=== PATIENT | female | born 1970 | race Caucasian/White ===

== ENCOUNTER → 2022-06-09 | Outpatient (CLI) | payer BC, SELFPAY ==
[2022-06-09 17:34] LABS: Erythrocyte Sedimentation Rate 10 mm/hr (0-30)
[2022-06-09 17:36] LABS: Absolute Lymphocyte Count 2.75 X10^3/uL (0.83-4.51); Absolute Neutrophil Count 5.1 X10^3/uL (2.0-7.7); Basophil# 0.02 X10^3/uL; Basophil% 0.2 % (0-1); Eosinophil# 0.16 X10^3/uL; Eosinophils% 1.8 % (0-5); Hematocrit 43.4 % (37-47); Hemoglobin 14.6 g/dL (12.0-15.0); Lymphocyte # 2.75 X10^3/ul (0.83-4.51); Lymphocyte % 31.2 % (19-41); Mean Corp Hgb Conc 33.6 g/dL (32-36); Mean Corpuscular Hgb 30.7 pg (27.0-32.0); Mean Corpuscular Volume 91.4 fL (81-99); Mean Platelet Vol. 10.2 fl (6.2-12.0); Monocyte# 0.75 X10^3/uL; Monocyte% 8.5 % (0-10); NRBC Flagged by Analyzer 0 % (0-5); Neutrophil # 5.13 X10^3/uL (2.7-7.7); Neutrophil % 58.2 % (47-70); Platelet Count 283 K/mm3 (150-450); RBC Distribution Width CV 10.9 % (11.6-14.6); RBC Distribution Width SD 36.6 fl (35.1-43.9); Red Blood Count 4.75 M/mm3 (4.2-5.4); White Blood Count 8.8 K/mm3 (4.4-11.0)
[2022-06-09 18:04] LABS: AST(SGOT) 24 U/L (15-37); Alanine Aminotransfer ALT/SGPT 22 U/L (13-56); Albumin, Serum 3.8 g/dL (3.2-5.0); Alkaline Phosphatase 75 U/L (45-117); Anion Gap 6 (5-15); BUN 17 mg/dL (7-18); BUN/Creat Ratio 22.9 RATIO (10-20); Chloride 107 mmol/L (98-107); Creatinine, Serum 0.74 mg/dL (0.55-1.02); EST Glomerular Filtration Rate 86 mL/min (>60); Est Glom Filt Rate - Afr Amer 105 mL/min (>60); Globulin 3.8 g/dL (2.2-4.2); Glucose 82 mg/dL (74-106); LDH 185 U/L (84-246); Potassium 3.8 mmol/L (3.5-5.1); Protein, Total 7.6 g/dL (6.4-8.2); Sodium Level 140 mmol/L (136-145)
[2022-06-11 13:07] LABS: Anti-Centromere B Ab <0.2 AI (0.0-0.9); Anti-Chromatin <0.2 AI (0.0-0.9); Anti-Jo <0.2 AI (0.0-0.9); Anti-Scleroderma-70 AB <0.2 AI (0.0-0.9); RNP Ab 0.3 AI (0.0-0.9); SJOGREN'S Anti-SS-A test < 0.2 AI (0.0-0.9); SJOGREN'S Anti-SS-B test < 0.2 AI (0.0-0.9); Smith Ab <0.2 AI (0.0-0.9)
[2022-06-11 13:15] LABS: Anti-dsDNA Ab 25 IU/mL (0-9)
[2022-06-11 15:08] LABS: Endomysial Antibody IgA Negative (Negative)
[2022-06-12 14:24] LABS: Immunoglobulin A 218 mg/dL (87-352); t-Transglutaminase IgA <2 U/mL (0-3)
[2022-06-20 00:06] LABS: Albumin 4.2 g/dL (2.9-4.4); Alpha-1-Globulins 0.3 g/dL (0.0-0.4); Alpha-2-Globulins 0.7 g/dL (0.4-1.0); Cytoplasmic Ab (C-ANCA) <1:20 titer (Neg:<1:20); Gamma Globulin 1.1 g/dL (0.4-1.8); Immunoglobulin A 228 mg/dL (87-352); Immunoglobulin E 37 IU/mL (6-495); Immunoglobulin G 1037 mg/dL (586-1602); Immunoglobulin M 210 mg/dL (26-217); PROEL- TOTAL PROTEIN 7.4 g/dL (6.0-8.5)
[2022-06-20 08:57] LABS: Perinuclear Ab (P-ANCA) <1:20 titer (Neg:<1:20)
== END | disposition home or self-care (01) ==
PROVIDERS: PCP Family Medicine; Referring Provider Internal Medicine Gastroenterology; Visit Provider Internal Medicine Gastroenterology
DX: R19.7 Diarrhea, unspecified (principal)
CPT/HCPCS: 36415; 80053; 82784; 82785; 83516; 83615; 84165; 85025; 85652; 86140; 86225; 86235; 86255; 86256; 86334

== ENCOUNTER → 2022-06-13 | Outpatient (CLI) | payer BC, SELFPAY ==
[2022-06-17 09:30] LABS: Calprotectin, Stool <16 ug/g (0-120)
[2022-06-18 13:07] LABS: 5-HIAA, 24UR 4.8 mg/24 hr (0.0-14.9)
[2022-06-18 17:27] LABS: 5-HIAA, UR 3.4 mg/L (Undefined); Pancreatic Elastase, Fecal 454 (>200)
== END | disposition home or self-care (01) ==
PROVIDERS: PCP Family Medicine; Visit Provider Internal Medicine Gastroenterology
DX: R19.7 Diarrhea, unspecified (principal)
CPT/HCPCS: 81050; 82653; 83497; 83630; 83993; 87493

== ENCOUNTER 2022-08-11 06:07 | Day surgery (SDC) | payer BC, SELFPAY ==
[2022-08-11] VITALS (7 sets, daily range): BP systolic 100–121; BP diastolic 70–98; PULSE 69–87; RESP 14–16; TEMP 36.2–36.7; O2SAT 99–100; BMI 21.2
[2022-08-11] MEDS: Lactated Ringers 1,000 ML 15 ML IV (06:35)
--- NOTE | 2022-08-11 07:12 | PCM.HP.BLA ---
History and Physical Date of Admission: 08/11/22 HONG SNOW, is a 52 F who presents to the office today for evaluation of chronic diarrhea.? She says that she has had chronic diarrhea ever since she had a COVID infection approximately 10 months ago.? Ever since then she has had multiple episodes of loose stools from 6-20 a day.? She says she is totally changed her diet and has been eating all organic without gluten or any preservatives.? She says she still gets profuse watery diarrhea multiple times a day.? She did have stool testing for C. difficile was subsequently negative.? She has lost some weight but it has balanced itself out.? She has been staying hydrated with filtered water.? She denies any sick contacts.? She denies any chest pain or shortness of breath.? She denies any rash.? She denies any? arthritis but does complain of some arthralgia in her back. ROS Const Constitutional: No anorexia, fatigue, fever(s), weight change or sleep problems Eyes Eyes: No change in vision ENT ENT: No abnormal hearing, difficulty swallowing, mouth lesions, tongue swelling or throat swelling Resp Respiratory: No cough or shortness of breath Cardio Cardiology: No chest pain at rest, chest pain with exertion, shortness of breath or dyspnea on exertion Gastro GI: Positive for abdominal pain, bloating and diarrhea; No difficulty swallowing Genitourinary-Female: No difficulty urinating or burning urination Musc Musculoskeletal: No joint pain, joint swelling, muscle weakness or decreased muscle mass Skin Skin: No hair loss in leg, yellowing of the eye, itchy eyes, rash, skin ulcer or skin swelling Neuro Neurology: No abnormal hearing, abnormal movements, confusion, unsteady gait/balance or memory loss Psych Psychiatric: No anxiety, No confusion and No memory loss Endo Endocrine: No fatigue or weight change Aller/Imm Allergy/Immunologic: No itchy eyes, throat swelling or tongue swelling Josiah/Lymp Hematologic/Lymphatic: No easy bleeding, easy bruising or enlarged lymph nodes Exam Const General: cooperative and comfortable Nutritional Appearance: average body habitus and well nourished HENMT Head: normal to inspection Ears: hearing grossly normal bilaterally Nose: external nose normal Face and sinus: normal facial exam Mouth: oral mucosae normal Throat: posterior oropharynx normal Eyes General: appearance normal, both eyes and all related structures Neck Neck: normal visual inspection Chest Chest palpation & inspection: normal inspection of the chest and normal palpation of entire chest wall Resp Effort & Inspection: normal respiratory effort Auscultation: Bilateral: Clear to Auscultation Cardio Palpation: normal PMI Rate: regular rate Rhythm: regular rhythm GI Inspection: normal to inspection Auscultation: normal bowel sounds Percussion: normal to percussion Palpation: no hepatosplenomegaly Skin General: no rashes or lesions noted Neuro General: patient alert Extrem General: normal to inspection Psych Affect: normal affect Assessment and Plan Assessment and Plan (1) Diarrhea: ?Status:?Acute ?Plan: ?Diarrhea is a common term used to describe loose/watery stools which occur three or more times within 24 hours. For diarrhea to be considered chronic, symptoms must be ongoing for four or more weeks. She has been having diarrhea for the last 8 months after having COVID.? ?Virtually all patients will experience diarrhea at some point in time, and the definition of diarrhea will vary from patient to patient.?Most patients will use the term diarrhea to describe loose or watery stools, regardless of the frequency. The exact etiology of chronic diarrhea is quite broad as there are many different causes. ?Any process which causes increased water into the stool can produce diarrhea. These typically categorize into inflammatory and secretory diarrhea. ?The prevalence of the different causes will vary depending on the socioeconomic status of the individual. Individuals in a lower socioeconomic status will be more likely to have chronic bacterial, mycobacterial, and parasitic infections causing, whereas mid to high socioeconomic status individuals with chronic diarrhea are more likely to be afflicted with irritable bowel syndrome, inflammatory bowel disease, and malabsorption syndromes. Biochemical testing include therapy, ESR, CBC with differential, CODY comprehensive,, celiac profile, immunoglobulins G, A, M, E, immunofixation, urine chromogranin a, 5 HIAA.? She will also get stool testing for fecal calprotectin, C. difficile, stool lactoferrin, pancreatic elastase.? If those things are negative then should undergo an EGD and colonoscopy to evaluate upper lower GI tract and possible capsule endoscopy. This consultation took 35-minutes. ? ? ? Orders: Orders Comprehensive Metabolic Profil Today R19.7 - Diarrhea, unspecified ? CRP Today R19.7 - Diarrhea, unspecified ? LDH Today R19.7 - Diarrhea, unspecified ? CBC W/Diff, Automated Today R19.7 - Diarrhea, unspecified ? Erythrocyte Sed Rate Today R19.7 - Diarrhea, unspecified ? CODY Comprehensive Panel Today R19.7 - Diarrhea, unspecified ? Calprotectin, Stool Today R19.7 - Diarrhea, unspecified ? CDIFF (PCR) Today R19.7 - Diarrhea, unspecified ? Stool Lactoferrin/WBC Today R19.7 - Diarrhea, unspecified ? ANCA Today R19.7 - Diarrhea, unspecified ? Celiac Disease Profile Today R19.7 - Diarrhea, unspecified ? Immunoglobulins G/A/M/E Today R19.7 - Diarrhea, unspecified ? ISABEL + Protein Elect, Serum Today R19.7 - Diarrhea, unspecified ? Pancreatic Elastase, Fecal Today R19.7 - Diarrhea, unspecified ? Miscellaneous Lab Procedure Today R19.7 - Diarrhea, unspecified ? Miscellaneous Lab Procedure 2 Today R19.7 - Diarrhea, unspecified ? 5-HIAA 24 HR UR Today R19.7 - Diarrhea, unspecified ? I have re-examined the patient. There are no clinical changes since date of exam.
--- NOTE | 2022-08-11 07:15 | COLBX_PTH ---
PATIENT: HONG SNOW LOC: EN U#:[id number] AGE/SX: 52/F ROOM: RE08/11/[address]: Dr. Jared Self DO : 1970 BED: DIS: 08/11/2022 SPEC #: [id number] RECD: 08/11/22 09:55 STATUS: MATILDA RELilliana #: [id number] GABRIELA: 08/11/22 07:[address]: Jared Slef DEPT: SURGICAL PATHOLOGY RECD BY: Ana Mora ENTERED: 08/11/22 11:13 SP TYPE: COLON BX OTHR DR: Rissa Tran PA-C Tissues: A - Duodenum, NOS B - Pylorus C - Ileum, NOS D - COLON BIOPSY E - Rectum, NOS Procedures: Surgery Specimen Level IV HEADER OPERATION: Colonoscopy, EGD [place] [place] PRE-OP DIAGNOSIS: Diarrhea TISSUE SUBMITTED: A ? Duodenum biopsy, B ? Pyloric sphincter biopsy, C ? Terminal ileum biopsy, D ? Random colon biopsy, E ? Rectum biopsy MICROSCOPIC DIAGNOSIS A. Duodenum, biopsy: Gastric metaplasia. B. Pyloric sphincter, biopsy: Fragments of gastric mucosa with mild chronic inflammation. C. Terminal ileum, biopsy: No pathologic change. D. Colon, random biopsy: No pathologic change. E. Rectum, biopsy: No pathologic change. AM:jono 08/12/2022 MICROSCOPIC DESCRIPTION Slides are reviewed. GROSS DESCRIPTION A - Received in fixative is one container labeled with the patient's name and designated duodenum biopsy. The specimen consists of multiple irregular fragments of light blount soft tissue that in aggregate measure 1 x 0.8 x 0.1 cm. The specimen is totally submitted in one cassette. B - Received in fixative is one container labeled with the patient's name and designated pyloric sphincter biopsy. The specimen consists of two irregular fragments of light blount soft tissue that in aggregate measure 0.3 x 0.3 x 0.1 cm. The specimen is totally submitted in one cassette. C - Received in fixative is one container labeled with the patient's name and designated terminal ileum biopsy. The specimen consists of one irregular fragment of light blount soft tissue that measures 0.3 x 0.3 x 0.1 cm. The specimen is totally submitted in one cassette. D - Received in fixative is one container labeled with the patient's name and designated random colon biopsy. The specimen consists of multiple irregular fragments of light blount soft tissue that in aggregate measure 1.5 x 0.5 x 0.1 cm. The specimen is totally submitted in one cassette. E - Received in fixative is one container labeled with the patient's name and designated rectum biopsy. The specimen consists of two irregular fragments of light blount soft tissue that in aggregate measure 1 x 0.5 x 0.1 cm. The specimen is totally submitted in one cassette. / AM:jono 08/11/2022 TC:3 CPT: 04468 x5
--- NOTE | 2022-08-11 08:00 | OP.EGD_ITS ---
Patient Name: Nisreen Howard Procedure Date: 08/11/2022 7:18 AM Date of : 1970 Age: 52 Procedure: Upper GI endoscopy Indications: Epigastric abdominal pain, Failure to respond to medical treatment Providers: Jared Self DO Medicines: Monitored Anesthesia Care Patient Profile: This is a 52 year old female. Refer to note in patient chart for documentation of history and physical. Patient has symptoms of chronic abdominal cramping, chronic global abdominal pain and chronic dyspepsia. Complications: No immediate complications. Procedure: Pre-Anesthesia Assessment: - Prior to the procedure, a History and Physical was performed, and patient medications and allergies were reviewed. The risks and benefits of the procedure and the sedation options and risks were discussed with the patient. All questions were answered and informed consent was obtained. Patient identification and proposed procedure were verified by the physician in the pre-procedure area. Mental Status Examination: alert and oriented. Airway Examination: normal oropharyngeal airway and neck mobility. Respiratory Examination: clear to auscultation. CV Examination: normal. Prophylactic Antibiotics: The patient does not require prophylactic antibiotics. Prior Anticoagulants: The patient has taken no previous anticoagulant or antiplatelet agents. ASA Grade Assessment: II - A patient with mild systemic disease. After reviewing the risks and benefits, the patient was deemed in satisfactory condition to undergo the procedure. The anesthesia plan was to use monitored anesthesia care (MAC). Immediately prior to administration of medications, the patient was re-assessed for adequacy to receive sedatives. The heart rate, respiratory rate, oxygen saturations, blood pressure, adequacy of pulmonary ventilation, and response to care were monitored throughout the procedure. The physical status of the patient was re-assessed after the procedure. After obtaining informed consent, the endoscope was passed under direct vision. Throughout the procedure, the patient's blood pressure, pulse, and oxygen saturations were monitored continuously. The Colonoscope was introduced through the mouth, and advanced to the second part of duodenum. The upper GI endoscopy was accomplished without difficulty. The patient tolerated the procedure well. Scope In: 7:30:02 AM Scope Out: 7:35:12 AM Total Procedure Duration Time 0 hours 5 minutes 10 seconds Findings: The examined esophagus was normal. A benign-appearing, intrinsic moderate stenosis was found at the pylorus. This was traversed. Biopsies were taken with a cold forceps for histology. Verification of patient identification for the specimen was done. Estimated blood loss was minimal. Patchy mildly erythematous mucosa without active bleeding and with no stigmata of bleeding was found in the duodenal bulb. Impression: - Normal esophagus. - Gastric stenosis was found at the pylorus. Biopsied. - Erythematous duodenopathy. Recommendation: - Discharge patient to home. - Resume previous diet. - Continue present medications. - Await pathology results. - Repeat upper endoscopy for surveillance. Procedure Code(s): --- Professional --- 66873, Esophagogastroduodenoscopy, flexible, transoral; with biopsy, single or multiple CPT copyright 2017 [employer]. All rights reserved. The codes documented in this report are preliminary and upon nuisance wildlife specialist review may be revised to meet current compliance requirements. Jared Self DO 08/11/2022 7:59:53 AM This report has been signed electronically. Number of Addenda: 0 Note Initiated On: 08/11/2022 7:18 AM
--- NOTE | 2022-08-11 08:00 | OP.CCLET_ITS ---
08/11/2022 Rissa Tran Re : Upper GI endoscopy procedure for Nisreen Tran This procedure was performed on Thursday, August 11, 2022. My impressions and recommendations are as follows: Impressions : - Normal esophagus. - Gastric stenosis was found at the pylorus. Biopsied. - Erythematous duodenopathy. Recommendations : - Discharge patient to home. - Resume previous diet. - Continue present medications. - Await pathology results. - Repeat upper endoscopy for surveillance. My findings are described in the full procedure note, which is enclosed. If I can be of further assistance, please feel free to contact me at . Sincerely, Jared Self, 08/11/2022 7:59:53 AM This report has been signed electronically.
--- NOTE | 2022-08-11 08:06 | OP.COLON_ITS ---
Patient Name: Nisreen Howard Procedure Date: 08/11/2022 7:35 AM Date of : 1970 Age: 52 Procedure: Colonoscopy Indications: Clinically significant diarrhea of unexplained origin Providers: Jared Self DO Medicines: Monitored Anesthesia Care Patient Profile: This is a 52 year old female. Refer to note in patient chart for documentation of history and physical. Patient has symptoms of chronic abdominal cramping, chronic global abdominal pain and chronic dyspepsia. Last Colonoscopy: 5 years ago. Complications: No immediate complications. Procedure: Pre-Anesthesia Assessment: - Prior to the procedure, a History and Physical was performed, and patient medications and allergies were reviewed. The risks and benefits of the procedure and the sedation options and risks were discussed with the patient. All questions were answered and informed consent was obtained. Patient identification and proposed procedure were verified by the physician in the pre-procedure area. Mental Status Examination: alert and oriented. Airway Examination: normal oropharyngeal airway and neck mobility. Respiratory Examination: clear to auscultation. CV Examination: normal. Prophylactic Antibiotics: The patient does not require prophylactic antibiotics. Prior Anticoagulants: The patient has taken no previous anticoagulant or antiplatelet agents. ASA Grade Assessment: II - A patient with mild systemic disease. After reviewing the risks and benefits, the patient was deemed in satisfactory condition to undergo the procedure. The anesthesia plan was to use monitored anesthesia care (MAC). Immediately prior to administration of medications, the patient was re-assessed for adequacy to receive sedatives. The heart rate, respiratory rate, oxygen saturations, blood pressure, adequacy of pulmonary ventilation, and response to care were monitored throughout the procedure. The physical status of the patient was re-assessed after the procedure. After I obtained informed consent, the scope was passed under direct vision. Throughout the procedure, the patient's blood pressure, pulse, and oxygen saturations were monitored continuously. The pediatric colonoscope was introduced through the anus and advanced to the terminal ileum. The colonoscopy was performed without difficulty. The patient tolerated the procedure well. The quality of the bowel preparation was good. Scope In: 7:37:11 AM Scope Out: 7:52:22 AM Total Procedure Duration Time 0 hours 15 minutes 11 seconds Findings: The perianal exam was abnormal and the fact that there was poor rectal tone. An area of mildly congested mucosa was found in the sigmoid colon, in the descending colon, in the transverse colon and at the hepatic flexure. Biopsies were taken with a cold forceps for histology. Verification of patient identification for the specimen was done. Estimated blood loss was minimal. Patchy mild inflammation characterized by erythema was found in the rectum. Biopsies were taken with a cold forceps for histology. Verification of patient identification for the specimen was done. Estimated blood loss was minimal. The terminal ileum appeared normal. Biopsies were taken with a cold forceps for histology. Verification of patient identification for the specimen was done. Estimated blood loss was minimal. Impression: - Abnormal perianal exam. - Congested mucosa in the sigmoid colon, in the descending colon, in the transverse colon and at the hepatic flexure. Biopsied. - Patchy mild inflammation was found in the rectum secondary to proctitis. Biopsied. - The examined portion of the ileum was normal. Biopsied. Recommendation: - Discharge patient to home. - Resume previous diet. - Continue present medications. - Await pathology results. - Repeat colonoscopy in 5 years for surveillance. Procedure Code(s): --- Professional --- 98253, Colonoscopy, flexible; with biopsy, single or multiple CPT copyright 2017 [employer]. All rights reserved. The codes documented in this report are preliminary and upon drier transfer car operator review may be revised to meet current compliance requirements. Jared Self DO 08/11/2022 8:05:49 AM This report has been signed electronically. Number of Addenda: 0 Note Initiated On: 08/11/2022 7:35 AM
--- NOTE | 2022-08-11 08:06 | OP.CCLET_ITS ---
08/11/2022 Rissa Tran Re : Colonoscopy procedure for Nisreen Mcmahonr [place] This procedure was performed on Thursday, August 11, 2022. My impressions and recommendations are as follows: Impressions : - Abnormal perianal exam. - Congested mucosa in the sigmoid colon, in the descending colon, in the transverse colon and at the hepatic flexure. Biopsied. - Patchy mild inflammation was found in the rectum secondary to proctitis. Biopsied. - The examined portion of the ileum was normal. Biopsied. Recommendations : - Discharge patient to home. - Resume previous diet. - Continue present medications. - Await pathology results. - Repeat colonoscopy in 5 years for surveillance. My findings are described in the full procedure note, which is enclosed. If I can be of further assistance, please feel free to contact me at . Sincerely, Jared Self, 08/11/2022 8:05:49 AM This report has been signed electronically.
== END 2022-08-11 08:46 | disposition home or self-care (01) ==
LOC: EN 06:13 → AC 06:13
PROVIDERS: PCP Family Medicine; Referring Provider Family Medicine; Visit Provider Internal Medicine Gastroenterology
PROC: 0DJD8ZZ Inspection of Lower Intestinal Tract, Via Natural or Artificial Opening Endoscopic (ICD-10-PCS; CPT 45378; principal; 2022-08-11 07:10)
DX: K31.A0 Gastric intestinal metaplasia, unspecified (principal); K31.1 Adult hypertrophic pyloric stenosis; K63.89 Other specified diseases of intestine; K62.89 Other specified diseases of anus and rectum; J45.909 Unspecified asthma, uncomplicated; Z86.73 Personal history of transient ischemic attack (TIA), and cerebral infarction without residual deficits; Z86.16 Personal history of COVID-19
CPT/HCPCS: 45380; 43239; 88305; J7120; J2405

== ENCOUNTER → 2022-12-15 | Outpatient (CLI) | payer BC, SELFPAY ==
[2022-12-15 12:57] LABS: Erythrocyte Sedimentation Rate 5 mm/hr (0-30)
[2022-12-15 13:14] LABS: CRP 4.86 mg/L (0.0-3.0)
[2022-12-16 13:08] LABS: Anti-Centromere B Ab <0.2 AI (0.0-0.9); Anti-Chromatin <0.2 AI (0.0-0.9); Anti-Jo <0.2 AI (0.0-0.9); Anti-Scleroderma-70 AB <0.2 AI (0.0-0.9); RNP Ab 0.3 AI (0.0-0.9); SJOGREN'S Anti-SS-A test < 0.2 AI (0.0-0.9); SJOGREN'S Anti-SS-B test < 0.2 AI (0.0-0.9); Smith Ab <0.2 AI (0.0-0.9)
[2022-12-16 22:57] LABS: Anti-dsDNA Ab 30 IU/mL (0-9)
== END | disposition home or self-care (01) ==
LOC: LAB 11:53
PROVIDERS: PCP Family Medicine; Referring Provider Internal Medicine Gastroenterology; Visit Provider Internal Medicine Gastroenterology
DX: R19.7 Diarrhea, unspecified (principal)
CPT/HCPCS: 36415; 85652; 86140; 86225; 86235

== ENCOUNTER → 2023-11-23 | Outpatient (CLI) | payer BC, SELFPAY ==
[2023-11-23 15:22] LABS: Erythrocyte Sedimentation Rate 7 mm/hr (0-30)
[2023-11-23 15:40] LABS: Amylase 65 U/L (25-115); CRP < 2.90 mg/L (0.0-3.0); Lipase 66 U/L (13-75)
[2023-11-25 18:07] LABS: Aldolase 6.2 U/L (3.3-10.3); Angiotensin Convert Enzyme 45 U/L (14-82)
[2023-11-29 12:09] LABS: Beef <0.10 kU/L (Class 0); Chocolate <0.10 kU/L (Class 0); Codfish <0.10 kU/L (Class 0); Corn <0.10 kU/L (Class 0); Egg, Whole <0.10 kU/L (Class 0); Milk (Cow) <0.10 kU/L (Class 0); Mussels <0.10 kU/L (Class 0); Peanut <0.10 kU/L (Class 0); Pork <0.10 kU/L (Class 0); Salmon <0.10 kU/L (Class 0); Shrimp <0.10 kU/L (Class 0); Soybean <0.10 kU/L (Class 0); Tuna <0.10 kU/L (Class 0); Wheat <0.10 kU/L (Class 0)
== END | disposition home or self-care (01) ==
PROVIDERS: PCP Family Medicine; Referring Provider Internal Medicine Gastroenterology; Visit Provider Internal Medicine Gastroenterology
DX: K58.0 Irritable bowel syndrome with diarrhea (principal); R19.7 Diarrhea, unspecified; M19.90 Unspecified osteoarthritis, unspecified site
CPT/HCPCS: 36415; 82085; 82150; 82164; 83690; 85652; 86003; 86005; 86140

== ENCOUNTER → 2024-08-06 | Outpatient (CLI) | payer BC, SELFPAY ==
[2024-08-06 14:32] LABS: Erythrocyte Sedimentation Rate 4 mm/hr (0-30)
[2024-08-06 14:44] LABS: CRP 8.54 mg/L (0.0-3.0); Estradiol 55.1 pg/mL; Luteinizing Hormone 21.4 mIU/mL
== END | disposition home or self-care (01) ==
LOC: LAB 13:46
PROVIDERS: PCP Family Medicine; Referring Provider Internal Medicine Gastroenterology; Visit Provider Internal Medicine Gastroenterology
DX: R19.7 Diarrhea, unspecified (principal)
CPT/HCPCS: 36415; 82670; 83002; 85652; 86140

== ENCOUNTER → 2024-12-31 | Outpatient (CLI) | payer BC, SELFPAY ==
--- NOTE | 2024-12-31 07:49 | US_ITS ---
PROCEDURE: ABD LIMITED W/ ELASTOGRAPHY (USABDLELPARO), 12/31/2024 REASON FOR EXAM: Elevated liver enzymes. COMPARISON: None TECHNIQUE: Grayscale and color Doppler imaging of the right upper quadrant was performed. [employer] S-shear wave elastography was performed for non-invasive assessment of liver tissue stiffness. FINDINGS: Liver: Unremarkable. 13.3 cm in length. Gallbladder: Unremarkable. Reportedly, sonographic Gastelum's was negative. Biliary tree: Unremarkable. CBD measures 2 mm. Pancreas: Partially obscured by shadowing bowel gas, grossly unremarkable as visualized. Right kidney: Unremarkable. 10.9 cm in length. Spleen: Unremarkable. 9.1 cm in greatest dimension. Other: No visualized free fluid. Hepatic elastography: EQI median: 8.3kPa EQI median velocity: 1.67 m/s IQR/Med: 19.3% (kPa), 10.2 % (m/sec) (if the IQR/Med is IQR/median >30% (for kPa) or >15% in m/s, the variance in the measurements is a large and the accuracy of the measurement may be in question) US/ABD Limited w/ Elastography IMPRESSION: 1. Echogenic appearance of the hepatic parenchyma, typically associated with he patic steatosis although this may also be seen in early fibrosis/cirrhosis. Correlate with clinical laboratory evidence of chron ic liver disease. No biliary dilatation. 2. Per the below 2020 SRU criteria, US elastography findings (liver stiffness 8 .3 kPa) rule out compensated advanced chronic liver disease (cACLD) in the absence of other known clinical signs. If there ar e known clinical signs, further testing may be needed for confirmation. Note per the below, in some patients with NAFLD, the cutoff values for cACLD may be lower (7-9 kPa). 3. Additional description as above. Assessment is per the Update to the SRU Liver Elastography Consensus Statement (2020) Note that the above assessment of liver fibrosis is vendor-neutral and intended for use in fibrosis related to viral etiologies and non-alcoholic fatty-liver disease (NAFLD); in causes other than viral hepat itis and NAFLD, the cutoff values are currently not well established. In some patients with NAFLD, the cutoff values for cACLD may be lower (7-9 kPa). Note also that in the setting of elevated LFTs, nonfasting or vascular congestion, the stage of lifer fibrosis may be overestimated. Previous SRU reference values: <1.37 m/s (5.7kPa): No to mild fibrosis 1.37 m/s - 2.2 m/s: Moderate to severe fibrosis >2.2 m/s (15kPa): Significant fibrosis / cirrhosis Reading Location: [id number]
== END | disposition home or self-care (01) ==
LOC: US 07:49
PROVIDERS: PCP Family Medicine; Referring Provider Internal Medicine; Visit Provider Internal Medicine
DX: R74.8 Abnormal levels of other serum enzymes (principal); R19.7 Diarrhea, unspecified; K58.0 Irritable bowel syndrome with diarrhea
CPT/HCPCS: 76705; 76981

== ENCOUNTER → 2025-02-14 | Outpatient (CLI) | payer BC, SELFPAY ==
[2025-02-14 13:13] LABS: Bacteria 0 SEEN /hpf (None Seen); Mucous, Urine 0 SEEN /hpf (<or=2+); Red Blood Cells-Urine 0 SEEN /hpf (0-5)
[2025-02-14 13:20] LABS: Absolute Lymphocyte Count 1.81 X10^3/uL (0.83-4.51); Absolute Neutrophil Count 4.3 X10^3/uL (2.0-7.7); Basophil# 0.02 X10^3/uL; Basophil% 0.3 % (0-1); Eosinophil# 0.12 X10^3/uL; Eosinophils% 1.7 % (0-5); Hematocrit 41.5 % (37-47); Hemoglobin 14.3 g/dL (12.0-15.0); Lymphocyte # 1.81 X10^3/ul (0.83-4.51); Lymphocyte % 26.3 % (19-41); Mean Corp Hgb Conc 34.5 g/dL (32-36); Mean Corpuscular Hgb 31.6 pg (27.0-32.0); Mean Corpuscular Volume 91.6 fL (81-99); Mean Platelet Vol. 9.9 fl (6.2-12.0); Monocyte# 0.58 X10^3/uL; Monocyte% 8.4 % (0-10); NRBC Flagged by Analyzer 0 % (0-5); Neutrophil # 4.33 X10^3/uL (2.7-7.7); Neutrophil % 63.2 % (47-70); Platelet Count 213 K/mm3 (150-450); RBC Distribution Width SD 40.3 fl (35.1-43.9); Red Blood Count 4.53 M/mm3 (4.2-5.4); White Blood Count 6.9 K/mm3 (4.4-11.0)
[2025-02-14 13:22] LABS: Color, Urine Yellow (Yellow); Glucose, Dipstick Normal (Normal); Ketone-Dipstick Negative (Negative); Leukocyte Esterase-Dipstick 25 /ul (Negative); Nitrite-Dipstick Negative (Negative); Occult Blood-Urine Negative /ul (Negative); Protein-Dipstick 30 mg/dl (Negative); Specific Gravity, Urine 1.015 (1.002-1.030); Urine Bilirubin Dipstick Negative (Negative); Urine Clarity Clear (Clear); Urine Urobilinogen Normal (Normal)
[2025-02-14 13:27] LABS: International Normalized Ratio 0.9; Prothrombin Time (Protime)PT. 12.7 SECONDS (11.7-14.9)
[2025-02-14 13:28] LABS: Squamous Epithelial Cells - UA 0-5 SEEN /hpf (5-10); White Blood Cells 0-5 SEEN /hpf (0-5)
[2025-02-14 14:07] LABS: Ferritin 96 ng/mL (22-378); Hepatitis B Surface Antibody REAC
[2025-02-14 14:11] LABS: ALB/GLOB Ratio 1.6 RATIO (0.9-2.4); AST(SGOT) 172 U/L (<=31); Alanine Aminotransfer ALT/SGPT 185 U/L (<=34); Albumin, Serum 4.1 g/dL (3.5-5.0); Alkaline Phosphatase 104 U/L (35-104); Anion Gap 13 (5-15); BUN 16 mg/dL (4-19); BUN/Creat Ratio 17.5 RATIO (10-20); Bilirubin, Direct 0.17 mg/dL (0.00-0.30); CRP 8.11 mg/L (0.0-3.0); Calcium,Total 8.5 mg/dL (7.6-11.0); Carbon Dioxide 21.5 mmol/L (21.0-32.0); Chloride 106 mmol/L (98-108); Creatinine, Serum 0.93 mg/dL (0.70-1.20); EST Glomerular Filtration Rate 72 (>60); Globulin 2.6 g/dL (2.2-4.2); Glucose 104 mg/dL (70-99); Potassium 3.8 mmol/L (3.3-5.1); Protein, Total 6.7 g/dL (5.9-8.4); Sodium Level 141 mmol/L (133-145); Total Bilirubin 0.44 mg/dL (0.00-1.30)
[2025-02-14 14:35] LABS: Iron Binding Capacity,Total 282 ug/dL (250-450)
[2025-02-14 14:40] LABS: Iron 110 ug/dL (50-170); Iron Binding Capacity,Unsat 172 ug/dL (228-428); LDH 269 U/L (84-246)
[2025-02-18 14:08] LABS: ANTINUCLEAR ANTIBODIES DIRECT Positive (Negative); Anti-Centromere B Ab <0.2 AI (0.0-0.9); Anti-Chromatin <0.2 AI (0.0-0.9); Anti-Jo <0.2 AI (0.0-0.9); Anti-Mitochondrial AB <20.0 Units (0.0-20.0); Anti-Scleroderma-70 AB <0.2 AI (0.0-0.9); Anti-dsDNA Ab 11 IU/mL (0-9); RNP Ab 0.4 AI (0.0-0.9); SJOGREN'S Anti-SS-A test < 0.2 AI (0.0-0.9); SJOGREN'S Anti-SS-B test < 0.2 AI (0.0-0.9); Smith Ab <0.2 AI (0.0-0.9)
== END | disposition home or self-care (01) ==
LOC: LAB 12:19
PROVIDERS: Internal Medicine; PCP Family Medicine; Referring Provider Internal Medicine Rheumatology; Visit Provider Internal Medicine Rheumatology
DX: R74.8 Abnormal levels of other serum enzymes (principal); K58.0 Irritable bowel syndrome with diarrhea; R19.7 Diarrhea, unspecified; R94.5 Abnormal results of liver function studies
CPT/HCPCS: 36415; 80053; 80074; 81001; 82248; 82390; 82525; 82728; 82977; 83516; 83540; 83550; 83615; 84439; 84443; 85025; 85610; 86038; 86140; 86225; 86235; 86706

== ENCOUNTER 2025-04-29 08:28 | Outpatient (CLI) | payer BC, SELFPAY ==
[2025-04-29] VITALS (14 sets, daily range): BP systolic 126–154; BP diastolic 71–90; PULSE 56–75; RESP 12–18; TEMP 36.9; O2SAT 97–100; BMI 25.4
--- NOTE | 2025-04-29 08:41 | CT_ITS ---
EXAM: CT-guided liver biopsy. CLINICAL HISTORY: Fatty infiltration of the liver. COMPARISON: Prior sonogram dated December 31, 2024. TECHNIQUE: The procedure as well as the benefits and possible complications including infection and bleeding were explained to the patient. Informed consent was obtained. The patient was in the supine position. Conscious sedation was performed. The patient received 2 mg of Versed and 25 mcg of fentanyl intravenously. Conscious sedation was started at 10:27 a.m. and terminated at 10:45 a.m.. The patient was independently monitored by the department nurse. The overlying skin was prepped and draped in the usual sterile fashion. Following local anesthetic application, 4 core biopsies of the right lobe of the liver was performed with an 18 gauge core biopsy needle system. The patient tolerated the procedure well. FINDINGS: Successful CT-guided core biopsies of the right lobe of the liver as described. The patient tolerated the procedure well. No immediate complication noted. CT/Biopsy/Inj or Needle Placement IMPRESSION: Successful CT-guided core biopsy of the right lobe of the liver as described. Reading Location: [place] [id number]
[2025-04-29 08:45] LABS: Hematocrit 45.1 % (37-47); Hemoglobin 15.3 g/dL (12.0-15.0); Immature Granulocytes Count 0.020 X10^3/uL (0.0-0.0); Mean Corp Hgb Conc 33.9 g/dL (32-36); Mean Corpuscular Volume 92.6 fL (81-99); Mean Platelet Vol. 9.9 fl (6.2-12.0); NRBC Flagged by Analyzer 0 % (0-5); Platelet Count 192 K/mm3 (150-450); RBC Distribution Width CV 11.9 % (11.6-14.6); RBC Distribution Width SD 40.5 fl (35.1-43.9); Red Blood Count 4.87 M/mm3 (4.2-5.4); White Blood Count 7.1 K/mm3 (4.4-11.0)
[2025-04-29 09:12] LABS: Prothrombin Time (Protime)PT. 12.9 SECONDS (11.7-14.9)
[2025-04-29 09:13] LABS: Partial Thromboplast Time 27.9 Seconds (24.1-36.2)
[2025-04-29] MEDS: 0.9% Normal Saline (250mL Bag) 250 ML 15 ML IV (10:26)
[2025-04-29] MEDS: Midazolam 2 MG/2 ML Syringe IV (10:27)
[2025-04-29] MEDS: fentaNYL 100 MCG/2 ML Ampul IV (10:28)
[2025-04-29] MEDS: Lidocaine 2% (20 ml mdv) 20 ML Vial INFILT (10:38)
[2025-04-29] MEDS: Ketorolac 30 MG/ML Syringe IV (11:31)
[2025-04-29 12:44] LABS: Pathology Sent to OSU SEE PATHOLOGY REPORT
--- OUTSIDE RECORDS SUMMARY | 2025-05-01 23:54 | XMS RPT_ITS | CCD ---
Author Organization [facility] Care Team Providers Care Color Mixer Name Role Phone UNKNOWN, PROVIDER Unavailable Unavailable Friend, Dr. Coleman Attending Provider [phone] [place] ANN PASammiC Rissa Primary Care Provider [place] ANN PASammiC Rissa Referring Provider Friend, Dr. Coleman Attending Provider [place] CHANDLER, Rissa Primary Care Provider [place] CHANDLER, Rissa Referring Provider Germán TBOAR, Dr. Pascual Attending Provider Dr. Ankur Dunlap MD Referring Provider HILLS, RISSA Admitting Unavailable HILLS, RISSA Attending Unavailable DESHLER, RISSA Primary Care Unavailable DESHLER, RISSA Consulting Unavailable PROVIDER, UNKNOWN Consulting Unavailable Genia FLOWERS Admitting Unavailable Genia FLOWERS Attending Unavailable eGnia FLOWERS Primary Care Unavailable DESHLER, RISSA Consulting Unavailable PROVIDER, UNKNOWN Consulting Unavailable SEAMUS VÁSQUEZ Admitting Unavailable SEAMUS VÁSQUEZ Attending Unavailable SEAMUS VÁSQUEZ Primary Care Unavailable HILLS, RISSA Consulting Unavailable DESHLER, RISSA Referring Unavailable PROVIDER, UNKNOWN Consulting Unavailable MILAGROSDARIO NASCIMENTO Admitting Unavailable MILAGROSDARIO Attending Unavailable MILAGROSDARIO NASCIMENTO Primary Care Unavailable HILLS, RISSA Consulting Unavailable HILLS, RISSA Referring Unavailable PROVIDER, UNKNOWN Consulting Unavailable HILLS, RISAS Admitting Unavailable HILLS, RISSA Attending Unavailable HILLS, RISSA Primary Care Unavailable HILLS, RISSA Consulting Unavailable PROVIDER, UNKNOWN Consulting Unavailable HILLS, RISSA Admitting Unavailable HILLS, RISSA Attending Unavailable HILLS, RISSA Primary Care Unavailable HILLS, RISSA Consulting Unavailable PROVIDER, UNKNOWN Consulting Unavailable Genia FLOWERS Admitting Unavailable Genia FLOWERS Attending Unavailable Genia FLOWERS Primary Care Unavailable DESHLER, RISSA Consulting Unavailable PROVIDER, UNKNOWN Consulting Unavailable LIONEL TOBAR, SUN Attending Provider [phone] SUN FLOWERS MD Referring Provider Germán TOBAR, Dr. Pascual Other Provider Alix Reynolds Attending Unavailable [place], Rissa Primary Care Unavailable [place], Rissa Referring Unavailable Friend, Jared Referring Unavailable [place], Rissa Primary Care Unavailable Friend, Jared Attending Unavailable Germán, Ankur Attending Unavailable Germán, Ankur Referring Unavailable [place], Rissa Primary Care Unavailable SUN FLOWERS Attending Unavailable LIONEL, SUN Referring Unavailable [place], Rissa Primary Care Unavailable Germán, Ankur Consulting Unavailable Germán, Ankur Attending Unavailable [place], Rissa Primary Care Unavailable [place], Rissa Referring Unavailable Germán, Ankur Referring Unavailable [place], Rissa Primary Care Unavailable Germán, Ankur Attending Unavailable Germán, Ankur Attending Unavailable [place], Rissa Referring Unavailable [place], Rissa Primary Care Unavailable Allergies Allergy Classification Reported Allergen(s) Allergy Type Date of Onset Reaction(s) Facility (5 sources) Meperidine Drug Allergy 2 Vomiting [facility] (3 sources) cow milk allergenic extract Drug Allergy 2 [facility] Comment on above: ABD PAIN (3 sources) Glutamate Drug Allergy 2 [facility] Comment on above: ABD PAIN (3 sources) Iodine Drug Allergy 2 [facility] (4 sources) Shellfish; Translations: [shellfish derived] Allergy to substance 2 Food Allergy [facility] (3 sources) Wheat gluten extract Drug Allergy 2 [facility] Comment on above: ABD PAIN (1 source) Iodine Drug Allergy [facility] (1 source) Meperidine Drug Allergy [facility] (1 source) Gluten Drug allergy (disorder) 5 [facility] (1 source) Iodine Drug Allergy 5 [facility] (1 source) Meperidine Drug Allergy 5 [facility] (1 source) Milk Drug allergy (disorder) 5 [facility] (1 source) monosodium glutamate Drug allergy (disorder) 5 [facility] Medications Current Medications Medication Drug Class(es) Dates Sig (Normalized) Sig (Original) [id number] 200 actuat albuterol 0.09 mg/actuat metered dose inhaler (5 sources) beta2-Adrenergic Agonist Start: 06-09-2022 Albuterol Sulfate (Ventolin Hfa) 90 mcg/actuation HFA aerosol inhaler Active 1 NMA INHALATION ONCE June 09, 2022 12:00am Start: 06-09-2022 Albuterol Sulf ate (Ventolin Hfa) 90 mcg/actuation HFA aerosol inhaler Active 1 INH INHALATION ONCE June 08, 2022 11:00pm ALPRAZolam 0.25 mg oral tablet (2 sources) Benzodiazepine Start: 06-09-2022 take 1 tablet by mouth once daily Alprazolam (Xanax) 0.25 mg tablet Active 0.25 MG PO DAILY June 09, 2022 12:00am aspirin 81 mg delayed release oral tablet (2 sources) Platelet Aggregation Inhibitor, Nonsteroidal Anti-inflammatory Drug Start: 06-09-2022 take 81 mg by mouth once daily Aspirin Active 81 MG PO DAILY June 09, 2022 12:00am 168 hr estradiol 0.18489 mg/hr transdermal system (4 sources) Estrogen Start: 08-06-2024 Estradiol 0.05 mg/24 hr patch weekly Active 1 NMA TD .2XWEEK August 06, 2024 12:00am Start: 06-09-2022 take 2 mg by mouth once daily Estradiol Active 2 MG PO DAILY June 09, 2022 12:00am Magnesium (3 sources) Start: 08-10-2022 take 2 tablets by mo [facility] twice daily Magnesium 200 mg Tablet Active 400 mg PO TWICE A DAY August 10, 2022 12:00am Start: 08-10-2022 take 400 mg by mouth twice binta ly Magnesium Active 400 MG PO TWICE A DAY August 09, 2022 11:00pm Multivitamin preparation (1 source) Start: 08-10-2022 take 1 tablet by mouth once daily Multivitamin Active 1 TABLET PO DAILY August 09, 2022 11:00pm Multivitamin Tablet (2 sources) Start: 08-10-2022 Multivitamin T ablet Active 1 {tbl} PO DAILY August 10, 2022 12:00am Vitamin B Complex (1 source) Start: 08-10-2022 take 1 tablet by mouth once daily Vitamin B Complex Active 1 TABLET PO DAILY August 09, 2022 11:00pm Completed/Discontinued Medications Medication Drug Class(es) Dates Sig (Normalized) Sig (Original) ascorbic acid 500 mg oral tablet (5 sources) Vitamin C Start: 08-10-2022 End: 04-11-2024 take 1 tablet by mouth once daily as needed Ascorbic Acid (Vitamin C) (Vitamin C) 500 mg tablet Discontinued 500 mg PO DAILY as needed November 23, 2023 3:09pm April 11, 2024 3:11pm calcium carbonate 1500 mg oral tablet (5 sources) Start: 06-09-2022 End: 04-11-2024 take 1 tablet by mouth once daily Calcium Carbonate 600 mg calcium (1,500 mg) tablet Discontinued 600 mg PO DAILY June 09, 2022 12:00am April 11, 2024 3:12pm cholecalciferol 0.025 mg oral tablet (3 sources) Vitamin D Start: 08-10-2022 End: 04-11-2024 take 1 tablet by mouth twice daily Cholecalciferol (Vitamin D3) (Vitamin D3) 25 mcg (1,000 unit) Tablet Discontinued 25 ug PO TWICE A DAY August 10, 2022 12:00am April 11, 2024 3:12pm dicyclomine hydrochloride 10 mg oral capsule (4 sources) Anticholinergic Start: 03-30-2023 End: 12-20-2024 take 1 capsule by mouth twice daily as needed Dicyclomine 10 mg capsule Discontinued 10 mg PO TWICE A DAY as needed April 11, 2024 3:12pm December 20, 2024 12:17pm melatonin 10 mg oral capsule (5 sources) Start: 06-09-2022 End: 11-23-2023 take 1 capsule by mouth at bedtime as needed Melatonin 10 mg capsule Discontinued 10 mg PO BEDTIME as needed for ASTHMA June 09, 2022 12:00am November 23, 2023 3:10pm psyllium 500 mg oral capsule (3 sources) Start: 08-10-2022 End: 11-23-2023 take 1 g by mouth once daily Psyllium 500 mg Capsule Discontinued 1 g PO DAILY August 10, 2022 12:00am November 23, 2023 3:10pm Start: 08-10-2022 take 1 g by mouth once daily P syllium Active 1 GM PO DAILY August 09, 2022 11:00pm Vitamin B Complex Tablet (2 sources) Start: 08-10-2022 End: 11-23-2023 Vitamin B Complex Tablet Dis continued 1 {tbl} PO DAILY August 10, 2022 12:00am November 23, 2023 3:10pm Problems Active Problems Problem Classification Problem Date Documented Da te Episodic/Chronic Allergic reactions (2 sources) Allergy status to narcotic agent status; Translations: [Allergy to seafood] Onset: 12-02-2024 Episodic Asthma (1 source) Unspecified asthma, uncomplicated; Translations: [Unspecified asthma, uncomplicated] Onset: 12-02-2024 Chronic Osteoarthritis (2 sources) Arthritis; Translations: [Unspecified osteoarthritis, unspecified site] 11-23-2023 Chronic Other aftercare (1 source) Other vermin exterminator (current) drug therapy; Translations: [Other chcf (current) drug therapy] Onset: 12-02-2024 Episodic Other gastrointestinal disorders (2 sources) Irritable bowel syndrome with diarrhea; Translations: [Irritable bowel syndrome with diarrhea] 03-30-2023 Chronic Other gastrointestinal disorders (5 sources) Diarrhea; Translations: [Diarrhea, unspecified] 08-24-2022 Episodic Other liver diseases (5 sources) Elevated liver enzymes level; Translations: [Abnormal levels of other serum enzymes] 12-20-2024 Episodic Other liver diseases (3 sources) Abnormal levels of other serum enzymes; Translations: [Abnormal levels of other serum enzymes] Onset: 12-02-2024 Episodic Other lower respiratory disease (2 sources) Dyspnea, unspecified; Translations: [Dyspnea, unspecified] Onset: 12-02-2024 Episodic Other screening for suspected conditions (not mental disorders or infectious disease) (1 source) Other specified abnormal findings of blood chemistry; Translations: [Other specified abnormal findings of blood chemistry] Onset: 12-07-2024 Episodic Residual codes; unclassified (1 source) Acquired absence of other genital organ(s); Translations: [Acquired absence of other genital organ(s)] Onset: 12-02-2024 Episodic Unclassified (1 source) Elevation of levels of liver transaminase levels; Translations: [Elevation of levels of liver transaminase levels] Onset: 12-02-2024 Unclassified (1 source) Post COVID-19 condition, unspecified; Translations: [Post COVID-19 condition, unspecified] Onset: 12-02-2024 Viral infection (1 source) Viral infection, unspecified; Translations: [Viral infection, unspecified] Onset: 12-02-2024 Episodic Past or Other Problems Problem Classification Problem Date Documented Da te Episodic/Chronic Other gastrointestinal disorders (5 sources) Diarrhea, unspecified; Translations: [Diarrhea] Onset: 08-29-2024 Episodic Results Test Name Value Interpretation Reference Range Facility Gastroenterology Visit Repor ton 04-01-2025 Gastroenterology Visit Report [facility] [address] [place] [address] OFFICE VISIT Date of Service: 04/01/25 MR#: [id number] Acct: [id number] Name: HONG SNOW Rep #: [id number] : 1970 Provider: Dr. Ankur ga MD Age/Sex: 55/F Location: [facility] [place] Status: Signed Intake Vital Signs 12/20/24 11:14 04/01/25 11:07 Height 5 ft 4 in 5 ft 4 in Weight: 142 lb 150 lb BMI 24.3 25.7 BP 152/96 H 163/91 H Blood Pressure Location Rt brachial Position Sitting Pulse 90 97 Pulse Oximetry (%) 97 97 Oxygen Delivery Method room air Intake Visit Reasons: 3 M FU Allergies gluten Allergy (Verified 04/01/25 11:06) Other iodine Allergy (Verified 04/01/25 11:06) Other milk (dairy) Allergy (Verified 04/01/25 11:06) Other monosodium glutamate (msg) Allergy (Verified 04/01/25 11:06) Other shellfish derived Allergy (Verified 04/01/25 11:06) Food Allergy meperidine (From Demerol) Adverse Reaction (Intermediate, Verified 04/01/25 11:06) Vomiting Medications ???Medication ???Instructions ???Recorded ???Confirmed ???Type albuterol sulfate 90 mcg/actuation 1 inh inhalation ONCE 06/09/22 0 04/01/25 History aerosol inhaler (Ventolin HFA) magnesium 200 mg tablet 400 mg PO BID 08/10/22 04/01/25 Hi story multivitamin 1 tab PO DAILY 08/10/22 04/01/25 H istory estradiol 0.05 mg/24 hr weekly 1 patch transdermal .2XWEEK 04/01/25 History transdermal patch PFSH Medical History Wears contact lenses Wears glasses Post-menopausal Anxiety Arthritis Migraine headache Injury of head and neck TIA (transient ischemic attack) History of GI bleed History of hiatal hernia History of IBS Gastric reflux Non-smoker Shortness of breath on exertion Asthma Fibromyalgia Leg cramps History of pain when walking Surgical History H/O wrist surgery Hx of hysterectomy Hx of laparoscopy Hx of hernia repair Hx of section Social History Smoking Status: Never smoker HPI HPI Details: HONG SNOW, is a 55 F who presents to the office today for follow up. FH father???s side of the family has a lot of similar GI symptoms; no known diagnosis. Prior workup: Stool testing enteric pathogens, ova/parasite WNL. *BGI established 8 with referral from PCP for evaluation of watery, bloody diarrhea and periodic abdominal pain with onset and occurring daily with worsening in severity. Weight has been maintained but pays particular attention to not lose. Similar symptoms historically that are relieved with diet changes. Diet is organic, gluten free and dairy free. Biochemical workup CMP, LDH, CBC, ESR, ANCA, celiac, IgA, GAME, ISABEL, IBD prognostic not suggestive of IBD, Chromagranin A WNL CRP H11.1, Anti-double strand ab H25 24 hr urine 5-HIAA WNL Stool testing calprotectin, lactoferrin, pancreatic elastase, C.Difficile WNL EGD and colonoscopy 08.11.22. EGD found gastric stenosis, chronic inflammation; erythematous duodenopathy, metaplasia. Colonoscopy found abnormal perianal exam; congested mucosa sigmoid through hepatic flexure; proctitis. Normal ileum. No pathologic changes. OV 11..22 She stopped taking pre/probiotic gummy, started daily fresh blueberries, pineapple juice, stopped coffee and started natural teas. She is now having one BM a day which is normal and formed for her. Recently stopped estrogen due to age and concern r/t mini-stroke history early 2021. OV 2.22.23 symptoms much improved with resolution of diarrhea: probiotic gummy stopped and has been minimizing eating out (but when she does she has abdominal discomfort/pain). Started a tea from [employer] with four ingredients and feels this has been very helpful with anxiety/depression and getting out of bed. Diarrhea, biochemical workup. Biochemical Anti-dbl strand DNA H30, CRP, H4.86 OV 1.31.24 abdominal cramping and diarrhea. Dairy and gluten cut out without success. Dicyclomine effective and taken as needed. Reports loose stools 2-3 times daily, occasionally will appear to have small amount of blood. OV 6.19.24 Pt reports that she was prescribed cannabis for her fibromyalgia last month and has not had diarrhea since. Pt reports that she has 2-3 formed bm per day; denies blood in the stool. Pt reports that sugar causes bloating and some HB; pt reports that she has tried to limit dairy and gluten intake, but not fully eliminate. Continues with Dicyclomine as needed. OV 10.14.24 Pt reports that she is able to stay at home now due to her getting a better job opportunity. Her stress levels have reduced greatly, she experiences a complete formed BM daily (more content not included)... Normal [facility] Anti-Smooth Muscle ABSon ANTISMOOTH MUSC 3 Units Normal 0-19 [facility] Comment on above: Order Comment: Test( s) [id number]-Ylimrf, Serum or Plasmawas developed and its performance characteristicsdetermined by [employer]. It has not been cleared or approvedby the Food and Drug Administration. Result Comment: Nega tive 0 - 19 Weak positive 20 - 30 Moderate to strong positive >30 Actin Antibodies are found in 52-85% of patients with autoimmune hepatitis or chronic active hepatitis and in 22% of patients with primary biliary cirrhosis. Performed By: #### L 501.9520, L501.6710, L503.6550, L3300.0100, L3400.0700, L504.2610, L501.4700, L501.5101, L803.2200, L3100.5450, L503.6030, L3410.9992, L500.4050, L800.1280, L3890.6202, L300.3900, L100.0100, L3000.0375, L400.0001, L506.0400 ####[facility] [id number] [facility]. [place], [place], [id number] Ceruloplasminon 02-20-2025 CERULOPLASMIN 30.5 mg/dL Normal 19.0-39.0 [facility] Comment on above: Order Comment: Test( s) [id number]-Xbxdte, Serum or Plasmawas developed and its performance characteristicsdetermined by [employer]. It has not been cleared or approvedby the Food and Drug Administration. Performed By: #### L 501.9520, L501.6710, L503.6550, L3300.0100, L3400.0700, L504.2610, L501.4700, L501.5101, L803.2200, L3100.5450, L503.6030, L3410.9992, L500.4050, L800.1280, L3890.6202, L300.3900, L100.0100, L3000.0375, L400.0001, L506.0400 ####[facility] [id number] [facility] [place] [place], [address] Copper, Serum or Plasmaon COPPER, SERUM 135 ug/dL Normal 80-158 [facility] Comment on above: Order Comment: Test( s) [id number]-Ahurlj, Serum or Plasmawas developed and its performance characteristicsdetermined by [employer]. It has not been cleared or approvedby the Food and Drug Administration. Result Comment: Dete ction Limit = 5 Performed at: [facility] [employer] [id number] Door Worker: Jet Valladares PhD, Phone: [phone] Performed at: [address], [place], [place] [id number] Door Worker: Thu Bradley MD, Phone: [phone] Performed By: #### L 501.9520, L501.6710, L503.6550, L3300.0100, L3400.0700, L504.2610, L501.4700, L501.5101, L803.2200, L3100.5450, L503.6030, L3410.9992, L500.4050, L800.1280, L3890.6202, L300.3900, L100.0100, L3000.0375, L400.0001, L506.0400 ####[facility] [id number] [facility]. [place], [place], [id number] Hepatitis Panel Acuteon 04-3 COMMENT Comment Normal . [facility] Comment on above: Order Comment: Test( s) [id number]-Ngdgfs, Serum or Plasmawas developed and its performance characteristicsdetermined by [employer]. It has not been cleared or approvedby the Food and Drug Administration. Result Comment: Not infected with HCV unless early or acute infection is suspected (which may be delayed in an immunocompromised individual), or other evidence exists to indicate HCV infection. Performed By: #### L 501.9520, L501.6710, L503.6550, L3300.0100, L3400.0700, L504.2610, L501.4700, L501.5101, L803.2200, L3100.5450, L503.6030, L3410.9992, L500.4050, L800.1280, L3890.6202, L300.3900, L100.0100, L3000.0375, L400.0001, L506.0400 ####[facility] [address] [facility]. [place], [place], [id number] HEP B CORE,IgM Negative Normal Negative [facility] Comment on above: Order Comment: Test( s) 220756-Bltimu, Serum or Plasmawas developed and its performance characteristicsdetermined by [employer]. It has not been cleared or approvedby the Food and Drug Administration. Performed By: #### L 501.9520, L501.6710, L503.6550, L3300.0100, L3400.0700, L504.2610, L501.4700, L501.5101, L803.2200, L3100.5450, L503.6030, L3410.9992, L500.4050, L800.1280, L3890.6202, L300.3900, L100.0100, L3000.0375, L400.0001, L506.0400 ####[facility] [address] [facility] [place] [place], [address] HEP B SURF AG Negative Normal Negative [facility] Comment on above: Order Comment: Test( s) 569326-Jwazuc, Serum or Plasmawas developed and its performance characteristicsdetermined by [employer]. It has not been cleared or approvedby the Food and Drug Administration. Performed By: #### L 501.9520, L501.6710, L503.6550, L3300.0100, L3400.0700, L504.2610, L501.4700, L501.5101, L803.2200, L3100.5450, L503.6030, L3410.9992, L500.4050, L800.1280, L3890.6202, L300.3900, L100.0100, L3000.0375, L400.0001, L506.0400 ####[facility] [address] [facility] [place], [address] HEP C VIRUS AB Non-Reactive Normal Non Reactive [facility] Comment on above: Order Comment: Test( s) [id number]-Oapzaj, Serum or Plasmawas developed and its performance characteristicsdetermined by [employer]. It has not been cleared or approvedby the Food and Drug Administration. Performed By: #### L 501.9520, L501.6710, L503.6550, L3300.0100, L3400.0700, L504.2610, L501.4700, L501.5101, L803.2200, L3100.5450, L503.6030, L3410.9992, L500.4050, L800.1280, L3890.6202, L300.3900, L100.0100, L3000.0375, L400.0001, L506.0400 ####[facility] [address] [facility]. [place], [place], [id number] HEPATITIS A-IgM Negative Normal Negative [facility] Comment on above: Order Comment: Test( s) [id number]-Dlwjfn, Serum or Plasmawas developed and its performance characteristicsdetermined by [employer]. It has not been cleared or approvedby the Food and Drug Administration. Result Comment: A ne gative anti-HAV IgM result suggests no recent or current HAV infection. Performed By: #### L 501.9520, L501.6710, L503.6550, L3300.0100, L3400.0700, L504.2610, L501.4700, L501.5101, L803.2200, L3100.5450, L503.6030, L3410.9992, L500.4050, L800.1280, L3890.6202, L300.3900, L100.0100, L3000.0375, L400.0001, L506.0400 ####[facility] [address] [facility]. [place], [place], [id number] L501.5101on 02-20-2025 GGTP 34 IU/L Normal 0-60 [facility] Comment on above: Order Comment: Test( s) [id number]-Fvatvh, Serum or Plasmawas developed and its performance characteristicsdetermined by [employer]. It has not been cleared or approvedby the Food and Drug Administration. Performed By: #### L 501.9520, L501.6710, L503.6550, L3300.0100, L3400.0700, L504.2610, L501.4700, L501.5101, L803.2200, L3100.5450, L503.6030, L3410.9992, L500.4050, L800.1280, L3890.6202, L300.3900, L100.0100, L3000.0375, L400.0001, L506.0400 ####[facility] [address] [place], [address] CODY w/ Reflex Mult Confirmon 02-18-2025 CODY,DIRECT Positive Abnormal Negative [facility] Comment on above: Performed By: #### L 501.9520, L501.6710, L503.6550, L3300.0100, L3400.0700, L504.2610, L501.4700, L501.5101, L803.2200, L3100.5450, L503.6030, L3410.9992, L500.4050, L800.1280, L3890.6202, L300.3900, L100.0100, L3000.0375, L400.0001, L506.0400 #### [facility] [address] [place], [address] ANTI-CENT B AB <0.2 Normal 0.0-0.9 [facility] Comment on above: Performed By: #### L 501.9520, L501.6710, L503.6550, L3300.0100, L3400.0700, L504.2610, L501.4700, L501.5101, L803.2200, L3100.5450, L503.6030, L3410.9992, L500.4050, L800.1280, L3890.6202, L300.3900, L100.0100, L3000.0375, L400.0001, L506.0400 #### [facility] [address] [place], [address] ANTI-DNA (DS)AB 11 IU/mL Abnormal 0-9 [facility] Comment on above: Result Comment: Nega tive <5 Equivocal 5 - 9 Positive >9 Performed By: #### L 501.9520, L501.6710, L503.6550, L3300.0100, L3400.0700, L504.2610, L501.4700, L501.5101, L803.2200, L3100.5450, L503.6030, L3410.9992, L500.4050, L800.1280, L3890.6202, L300.3900, L100.0100, L3000.0375, L400.0001, L506.0400 #### [facility] [address] [facility] [place] [place], [address] ANTI-PADMA-1 <0.2 Normal 0.0-0.9 [facility] Comment on above: Performed By: #### L 501.9520, L501.6710, L503.6550, L3300.0100, L3400.0700, L504.2610, L501.4700, L501.5101, L803.2200, L3100.5450, L503.6030, L3410.9992, L500.4050, L800.1280, L3890.6202, L300.3900, L100.0100, L3000.0375, L400.0001, L506.0400 #### [facility] [address] [place], [address] ANTI-SS-A < 0.2 Normal 0.0-0.9 [facility] Comment on above: Performed By: #### L 501.9520, L501.6710, L503.6550, L3300.0100, L3400.0700, L504.2610, L501.4700, L501.5101, L803.2200, L3100.5450, L503.6030, L3410.9992, L500.4050, L800.1280, L3890.6202, L300.3900, L100.0100, L3000.0375, L400.0001, L506.0400 #### [facility] [address] [place], [address] ANTI-SS-B < 0.2 Normal 0.0-0.9 [facility] Comment on above: Performed By: #### L 501.9520, L501.6710, L503.6550, L3300.0100, L3400.0700, L504.2610, L501.4700, L501.5101, L803.2200, L3100.5450, L503.6030, L3410.9992, L500.4050, L800.1280, L3890.6202, L300.3900, L100.0100, L3000.0375, L400.0001, L506.0400 #### [facility] [address] [place], [address] ANTICHROMATIN <0.2 Normal 0.0-0.9 [facility] Comment on above: Performed By: #### L 501.9520, L501.6710, L503.6550, L3300.0100, L3400.0700, L504.2610, L501.4700, L501.5101, L803.2200, L3100.5450, L503.6030, L3410.9992, L500.4050, L800.1280, L3890.6202, L300.3900, L100.0100, L3000.0375, L400.0001, L506.0400 #### [facility] [address] [place], [address] PEER TUTOR Ab 0.4 AI Normal 0.0-0.9 [facility] Comment on above: Performed By: #### L 501.9520, L501.6710, L503.6550, L3300.0100, L3400.0700, L504.2610, L501.4700, L501.5101, L803.2200, L3100.5450, L503.6030, L3410.9992, L500.4050, L800.1280, L3890.6202, L300.3900, L100.0100, L3000.0375, L400.0001, L506.0400 #### [facility] [address] [facility]. [place], [place], [id number] SHETH Ab <0.2 Normal 0.0-0.9 [facility] Comment on above: Performed By: #### L 501.9520, L501.6710, L503.6550, L3300.0100, L3400.0700, L504.2610, L501.4700, L501.5101, L803.2200, L3100.5450, L503.6030, L3410.9992, L500.4050, L800.1280, L3890.6202, L300.3900, L100.0100, L3000.0375, L400.0001, L506.0400 #### [facility] [address] [facility]. [place], [place], [id number] Anti-Mitochondrial ABon 04-2 ANTIMITOCHON AB <20.0 Normal 0.0-20.0 [facility] Comment on above: Result Comment: Nega tive 0.0 - 20.0 Equivocal 20.1 - 24.9 Positive >24.9 Mitochondrial (M2) Antibodies are found in 90-96% of patients with primary biliary cirrhosis. Performed By: #### L 501.9520, L501.6710, L503.6550, L3300.0100, L3400.0700, L504.2610, L501.4700, L501.5101, L803.2200, L3100.5450, L503.6030, L3410.9992, L500.4050, L800.1280, L3890.6202, L300.3900, L100.0100, L3000.0375, L400.0001, L506.0400 ####[facility] [address] [place], [place], [address] L3410.9992on 02-18-2025 [facility] [place]. COMMENT Normal . [facility] Comment on above: Order Comment: 10078 9ELF TEST TIGER RF Result Comment: Test Ordered: [id number] Enhanced Liver Fibrosis (ELF) ELF(TM) Score 10.46 [H ] Reference Range: <9.80 ELF(TM) Score Interpretation: Risk cut-offs to assess the likelihood of progression to cirrhosis and liver-related clinical events within 3.9 years following baseline ELF score (IQR: 14.0-22.4 months)*: Lower risk < 9.80 Mid risk 9.80 - 11.29 Higher risk >11.29 Note: The ELF(TM) Score is a unitless numerical value. *Dani SA, Joe DURAN, Saniya T, et al. Selonsertib for patients with bridging fibrosis or compensated cirrhosis due to CERDA: Results from randomized phase III STELLAR trials. J Hepatol. 2020 Apr;73(1):26-39. Performed at: [facility] [address] [id number] Door Worker: Thu Bradley MD, Phone: [phone] Performed at: [facility] [address] [id number] Door Worker: Jet Valladares PhD, Phone: [phone] Performed By: #### L 501.9520, L501.6710, L503.6550, L3300.0100, L3400.0700, L504.2610, L501.4700, L501.5101, L803.2200, L3100.5450, L503.6030, L3410.9992, L500.4050, L800.1280, L3890.6202, L300.3900, L100.0100, L3000.0375, L400.0001, L506.0400 ####[facility] [address] [place], [address] Absolute lymphocyte countOrd ered By: Ankur Dunlap on 04-24-2025 Lymphocytes Auto (Unsp spec) [#/Vol] 1.81 10*3/uL 0.83-4.51 [facility] Absolute neutrophil countOrd ered By: Ankur Dunlap on 02-14-2025 Neutrophils (Bld) [#/Vol] 4.3 10*3/uL 2.0-7.7 [facility] Anion gap in Serum or Plasma Ordered By: Ankur Dunlap on 02-14-2025 Anion gap [Moles/Vol] 13 mmol/L 5-15 [facility] Automated lymphocyte count a s percentage of total leukocytesOrdered By: Ankru Dunlap on 02-14-2025 Lymphocytes/100 WBC Auto (Unsp spec) 26.3 % 19-41 [facility] BUN/creatinine ratioOrdered By: Ankur Dunlap on 02-14-2025 Urea nitrogen/Creatinine [Mass ratio] 17.5 mg/mg 10-20 [facility] Basophil percentageOrdered B y: Ankur Dunlap on 02-14-2025 Basophils/100 WBC (Bld) 0.3 % 0-1 [facility] Bilirubin Test strip Ql (U)O rdered By: Ankur Dunlap on 02-14-2025 Bilirubin Ql (U) Negative Negative [facility] Bilirubin directOrdered By: Ankur Dunlap on 02-14-2025 Bilirubin.direct [Mass/Vol] 0.17 mg/dL 0.00-0.30 [facility] Bilirubin, Directon 02-15-20 25 Bilirubin.direct [Mass/Vol] 0.17 mg/dL Normal 0.00-0.30 [facility] Comment on above: Order Comment: DR. Kezia MILLER ORDERED A LIVER PANEL WELL Performed By: #### L 501.9520, L501.6710, L503.6550, L3300.0100, L3400.0700, L504.2610, L501.4700, L501.5101, L803.2200, L3100.5450, L503.6030, L3410.9992, L500.4050, L800.1280, L3890.6202, L300.3900, L100.0100, L3000.0375, L400.0001, L506.0400 ####[facility] [address] [place], [address] Bilirubin, totalOrdered By: Ankur Dunlap on 02-14-2025 Bilirubin [Mass/Vol] 0.44 mg/dL 0.00-1.30 [facility] CBC W/Diff, Automatedon 01-23 Absolute Lymph 1.81 X10 3/uL Normal 0.83-4.51 [facility] Comment on above: Performed By: #### L 501.9520, L501.6710, L503.6550, L3300.0100, L3400.0700, L504.2610, L501.4700, L501.5101, L803.2200, L3100.5450, L503.6030, L3410.9992, L500.4050, L800.1280, L3890.6202, L300.3900, L100.0100, L3000.0375, L400.0001, L506.0400 #### [facility] [address] [place], [address] Absolute Neut 4.3 X10 3/uL Normal 2.0-7.7 [facility] Comment on above: Performed By: #### L 501.9520, L501.6710, L503.6550, L3300.0100, L3400.0700, L504.2610, L501.4700, L501.5101, L803.2200, L3100.5450, L503.6030, L3410.9992, L500.4050, L800.1280, L3890.6202, L300.3900, L100.0100, L3000.0375, L400.0001, L506.0400 #### [facility] [address] [place], [address] Basophils/100 WBC (Bld) 0.3 % Normal 0-1 [facility] Comment on above: Performed By: #### L 501.9520, L501.6710, L503.6550, L3300.0100, L3400.0700, L504.2610, L501.4700, L501.5101, L803.2200, L3100.5450, L503.6030, L3410.9992, L500.4050, L800.1280, L3890.6202, L300.3900, L100.0100, L3000.0375, L400.0001, L506.0400 #### [facility] [address] [facility]. [place], [place], [address] Eosinophils/100 WBC (Bld) 1.7 % Normal 0-5 [facility] Comment on above: Performed By: #### L 501.9520, L501.6710, L503.6550, L3300.0100, L3400.0700, L504.2610, L501.4700, L501.5101, L803.2200, L3100.5450, L503.6030, L3410.9992, L500.4050, L800.1280, L3890.6202, L300.3900, L100.0100, L3000.0375, L400.0001, L506.0400 #### [facility] [address] [facility] [place], [address] Erythrocyte distribution width (RBC) [Ratio] 12.0 % Normal 11.6-14.6 [facility] Comment on above: Performed By: #### L 501.9520, L501.6710, L503.6550, L3300.0100, L3400.0700, L504.2610, L501.4700, L501.5101, L803.2200, L3100.5450, L503.6030, L3410.9992, L500.4050, L800.1280, L3890.6202, L300.3900, L100.0100, L3000.0375, L400.0001, L506.0400 #### [facility] [address] [facility] [place], [address] Hematocrit (Bld) [Volume fraction] 41.5 % Normal 37-47 [facility] Comment on above: Performed By: #### L 501.9520, L501.6710, L503.6550, L3300.0100, L3400.0700, L504.2610, L501.4700, L501.5101, L803.2200, L3100.5450, L503.6030, L3410.9992, L500.4050, L800.1280, L3890.6202, L300.3900, L100.0100, L3000.0375, L400.0001, L506.0400 #### [facility] [address] [facility] [place], [address] Hemoglobin (Bld) [Mass/Vol] 14.3 g/dL Normal 12.0-15.0 [facility] Comment on above: Performed By: #### L 501.9520, L501.6710, L503.6550, L3300.0100, L3400.0700, L504.2610, L501.4700, L501.5101, L803.2200, L3100.5450, L503.6030, L3410.9992, L500.4050, L800.1280, L3890.6202, L300.3900, L100.0100, L3000.0375, L400.0001, L506.0400 #### [facility] [address] [facility] [place] [place], [address] IG% 0.100 Normal 0.0-0.9 [facility] Comment on above: Result Comment: IG% - Immature Granulocytes (promyelocytes, myelocytes and metamyelocytes) > 1% indicates that a LEFT SHIFT is Present. Performed By: #### L 501.9520, L501.6710, L503.6550, L3300.0100, L3400.0700, L504.2610, L501.4700, L501.5101, L803.2200, L3100.5450, L503.6030, L3410.9992, L500.4050, L800.1280, L3890.6202, L300.3900, L100.0100, L3000.0375, L400.0001, L506.0400 #### [facility] [address] [facility] [place], [address] Lymphocytes/100 WBC (Bld) 26.3 % Normal 19-41 [facility] Comment on above: Performed By: #### L 501.9520, L501.6710, L503.6550, L3300.0100, L3400.0700, L504.2610, L501.4700, L501.5101, L803.2200, L3100.5450, L503.6030, L3410.9992, L500.4050, L800.1280, L3890.6202, L300.3900, L100.0100, L3000.0375, L400.0001, L506.0400 #### [facility] [address] [facility] [place] [place], [address] MCH (RBC) [Entitic mass] 31.6 pg Normal 27.0-32.0 [facility] Comment on above: Performed By: #### L 501.9520, L501.6710, L503.6550, L3300.0100, L3400.0700, L504.2610, L501.4700, L501.5101, L803.2200, L3100.5450, L503.6030, L3410.9992, L500.4050, L800.1280, L3890.6202, L300.3900, L100.0100, L3000.0375, L400.0001, L506.0400 #### [facility] [address] [place], [address] MCHC (RBC) [Mass/Vol] 34.5 g/dL Normal 32-36 [facility] Comment on above: Performed By: #### L 501.9520, L501.6710, L503.6550, L3300.0100, L3400.0700, L504.2610, L501.4700, L501.5101, L803.2200, L3100.5450, L503.6030, L3410.9992, L500.4050, L800.1280, L3890.6202, L300.3900, L100.0100, L3000.0375, L400.0001, L506.0400 #### [facility] [address] [place], [address] MCV (RBC) [Entitic vol] 91.6 fL Normal 81-99 [facility] Comment on above: Performed By: #### L 501.9520, L501.6710, L503.6550, L3300.0100, L3400.0700, L504.2610, L501.4700, L501.5101, L803.2200, L3100.5450, L503.6030, L3410.9992, L500.4050, L800.1280, L3890.6202, L300.3900, L100.0100, L3000.0375, L400.0001, L506.0400 #### [facility] [address] [place], [address] Monocytes/100 WBC (Bld) 8.4 % Normal 0-10 [facility] Comment on above: Performed By: #### L 501.9520, L501.6710, L503.6550, L3300.0100, L3400.0700, L504.2610, L501.4700, L501.5101, L803.2200, L3100.5450, L503.6030, L3410.9992, L500.4050, L800.1280, L3890.6202, L300.3900, L100.0100, L3000.0375, L400.0001, L506.0400 #### [facility] [address] [place], [place], [phone] (826) Neutrophils/100 WBC (Bld) 63.2 % Normal 47-70 [facility] Comment on above: Performed By: #### L 501.9520, L501.6710, L503.6550, L3300.0100, L3400.0700, L504.2610, L501.4700, L501.5101, L803.2200, L3100.5450, L503.6030, L3410.9992, L500.4050, L800.1280, L3890.6202, L300.3900, L100.0100, L3000.0375, L400.0001, L506.0400 #### [facility] [address] [place], [place], [id number] (097) Nucleated RBC (Bld) [#/Vol] 0 10*3/uL Normal 0-5 [facility] Comment on above: Performed By: #### L 501.9520, L501.6710, L503.6550, L3300.0100, L3400.0700, L504.2610, L501.4700, L501.5101, L803.2200, L3100.5450, L503.6030, L3410.9992, L500.4050, L800.1280, L3890.6202, L300.3900, L100.0100, L3000.0375, L400.0001, L506.0400 #### [facility] [address] [place], [place], [phone] Platelet mean volume (Bld) [Entitic vol] 9.9 fL Normal 6.2-12.0 [facility] Comment on above: Performed By: #### L 501.9520, L501.6710, L503.6550, L3300.0100, L3400.0700, L504.2610, L501.4700, L501.5101, L803.2200, L3100.5450, L503.6030, L3410.9992, L500.4050, L800.1280, L3890.6202, L300.3900, L100.0100, L3000.0375, L400.0001, L506.0400 #### [facility] [address] [facility] [place], [place], [id number] (883) Platelets (Bld) [#/Vol] 213 10*3/uL Normal 150-450 [facility] Comment on above: Performed By: #### L 501.9520, L501.6710, L503.6550, L3300.0100, L3400.0700, L504.2610, L501.4700, L501.5101, L803.2200, L3100.5450, L503.6030, L3410.9992, L500.4050, L800.1280, L3890.6202, L300.3900, L100.0100, L3000.0375, L400.0001, L506.0400 #### [facility] [address] [facility]. [place], [place], [id number] (097) RBC (Bld) [#/Vol] 4.53 10*6/uL Normal 4.2-5.4 [facility] Comment on above: Performed By: #### L 501.9520, L501.6710, L503.6550, L3300.0100, L3400.0700, L504.2610, L501.4700, L501.5101, L803.2200, L3100.5450, L503.6030, L3410.9992, L500.4050, L800.1280, L3890.6202, L300.3900, L100.0100, L3000.0375, L400.0001, L506.0400 #### [facility] [address] [facility]. [place], [place], [phone] (434) RDW SD 40.3 fl Normal 35.1-43.9 [facility] Comment on above: Performed By: #### L 501.9520, L501.6710, L503.6550, L3300.0100, L3400.0700, L504.2610, L501.4700, L501.5101, L803.2200, L3100.5450, L503.6030, L3410.9992, L500.4050, L800.1280, L3890.6202, L300.3900, L100.0100, L3000.0375, L400.0001, L506.0400 #### [facility] [address] [place], [place], [address] WBC (Bld) [#/Vol] 6.9 10*3/uL Normal 4.4-11.0 [facility] Comment on above: Performed By: #### L 501.9520, L501.6710, L503.6550, L3300.0100, L3400.0700, L504.2610, L501.4700, L501.5101, L803.2200, L3100.5450, L503.6030, L3410.9992, L500.4050, L800.1280, L3890.6202, L300.3900, L100.0100, L3000.0375, L400.0001, L506.0400 #### [facility] [address] [facility]. [place], [place], [address] CRPon 02-14-2025 C-REACTIVE PROT 8.11 mg/L High 0.0-3.0 [facility] Comment on above: Order Comment: DR. Kezia MILLER ORDERED A LIVER PANEL WELL Performed By: #### L 501.9520, L501.6710, L503.6550, L3300.0100, L3400.0700, L504.2610, L501.4700, L501.5101, L803.2200, L3100.5450, L503.6030, L3410.9992, L500.4050, L800.1280, L3890.6202, L300.3900, L100.0100, L3000.0375, L400.0001, L506.0400 ####[facility] [address] [facility]. [place], [place], [id number] Carbon dioxide, total [Moles /volume] in Central venous bloodOrdered By: Ankur Dunlap on 02-14-2025 CO2 [Moles/Vol] 21.5 mmol/L 21.0-32.0 [facility] Chloride assayOrdered By: Ruchi Dunlap on 02-14-2025 Chloride [Moles/Vol] 106 mmol/L 98-108 [facility] Comprehensive Metabolic Prof ilon 02-14-2025 Albumin [Mass/Vol] 4.1 g/dL Normal 3.5-5.0 [facility] Comment on above: Order Comment: DR. Kezia MILLER ORDERED A LIVER PANEL WELL Performed By: #### L 501.9520, L501.6710, L503.6550, L3300.0100, L3400.0700, L504.2610, L501.4700, L501.5101, L803.2200, L3100.5450, L503.6030, L3410.9992, L500.4050, L800.1280, L3890.6202, L300.3900, L100.0100, L3000.0375, L400.0001, L506.0400 ####[facility] [address] [facility]. [place], [place], [id number] Albumin/Globulin [Mass ratio] 1.6 {ratio} Normal 0.9-2.4 [facility] Comment on above: Order Comment: DR. Kezia MILLER ORDERED A LIVER PANEL WELL Performed By: #### L 501.9520, L501.6710, L503.6550, L3300.0100, L3400.0700, L504.2610, L501.4700, L501.5101, L803.2200, L3100.5450, L503.6030, L3410.9992, L500.4050, L800.1280, L3890.6202, L300.3900, L100.0100, L3000.0375, L400.0001, L506.0400 ####[facility] [address] [place], [place], [id number] ALK PHOS 104 U/L Normal 35-104 [facility] Comment on above: Order Comment: DR. Kezia MILLER ORDERED A LIVER PANEL WELL Performed By: #### L 501.9520, L501.6710, L503.6550, L3300.0100, L3400.0700, L504.2610, L501.4700, L501.5101, L803.2200, L3100.5450, L503.6030, L3410.9992, L500.4050, L800.1280, L3890.6202, L300.3900, L100.0100, L3000.0375, L400.0001, L506.0400 ####[facility] [address] [facility] [place], [place], [id number] ALT [Catalytic activity/Vol] 185 U/L High <=34 [facility] Comment on above: Order Comment: DR. Kezia MILLER ORDERED A LIVER PANEL WELL Performed By: #### L 501.9520, L501.6710, L503.6550, L3300.0100, L3400.0700, L504.2610, L501.4700, L501.5101, L803.2200, L3100.5450, L503.6030, L3410.9992, L500.4050, L800.1280, L3890.6202, L300.3900, L100.0100, L3000.0375, L400.0001, L506.0400 ####[facility] [address] [facility] [place], [place], [address] AST [Catalytic activity/Vol] 172 U/L High <=31 [facility] Comment on above: Order Comment: DR. Kezia MILLER ORDERED A LIVER PANEL WELL Performed By: #### L 501.9520, L501.6710, L503.6550, L3300.0100, L3400.0700, L504.2610, L501.4700, L501.5101, L803.2200, L3100.5450, L503.6030, L3410.9992, L500.4050, L800.1280, L3890.6202, L300.3900, L100.0100, L3000.0375, L400.0001, L506.0400 ####[facility] [address] [place], [place], [address] Bilirubin [Mass/Vol] 0.44 mg/dL Normal 0.00-1.30 [facility] Comment on above: Order Comment: DR. Kezia MILLER ORDERED A LIVER PANEL WELL Performed By: #### L 501.9520, L501.6710, L503.6550, L3300.0100, L3400.0700, L504.2610, L501.4700, L501.5101, L803.2200, L3100.5450, L503.6030, L3410.9992, L500.4050, L800.1280, L3890.6202, L300.3900, L100.0100, L3000.0375, L400.0001, L506.0400 ####[facility] [address] [facility]. [place], [place], [phone] BUN/CRE 17.5 RATIO Normal 10-20 [facility] Comment on above: Order Comment: DR. Kezia MILLER ORDERED A LIVER PANEL WELL Performed By: #### L 501.9520, L501.6710, L503.6550, L3300.0100, L3400.0700, L504.2610, L501.4700, L501.5101, L803.2200, L3100.5450, L503.6030, L3410.9992, L500.4050, L800.1280, L3890.6202, L300.3900, L100.0100, L3000.0375, L400.0001, L506.0400 ####[facility] [address] [place], [address] Calcium [Mass/Vol] 8.5 mg/dL Normal 7.6-11.0 [facility] Comment on above: Order Comment: DR. Kezia MILLER ORDERED A LIVER PANEL WELL Performed By: #### L 501.9520, L501.6710, L503.6550, L3300.0100, L3400.0700, L504.2610, L501.4700, L501.5101, L803.2200, L3100.5450, L503.6030, L3410.9992, L500.4050, L800.1280, L3890.6202, L300.3900, L100.0100, L3000.0375, L400.0001, L506.0400 ####[facility] [address] [place], [address] Chloride [Moles/Vol] 106 mmol/L Normal 98-108 [facility] Comment on above: Order Comment: DR. Kezia MILLER ORDERED A LIVER PANEL WELL Performed By: #### L 501.9520, L501.6710, L503.6550, L3300.0100, L3400.0700, L504.2610, L501.4700, L501.5101, L803.2200, L3100.5450, L503.6030, L3410.9992, L500.4050, L800.1280, L3890.6202, L300.3900, L100.0100, L3000.0375, L400.0001, L506.0400 ####[facility] [address] [place], [address] CO2 [Moles/Vol] 21.5 mmol/L Normal 21.0-32.0 [facility] Comment on above: Order Comment: DR. Kezia MILLER ORDERED A LIVER PANEL WELL Performed By: #### L 501.9520, L501.6710, L503.6550, L3300.0100, L3400.0700, L504.2610, L501.4700, L501.5101, L803.2200, L3100.5450, L503.6030, L3410.9992, L500.4050, L800.1280, L3890.6202, L300.3900, L100.0100, L3000.0375, L400.0001, L506.0400 ####[facility] [address] [facility]. [place], [place], [address] Creatinine [Mass/Vol] 0.93 mg/dL Normal 0.70-1.20 [facility] Comment on above: Order Comment: DR. Kezia MILLER ORDERED A LIVER PANEL WELL Performed By: #### L 501.9520, L501.6710, L503.6550, L3300.0100, L3400.0700, L504.2610, L501.4700, L501.5101, L803.2200, L3100.5450, L503.6030, L3410.9992, L500.4050, L800.1280, L3890.6202, L300.3900, L100.0100, L3000.0375, L400.0001, L506.0400 ####[facility] [address] [facility]. [place], [place], [phone] GAP 13 Normal 5-15 [facility] Comment on above: Order Comment: DR. Kezia MILLER ORDERED A LIVER PANEL WELL Performed By: #### L 501.9520, L501.6710, L503.6550, L3300.0100, L3400.0700, L504.2610, L501.4700, L501.5101, L803.2200, L3100.5450, L503.6030, L3410.9992, L500.4050, L800.1280, L3890.6202, L300.3900, L100.0100, L3000.0375, L400.0001, L506.0400 ####[facility] [address] [place], [place], [id number] GFR/1.73 sq M.predicted among non-blacks MDRD (S/P/Bld) [Vol rate/Area] 72 mL/min/{1.73_m2} Normal >60 [facility] Comment on above: Order Comment: DR. Kezia MILLER ORDERED A LIVER PANEL WELL Result Comment: mL/m in/1.73m2 CKD-EPI Creatinine Equation (2020) Performed By: #### L 501.9520, L501.6710, L503.6550, L3300.0100, L3400.0700, L504.2610, L501.4700, L501.5101, L803.2200, L3100.5450, L503.6030, L3410.9992, L500.4050, L800.1280, L3890.6202, L300.3900, L100.0100, L3000.0375, L400.0001, L506.0400 ####[facility] [address] [place], [place], [phone](284) Globulin (S) [Mass/Vol] 2.6 g/dL Normal 2.2-4.2 [facility] Comment on above: Order Comment: DR. Kezia MILLER ORDERED A LIVER PANEL WELL Performed By: #### L 501.9520, L501.6710, L503.6550, L3300.0100, L3400.0700, L504.2610, L501.4700, L501.5101, L803.2200, L3100.5450, L503.6030, L3410.9992, L500.4050, L800.1280, L3890.6202, L300.3900, L100.0100, L3000.0375, L400.0001, L506.0400 ####[facility] [address] [place], [place], [id number] Glucose [Mass/Vol] 104 mg/dL High 70-99 [facility] Comment on above: Order Comment: DR. Kezia MILLER ORDERED A LIVER PANEL WELL Performed By: #### L 501.9520, L501.6710, L503.6550, L3300.0100, L3400.0700, L504.2610, L501.4700, L501.5101, L803.2200, L3100.5450, L503.6030, L3410.9992, L500.4050, L800.1280, L3890.6202, L300.3900, L100.0100, L3000.0375, L400.0001, L506.0400 ####[facility] [address] [facility]. [place], [place], [phone] Potassium [Moles/Vol] 3.8 mmol/L Normal 3.3-5.1 [facility] Comment on above: Order Comment: DR. Kezia MILLER ORDERED A LIVER PANEL WELL Result Comment: Hemo lysis present, Results??could be affected. ?? Performed By: #### L 501.9520, L501.6710, L503.6550, L3300.0100, L3400.0700, L504.2610, L501.4700, L501.5101, L803.2200, L3100.5450, L503.6030, L3410.9992, L500.4050, L800.1280, L3890.6202, L300.3900, L100.0100, L3000.0375, L400.0001, L506.0400 ####[facility] [address] [facility]. [place], [place], [phone] Sodium [Moles/Vol] 141 mmol/L Normal 133-145 [facility] Comment on above: Order Comment: DR. Kezia MILLER ORDERED A LIVER PANEL WELL Performed By: #### L 501.9520, L501.6710, L503.6550, L3300.0100, L3400.0700, L504.2610, L501.4700, L501.5101, L803.2200, L3100.5450, L503.6030, L3410.9992, L500.4050, L800.1280, L3890.6202, L300.3900, L100.0100, L3000.0375, L400.0001, L506.0400 ####[facility] [address] [place], [place], [phone](604) T PROT 6.7 g/dL Normal 5.9-8.4 [facility] Comment on above: Order Comment: DR. Kezia MILLER ORDERED A LIVER PANEL WELL Performed By: #### L 501.9520, L501.6710, L503.6550, L3300.0100, L3400.0700, L504.2610, L501.4700, L501.5101, L803.2200, L3100.5450, L503.6030, L3410.9992, L500.4050, L800.1280, L3890.6202, L300.3900, L100.0100, L3000.0375, L400.0001, L506.0400 ####[facility] [address]. [place], [place], [phone]) Urea nitrogen [Mass/Vol] 16 mg/dL Normal 4-19 [facility] Comment on above: Order Comment: DR. Kezia MILLER ORDERED A LIVER PANEL WELL Performed By: #### L 501.9520, L501.6710, L503.6550, L3300.0100, L3400.0700, L504.2610, L501.4700, L501.5101, L803.2200, L3100.5450, L503.6030, L3410.9992, L500.4050, L800.1280, L3890.6202, L300.3900, L100.0100, L3000.0375, L400.0001, L506.0400 ####[facility] [id number] [facility]. [place], [place], [id number](065) Eosinophil percentageOrdered By: Ankur Dunlap on 02-14-2025 Eosinophils/100 WBC (Bld) 1.7 % 0-5 [facility] Erythrocyte distribution wid th ratioOrdered By: Ankur Dunlap on 02-14-2025 Erythrocyte distribution width (RBC) [Ratio] 12.0 % 11.6-14.6 [facility] Erythrocyte distribution wid th standard deviationOrdered By: Ankur Dunlap on 02-14-2025 Erythrocyte distribution width (RBC) [Ratio] 40.3 fl 35.1-43.9 [facility] Ferritinon 02-14-2025 Ferritin [Mass/Vol] 96 ng/mL Normal 22-378 [facility] Comment on above: Order Comment: DR. Kezia MILLER ORDERED A LIVER PANEL WELL Performed By: #### L 501.9520, L501.6710, L503.6550, L3300.0100, L3400.0700, L504.2610, L501.4700, L501.5101, L803.2200, L3100.5450, L503.6030, L3410.9992, L500.4050, L800.1280, L3890.6202, L300.3900, L100.0100, L3000.0375, L400.0001, L506.0400 #### [facility] Laboratory [facility] [address] [place], [address] Gamma glutamyl transferase ( GGT) measurementOrdered By: Ankur Dunlap on 02-14-2025 Amylase [Catalytic activity/Vol] 34 U/L 0-60 [facility] Glomerular filtration rate ( GFR) estimation/1.73 sq m using serum, plasma, or whole bOrdered By: Ankur Dunlap on 02-14-2025 GFR/1.73 sq M.predicted among non-blacks MDRD (S/P/Bld) [Vol rate/Area] 72 mL/min/{1.73_m2} >60 [facility] Comment on above: mL/min/1.73m2 CKD-EP I Creatinine Equation (2020) Hematocrit Auto (Bld) [Volum e fraction]Ordered By: Ankur Dunlap on 02-14-2025 Hematocrit (Bld) [Volume fraction] 41.5 % 37-47 [facility] Hemoglobin measurementOrdere d By: Ankur Dunlap on 02-14-2025 Hemoglobin (Bld) [Mass/Vol] 14.3 g/dL 12.0-15.0 [facility] Hepatitis B Surface Antibody on 02-14-2025 HEP B Surf Ab REAC Normal [facility] Comment on above: Order Comment: DR. Kezia MILLER ORDERED A LIVER PANEL WELL Result Comment: <8.5 mIU/mL: Non-Reactive 8.5<= x <11.5 mIU/mL: Indeterminate >=11.5 mIU/mL: Reactive Non Reactive: Inconsistent with immunity less than <10 mIU/mL Reactive: Consistent with immunity greater than or equal to 10 mIU/mL Performed By: #### L 501.9520, L501.6710, L503.6550, L3300.0100, L3400.0700, L504.2610, L501.4700, L501.5101, L803.2200, L3100.5450, L503.6030, L3410.9992, L500.4050, L800.1280, L3890.6202, L300.3900, L100.0100, L3000.0375, L400.0001, L506.0400 ####[facility] [id number] [place], [place], [id number] Immature granulocytes/100 WB C Auto (Bld)Ordered By: Ankur Dunlap on 02-14-2025 Immature granulocytes/100 WBC (Bld) 0.100 % 0.0-0.9 [facility] Comment on above: IG% - Immature Granu locytes (promyelocytes, myelocytes and metamyelocytes) > 1% indicates that a LEFT SHIFT is Present. International normalized rat io (INR) calculationOrdered By: Ankur Dunlap on 02-14-2025 INR Coag (Bld) [Relative time] 0.9 {INR} [facility] Iron measurement (mass/mass) Ordered By: Ankur Dunlap on 02-14-2025 Iron (Unsp spec) [Mass/Mass] 110 ug/dL 50-170 [facility] Iron+Iron Binding Capacityon 02-14-2025 Iron [Mass/Vol] 110 ug/dL Normal 50-170 [facility] Comment on above: Order Comment: DR. Kezia MILLER ORDERED A LIVER PANEL WELL Performed By: #### L 501.9520, L501.6710, L503.6550, L3300.0100, L3400.0700, L504.2610, L501.4700, L501.5101, L803.2200, L3100.5450, L503.6030, L3410.9992, L500.4050, L800.1280, L3890.6202, L300.3900, L100.0100, L3000.0375, L400.0001, L506.0400 ####[facility] [id number] [facility] [place], [place], [id number] UIBC 172 ug/dL Low 228-428 [facility] Comment on above: Order Comment: DR. Kezia MILLER ORDERED A LIVER PANEL WELL Performed By: #### L 501.9520, L501.6710, L503.6550, L3300.0100, L3400.0700, L504.2610, L501.4700, L501.5101, L803.2200, L3100.5450, L503.6030, L3410.9992, L500.4050, L800.1280, L3890.6202, L300.3900, L100.0100, L3000.0375, L400.0001, L506.0400 ####[facility] [address] [place], [place], [id number] Ketones Test strip Ql (U)Ord ered By: Ankur Dunlap on 02-14-2025 Ketones Ql (U) Negative Negative [facility] LDHon 02-14-2025 LDH 269 U/L High 84-246 [facility] Comment on above: Order Comment: DR. Kezia MILLER ORDERED A LIVER PANEL WELL1 Result Comment: Hemo lysis present, Results??could be affected. ?? Performed By: #### L 501.9520, L501.6710, L503.6550, L3300.0100, L3400.0700, L504.2610, L501.4700, L501.5101, L803.2200, L3100.5450, L503.6030, L3410.9992, L500.4050, L800.1280, L3890.6202, L300.3900, L100.0100, L3000.0375, L400.0001, L506.0400 ####[facility] [address] [place], [address] Laboratory - Chemistry and C hemistry - challengeOrdered By: Ankur Dunlap on 02-14-2025 AST [Catalytic activity/Vol] 172 U/L High <32 [facility] Lactate dehydrogenase (LDH) measurementOrdered By: Ankur Dunlap on 02-14-2025 LDH [Catalytic activity/Vol] 269 U/L High 84-246 [facility] Comment on above: Hemolysis present, R esults could be affected. MCV (mean corpuscular volume ) determinationOrdered By: Ankur Dunlap on 02-14-2025 MCV (RBC) [Entitic vol] 91.6 fL 81-99 [facility] Mean corpuscular hemoglobin (MCH) determinationOrdered By: Ankur Dunlap on 02-14-2025 MCH (RBC) [Entitic mass] 31.6 pg 27.0-32.0 [facility] Mean corpuscular hemoglobin concentration (MCHC) determinationOrdered By: Ankur Dunlap on 02-14-2025 MCHC (RBC) [Mass/Vol] 34.5 g/dL 32-36 [facility] Mean platelet volume determi nationOrdered By: Ankur Dunlap on 02-14-2025 Platelet mean volume (Bld) [Entitic vol] 9.9 fL 6.2-12.0 [facility] Microscopic analysis of urin e for red blood cells (RBC)Ordered By: Ankur Dunlap on 02-14-2025 Microscopic analysis of urine for red blood cells (RBC) 0 SEEN /hpf 0-5 [facility] Monocyte percentageOrdered B y: Ankur Dunlap on 02-14-2025 Monocytes/100 WBC (Bld) 8.4 % 0-10 [facility] Mucus LM Ql (Urine sed)Order ed By: Ankur Dunlap on 02-14-2025 Mucus Ql (Urine sed) 0 SEEN /hpf [facility] Neutrophil percentageOrdered By: Ankur Dunlap on 02-14-2025 Neutrophils/100 WBC (Bld) 63.2 % 47-70 [facility] Nitrite Test strip Ql (U)Ord ered By: Ankur Dunlap on 02-14-2025 Nitrite Ql (U) Negative Negative [facility] No Panel InformationOrdered By: Ankur Dunlap on 02-14-2025 Hepatitis C Antibody Comment Comment . [facility] Comment on above: Not infected with HC V unless early or acute infection issuspected (which may be delayed in an immunocompromisedindividual), or other evidence exists to indicate HCVinfection. Unsaturated Iron Binding Capacity 172 ug/dL Low 228-428 [facility] Nucleated red blood cell per centageOrdered By: Ankur Dunlap on 02-14-2025 Nucleated RBC/100 WBC (Bld) [Ratio] 0 % 0-5 [facility] Platelet countOrdered By: Ruchi Dunlap on 02-14-2025 Platelets (Bld) [#/Vol] 213 10*3/uL 150-450 [facility] Potassium measurement (mass/ volume)Ordered By: Ankur Dunlap on 02-14-2025 Potassium (Unsp spec) [Mass/Vol] 3.8 mmol/L 3.3-5.1 [facility] Comment on above: Hemolysis present, R esults could be affected. Protein Test strip Ql (U)Ord ered By: Ankur Dunlap on 02-14-2025 Protein Ql (U) 30 mg/dl High Negative [facility] Prothrombin Time w/INRon INR Coag (PPP) [Relative time] 0.9 {INR} Normal [facility] Comment on above: Performed By: #### L 501.9520, L501.6710, L503.6550, L3300.0100, L3400.0700, L504.2610, L501.4700, L501.5101, L803.2200, L3100.5450, L503.6030, L3410.9992, L500.4050, L800.1280, L3890.6202, L300.3900, L100.0100, L3000.0375, L400.0001, L506.0400 #### [facility] [address] [place], [place], [id number] PT Coag (PPP) [Time] 12.7 s Normal 11.7-14.9 [facility] Comment on above: Performed By: #### L 501.9520, L501.6710, L503.6550, L3300.0100, L3400.0700, L504.2610, L501.4700, L501.5101, L803.2200, L3100.5450, L503.6030, L3410.9992, L500.4050, L800.1280, L3890.6202, L300.3900, L100.0100, L3000.0375, L400.0001, L506.0400 #### [facility] [address] [place], [place], [id number] Prothrombin timeOrdered By: Ankur Dunlap on 02-14-2025 PT Coag (PPP) [Time] 12.7 s 11.7-14.9 [facility] RBC Auto (Bld) [#/Vol]Ordere d By: Ankur Dunlap on 02-14-2025 RBC (Bld) [#/Vol] 4.53 10*6/uL 4.2-5.4 [facility] Serum DNA double strand anti body assay (units/volume)Ordered By: Ankur Dunlap on 02-14-2025 DNA double strand Ab Qn (S) 11 [IU]/mL High 0-9 [facility] Comment on above: Negative <5 Equivoca l 5 - 9 Positive >9 Serum Scl-70 antibody assay (units/volume)Ordered By: Ankur Dunlap on 02-14-2025 SCL-70 extractable nuclear Ab Qn (S) <0.2 AI 0.0-0.9 [facility] Comment on above: Previous reported re sult: TNP AIEdited by: LI on 02/18/25:1408 AMENDED REPORT 02/18/25 1408 ANTISCLER previously reported as: Test not performed Serum creatinine measurement (mass/volume)Ordered By: Ankur Dunlap on 02-14-2025 Creatinine [Mass/Vol] 0.93 mg/dL 0.70-1.20 [facility] Serum globulin measurementOr dered By: Ankur Dunlap on 02-14-2025 Globulin (S) [Mass/Vol] 2.6 g/dL 2.2-4.2 [facility] Serum glucose measurement (m ass/volume)Ordered By: Ankur Dunlap on 02-14-2025 Glucose [Mass/Vol] 104 mg/dL High 70-99 [facility] Serum hepatitis B virus surf jessica antibody detectionOrdered By: Ankur Dunlap on 02-14-2025 HBV surface Ab Ql (S) REAC [facility] Comment on above: <8.5 mIU/mL: Non-Isabel ctive8.5<= x <11.5 mIU/mL: Indeterminate>=11.5 mIU/mL: Reactive Non Reactive: Inconsistent with immunity less than <10 mIU/mL Reactive: Consistent with immunity greater than or equal to 10 mIU/mL Serum mitochondria antibody detectionOrdered By: Ankur Dunlap on 02-14-2025 Mitochondria Ab Ql (S) <20.0 Units 0.0-20.0 [facility] Comment on above: Negative 0.0 - 20.0 Equivocal 20.1 - 24.9 Positive >24.9Mitochondrial (M2) Antibodies are found in 90-96% ofpatients with primary biliary cirrhosis. Serum or plasma C reactive p rotein measurement (mass/volume)Ordered By: Ankur Dunlap on 02-14-2025 CRP [Mass/Vol] 8.11 mg/L High 0.0-3.0 [facility] Serum or plasma actin IgG an tibody assay (units/volume)Ordered By: Ankur Dunlap on 02-14-2025 Actin IgG Qn 3 Units 0-19 [facility] Comment on above: Negative 0 - 19 Weak positive 20 - 30 Moderate to strong positive >30 Actin Antibodies are found in 52-85% of patients with autoimmune hepatitis or chronic active hepatitis and in 22% of patients with primary biliary cirrhosis. Serum or plasma alanine pritchard otransferase (ALT) measurementOrdered By: Ankur Dunlap on 02-14-2025 ALT [Catalytic activity/Vol] 185 U/L High <35 [facility] Serum or plasma albumin alex urement (mass/volume)Ordered By: Ankur Dunlap on 02-14-2025 Albumin [Mass/Vol] 4.1 g/dL 3.5-5.0 [facility] Serum or plasma albumin/glob ulin mass ratioOrdered By: Ankur Dunlap on 02-14-2025 Albumin/Globulin [Mass ratio] 1.6 {ratio} 0.9-2.4 [facility] Serum or plasma alkaline batsheva sphatase measurementOrdered By: Ankur Dunlap on 02-14-2025 ALP [Catalytic activity/Vol] 104 U/L 35-104 [facility] Serum or plasma calcium alex urement (mass/volume)Ordered By: Ankur Dunlap on 02-14-2025 Calcium [Mass/Vol] 8.5 mg/dL 7.6-11.0 [facility] Serum or plasma ferritin corrine surement (mass/volume)Ordered By: Ankur Dunlap on 02-14-2025 Ferritin [Mass/Vol] 96 ng/mL 22-378 [facility] Serum or plasma hepatitis B virus surface antigen detection by immunoassayOrdered By: Ankur Dunlap on 02-14-2025 HBV surface Ag IA Ql Negative Negative [facility] Serum or plasma iron saturat ion measurement (mass fraction)Ordered By: Ankur Dunlap on 02-14-2025 Iron saturation [Mass fraction] 39.0 % 13-59 [facility] Serum or plasma urea nitroge n measurement (mass/volume)Ordered By: Ankur Dunlap on 02-14-2025 Urea nitrogen [Mass/Vol] 16 mg/dL 4-19 [facility] Sodium levelOrdered By: Betty Dunlap on 02-14-2025 Sodium [Moles/Vol] 141 mmol/L 133-145 [facility] Squamous epithelial cells de tection in urine sediment by light microscopyOrdered By: Ankur Dunlap on 02-14-2025 Epithelial cells.squamous LM Ql (Urine sed) 0-5 SEEN /hpf 5-10 [facility] T4 Free Directon 02-14-2025 T4 FREE DIRECT 0.80 ng/dL Normal 0.76-1.46 [facility] Comment on above: Order Comment: DR. Kezia MILLER ORDERED A LIVER PANEL WELL Performed By: #### L 501.9520, L501.6710, L503.6550, L3300.0100, L3400.0700, L504.2610, L501.4700, L501.5101, L803.2200, L3100.5450, L503.6030, L3410.9992, L500.4050, L800.1280, L3890.6202, L300.3900, L100.0100, L3000.0375, L400.0001, L506.0400 ####[facility] [address] [facility] [place], [address] T4 freeOrdered By: Ankur mesa on 02-14-2025 Free T4 [Mass/Vol] 0.80 ng/dL 0.76-1.46 [facility] TSH DL <= 0.005 mIU/L QnOrde red By: Ankur Dunlap on 02-14-2025 TSH Qn 2.120 uIU/mL 0.300-4.200 [facility] Thyroid Stim Hormone (TSH)on 02-14-2025 TSH 2.120 uIU/mL Normal 0.300-4.200 [facility] Comment on above: Order Comment: DR. Kezia MILLER ORDERED A LIVER PANEL WELL Performed By: #### L 501.9520, L501.6710, L503.6550, L3300.0100, L3400.0700, L504.2610, L501.4700, L501.5101, L803.2200, L3100.5450, L503.6030, L3410.9992, L500.4050, L800.1280, L3890.6202, L300.3900, L100.0100, L3000.0375, L400.0001, L506.0400 #### [facility] [address] [facility] [place], [address] Total proteinOrdered By: Francisco benjuliette Dunlap on 02-14-2025 Protein [Mass/Vol] 6.7 g/dL 5.9-8.4 [facility] Urinalysis, Completeon 02-14 EPI,SQUAMOUS 0-5 SEEN Normal 5-10 [facility] Comment on above: Order Comment: COLLE CTOR TO SPECIFY Performed By: #### L 501.9520, L501.6710, L503.6550, L3300.0100, L3400.0700, L504.2610, L501.4700, L501.5101, L803.2200, L3100.5450, L503.6030, L3410.9992, L500.4050, L800.1280, L3890.6202, L300.3900, L100.0100, L3000.0375, L400.0001, L506.0400 #### [facility] [address] [place], [address] WBC 0-5 SEEN Normal 0-5 [facility] Comment on above: Order Comment: COLLE CTOR TO SPECIFY Performed By: #### L 501.9520, L501.6710, L503.6550, L3300.0100, L3400.0700, L504.2610, L501.4700, L501.5101, L803.2200, L3100.5450, L503.6030, L3410.9992, L500.4050, L800.1280, L3890.6202, L300.3900, L100.0100, L3000.0375, L400.0001, L506.0400 #### [facility] [address] [place], [address] BACTERIA 0 SEEN Normal None Seen [facility] Comment on above: Order Comment: COLLE CTOR TO SPECIFY Performed By: #### L 501.9520, L501.6710, L503.6550, L3300.0100, L3400.0700, L504.2610, L501.4700, L501.5101, L803.2200, L3100.5450, L503.6030, L3410.9992, L500.4050, L800.1280, L3890.6202, L300.3900, L100.0100, L3000.0375, L400.0001, L506.0400 #### [facility] [address] [place], [place], [id number] Mucus Ql (Urine sed) 0 SEEN Normal [facility] Comment on above: Order Comment: COLLE CTOR TO SPECIFY Performed By: #### L 501.9520, L501.6710, L503.6550, L3300.0100, L3400.0700, L504.2610, L501.4700, L501.5101, L803.2200, L3100.5450, L503.6030, L3410.9992, L500.4050, L800.1280, L3890.6202, L300.3900, L100.0100, L3000.0375, L400.0001, L506.0400 #### [facility] [address] [place], [address] RBC 0 SEEN Normal 0-5 [facility] Comment on above: Order Comment: COLLE CTOR TO SPECIFY Performed By: #### L 501.9520, L501.6710, L503.6550, L3300.0100, L3400.0700, L504.2610, L501.4700, L501.5101, L803.2200, L3100.5450, L503.6030, L3410.9992, L500.4050, L800.1280, L3890.6202, L300.3900, L100.0100, L3000.0375, L400.0001, L506.0400 #### [facility] [address] [place], [place], [id number] Urine clarityOrdered By: Francisco Dulnap on 02-14-2025 Clarity (U) Clear Clear [facility] Urine color determinationOrd ered By: Ankur Dunlap on 02-14-2025 Color (U) Yellow Yellow [facility] Urine glucose detectionOrder ed By: Ankur Dunlap on 02-14-2025 Glucose Ql (U) Normal mg/dl Normal [facility] Urine leukocyte esterase det ection by dipstickOrdered By: Ankur Dunlap on 02-14-2025 Leukocyte esterase Test strip Ql (U) 25 /ul High Negative [facility] Urine pHOrdered By: Ankur Dunlap on 02-14-2025 pH (U) 7.0 [pH] 5.0 - 8.0 [facility] Urine sediment bacteria coun t by microscopy (number/high power field)Ordered By: Ankur Dunlap on 02-14-2025 Bacteria LM.HPF (Urine sed) [#/Area] 0 /[HPF] None Seen [facility] Urine specific gravity measu rementOrdered By: Ankur Dunlap on 02-14-2025 Specific gravity (U) [Rel density] 1.015 1.002-1.030 [facility] Urine urobilinogen measureme ntOrdered By: Ankur Dunlap on 02-14-2025 Urobilinogen Ql (U) Normal mg/dl Normal [facility] White blood cell (WBC) count Ordered By: Ankur Dunlap on 02-14-2025 WBC (Bld) [#/Vol] 6.9 10*3/uL 4.4-11.0 [facility] White blood cell countOrdere d By: Ankur Dunlap on 02-14-2025 White blood cell count 0-5 SEEN /hpf 0-5 [facility] MITOCHONDRIAL ANTIBODY PANEL [CCL]on 01-25-2025 MITOCHONDRIAL ANTIBODY PANEL [CCL] Normal [facility] Comment on above: Result Comment: _MIT OCHONDRIAL AB PANEL [CCL]_ SEE SCANNED REPORT Performed By: #### 2 18330 #### [facility],[address] [place], [place] [address] SMOOTH MUSCLE AB SCREEN [CCL ]on 01-25-2025 SMOOTH MUSCLE AB SCREEN [CCL] Normal [facility] Comment on above: Result Comment: _SMO OTH MUSCLE AB SCREEN [CCL]_ SEE SCANNED REPORT Performed By: #### 2 65561 #### [facility],[address] [place] [address] HEPATIC FUNCTION PANELon Albumin [Mass/Vol] 3.9 g/dL Normal 3.4 - 5.0 [facility] Comment on above: Performed By: #### 2 07958 #### [facility],[address] [place] [address] ALK PHOS 128 U/L High 46 - 116 [facility] Comment on above: Performed By: #### 2 14316 #### [facility],[address] [place] [address] ALT [Catalytic activity/Vol] 267 U/L High 16 - 63 [facility] Comment on above: Performed By: #### 2 67640 #### [facility],[address] [place] [address] AST [Catalytic activity/Vol] 188 U/L High 13 - 39 [facility] Comment on above: Performed By: #### 2 48887 #### [facility],[address] [place] [address] Bilirubin [Mass/Vol] 0.5 mg/dL Normal 0.2 - 1.0 [facility] Comment on above: Performed By: #### 2 52348 #### [facility],[address] [place], [place] [address] Bilirubin.direct [Mass/Vol] 0.1 mg/dL Normal 0.0 - 0.2 [facility] Comment on above: Performed By: #### 2 28764 #### [facility],[address] [place], [place] [address] Hepatic function 2000 panel Normal [facility] Comment on above: Result Comment: HEPA TIC FUNCTION PROFILE Performed By: #### 2 04904 #### [facility],[address] [place], [place] [address] Protein [Mass/Vol] 7.6 g/dL Normal 6.4 - 8.2 [facility] Comment on above: Performed By: #### 2 24026 #### [facility],[address] [place] [address] Mitochondria Ab IF Ql (S)on 01-21-2025 Mitochondria M2 Ab IA Qn (S) 1.8 Units Normal <=20.0 [facility] Comment on above: Order Comment: Speci men Type: BLOOD SPECIMEN Ordering Facility: [facility] Address: [address] [place] [address] Performed By: #### 1 1572-5, ANAKINSEYS, 67673-5, 4498-2, 46514-7, 4485-9, MICRO #### [facility] CLIA [id number] [address] [address] [place] Mitochondria M2 Ab Ql (S) Negative Normal Negative [facility] Comment on above: Order Comment: Speci men Type: BLOOD SPECIMEN Ordering Facility: [facility] Address: [address] [place] [address] Result Comment: Anti -mitochondrial antibody test is used as an aid in diagnosis of primary biliary cholangitis. Clinical correlation is required. Performed By: #### 1 1572-5, ANAKINSEYS, 05309-9, 4498-2, 86660-1, 4485-9, MICRO #### [facility] CLIA [id number] [address] [address] [place] Smooth muscle Ab Ql (S)on ACTIN SMOOTH MUSCLE IGG QUALITATIVE Negative Normal Negative [facility] Comment on above: Order Comment: Speci men Type: BLOOD SPECIMEN Ordering Facility: [facility] Address: [address] [place] [address] Performed By: #### 1 4252-1 #### [facility] CLIA [id number] [address] [address] [place] ACTIN SMOOTH MUSCLE IGG QUANTITATIVE 3 Units Normal <20 [facility] Comment on above: Order Comment: Speci men Type: BLOOD SPECIMEN Ordering Facility: [facility] Address: [address] [place] [address] Performed By: #### 1 4252-1 #### [facility] CLIA [id number] [address] [place] [address] [place] [address] [place] ABD Limited w/ Elastographyo n 12-31-2024 ABD Limited w/ Elastography [facility] Imaging Services [address] [place] [address] ABD Limited w/ Elastography MR#: [id number] Acct: [id number] Name: HONG SNOW Rep #: [id number] : 1970 F 54 From: [place] MD PCP: Rissa Tran PA-C Status: REG CLI Study: ABD Limited w/ Elastography Date of Exam: 12/22 Exam# [id number] Ordering Dr: Ankur Dunlap MD PROCEDURE: ABD LIMITED W/ ELASTOGRAPHY (USABDLELPARO), 12/31/2024 REASON FOR EXAM: Elevated liver enzymes. COMPARISON: None TECHNIQUE: Grayscale and color Doppler imaging of the right upper quadrant was performed. [employer] S-shear wave elastography was performed for non-invasive assessment of liver tissue stiffness. FINDINGS: Liver: Unremarkable. 13.3 cm in length. Gallbladder: Unremarkable. Reportedly, sonographic Gastelum's was negative. Biliary tree: Unremarkable. CBD measures 2 mm. Pancreas: Partially obscured by shadowing bowel gas, grossly unremarkable as visualized. Right kidney: Unremarkable. 10.9 cm in length. Spleen: Unremarkable. 9.1 cm in greatest dimension. Other: No visualized free fluid. Hepatic elastography: EQI median: 8.3kPa EQI median velocity: 1.67 m/s IQR/Med: 19.3% (kPa), 10.2 % (m/sec) (if the IQR/Med is IQR/median >30% (for kPa) or >15% in m/s, the variance in the measurements is a large and the accuracy of the measurement may be in question) US/ABD Limited w/ Elastography IMPRESSION: 1. Echogenic appearance of the hepatic parenchyma, typically associated with hepatic steatosis although this may also be seen in early fibrosis/cirrhosis. Correlate with clinical laboratory evidence of chronic liver disease. No biliary dilatation. 2. Per the below 2020 SRU criteria, US elastography findings (liver stiffness 8.3 kPa) rule out compensated advanced chronic liver disease (cACLD) in the absence of other known clinical signs. If there are known clinical signs, further testing may be needed for confirmation. Note per the below, in some patients with NAFLD, the cutoff values for cACLD may be lower (7-9 kPa). 3. Additional description as above. Assessment is per the Update to the SRU Liver Elastography Consensus Statement (2020) Note that the above assessment of liver fibrosis is vendor-neutral and intended for use in fibrosis related to viral etiologies and non-alcoholic fatty-liver disease (NAFLD); in causes other than viral hepatitis and NAFLD, the cutoff values are currently not well established. In some patients with NAFLD, the cutoff values for cACLD may be lower (7-9 kPa). Note also that in the setting of elevated LFTs, nonfasting or vascular congestion, the stage of lifer fibrosis may be overestimated. Previous U reference values: <1.37 m/s (5.7kPa): No to mild fibrosis 1.37 m/s - 2.2 m/s: Moderate to severe fibrosis >2.2 m/s (15kPa): Significant fibrosis / cirrhosis Reading Location: [id number] CC: CHANDLER Tran; Dr. Ankur Dunlap MD Crystallographer: Signed Normal [facility] TRANSGLUTAMINASE IgG [CCL]on 12-27-2024 TRANSGLUTAMINASE IgG [CCL] Normal [facility] Comment on above: Result Comment: _TRA NSGLUTAMINASE IgG [CCL]_ SEE SCANNED REPORT Performed By: #### 2 30159 #### [facility],[address] [place] [address] CCP AB, IgG AND IgA [CCL]on 12-25-2024 CCP AB, IgG AND IgA [CCL] Normal [facility] Comment on above: Result Comment: _CCP AB, IgG AND IgA [CCL]_ SEE SEPARATE REPORT Performed By: #### 2 32686 ####[address] [address] CODY BY IFA SCREEN [CCL]on Nuclear Ab IF (S) [Titer] Negative Normal Negative [facility] Comment on above: Result Comment: Anti -nuclear antibody test is used as an aid in diagnosis of systemic autoimmune diseases. Where positive and clinically warranted, follow-up using disease-specific testing is recommended. Low positive titers are not uncommon with advanced age, certain chronic infections, and malignancies among others. Test methodology: Indirect fluorescence immunoassay (IFA) using HEp-2 cells. [facility] [address] [place] [address] Dominik Moralez III, M.D. [id number] Performed By: #### 2 75665 #### [address] [address] DNA ANTIBODY [CCL]on 025 DNA ANTIBODY [CCL] Normal [facility] Comment on above: Result Comment: _DNA ANTIBODY [CCL]_ SEE SCANNED REPORT Performed By: #### 2 35935 ####[address] [address] ISSAC ANTIBODY PANEL [CCL]on 0 12-24-2024 ISSAC ANTIBODY PANEL [CCL] Normal [facility] Comment on above: Result Comment: _ENA ANTIBODY PANEL(CCL)_ SEE SCANNED REPORT Performed By: #### 2 23267 #### [address] [address] TRANSGLUTAMINASE IGA ABS [CC L]on 12-24-2024 TRANSGLUTAMINASE IGA ABS [CCL] Normal [facility] Comment on above: Result Comment: _TRA NSGLUTAMINASE IGA ABS [CCL]_ SEE SCANNED REPORT Performed By: #### 2 27953 #### [address] [address] COMPLEMENT C3 [CCL]on 2024 C3 Complement 135 mg/dL Normal 86-166 [facility] Comment on above: Result Comment: [facility] [address] [place] [address] Dominik Moralez III, M.D. [id number] Performed By: #### 2 43705 #### [facility],[address] [place] [address] COMPLEMENT C4 [CCL]on 2024 C4 Complement 17 mg/dL Normal 13-46 [facility] Comment on above: Result Comment: [address] [place] [address] Dominik Moralez III, M.D. [id number] Performed By: #### 2 90823 ####[address] [address] RHEUMATOID FACTOR [CCL]on Rheumatoid Factor <10 Normal <16 [facility] Comment on above: Result Comment: [address] [place] [address] Dominik Moralez III, M.D. [id number] Performed By: #### 2 03087 ####[facility],[address] [place] [address] THYROID PEROXIDASE AB [CCL]o n 12-22-2024 TPO Antibody <3.0 Normal <5.6 [facility] Comment on above: Result Comment: Thyr oid Peroxidase Antibody test is used as an aid in diagnosis of autoimmune thyroid disease. Clinical correlation is required. [address] [place] [address] Dominik Moralez III, M.D. [id number] Performed By: #### 2 97006 ####[address] [address] CODY BY IFA SCREENon 12-21-19 25 Nuclear Ab Ql (S) Negative Normal Negative [facility] Comment on above: Order Comment: Speci men Type: BLOOD SPECIMEN Ordering Facility: [facility] Address: [address] [place] [address] Result Comment: Anti -nuclear antibody test is used as an aid in diagnosis of systemic autoimmune diseases. Where positive and clinically warranted, follow-up using disease-specific testing is recommended. Low positive titers are not uncommon with advanced age, certain chronic infections, and malignancies among others. Test methodology: Indirect fluorescence immunoassay (IFA) using HEp-2 cells. Performed By: #### 1 1572-5, ANAIFS, 80749-3, 4498-2, 74399-9, 4485-9, MICRO #### [facility] CLIA [id number] [address] [place] [address] [place] BUN/CREAT eGFR (NON-)on 12-21-2024 AGE 54 years Normal [facility] Comment on above: Performed By: #### 2 29902 ####[facility],[address] [place], [place] [address] BUN/CREAT eGFR (NON-) Normal [facility] Comment on above: Result Comment: BUN/ CREATININE eGFR NON-) Performed By: #### 2 26052 ####[facility],[address] [place], [place] [address] Creatinine [Mass/Vol] 0.71 mg/dL Normal 0.55 - 1.02 [facility] Comment on above: Performed By: #### 2 29649 ####[facility],[address] [place], [place] [address] GFR/1.73 sq M.predicted among non-blacks MDRD (S/P/Bld) [Vol rate/Area] mL/min/{1.73_m2} Normal 60 - 999 [facility] Comment on above: Result Comment: ACCO RDING TO THE NATIONAL KIDNEY DISEASE EDUCATION PROGRAM(NKDE),A NORMAL eGFR IS A VALUE GREATER THAN OR EQUAL TO 60 ML/MIN/1.73 SQ METERS.KIDNEY DISEASE MAY BE PRESENT WHEN THE eGFR IS LESS THAN 60 ML/MIN/1.73 SQ METERS.VALUES LESS THEN 15 ML/MIN/1.73 SQ METERS INDICATE KIDNEY FAILURE.THIS TEST SHOULD ONLY BE USED FOR PATIENTS 18 AND OLDER. Performed By: #### 2 74348 ####[facility],[address] [place] [address] Urea nitrogen [Mass/Vol] 19 mg/dL High 7 - 18 [facility] Comment on above: Performed By: #### 2 62011 ####[facility],[address] [place] [address] [place] [address] C-REACTIVE PROTEINon 025 CRP 0.92 mg/dl High 0.00 - 0.90 [facility] Comment on above: Performed By: #### 2 58229 ####[facility],[address] [place] [address] C3 SerPl-mCncon 12-21-2024 Complement C3 [Mass/Vol] 135 mg/dL Normal 86-166 [facility] Comment on above: Order Comment: Speci men Type: BLOOD SPECIMEN Ordering Facility: [facility] Address: [address] [place] [address] Performed By: #### 1 1572-5, MIA, 63848-6, 4498-2, 99964-6, 4485-9, MICRO #### [facility] CLIA [id number] [address] [place] [address] [place] C4 SerPl-mCncon 12-21-2024 Complement C4 [Mass/Vol] 17 mg/dL Normal 13-46 [facility] Comment on above: Order Comment: Speci men Type: BLOOD SPECIMEN Ordering Facility: [facility] Address: [address] [place] [address] Performed By: #### 1 1572-5, ANAIFS, 19282-4, 4498-2, 35509-9, 4485-9, MICRO #### [facility] CLIA [id number] [address] [place] [address] [place] CBC + DIFFon 12-21-2024 Baso # 0.02 x10EE3/UL Normal 0.00 - 0.10 [facility] Comment on above: Performed By: #### 2 04965 #### [facility],[address] [place], [place] [address] Basophils/100 WBC (Bld) 0.3 % Normal 0.0 - 2.0 [facility] Comment on above: Performed By: #### 2 47303 #### [facility],[address] [place] [address] CBC + DIFF Normal [facility] Comment on above: Result Comment: CBC- COMPLETE BLOOD COUNT Performed By: #### 2 69473 #### [facility],[address] [place] [address] EO # 0.11 x10EE3/UL Normal 0.00 - 0.50 [facility] Comment on above: Performed By: #### 2 40246 #### [facility],[address] [place] [address] Eosinophils/100 WBC (Bld) 1.3 % Normal 0.0 - 7.0 [facility] Comment on above: Performed By: #### 2 87513 #### [facility],[address] [place] [address] Erythrocyte distribution width (RBC) [Ratio] 13.0 % Normal 12.0 - 15.6 [facility] Comment on above: Performed By: #### 2 88104 #### [facility],[address] [place] [address] Hematocrit (Bld) [Volume fraction] 43.2 % Normal 34.0 - 46.0 [facility] Comment on above: Performed By: #### 2 84860 #### [facility],[address] [place] [address] Hemoglobin (Bld) [Mass/Vol] 15.1 g/dL Normal 12.0 - 16.0 [facility] Comment on above: Performed By: #### 2 82755 #### [facility],[address] [place] [address] Lymph # 2.20 x10EE3/UL Normal 0.80 - 2.80 [facility] Comment on above: Performed By: #### 2 25482 #### [facility],[address] [place] [address] Lymphocytes/100 WBC (Bld) 24.6 % Normal 20.0 - 45.0 [facility] Comment on above: Performed By: #### 2 48447 #### [facility],[address] [place] [address] MANUAL DIFF N/A Normal [facility] Comment on above: Performed By: #### 2 89062 #### [facility],[address] [place] [address] MCH (RBC) [Entitic mass] 32 pg Normal 27 - 33 [facility] Comment on above: Performed By: #### 2 06006 #### [facility],[address] [place] [address] MCHC 35 X10 3 Normal 32 - 36 [facility] Comment on above: Performed By: #### 2 76675 #### [facility],[address] [place], [place] [address] MCV (RBC) [Entitic vol] 92 fL Normal 80 - 99 [facility] Comment on above: Performed By: #### 2 81137 #### [facility],[address] [place] [address] Dale # 0.58 x10EE3/UL Normal 0.20 - 1.00 [facility] Comment on above: Performed By: #### 2 04346 #### [facility],[address] [place] [address] MONOS % 6.5 % Normal 0.0 - 10.0 [facility] Comment on above: Performed By: #### 2 33436 #### [facility],[address] [place] [address] Morphology Socrates (Bld) [Interp] N/A Normal [facility] Comment on above: Performed By: #### 2 75946 #### [facility],[address] [place] [address] Neut # 6.02 x10EE3/UL Normal 1.50 - 7.10 [facility] Comment on above: Performed By: #### 2 81317 #### [facility],[address] [place] [address] Neutrophils/100 WBC (Bld) 67.3 % Normal 46.0 - 76.0 [facility] Comment on above: Performed By: #### 2 62977 #### [facility],[address] [place] [address] PLATELET 184 x10EE3/UL Normal 150 - 450 [facility] Comment on above: Performed By: #### 2 84685 #### [facility],[address] [place] [address] Platelet mean volume (Bld) [Entitic vol] 8.5 fL Normal 6.6 - 10.5 [facility] Comment on above: Result Comment: AUTO MATED DIFFERENTIAL Performed By: #### 2 00185 #### [facility],[address] [place] [address] RBC 4.70 x 10EE6/UL Normal 4.10 - 5.30 [facility] Comment on above: Performed By: #### 2 95943 #### [facility],[address] [place] [address] WBC 8.9 x 10EE3/UL Normal 4.5 - 10.8 [facility] Comment on above: Performed By: #### 2 75445 #### [facility],[address] [place] [address] CPKon 12-21-2024 CPK 50 U/L Normal 26 - 192 [facility] Comment on above: Performed By: #### 2 65689 ####[facility],[address] [place] [address] Centromere Ab IF Ql (S)on Centromere Ab Qn (S) <0.2 Normal <1.0 [facility] Comment on above: Order Comment: Speci ray Type: BLOOD SPECIMEN Ordering Facility: [facility] Address: [address] [place] [address] Result Comment: Anti -centromere antibody is used as in aid in diagnosis of systemic sclerosis. Clinical correlation is required. Test Methodology: Multiplex flow immunoassay. Performed By: #### M ISC1 #### [facility] CLIA [id number] [address] [place] [address] OF [facility] NON-INTERFACED REF LABS CLIA SEE SCANNED RESULTS #### RNAIII #### [facility] CLIA [id number] [address] [place] [address] CENTROMERE AB QUAL Negative Normal Negative [facility] Comment on above: Order Comment: Chaparro bell Type: BLOOD SPECIMEN Ordering Facility: [facility] Address: [address] [place] [address] Performed By: #### M ISC1 #### [facility] CLIA [id number] [address] [place] [address] OF [place] NON-INTERFACED REF LABS CLIA SEE SCANNED RESULTS #### RNAIII #### [facility] CLIA [id number] [address] [place] [address] Chromatin Ab Qnon 12-21-2024 CHROMATIN AB QUAL Negative Normal Negative [facility] Comment on above: Order Comment: Chaparro ray Type: BLOOD SPECIMEN Ordering Facility: [facility] Address: [address] [place] [address] Performed By: #### M ISC1 #### [facility] CLIA [id number] [address] [place] [address] OF [place] NON-INTERFACED REF LABS CLIA SEE SCANNED RESULTS #### RNAIII #### [facility] CLIA [id number] [address] [place] [address] Chromatin Ab SerPl-aCncon Chromatin Ab Qn <0.2 Normal <1.0 [facility] Comment on above: Order Comment: Speci men Type: BLOOD SPECIMEN Ordering Facility: [facility] Address: [address] [place] [address] Result Comment: Test Methodology: Multiplex flow immunoassay. Performed By: #### M ISC1 #### [facility] CLIA [id number] [address] [place] [address] OF [place] NON-INTERFACED REF LABS CLIA SEE SCANNED RESULTS #### RNAIII #### [facility] CLIA [id number] [address] [place] [address] DNA ANTIBODY DS BLDon 2024 DNA ANTIBODY 6 IU/mL Normal <=200 [facility] Comment on above: Order Comment: Speci men Type: BLOOD SPECIMEN Ordering Facility: [facility] Address: [address] [place] [address] Result Comment: Nega tive: <200 IU/mL Equivocal: 201-300 IU/mL Moderate Positive: 301-800 IU/mL Strong Positive: >801 IU/mL Performed By: #### M ISC1 #### [facility] CLIA [id number] [address] [place] [address] [place] NON-INTERFACED REF LABS CLIA SEE SCANNED RESULTS #### RNAIII #### [facility] CLIA [id number] [address] [place] [address] DNA ANTIBODY QUALITATIVE INTERPRETATION Negative Normal Negative [facility] Comment on above: Order Comment: Speci men Type: BLOOD SPECIMEN Ordering Facility: [facility] Address: [address] [place] [address] Performed By: #### M ISC1 #### [facility] CLIA [id number] [address] [place] [address] OF [place] NON-INTERFACED REF LABS CLIA SEE SCANNED RESULTS #### RNAIII #### [facility] CLIA [id number] [address] [place] [address] DORSAL SPINE 2 VIEWSon 12-21 DORSAL SPINE 2 [address] [place] [address] Patient: HONG SNOW Phone#: : 1970 Age: 54 Gender: F Pt. Type: Out Account: [id number] Location: 052 Ordering: [facility] Exam Date: 12/21/2024/13:17 Family Phys: Charge Code: [id number] Physician: [place] Order #: [id number] Dose#: PROCEDURE: X-RAY DORSAL SPINE 2 VIEWS COMPARISON: None. INDICATIONS: Inflammatory changes. FINDINGS: BONES: Mild curvature of the thoracic spine to the right is present. Mild bony hypertrophy is present at the endplates. DISC SPACES: Normal. No significant disc height narrowing, subluxation, or endplate abnormality. PARASPINOUS: Negative. No paraspinous abnormality is seen. OTHER: Negative. CONCLUSION: 1. Mild curvature of the thoracic spine to the right. There is no evidence of acute bone abnormality. Dictated by: Aime Blandon MD on 12/21/2024 at 13:49 Approved by: Aime Blandon MD on 12/21/2024 at 13:50 Normal [facility] ISSAC Jo1 Ab Ser-aCncon 2024 Padma-1 extractable nuclear Ab Qn (S) <0.2 Normal <1.0 [facility] Comment on above: Order Comment: Speci men Type: BLOOD SPECIMEN Ordering Facility: [facility] Address: [address] [place] [address] Performed By: #### M ISC1 #### [facility] CLIA [id number] [address] [place] [address] [place] NON-INTERFACED REF LABS CLIA SEE SCANNED RESULTS #### RNAIII #### [facility] CLIA [id number] [address] [place] [address] ISSAC PEER TUTOR Ab Ser-aCncon 2024 Ribonucleoprotein extractable nuclear Ab Qn (S) <0.2 Normal <1.0 [facility] Comment on above: Order Comment: Speci men Type: BLOOD SPECIMEN Ordering Facility: [facility] Address: [address] [place] [address] Performed By: #### M ISC1 #### [facility] CLIA [id number] [address] [place] [address] [place] NON-INTERFACED REF LABS CLIA SEE SCANNED RESULTS #### RNAIII #### [facility] CLIA [id number] [address] [place] [address] Ribonucleoprotein extractable nuclear Ab Qn (S) 0.3 AI Normal <1.0 [facility] Comment on above: Order Comment: Speci men Type: BLOOD SPECIMEN Ordering Facility: [facility] Address: [address] [place] [address] Performed By: #### 1 1572-5, ANAIFS, 42145-5, 4498-2, 73193-7, 4485-9, MICRO #### [facility] CLIA [id number] [address] [place] [address] [place] ISSAC SM IgG Ser-aCncon 2024 Sheth extractable nuclear IgG Qn (S) <0.2 Normal <1.0 [facility] Comment on above: Order Comment: Speci men Type: BLOOD SPECIMEN Ordering Facility: [facility] Address: [address] [place] [address] Performed By: #### M ISC1 #### [facility] CLIA [id number] [address] [place] [id number] [place] NON-INTERFACED REF LABS CLIA SEE SCANNED RESULTS #### RNAIII #### [facility] CLIA [id number] [address] [place] [address] ISSAC SS-A Ab Ser-aCncon 12-21 Sjogrens syndrome-A extractable nuclear Ab Qn (S) <0.2 Normal <1.0 [facility] Comment on above: Order Comment: Chaparro bell Type: BLOOD SPECIMEN Ordering Facility: [facility] Address: [address] [place] [address] Result Comment: Test Methodology: Multiplex flow immunoassay. Performed By: #### 1 1572-5, ANAIFS, 43812-5, 4498-2, 20309-9, 4485-9, MICRO #### [facility] CLIA [id number] [address] [place] [address] [place] ISSAC SS-B Ab Ser-aCncon 12-21 Sjogrens syndrome-B extractable nuclear Ab Qn (S) <0.2 Normal <1.0 [facility] Comment on above: Order Comment: Chaparro bell Type: BLOOD SPECIMEN Ordering Facility: [facility] Address: [address] [place] [address] Result Comment: Anti -SSB (anti-La) antibody is used as an aid in diagnosis of a variety of systemic autoimmune diseases, especially for Sjogren's syndrome and systemic lupus erythematosus. Clinical correlation is required. Test Methodology: Multiplex flow immunoassay. Performed By: #### M ISC1 #### [facility] CLIA [id number] [address] [place] [address] [place] NON-INTERFACED REF LABS CLIA SEE SCANNED RESULTS #### RNAIII #### [facility] CLIA [id number] [address] [place] [address] HAND LT MIN 3 VIEWSon 2024 HAND LT MIN 3 [address] [place] [address] Patient: HONG SNOW Phone#: : 1970 Age: 54 Gender: F Pt. Type: Out Account: [id number] Location: [facility] Ordering: [facility] Exam Date: 12/21/2024/13:13 Family Phys: Charge Code: [id number] Physician: [place] Order #: [id number] Dose#: PROCEDURE: X-RAY HAND LT COMPLETE 3 VIEWS COMPARISON: None. INDICATIONS: Inflammatory changes. FINDINGS: BONES: Normal. No significant arthropathy or acute abnormality. SOFT TISSUES: Negative. No visible soft tissue swelling. EFFUSION: None visible. OTHER: Negative. CONCLUSION: No acute disease. Dictated by: Aime Blandon MD on 12/21/2024 at 13:46 Approved by: Aime Blandon MD on 12/21/2024 at 13:47 Normal [facility] HAND RT MIN 3 VIEWSon 2024 HAND RT MIN 3 V[address]WS [place] [id number] Patient: HONG SNOW Phone#: : 1970 Age: 54 Gender: F Pt. Type: Out Account: [id number] Location: [facility] Ordering: [facility] Exam Date: 12/21/2024/13:02 Family Phys: Charge Code: [id number] Physician: [place] Order #: [id number] Dose#: PROCEDURE: X-RAY HAND RT COMPLETE MIN 3 VIEWS COMPARISON: None. INDICATIONS: Inflammatory changes. FINDINGS: BONES: Normal. No significant arthropathy or acute abnormality. SOFT TISSUES: Negative. No visible soft tissue swelling. EFFUSION: None visible. OTHER: Negative. CONCLUSION: No acute disease. Dictated by: Aime Blandon MD on 12/21/2024 at 13:43 Approved by: Aime Blandon MD on 12/21/2024 at 13:45 Normal [facility] Padma-1 extractable nuclear Ab Qn (S)on 12-21-2024 PADMA 1 ANTIBODY QUAL Negative Normal Negative [facility] Comment on above: Order Comment: Speci men Type: BLOOD SPECIMEN Ordering Facility: [facility] Address: [address] [place], [place] [address] Result Comment: Anti -PADMA-1 antibody is used as an aid in diagnosis of polymyositis and dermatomyositis especially with pulmonary involvement. A negative result cannot rule out polymyositis or dermatomyositis. Clinical correlation is required. Test Methodology: Multiplex flow immunoassay. Performed By: #### M [facility] #### [facility] CLIA [id number] [address] [facility] NON-INTERFACED REF LABS CLIA SEE SCANNED RESULTS #### RNAIII #### [facility] CLIA [id number] [address] [place] [address] [facility] 2024 [facility] RESULTS 1 View results in Scanned Documents link when available Normal [facility] Comment on above: Order Comment: Speci men Type: BLOOD SPECIMEN Ordering Facility: [facility] Address: [address] [place] [address] Performed By: #### M ISC1 #### [facility] CLIA [id number] [address] [place], [place] [address] [facility] NON-INTERFACED REF LABS CLIA SEE SCANNED RESULTS #### RNAIII #### [facility] CLIA [id number] [address] [place] [address] REFERRAL LAB 1 (DROP-DOWN) [facility] (and subsidiaries including [employer] [facility], [facility], and [facility] Normal [facility] Comment on above: Order Comment: Speci men Type: BLOOD SPECIMEN Ordering Facility: [facility] Address: [address] [place] [address] Performed By: #### M ISC1 #### [facility] CLIA [id number] [address] [place], [place] [address] [facility] NON-INTERFACED REF LABS CLIA SEE SCANNED RESULTS #### RNAIII #### [facility] CLIA [id number] [address] [place] [address] TEST 1 Anti-CCP (Cyclic Citrullinated Peptide) Antibodies, IgG and IgA, SARITHA Normal [facility] Comment on above: Order Comment: Speci men Type: BLOOD SPECIMEN Ordering Facility: [facility] Address: [address] [place] [address] Performed By: #### M ISC1 #### [facility] CLIA [id number] [address] [place] [address] [place] NON-INTERFACED REF LABS CLIA SEE SCANNED RESULTS #### RNAIII #### [facility] CLIA [id number] [address] [place] [address] RNA POLYMERASE III ABon 11-25 RNA POLYMERASE III AB 3 Units Normal 0-19 [facility] Comment on above: Order Comment: Speci men Type: BLOOD SPECIMEN Ordering Facility: [facility] Address: [address] [place] [address], [place] [address] Result Comment: INTE RPRETIVE INFORMATION: RNA Polymerase III Antibody, IgG 19 Units or less ......Negative 20 - 39 Units .........Weak Positive 40 - 80 Units .........Moderate Positive 81 Units or greater ...Strong Positive The presence of RNA polymerase III IgG antibody, when considered in conjunction with other laboratory and clinical findings, is an aid in the diagnosis of systemic sclerosis (SSc) with increased incidence of skin involvement and renal crisis with the diffuse cutaneous form of SSc. RNA polymerase III IgG antibody occur in about 11-23 percent of SSc patients, and typically in the absence of anti-centromere and anti-Scl-70 antibodies. A negative result indicates no detectable IgG antibodies to the dominant antigen of RNA polymerase III and does not rule out the possibility of SSc. False-positive results may also occur due to non-specific binding of immune complexes. Strong clinical correlation is recommended. If clinical suspicion remains, consider additional testing for other antibodies associated with SSc, including centromere, Scl-70, U3-PEER TUTOR, PM/Scl, or Th/To. Performed By: [facility] [address] [place] [address] Life Advisor: Kevin Kauffman MD, PhD CLIA Number: [id number] Performed By: #### M ISC1 #### [facility] CLIA [id number] [address] [id number] [place] NON-INTERFACED REF LABS CLIA SEE SCANNED RESULTS #### RNAIII #### [facility] CLIA [id number] [address] [place] [address] Rheumatoid fact SerPl-aCncon 12-21-2024 Rheumatoid factor Qn [IU]/mL Normal <16 [facility] Comment on above: Order Comment: Speci ray Type: BLOOD SPECIMEN Ordering Facility: [facility] Address: [address] [place] [address] Performed By: #### 1 1572-5, ANAIFS, 83275-2, 4498-2, 99773-8, 4485-9, MICRO #### [facility] CLIA [id number] [address] [place] [address] [place] Ribonucleoprotein extractabl e nuclear Ab Qn (S)on 12-21-2024 ANTI-PEER TUTOR QUAL Negative Normal Negative [facility] Comment on above: Order Comment: Chaparro ray Type: BLOOD SPECIMEN Ordering Facility: [facility] Address: [address] [place] [address] Performed By: #### 1 1572-5, ANAIFS, 95123-1, 4498-2, 35065-0, 4485-9, MICRO #### [facility] CLIA [id number] [address] [place] [address] [place] RIBOSOMAL PEER TUTOR QUAL Negative Normal Negative [facility] Comment on above: Order Comment: Chaparro ray Type: BLOOD SPECIMEN Ordering Facility: [facility] Address: [address] [place] [address] Result Comment: Anti -Ribosomal RNA (Ribosomal P) antibody is used as an aid in diagnosis of systemic autoimmune diseases especially systemic lupus erythematosus and mixed connective tissue disease. Cross-reactivity with Anti-sheth antibody is not uncommon. Clinical correlation is required. Test Methodology: Multiplex flow immunoassay. Performed By: #### M ISC1 #### [facility] CLIA [id number] [address] [place], [place] [id number] [place] NON-INTERFACED REF LABS CLIA SEE SCANNED RESULTS #### RNAIII #### [facility] CLIA [id number] [address] [place] [address] SACRO ILIAC JTSon 12-21-2024 SACRO ILIAC JTS [place] [address] Patient: HONG SNOW Phone#: : 1970 Age: 54 Gender: F Pt. Type: Out Account: [id number] Location: [facility] Ordering: SUN FLOWERS Exam Date: 12/21/2024/13:24 Family Phys: Charge Code: 100019 Physician: [place] Order #: [id number] Dose#: PROCEDURE: X-RAY SI JOINTS COMPARISON: None. INDICATIONS: Erosive sacroilitis. FINDINGS: BONES: Mild sclerosis is present at vertebral body endplates at the L5-S1 level. There is mild sclerosis at the right SI joint, ilium. SOFT TISSUES: Negative. No visible soft tissue swelling. EFFUSION: None visible. OTHER: Negative. CONCLUSION: 1. Mild bony sclerosis is present at the right SI joint and the L5-S1 level. No other acute bone abnormality is identified. Dictated by: Aime Blandon MD on 12/21/2024 at 13:50 Approved by: Aime Blandon MD on 12/21/2024 at 13:53 Normal [facility] SCL-70 extractable nuclear I gG IA Qn (S)on 12-21-2024 SCLERODERMA AB QUAL Negative Normal Negative [facility] Comment on above: Order Comment: Chaparro bell Type: BLOOD SPECIMEN Ordering Facility: [facility] Address: [address] [place] [address] Performed By: #### M ISC1 #### [facility] CLIA [id number] [address] [place] [address] [place] NON-INTERFACED REF LABS CLIA SEE SCANNED RESULTS #### RNAIII #### [facility] CLIA [id number] [address] [place] [address] SCLERODERMA IGG AB <0.2 Normal <1.0 [facility] Comment on above: Order Comment: Chaparro bell Type: BLOOD SPECIMEN Ordering Facility: [facility] Address: [address] [place] [address] Result Comment: Scl- 70/Scleroderma antibody test is used as an aid in diagnosis of systemic sclerosis especially the diffuse cutaneous form. A negative result cannot rule out systemic sclerosis. The final interpretation should consider clinical picture and other test results such as anti-centromere antibody. Test Methodology: Multiplex flow immunoassay. Performed By: #### M ISC1 #### [facility] CLIA [id number] [facility] [place] [address] [place] NON-INTERFACED REF LABS CLIA SEE SCANNED RESULTS #### RNAIII #### [facility] CLIA [id number] [address] [place] [address] SEDRATEon 12-21-2024 SEDRATE 4 mm/hr Normal 0 - 30 [facility] Comment on above: Performed By: #### 2 83301 #### [facility],[address] [place] [address] SGOT (AST)on 12-21-2024 AST [Catalytic activity/Vol] 256 U/L High 13 - 39 [facility] Comment on above: Performed By: #### 2 00907 #### [facility],[address] [place] [address] SGPT (ALT)on 12-21-2024 ALT [Catalytic activity/Vol] 334 U/L High 16 - 63 [facility] Comment on above: Performed By: #### 2 50215 #### [facility],[address] [place] [address] Sjogrens syndrome-A extracta ble nuclear Ab Qn (S)on 12-21-2024 SSA ANTIBODY QUAL Negative Normal Negative [facility] Comment on above: Order Comment: Speci men Type: BLOOD SPECIMEN Ordering Facility: [facility] Address: [address] [place] [address] Performed By: #### 1 1572-5, ANAIFS, 81497-3, 4498-2, 24851-1, 4485-9, MICRO #### [facility] CLIA [id number] [facility] [address] [place] Sjogrens syndrome-B extracta ble nuclear Ab Qn (S)on 12-21-2024 SSB ANTIBODY QUAL Negative Normal Negative [facility] Comment on above: Order Comment: Specstefanie ray Type: BLOOD SPECIMEN Ordering Facility: [facility] Address: [address] [place] [address] Performed By: #### M ISC1 #### [facility] CLIA [id number] [address] [place] [address] [place] NON-INTERFACED REF LABS CLIA SEE SCANNED RESULTS #### RNAIII #### [facility] CLIA [id number] [address] [place] [address] Sheth extractable nuclear Ig G Qn (S)on 12-21-2024 SM ANTIBODY QUAL Negative Normal Negative [facility] Comment on above: Order Comment: Chaparro bell Type: BLOOD SPECIMEN Ordering Facility: [facility] Address: [address] [place] [address] Result Comment: Anti -Sm (Sheth) antibody is used as an aid in diagnosis of systemic lupus erythematosus and its presence is associated with renal disease. A negative result cannot rule out systemic lupus erythematosus. Clinical correlation is required. Test Methodology: Multiplex flow immunoassay. Performed By: #### M ISC1 #### [facility] CLIA [id number] [address] [place] [address] NON-INTERFACED REF LABS CLIA SEE SCANNED RESULTS #### RNAIII #### [facility] CLIA [id number] [address] [place] [address] THYROID PEROXIDASE ANTIBODYo n 12-21-2024 TPO Ab Qn [IU]/mL Normal <5.6 [facility] Comment on above: Order Comment: Specstefanie ray Type: BLOOD SPECIMEN Ordering Facility: [facility] Address: [address] [place] [address] Result Comment: Thyr oid Peroxidase Antibody test is used as an aid in diagnosis of autoimmune thyroid disease. Clinical correlation is required. Performed By: #### 1 1572-5, ANAIFS, 57777-4, 4498-2, 17102-9, 4485-9, MICRO #### [facility] CLIA [id number] [address] [place] [address] STATES OF [facility] URINALYSIS WITH MICROSCOPYon 12-21-2024 Amorphous NONE Normal [facility] Comment on above: Performed By: #### 2 07531 ####[facility],[address] [place] [address] Bacteria NONE Normal [facility] Comment on above: Performed By: #### 2 87610 ####[facility],[address] [place] [address] Bilirubin Ql (U) Negative Normal NORMAL: NEGATIVE [facility] Comment on above: Performed By: #### 2 03970 ####[facility],[address] [place] [address]907 Casts NONE Normal [facility] Comment on above: Performed By: #### 2 86063 ####[facility],[address] [place] [address] Clarity (U) clear Normal NORMAL: CLEAR [facility] Comment on above: Performed By: #### 2 03699 ####[facility],[address] [place] [address] 52469 Color (U) yellow Normal NORMAL: YELLOW [facility] Comment on above: Performed By: #### 2 49117 ####[facility],[address] [place] [address]33[address] Crystals LM Nom (Urine sed) NONE Normal [facility] Comment on above: Performed By: #### 2 41987 ####[facility],[address] [place] [address] 05878 Epi Cells NONE Normal [facility] Comment on above: Performed By: #### 2 10897 ####[facility],[address] [place] [address] 17975 Glucose Ql (U) NORM Normal NORMAL: NORMAL [facility] Comment on above: Performed By: #### 2 30934 ####[facility],[address] [place] [address] 22011 Hemoglobin Ql (U) Negative Normal NORMAL: NEGATIVE [facility] Comment on above: Performed By: #### 2 00651 ####[facility],[address] [place] [address]58 Ketone Negative Normal NORMAL: NEGATIVE [facility] Comment on above: Performed By: #### 2 47320 ####[facility],[address] [place] [address] 16906 Leukocytes Negative Normal NORMAL: NEGATIVE [facility] Comment on above: Result Comment: URIN E MICROSCOPIC Performed By: #### 2 85863 ####[facility],[address] [place] [address] Mucous NONE Normal [facility] Comment on above: Performed By: #### 2 57350 ####[facility],[address] [place], [place] [address] Nitrite Ql (U) Negative Normal NORMAL: NEGATIVE [facility] Comment on above: Performed By: #### 2 93053 ####[facility],[address] [place], [place] [address] pH (U) 7 [pH] Normal NORMAL: 5.0-8.0 [facility] Comment on above: Performed By: #### 2 97584 ####[facility],[address] [place] [address] 72089 Protein Ql (U) 15 Abnormal NORMAL: NEGATIVE [facility] Comment on above: Performed By: #### 2 07158 ####[facility],[address] [place] [address] 91406 Rbc NONE Normal 0-3 / hpf [facility] Comment on above: Performed By: #### 2 98806 ####[facility],[address] [place], [place] [address] Sp [place] 1.015 Normal NORMAL: 1.010-1.030 [facility] Comment on above: Performed By: #### 2 74577 ####[facility],[address] [place] [address]47[address] Specimen Type Clean catch Normal [facility] Comment on above: Performed By: #### 2 14636 ####[facility],[address] [place] [address] URINALYSIS WITH MICROSCOPY Normal [facility] Comment on above: Result Comment: URIN ALYSIS Performed By: #### 2 06531 ####[facility],[address] [place] [address] 88149 Urobilinog NORM Normal NORMAL: NORMAL [facility] Comment on above: Performed By: #### 2 30854 ####[facility],[address] [place] [address]39 Wbc NONE Normal 0-5 / hpf [facility] Comment on above: Performed By: #### 2 32170 ####[facility],[address] [place] [address] 46610 Yeast NONE Normal [facility] Comment on above: Performed By: #### 2 76849 ####[facility],[address] [place] [address]10 VITAMIN D, 25 HYDROXYon 11-25 VitD 94.30 ng/mL Normal 30.00 - 100 [facility] Comment on above: Result Comment: 25-O HD3 indicates both endogenous production and supplementation. 25-OHD2 is an indicator of exogenous sources, such as diet or supplementation. Therapy is based on measurement of Total 25-OHD, with levels <20 ng/mL indicative of Vitamin D deficiency, while levels between 20 ng/mL and 30 ng/mL suggest insufficiency. Optimal levels are >=30ng/mL. Vitamin D, 25-OH D3 Not Established Vitamin D, 25-OH D2 Not Established Performed By: #### 2 04887 #### [facility],[address] [place] [address] WRIST COMPLETE LTon 12-21-19 25 WRIST COMPLETE LT [address] [address] Patient: HONG SNOW Phone#: : 1970 Age: 54 Gender: F Pt. Type: Out Account: [id number] Location: 052 Ordering: LOLYBATSHEVAFazal FLOWERS Exam Date: 12/21/2024/13:16 Family Phys: Charge Code: 684008 Physician: [place] Order #: [id number] Dose#: PROCEDURE: X-RAY WRIST LT COMPLETE MIN 3 VIEWS COMPARISON: None. INDICATIONS: Inflammatory changes. FINDINGS: BONES: Normal. No significant arthropathy or acute abnormality. SOFT TISSUES: Negative. No visible soft tissue swelling. EFFUSION: Joint effusion is present. OTHER: Negative. CONCLUSION: 1. There is no evidence of acute bone abnormality. 2. Small joint effusion is present. Dictated by: Aime Blandon MD on 12/21/2024 at 13:47 Approved by: Aime Blandon MD on 12/21/2024 at 13:48 Normal [facility] WRIST COMPLETE RTon 12-21-19 25 WRIST COMPLETE RT [place] [address] Patient: HONG SNOW Phone#: : 1970 Age: 54 Gender: F Pt. Type: Out Account: [id number] Location: 052 Ordering: SUN FLOWERS Exam Date: 12/21/2024/13:12 Family Phys: Charge Code: [id number] Physician: [place] Order #: [id number] Dose#: PROCEDURE: X-RAY WRIST RT COMPLETE MIN 3 VIEWS COMPARISON: None. INDICATIONS: Inflammatory changes. FINDINGS: BONES: Normal. No significant arthropathy or acute abnormality. SOFT TISSUES: Negative. No visible soft tissue swelling. EFFUSION: None visible. OTHER: Negative. CONCLUSION: No acute disease. Dictated by: Aime Blandon MD on 12/21/2024 at 13:46 Approved by: Aime Blandon MD on 12/21/2024 at 13:46 Normal [facility] tTG IgA Qn (S)on 12-21-2024 TRANSGLUTAMINASE IGA ABS INTERPRETATION Negative Normal Negative [facility] Comment on above: Order Comment: Chaparro bell Type: BLOOD SPECIMEN Ordering Facility: [facility] Address: [address] [place] [address] Result Comment: The following results were obtained with [employer] QUANTA Lite R h-tTG IgA SARITHA.???R h-tTG IgA values obtained with different manufacturers' assay methods may not be used interchangeably. The magnitude of the reported IgA levels cannot be correlated to an endpoint???concentration. This is used as an aid in diagnosis of celiac disease. Clinical correlation is required. Performed By: #### 1 1572-5, ANAIFS, 59341-1, 4498-2, 81707-6, 4485-9, MICRO #### [facility] CLIA [id number] [address] [place] [address] [place] tTG IgA Ser-aCncon 5 tTG IgA Qn (S) <2 Normal <4 Flores [facility] Comment on above: Order Comment: Chaparro bell Type: BLOOD SPECIMEN Ordering Facility: [facility] Address: [address] [place] [address] Performed By: #### 1 1572-5, ANAIFS, 05577-9, 4498-2, 07516-0, 4485-9, MICRO #### [facility] CLIA [id number] [address] [place] [address] [place] tTG IgG Qn (S)on 12-21-2024 TRANSGLUTAMINASE IGG ABS INTERPRETATION Negative Normal Negative Flores [facility] Comment on above: Order Comment: Chaparro bell Type: BLOOD SPECIMEN Ordering Facility: [facility] Address: [address] [place] [address] Result Comment: The following results were obtained with [employer] QU[employer] Lite R h-tTG IgG SARITHA.???R h-tTG IgG values obtained with different manufacturers' assay methods may not be used interchangeably. The magnitude of the reported IgG levels cannot be correlated to an endpoint???concentration. This test is used as an aid in diagnosis of celiac disease in IgA-deficient individuals only. Clinical correlation is required. Performed By: #### 1 1572-5, ANAIFS, 31817-4, 4498-2, 61912-0, 4485-9, MICRO #### [facility] CLIA [id number] [address] [address] [place] tTG IgG Ser-aCncon 5 tTG IgG Qn (S) <2 Normal <6 [facility] Comment on above: Order Comment: Speci men Type: BLOOD SPECIMEN Ordering Facility: [facility] Address: [facility] [place] [address] Performed By: #### 1 1572-5, ANAIFS, 20883-3, 4498-2, 29807-8, 4485-9, MICRO #### [facility] CLIA [id number] [address] [place] [address] [place] Gastroenterology Visit Repor ton 12-20-2024 Gastroenterology Visit Report [facility] [address] [place] [id number] OFFICE VISIT Date of Service: 12/20/24 MR#: [id number] Acct: [id number] Name: HONG SNOW Rep #: [id number] : 1970 Provider: Dr. Ankur ga MD Age/Sex: 54/F [facility] Status: Signed Intake Vital Signs 11/23/23 14:04 12/20/24 11:14 Height 5 ft 4 in 5 ft 4 in Weight: 142 lb BMI 24.3 BP 152/96 H Pulse 90 Pulse Oximetry (%) 97 Intake Visit Reasons: ELEVATED LIVER ENZYMES Chief Complaint: diarrhea Allergies gluten Allergy (Verified 11/23/23 14:05) Other iodine Allergy (Verified 11/23/23 14:05) Other milk (dairy) Allergy (Verified 11/23/23 14:05) Other monosodium glutamate (msg) Allergy (Verified 11/23/23 14:05) Other shellfish derived Allergy (Verified 11/23/23 14:05) Food Allergy meperidine (From Demerol) Adverse Reaction (Intermediate, Verified 11/23/23 14:05) Vomiting Medications ???Medication ???Instructions ???Recorded ???Confirmed ???Type albuterol sulfate 90 mcg/actuation 1 inh inhalation ONCE 06/09/22 0 12/20/24 History aerosol inhaler (Ventolin HFA) magnesium 200 mg tablet 400 mg PO BID 08/10/22 12/20/24 Hi story multivitamin 1 tab PO DAILY 08/10/22 12/20/24 H istory estradiol 0.05 mg/24 hr weekly 1 patch transdermal .2XWEEK 12/20/24 History transdermal patch Patient : No PFSH Medical History Wears contact lenses Wears glasses Post-menopausal Anxiety Arthritis Migraine headache Injury of head and neck TIA (transient ischemic attack) History of GI bleed History of hiatal hernia History of IBS Gastric reflux Non-smoker Shortness of breath on exertion Asthma Fibromyalgia Leg cramps History of pain when walking Surgical History H/O wrist surgery Hx of hysterectomy Hx of laparoscopy Hx of hernia repair Hx of section Social History Smoking Status: Never smoker HPI HPI Chief Complaint: diarrhea Details: HONG SNOW, is a 54 F who presents to the office today for HONG MARGOTCURTISJOSH, is a 54 F who presents to the office today for FU. FH father???s side of the family has a lot of similar GI symptoms; no known diagnosis. Prior workup: Stool testing enteric pathogens, ova/parasite WNL. *BGI established 8.17. with referral from PCP for evaluation of watery, bloody diarrhea and periodic abdominal pain with onset and occurring daily with worsening in severity. Weight has been maintained but pays particular attention to not lose. Similar symptoms historically that are relieved with diet changes. Diet is organic, gluten free and dairy free. Biochemical workup CMP, LDH, CBC, ESR, ANCA, celiac, IgA, GAME, ISABEL, IBD prognostic not suggestive of IBD, Chromagranin A WNL CRP H11.1, Anti-double strand ab H25 24 hr urine 5-HIAA WNL Stool testing calprotectin, lactoferrin, pancreatic elastase, C.Difficile WNL EGD and colonoscopy 08.11.22. EGD found gastric stenosis, chronic inflammation; erythematous duodenopathy, metaplasia. Colonoscopy found abnormal perianal exam; congested mucosa sigmoid through hepatic flexure; proctitis. Normal ileum. No pathologic changes. OV 11.11.14 She stopped taking pre/probiotic gummy, started daily fresh blueberries, pineapple juice, stopped coffee and started natural teas. She is now having one BM a day which is normal and formed for her. Recently stopped estrogen due to age and concern r/t mini-stroke history early 2021. OV 2.23 symptoms much improved with resolution of diarrhea: probiotic gummy stopped and has been minimizing eating out (but when she does she has abdominal discomfort/pain). Started a tea from [employer] with four ingredients and feels this has been very helpful with anxiety/depression and getting out of bed. Diarrhea, biochemical workup. Biochemical Anti-dbl strand DNA H30, CRP, H4.86 OV 1.24 abdominal cramping and diarrhea. Dairy and gluten cut out without success. Dicyclomine effective and taken as needed. Reports loose stools 2-3 times daily, occasionally will appear to have small amount of blood. OV 6 Pt reports that she was prescribed cannabis for her fibromyalgia last month and has not had diarrhea since. Pt reports that she has 2-3 formed bm per day; denies blood in the stool. Pt reports that sugar causes bloating and some HB; pt reports that she has tried to limit dairy and gluten intake, but not fully eliminate. Continues with Dicyclomine as needed. OV 08.06.24 Pt reports that she is able to stay at home now due to her getting a better job opportunity. Her stress levels have reduced greatly, she experiences a c (more content not included)... Normal [facility] US RUQ (GB/PANCREAS)on 12-11 US RUQ (GB/PANCREAS) [address] [address] Patient: HONG SNOW Phone#: : 1970 Age: 54 Gender: F Pt. Type: Out Account: [id number] Location: [facility] Ordering: RISSA TRAN Exam Date: 12/11/2024/7:29 Family Phys: Charge Code: [id number] Physician: [place] Order #: [id number] Dose#: PROCEDURE: RUQ (GB) ULTRASOUND COMPARISON: None. INDICATIONS: Elevated liver enzymes FINDINGS: LIVER: Normal. Normal size and echotexture. No significant masses. BILIARY: Normal. Normal appearing gallbladder and biliary tree. Common bile duct diameter 3.4 mm. PANCREAS: Normal. No visible mass, abnormal atrophy, or ductal dilatation. RIGHT KIDNEY: Normal. No mass or obstruction. OTHER: Negative. CONCLUSION: 1. Unremarkable right upper quadrant ultrasound. DICTATED BY: AIME BLANDON MD ON 12/11/2024 AT 10:12 APPROVED BY: AIME BLANDON MD ON 12/11/2024 AT 10:15 Normal [facility] GAMMA GTon 12-10-2024 GAMMA GT Normal [facility] Comment on above: Result Comment: SEE SCANNED REPORT Performed By: #### 2 68924 #### [place] [address] LIPID PROFILEon 12-10-2024 Lipid 1996 panel Normal [facility] Comment on above: Result Comment: LIPI D PROFILE SEE SCANNED REPORT Performed By: #### 2 84672 ####[facility],[address] [place] [address] CMP with eGFRon 12-07-2024 AGE 54 years Normal [facility] Comment on above: Performed By: #### 2 89048 #### [place] [address] Albumin [Mass/Vol] 3.4 g/dL Normal 3.4 - 5.0 [facility] Comment on above: Performed By: #### 2 56057 #### [facility],[address],[place] [address] Albumin/Globulin [Mass ratio] 1.0 {ratio} Normal 0.9 - 1.6 [facility] Comment on above: Performed By: #### 2 03312 #### [facility],[address] [place] [address]2545 ALK PHOS 131 U/L High 46 - 116 [facility] Comment on above: Performed By: #### 2 47697 #### [facility],[address] [place] [address] 99218 ALT [Catalytic activity/Vol] 157 U/L High 16 - 63 [facility] Comment on above: Performed By: #### 2 40583 #### [facility],[address] [place], [place] [address] Anion gap [Moles/Vol] 12 mmol/L Normal 10 - 20 [facility] Comment on above: Performed By: #### 2 31002 #### [facility],[address] [place] [address] 46465 AST [Catalytic activity/Vol] 66 U/L High 13 - 39 [facility] Comment on above: Performed By: #### 2 35721 #### [facility],[address] [place] [address] 17559 B/C RATIO 30 ratio Normal 0 - 30 [facility] Comment on above: Performed By: #### 2 65047 #### [facility],[address] [place] [address] 11162 Bilirubin [Mass/Vol] 0.5 mg/dL Normal 0.2 - 1.0 [facility] Comment on above: Performed By: #### 2 75626 #### [facility],[address] [place] [address] 71652 Calcium [Mass/Vol] 8.2 mg/dL Low 8.5 - 10.1 [facility] Comment on above: Performed By: #### 2 61201 #### [facility],[address] [place] [address] Chloride [Moles/Vol] 103 mmol/L Normal 98 - 107 [facility] Comment on above: Performed By: #### 2 51871 #### [facility],[address] [place], [place] [address] CMP with eGFR Normal [facility] Comment on above: Result Comment: COMP REHENSIVE METABOLIC PANEL Performed By: #### 2 37880 #### [facility],[address] [place] [address] CO2 [Moles/Vol] 29.5 mmol/L Normal 21.0 - 32.0 [facility] Comment on above: Performed By: #### 2 91422 #### [facility],[address] [place] [address] Creatinine [Mass/Vol] 0.67 mg/dL Normal 0.55 - 1.02 [facility] Comment on above: Performed By: #### 2 61461 #### [facility],[address] [place] [address] GFR/1.73 sq M.predicted among non-blacks MDRD (S/P/Bld) [Vol rate/Area] mL/min/{1.73_m2} Normal 60 - 999 [facility] Comment on above: Performed By: #### 2 69525 #### [facility],[address] [place] [address] Result Comment: ACCO RDING TO THE NATIONAL KIDNEY DISEASE EDUCATION PROGRAM(NKDE), A NORMAL eGFR IS A VALUE GREATER THAN OR EQUAL TO 60 ML/MIN/1.73 SQ METERS. CHRONIC KIDNEY DISEASE: <60mL/MIN/1.73 SQ METERS KIDNEY FAILURE: <15mL/MIN/1.73 SQ METERS THIS TEST SHOULD ONLY BE USED FOR PATIENTS 18 YEARS OF AGE AND OLDER. Globulin (S) [Mass/Vol] 3.5 g/dL Normal 1.5 - 3.8 [facility] Comment on above: Performed By: #### 2 60250 #### [facility],[address] [place] [address] 45973 Glucose [Mass/Vol] 76 mg/dL Normal 74 - 106 [facility] Comment on above: Performed By: #### 2 29260 #### [facility],[address] [place] [address] 68983 Potassium [Moles/Vol] 3.4 mmol/L Low 3.5 - 5.1 [facility] Comment on above: Performed By: #### 2 81526 #### [facility],[address] [place] [address] 86672 Protein [Mass/Vol] 6.9 g/dL Normal 6.4 - 8.2 [facility] Comment on above: Performed By: #### 2 54066 #### [facility],[address] [place] [address] 77613 Sodium [Moles/Vol] 141 mmol/L Normal 136 - 145 [facility] Comment on above: Performed By: #### 2 50494 #### [facility],[address] [place] [address] 33834 Urea nitrogen [Mass/Vol] 20 mg/dL High 7 - 18 [facility] Comment on above: Performed By: #### 2 06186 #### [facility],[address] [place] [address] 68917 GGT SerPl-cCncon 12-07-2024 Gamma glutamyl transferase [Catalytic activity/Vol] 87 U/L High 6-46 [facility] Comment on above: Order Comment: Speci men Type: BLOOD SPECIMEN Ordering Facility: [facility] Address: [address] [place] [address] Performed By: #### M ISC1 #### [facility] CLIA [id number] [address] [place] [address] [place] NON-INTERFACED REF LABS CLIA SEE SCANNED RESULTS #### RNAIII #### [facility] CLIA [id number] [address] [place] [address] 71003 Lipid 1996 panelon 5 Cholesterol [Mass/Vol] 201 mg/dL High <200 [facility] Comment on above: Order Comment: Chaparro bell Type: BLOOD SPECIMEN Ordering Facility: [facility] Address: [address] [place] [address] Result Comment: <200 mg/dL, Desirable 200-239 mg/dL, Borderline high >239 mg/dL, High Performed By: #### M ISC1 #### [facility] CLIA [id number] [address] [place] [address] NON-INTERFACED REF LABS CLIA SEE SCANNED RESULTS #### RNAIII #### [facility] CLIA [id number] [address] [place] [address] Cholesterol in HDL [Mass/Vol] 62 mg/dL Normal >39 [facility] Comment on above: Order Comment: Rosannastefanie bell Type: BLOOD SPECIMEN Ordering Facility: [facility] Address: [address] [place] [address] Result Comment: 40-5 9 mg/dL, Acceptable >59 mg/dL, High: Negative risk factor for coronary heart disease <40 mg/dL, Low: Positive risk factor for coronary heart disease Performed By: #### M ISC1 #### [facility] CLIA [id number] [address] [place] [address] NON-INTERFACED REF LABS CLIA SEE SCANNED RESULTS #### RNAIII #### [facility] CLIA [id number] [address] [place] [address] Cholesterol in LDL [Mass/Vol] 113 mg/dL High <100 [facility] Comment on above: Order Comment: Chaparro bell Type: BLOOD SPECIMEN Ordering Facility: [facility] Address: [address] [place] [address] Result Comment: <100 mg/dL, Optimal 100-129 mg/dL, Near optimal/above optimal 130-159 mg/dL, Borderline high 160-189 mg/dL, High >189 mg/dL, Very high Secondary prevention optimal LDL Cholesterol levels are recommended to be < 70 mg/dL Performed By: #### M ISC1 #### [facility] CLIA [id number] [address] NON-INTERFACED REF LABS CLIA SEE SCANNED RESULTS #### RNAIII #### [facility] CLIA [id number] [address] [place] [address] Cholesterol in LDL/Cholesterol in HDL [Mass ratio] 1.82 {ratio} Normal <2.54 [facility] Comment on above: Order Comment: Speci men Type: BLOOD SPECIMEN Ordering Facility: [facility] Address: [address] [place] [address] Result Comment: Refe rence: 1. National Cholesterol Education Program ATP III Guideline At-A-Glance Quick Desk Reference: National Heart, Lung, and Blood Eagar. National Institutes of Health. 2001: NIH Publication No. 01-3305. 2. An International Atherosclerosis Society position paper: global recommendations for the management of dyslipidemia: executive summary, Atherosclerosis. 2014: 232(2):410-413. Performed By: #### M ISC1 #### [facility] CLIA [id number] [address] [place] [address] NON-INTERFACED REF LABS CLIA SEE SCANNED RESULTS #### RNAIII #### [facility] CLIA [id number] [address] [place] [address] Cholesterol in VLDL [Mass/Vol] 26 mg/dL Normal <30 [facility] Comment on above: Order Comment: Speci men Type: BLOOD SPECIMEN Ordering Facility: [facility] Address: [address] [place] [address] Performed By: #### M ISC1 #### [facility] CLIA [id number] [address] [place] [id number] [facility] NON-INTERFACED REF LABS CLIA SEE SCANNED RESULTS #### RNAIII #### [facility] CLIA [id number] [address] [place] [address] Cholesterol non HDL [Mass/Vol] 139 mg/dL High <130 [facility] Comment on above: Order Comment: Speci men Type: BLOOD SPECIMEN Ordering Facility: [facility] Address: [address] [place] [address] Result Comment: <130 mg/dL, Optimal 130-159 mg/dL, Near optimal/above optimal 160-189 mg/dL, Borderline high 190-219 mg/dL, High >219 mg/dL, Very high Secondary prevention optimal non HDL Cholesterol levels are recommended to be <100 mg/dL Performed By: #### M ISC1 #### [facility] CLIA [id number] [address] [place], [place] [id number] [facility] NON-INTERFACED REF LABS CLIA SEE SCANNED RESULTS #### RNAIII #### [facility] CLIA [id number] [address] [place] [address] Cholesterol.total/Chol esterol in HDL [Mass ratio] 3.24 {ratio} Normal <5.10 [facility] Comment on above: Order Comment: Speci [facility] Type: BLOOD SPECIMEN Ordering Facility: [facility] Address: [address] [place] [address] Performed By: #### M ISC1 #### [facility] CLIA [id number] [address] [place] [address] NON-INTERFACED REF LABS CLIA SEE SCANNED RESULTS #### RNAIII #### [facility] CLIA [id number] [address] [place] [address] FASTING TIME 12 hrs Normal [facility] Comment on above: Order Comment: Speci [facility] Type: BLOOD SPECIMEN Ordering Facility: [facility] Address: [address] [place] [address] Performed By: #### M ISC1 #### [facility] CLIA [id number] [address] [place], [place] [id number] [facility] NON-INTERFACED REF LABS CLIA SEE SCANNED RESULTS #### RNAIII #### [facility] CLIA [id number] [address] [place] [address] Triglyceride [Mass/Vol] 129 mg/dL Normal <150 [facility] Comment on above: Order Comment: Speci [facility] Type: BLOOD SPECIMEN Ordering Facility: [facility] Address: [address] [place], [place] [id number] Result Comment: <150 mg/dL, Normal 150-199 mg/dL, Borderline high 200-499 mg/dL, High >499 mg/dL, Very high Performed By: #### M ISC1 #### [facility] CLIA [id number] 9500 [facility] [address] [place] NON-INTERFACED REF LABS CLIA SEE SCANNED RESULTS #### RNAIII #### [facility] CLIA [id number] [address] [place] [address] CBC + DIFFon 12-02-2024 Baso # 0.01 x10EE3/UL Normal 0.00 - 0.10 [facility] Comment on above: Performed By: #### 2 83199 ####[facility],[address] [place] [address] 03381 Basophils/100 WBC (Bld) 0.2 % Normal 0.0 - 2.0 [facility] Comment on above: Performed By: #### 2 74556 ####[facility],[address] [place] [address] 65270 CBC + DIFF Normal [facility] Comment on above: Result Comment: CBC- COMPLETE BLOOD COUNT Performed By: #### 2 28113 ####[facility],[address] [place] [address] 67000 EO # 0.10 x10EE3/UL Normal 0.00 - 0.50 [facility] Comment on above: Performed By: #### 2 82576 ####[facility],[address] [place] [address] 85459 Eosinophils/100 WBC (Bld) 2.0 % Normal 0.0 - 7.0 [facility] Comment on above: Performed By: #### 2 99238 ####[facility],[address] [place] [address] 99532 Erythrocyte distribution width (RBC) [Ratio] 13.1 % Normal 12.0 - 15.6 [facility] Comment on above: Performed By: #### 2 14131 ####[facility],[address] [place], [place] [address] Hematocrit (Bld) [Volume fraction] 43.8 % Normal 34.0 - 46.0 [facility] Comment on above: Performed By: #### 2 45821 ####[facility],[address] [place] [address] Hemoglobin (Bld) [Mass/Vol] 14.7 g/dL Normal 12.0 - 16.0 [facility] Comment on above: Performed By: #### 2 64108 ####[facility],[address] [place] [address] Lymph # 1.07 x10EE3/UL Normal 0.80 - 2.80 [facility] Comment on above: Performed By: #### 2 49465 ####[facility],[address] [place] [address] Lymphocytes/100 WBC (Bld) 22.0 % Normal 20.0 - 45.0 [facility] Comment on above: Performed By: #### 2 75818 ####[facility],[address] [place], [place] [address] MANUAL DIFF N/A Normal [facility] Comment on above: Performed By: #### 2 42700 ####[facility],[address] [place], [place] [address] MCH (RBC) [Entitic mass] 31 pg Normal 27 - 33 [facility] Comment on above: Performed By: #### 2 34303 ####[facility],[address] [place] [address] 93626 MCHC 34 X10 3 Normal 32 - 36 [facility] Comment on above: Performed By: #### 2 33811 ####[facility],[address] [place] [address] 41729 MCV (RBC) [Entitic vol] 92 fL Normal 80 - 99 [facility] Comment on above: Performed By: #### 2 11558 ####[facility],[address] [place] [address] 93085 Dale # 0.63 x10EE3/UL Normal 0.20 - 1.00 [facility] Comment on above: Performed By: #### 2 78654 ####[facility],[address] [place] [address] 77988 MONOS % 13.0 % High 0.0 - 10.0 [facility] Comment on above: Performed By: #### 2 28940 ####[facility],[address] [place] [address] 37849 Morphology Socrates (Bld) [Interp] N/A Normal [facility] Comment on above: Performed By: #### 2 61213 ####[facility],[address] [place] [address] 37702 Neut # 3.05 x10EE3/UL Normal 1.50 - 7.10 [facility] Comment on above: Performed By: #### 2 85272 ####[facility],[address] [place] [address] 69571 Neutrophils/100 WBC (Bld) 62.8 % Normal 46.0 - 76.0 [facility] Comment on above: Performed By: #### 2 55051 ####[facility],[address] [place] [address] 45557 PLATELET 177 x10EE3/UL Normal 150 - 450 [facility] Comment on above: Performed By: #### 2 07390 ####[facility],[address] [place] [address] 16857 Platelet mean volume (Bld) [Entitic vol] 7.8 fL Normal 6.6 - 10.5 [facility] Comment on above: Result Comment: AUTO MATED DIFFERENTIAL Performed By: #### 2 94927 ####[facility],[address] [place] [address] 67927 RBC 4.78 x 10EE6/UL Normal 4.10 - 5.30 [facility] Comment on above: Performed By: #### 2 21998 ####[facility],[address] [place] [address] 88969 WBC 4.9 x 10EE3/UL Normal 4.5 - 10.8 [facility] Comment on above: Performed By: #### 2 51988 ####[facility],[address] [place] [address] 98100 CHEST 2 VIEWSon 12-02-2024 CHEST 2 VIEWS [place] [address] Patient: HONG SNOW Phone#: : 1970 Age: 54 Gender: F Pt. Type: ER Account: [id number] Location: [facility] Ordering: DARIO LINARES Exam Date: 12/02/2024/13:07 Family Phys: RISSA TRAN Charge Code: [id number] Physician: [place] Order #: [id number] Dose#: PROCEDURE: X-RAY CHEST 2 VIEWS COMPARISON: [facility], XR, CHEST 1 VIEW, 09/16/2022, 23:15. INDICATIONS: Cough. FINDINGS: LUNGS: Normal. No significant pulmonary parenchymal abnormalities. VASCULATURE: Normal. Unremarkable pulmonary vasculature. CARDIAC: Normal. No cardiac silhouette abnormality or cardiomegaly. MEDIASTINUM: Normal. No visible mass or adenopathy. PLEURA: Normal. No effusion or pleural thickening. BONES: Normal. No fracture or visible bony lesion. OTHER: Negative. CONCLUSION: No acute disease. Dictated by: Aime Blandon MD on 12/02/2024 at 20:03 Approved by: Aime Blandon MD on 12/02/2024 at 20:04 Normal [facility] CMP with eGFRon 12-02-2024 AGE 54 years Normal [facility] Comment on above: Performed By: #### 2 29994 #### [facility],[address] [place] [address] 80291 Albumin [Mass/Vol] 3.3 g/dL Low 3.4 - 5.0 [facility] Comment on above: Performed By: #### 2 69262 #### [facility],[address] [place] [address] 92731 Albumin/Globulin [Mass ratio] 1.0 {ratio} Normal 0.9 - 1.6 [facility] Comment on above: Performed By: #### 2 35182 #### [facility],[address] [place] [address] 30907 ALK PHOS 159 U/L High 46 - 116 [facility] Comment on above: Performed By: #### 2 59418 #### [facility],[address] [place] [address] 52163 ALT [Catalytic activity/Vol] 436 U/L High 16 - 63 [facility] Comment on above: Performed By: #### 2 95811 #### [facility],[address] [place] [address] 84486 Anion gap [Moles/Vol] 14 mmol/L Normal 10 - 20 [facility] Comment on above: Performed By: #### 2 98818 #### [facility],[address] [place] [address] 73729 AST [Catalytic activity/Vol] 363 U/L High 13 - 39 [facility] Comment on above: Performed By: #### 2 63397 #### [facility],[address] [place] [address] 59631 B/C RATIO 18 ratio Normal 0 - 30 [facility] Comment on above: Performed By: #### 2 16172 #### [facility],[address] [place] [address] 47150 Bilirubin [Mass/Vol] 0.3 mg/dL Normal 0.2 - 1.0 [facility] Comment on above: Performed By: #### 2 15524 #### [facility],[address] [place] [address] 30981 Calcium [Mass/Vol] 8.3 mg/dL Low 8.5 - 10.1 [facility] Comment on above: Performed By: #### 2 68837 #### [place] [address] Chloride [Moles/Vol] 107 mmol/L Normal 98 - 107 [facility] Comment on above: Performed By: #### 2 48807 #### [place] [address] CMP with eGFR Normal [facility] Comment on above: Result Comment: COMP REHENSIVE METABOLIC PANEL Performed By: #### 2 27020 #### [place] [address] CO2 [Moles/Vol] 25.8 mmol/L Normal 21.0 - 32.0 [facility] Comment on above: Performed By: #### 2 94217 #### [place] [address] Creatinine [Mass/Vol] 0.78 mg/dL Normal 0.55 - 1.02 [facility] Comment on above: Performed By: #### 2 53813 #### [place] [address] GFR/1.73 sq M.predicted among non-blacks MDRD (S/P/Bld) [Vol rate/Area] mL/min/{1.73_m2} Normal 60 - 999 [facility] Comment on above: Performed By: #### 2 10420 #### [place] [address] Result Comment: ACCO RDING TO THE NATIONAL KIDNEY DISEASE EDUCATION PROGRAM(NKDE), A NORMAL eGFR IS A VALUE GREATER THAN OR EQUAL TO 60 ML/MIN/1.73 SQ METERS. CHRONIC KIDNEY DISEASE: <60mL/MIN/1.73 SQ METERS KIDNEY FAILURE: <15mL/MIN/1.73 SQ METERS THIS TEST SHOULD ONLY BE USED FOR PATIENTS 18 YEARS OF AGE AND OLDER. Globulin (S) [Mass/Vol] 3.2 g/dL Normal 1.5 - 3.8 [facility] Comment on above: Performed By: #### 2 74787 #### [facility],[address] [place] [address] 05333 Glucose [Mass/Vol] 157 mg/dL High 74 - 106 [facility] Comment on above: Performed By: #### 2 15242 #### [facility],[address] [place] [address] 28001 Potassium [Moles/Vol] 3.7 mmol/L Normal 3.5 - 5.1 [facility] Comment on above: Performed By: #### 2 99077 #### [facility],[address] [place] [address] 17531 Protein [Mass/Vol] 6.5 g/dL Normal 6.4 - 8.2 [facility] Comment on above: Performed By: #### 2 14986 #### [facility],[address] [place] [address] 69322 Sodium [Moles/Vol] 143 mmol/L Normal 136 - 145 [facility] Comment on above: Performed By: #### 2 34935 #### [facility],[address] [place] [address] 36746 Urea nitrogen [Mass/Vol] 14 mg/dL Normal 7 - 18 [facility] Comment on above: Performed By: #### 2 88467 #### [facility],[address] [place] [address] 09987 CORONAVIRUS (SARS) ANTIGEN T ESTon 12-02-2024 EXTERNAL QC DONE? YES Normal [facility] Comment on above: Performed By: #### 2 61605 ####[facility],[address] [place] [address] 20683 INTERNAL CONTROL PASS Normal [facility] Comment on above: Performed By: #### 2 08089 ####[facility],[address] [place] [address] 94018 SARS ANTIGEN Negative Normal NORMAL: NEGATIVE [facility] Comment on above: Performed By: #### 2 23806 ####[facility],[address] [place] [address] 22591 SEND TO ? YES Normal [facility] Comment on above: Result Comment: SARS -CoV-2 THIS TEST IS BEING USED UNDER THE FDA EUA PROCEDURE. THIS ASSAY HAS BEEN VALIDATED AT [facility] FOR USE WITH NASAL AND NASOPHARYNGEAL SWAB SPECIMENS. INTERPRETIVE DATA TEST RESULTS SHOULD ALWAYS BE CONSIDERED IN THE CONTEXT OF CLINICAL OBSERVATIONS AND EPIDEMIOLOGICAL DATA IN MAKING FINAL DIAGNOSIS AND PATIENT MANAGEMENT DECISIONS. PATIENT MANAGEMENT SHOULD FOLLOW CURRENT CDC GUIDELINES. THE HIRAM SARS ANTIGEN MARQUES DOES NOT DIFFERENTIATE BETWEEN SARS-CoV & SARS-CoV-2. A POSITIVE TEST RESULT INDICATES THE PRESENCE OF SARS-CoV-2 NUCLEOCAPSID PROTEIN ANTIGEN, AND THE PATIENT IS INFECTED WITH THE VIRUS AND PRESUMED TO BE CONTAGIOUS. A NEGATIVE TEST RESULT FOR THIS TEST MEANS THAT SARS-CoV-2 NUCLEOCAPSID PROTEIN ANTIGEN WAS NOT PRESENT IN THE SPECIMEN ABOVE THE LIMIT OF DETECTION. HOWEVER, A NEGATIVE RESULT DOES NOT RULE OUT COVID-19 AND SHOULD NOT BE USED THE SOLE BASIS FOR TREATMENT OR PATIENT MANAGEMENT DECISIONS. A NEGATIVE RESULT DOES NOT EXCLUDE THE POSSIBILITY OF COVID-19. NEGATIVE RESULTS, FROM PATIENTS WITH SYMPTOM ONSET BEYOND FIVE DAYS, SHOULD BE TREATED PRESUMPTIVE AND CONFIRMATION WITH A MOLECULAR ASSAY, IF NECESSARY, FOR PATIENT MANAGEMENT, MAY BE PERFORMED. WHEN DIAGNOSTIC TESTING IS NEGATIVE, THE POSSIBLILTY OF A FALSE NEGATIVE RESULT SHOULD BE CONSIDERED IN THE CONTEXT OF A PATIENT'S RECENT EXPOSURES AND THE PRESENCE OF CLINICAL SIGNS AND SYMPTOMS CONSISTENT WITH COVID-19. THE POSSIBILITY OF A FALSE NEGATIVE RESULT SHOULD ESPECIALLY BE CONSIDERED IF THE PATIENT'S RECENT EXPOSURES OR CLINICAL PRESENTATION INDICATE THAT COVID-19 IS LIKELY, AND DIAGNOSTIC TESTS FOR OTHER CAUSES OF ILLNESS (e.g., OTHER RESPIRATORY ILLNESS) ARE NEGATIVE. IF COVID-19 IS STILL SUSPECTED BASED ON EXPOSURE HISTORY TOGETHER WITH OTHER CLINICAL FINDINGS, RE-TESTING SHOULD BE CONSIDERED BY HEALTHCARE PROVIDERS IN CONSULTATION WITH PUBLIC HEALTH AUTHORITIES. Performed By: #### 2 32859 ####[facility],[address] [place] [address] 49684 D-DIMER, QUANTITATIVEon 02-0 D-DIMER QUANT <200 Normal 0 - 230 [facility] Comment on above: Performed By: #### 2 18771 ####[facility],[address] [place] [address] 44559 D-DIMER, QUANTITATIVE Normal [facility] Comment on above: Result Comment: MARISOL T D-DIMER Performed By: #### 2 93880 ####[facility],[address] [place] [address] 12261 ED MED ADMINISTRATION DETAIL on 12-02-2024 ED MED ADMINISTRATION DETAIL Switch Inspector Medication Administration Record [address] [place] [address] [id number] 12/02/2024 Patient: HONG SNOW Sex: Female : 1970 Age: 54y MEASUREMENTS: Wt: 66.7 kg, Ht/Milton: 64.0 in, BMI: 25.23 ALLERGIES: Demerol, shellfish derived Medication Ordered Medication Administration Date/Time IV NS 0.9 % 1000 11:12/02 IV NS 0.9 % 1000 mL started in bag#1 1000 mL at Started mL at 500 mL/hr 500 mL/hr via Site# 1. Allergies verified and confirmed 5 rights. IV 11:12/02/2024 (NOW x1) patency established. IV site checked: no pain, redness, or swelling. Gretta Dupree R.N. IV flushed thoroughly pre-medication administration. Information Stopped reviewed with patient. Verbalizes understanding. - 11:39 Gretta 13:32 12/02/2024 Giovanni Dupree R.N. Scanned 13:12/02 Medication Discontinued: bag #1. Total amount infused: 950 mL. IV patency established. IV site checked: no pain, redness, or swelling. IV flushed thoroughly post-medication administration. - 13:37 Gretta Dupree R.N. Dexamethasone 11:12/02 Dexamethasone (Decadron) IVP 10 mg given via Given (Decadron) IVP 10 Site# 1. Allergies verified and confirmed 5 rights. IV patency 11:12/02/2024 mg (NOW x1) established. IV site checked: no pain, redness, or swelling. IV Gretta Dupree R.N. flushed thoroughly pre-medication administration. Information Scanned reviewed with patient. Verbalizes understanding. - 11:40 Gretta Dupree R.N. Albuterol-Ipratropiu 11:47 02 Albuterol-Ipratropium (DuoNeb) 3mg/0.5mg Neb Tx 3 Given m (DuoNeb) mL given. Given by the respiratory therapist. Information reviewed 11:47 12/02/2024 3mg/0.5mg Neb Tx with patient including reason for taking this medication. Verbalizes Shaina Bain 3 mL (NOW x1) understanding. - 11:48 Shaina Leggriselda Scanned 1 of 2 Switch Inspector 2 of 2 Normal [facility] ED NURSES CLINICAL NOTEon ED NURSES CLINICAL NOTE Nurse Narrative Nurse Clinical Narrative [address] [place] [address] [id number] 12/02/2024 Patient: HONG SNOW Sex: Female : 1970 Age: 54y Primary Insurance: [employer] OUTPATIENT Policy Number: [id number] Group Number: [id number] Subscriber: Other Disposition: Discharge to Home Disposition Decision Time: 13:22 12/02/2024 Departure Time: 13:34 12/02/2024 TRIAGE Arrived by private vehicle. Historian: (patient). Accompanied by family. Primary physician (Joana Tran). Triage time: 10:41 12/02/2024. Acuity: LEVEL 3. Chief Complaint: SHORTNESS OF BREATH and DIFFICULTY BREATHING. Onset. (). ( Pt has a history of long covid. Symptoms started on . Painful cough. Pt has tried several OTC remedies. She has felt feverish on and off.). The patient has had chills, a cough, chest pain and back pain. SEPSIS SCREEN: NEGATIVE. SIRS criteria: heart rate greater than 90. No possible sources of infection. -- 10:53 12/02/24 JOSE ENRIQUE Guzman R.N. 10:51 12/02/24. BP: 154/83 MAP: 107. HR: 93. RR: 20. O2 saturation: 96% Temperature: 98.1 F. Pain level now 05/02. -- 10:52 12/02/24 JOSE ENRIQUE Guzman R.N. Measurements: 10:51 12/02/24 Wt: 66.7 kg, Ht/Milton: 64.0 in, BMI: 25.23 -- 10:51 12/02/24 JOSE ENRIQUE Guzman R.N. Medications: 1 of 4 Nurse Narrative estradioL 0.05 mg/24 hr weekly transdermal patch: 1 patch weekly . (Twice weekly and Tuesday) -- 10:46 12/02/24 JOSE ENRIQUE Guzman R.N. albuterol sulfate HFA 90 mcg/actuation aerosol inhaler: 2 inhalations every 4-6 hours . -- 10:47 12/02/24 JOSE ENRIQUE Guzman R.N. 10:41 12/02/24. Preferred Pharmacy: [facility] -- 10:53 12/02/24 JOSE ENRIQUE Guzman R.N. Allergies: Demerol -- 10:44 12/02/24 JOSE ENRIQUE Guzman R.N. shellfish derived: Allergy -- 10:44 12/02/24 JOSE ENRIQUE Guzman R.N. Problems: Asthma: Active -- 10:47 12/02/24 JOSE ENRIQUE Guzman R.N. long covid -- 10:48 12/02/24 JOSE ENRIQUE Guzman R.N. ADDITIONAL SURGERIES: Hysterectomy -- 10:48 12/02/24 JOSE ENRIQUE Guzman R.N. Hernia Repair. x2 -- 10:48 12/02/24 JOSE ENRIQUE Guzman R.N. -- 10:48 12/02/24 JOSE ENRIQUE Guzman R.N. Appendectomy -- 10:49 12/02/24 JOSE ENRIQUE Guzman R.N. wrist surgery. right wrist -- 10:50 12/02/24 JOSE ENRIQUE Guzman R.N. History 10:41 12/02/24. PAST MEDICAL HX: Denies current . Immunizations not up to date. SOCIAL HX: Never smoker. No alcohol use or drug use. The patient has not traveled outside the [place] Infectious disease exposure: No infectious disease exposure. ABUSE ASSESSMENT: The patient answered yes to the question(s) Do you feel safe in your home? and no to the question(s) Are you afraid to go home?. SELF HARM ASSESSMENT: Self harm assessment was performed. The patient answered no to the 2 of 4 Nurse Narrative question(s) Have you recently felt down, depressed, or hopeless? and Do you have thoughts of harming or killing yourself?. -- 10:53 12/02/24 JOSE ENRIQUE Guzman R.N. 10:54 12/02/24. PAST MEDICAL HX: LNMP: .The patient has had a hysterectomy. Denies current . -- 10:54 12/02/24 JOSE ENRIQUE Guzman R.N. 10:55 12/02/24. FALL RISK ASSESSMENT: Fall risk assessment completed. No risk factors identified. -- 10:55 12/02/24 JOSE ENRIQUE Guzman R.N. Interventions 10:41 12/02/24. Advanced care plan discussed with patient. Patient does not have advanced directive. -- 10:53 12/02/24 JOSE ENRIQUE uGzman R.N. PHYSICAL ASSESSMENT 12:35 12/02/24. ( Pt arrives ambulatory to ER#7 c/o cough and SOB since . Pt has a dry cough noted and states she has burning pain in her chest.). GENERAL / NEURO / PSYCH: Alert. Oriented X 4. Appears in no acute distress. HEENT: Mucous membranes are pink. RESPIRATORY: No respiratory distress. Respirations not labored. Chest nontender. Breath sounds within normal limits. CVS: Normal sinus rhythm noted. Capillary refill less than 2 seconds. SKIN: Skin is warm and dry. Normal skin turgor. -- 13:00 12/02/24 JOSE ENRIQUE Dupree R.N. NURSING PROGRESS NOTES 10:39 12/02/24. 12-LEAD EKG: EKG time: (10:39 12/02/2024). 12-Lead EKG was performed by me and shown to the ED physician. -- 10:53 12/02/24 JOSE ENRIQUE Franks 11:37 12/02/24. IV NS 0.9 % 1000 mL started in bag#1 1000 mL at 500 mL/hr via Site# 1. Allergies verified and confirmed 5 rights. IV patency established. IV site checked: no pain, redness, or swelling. IV flushed thoroughly pre-medication administration. Information reviewed with patient. Verbalizes understanding. -- 11:39 12/02/24 JOSE ENRIQUE Dupree R.N. 11:38 12/02/24. Flu swab obtained. COVID-19 specimen obtained. -- 11:48 12/02/24 JOSE ENRIQUE Dupree R.N. 11:39 12/02/24. Dexamethasone (Decadron) IVP 10 mg given via Site# 1. Allergies verified and confirmed 5 rights. (more content not included)... Normal [facility] ED ORDER SHEET ([facility] ONLY)on 12-02-2024 ED ORDER SHEET ([facility]OE ONLY) Order Sheet Order Sheet [address] [place] [address] [id number] 12/02/2024 Patient: HONG SNOW Sex: Female : 1970 Age: 54y MEASUREMENTS: Wt: 66.7 kg, Ht/Milton: 64.0 in, BMI: 25.23 ALLERGIES: Demerol, shellfish derived MEDICATION/IV/DRIP/FLUID ORDERS Order Description Priority Entered Acknowledged Completed IV NS 0.9 %1000 mL at 500 11:20 12/02/2024 11:39 mL/hr (NOW x1) Dario Linares, 12/02/2024 Tutu Dupree R.N. Dexamethasone (Decadron) 11:20 12/02/2024 11:40 IVP10 mg (NOW x1) Dario Linares, 12/02/2024 Tutu Dupree R.N. Reason for ordering with alerts: Benefits outweigh risks --11:20 12/02/2024 Dario Linares D.O. Albuterol-Ipratropium (DuoNeb) 11:20 12/02/2024 11:48 3mg/0.5mg Neb Tx3 mL (NOW Dario Linares, 12/02/2024 x1) Tutu Merritt Legg LAB ORDERS Order Description Priority Entered Acknowledged Collected Completed 1 of 3 Order Sheet CBC w Diff Stat Stat 11:20 12/02/2024 11:37 12/02/2024 13:00 12/02/2024 Gretta Ledezma Shauna Ewing, D.O. R.N. R.N. CMP Stat Stat 11:20 12/02/2024 11:37 12/02/2024 13:00 12/02/2024 Gretta Ledezma Shauna Ewing, D.O. R.N. R.N. D-Dimer Stat Stat 11:20 12/02/2024 11:37 12/02/2024 13:00 12/02/2024 Gretta Ledezma Shauna Ewing, D.O. R.N. R.N. EKG - ED Stat Stat 11:20 12/02/2024 11:37 12/02/2024 13:00 12/02/2024 Gretta Ledezma Shauna Ewing, D.O. R.N. R.N. Rapid COVID (SARS) Stat 11:20 12/02/2024 11:37 12/02/2024 13:00 12/02/2024 ANTIGEN TEST Stat Gretta Ledezma Shauna Ewing, D.O. R.N. R.N. Flu Swab (Influenzae Stat 11:20 12/02/2024 11:37 12/02/2024 13:00 12/02/2024 AAg) Stat Gretta Ledezma Shauna Ewing, D.O. R.N. R.N. DIAGNOSTIC STUDY ORDERS Order Description Priority Entered Acknowledged Completed Chest 2V Stat Stat 12:55 12/02/2024 13:00 Dario Linares 12/02/2024 Tutu Dupree, R.N. Reason for Study: Cough 2 of 3 Order Sheet STAFF ORDERS Order Description Priority Entered Acknowledged Collected Completed IV Saline Lock 11:20 12/02/2024 11:37 12/02/2024 13:00 12/02/2024 Gretta Ledezma Shauna Ewing, D.O. R.N. R.N. [Electronically signed by Dario Linares D.O. (12/02/2024 14:19 EST)] 3 of 3 Normal [facility] ED PHYSICIAN CLINICAL REPORT on 12-02-2024 ED PHYSICIAN CLINICAL REPORT Narrative Physician Clinical Narrative [facility] [address] [place] [address] [phone] 12/02/2024 Patient: HONG SNOW Sex: Female : 1970 Age: 54y Primary Insurance: [employer] OUTPATIENT Policy Number: [id number] Group Number: [id number] Subscriber: Other Disposition: Discharge to Home Disposition Decision Time: 13:22 12/02/2024 Departure Time: 13:34 12/02/2024 Measurements Wt: 66.7 kg, Ht/Milton: 64.0 in, BMI: 25.23 Initial Vital Sign Measured Time BP MAP HR RR O2Sat ETCO2 Temp Pain GCS RTS 10:42 12/02/2024 154/83 112 98 Time Seen: 10:36 12/02/2024. Arrived- By private vehicle. Historian- patient. Independent historian- family. HISTORY OF PRESENT ILLNESS Chief Complaint: DYSPNEA. This started 3 days; started with a migraine headache. She has been taking Motrin she has also been taking some xlzy-ujf-sjlzknz remedies shows her headache 05/02 which also has a cough which keeps coughing also she has body aches weak tired she has chills she denies any chest pain except whenever she coughs. And she presents to the emergency department with her who is very caring liver toward her. and is still present. The dyspnea is described as moderate. The patient has had a cough, chills and chest pain. No sputum production, fever, wheezing, chest discomfort or calf pain. REVIEW OF SYSTEMS 1 of 13 Narrative : No difficulty with urination. GI: No nausea. NOSE: No nasal discharge. THROAT: No sore throat. EYES: No eye irritation. CONSTITUTIONAL: The patient has not had weight loss. NEUROLOGICAL: No headache. PAST HISTORY See nurses notes. Asthma: [Active] long covid Surgeries: Appendectomy Hernia Repair: Body Site x2 Hysterectomy wrist surgery: Body Site right wrist Medications: albuterol sulfate HFA 90 mcg/actuation aerosol inhaler: 2 inhalations every 4-6 hours . estradioL 0.05 mg/24 hr weekly transdermal patch: 1 patch weekly . (Twice weekly and Tuesday) Allergies: Demerol shellfish derived: Allergy SOCIAL HISTORY Never smoker. No alcohol use. ADDITIONAL NOTES The nursing notes have been reviewed. PHYSICAL EXAM Appearance: Alert. No acute distress. Eyes: Pupils equal, round and reactive to light. Eyes normal inspection. ENT: Ears normal. Nose normal. Pharynx normal. Neck: Normal inspection. No jugular venous distention. 2 of 13 Narrative CVS: Normal heart rate and rhythm. Respiratory: No respiratory distress. Painless inspiration. Abdomen: Soft and nontender. Back: Normal inspection. Skin: Normal skin color. Normal skin turgor. Extremities: Extremities exhibit normal ROM. Neuro: Oriented X 3. No motor deficit. LABS, X-RAYS, AND EKG 12-LEAD EKG: EKG time: 10:39 12/02/2024. No acute process. Rate: 95. Q waves in lead V1 and V2. Normal axis. Interpretation time: 10:42 12/02/2024. Laboratory Tests: CBC + DIFF Final GABRIELA: 12/02/2024 11:35:00 EST MsgRcvd: 12/02/2024 12:09 EST Lab Test Result Reference Status Received Comments 12/02/2024 12:09 CBC-COMPLETE CBC + DIFF Final EST BLOOD COUNT 12/02/2024 12:09 WBC 4.9 x 10/UL 4.5 - 10.8 Final EST 12/02/2024 12:09 RBC 4.78 x 10/UL 4.10 - 5.30 Final EST 12/02/2024 12:09 HEMOGLOBIN 14.7 g/dl 12.0 - 16.0 Final EST 12/02/2024 12:09 HEMATOCRIT 43.8 % 34.0 - 46.0 Final EST 12/02/2024 12:09 MCV 92 fl 80 - 99 Final EST 3 of 13 Narrative Lab Test Result Reference Status Received Comments 12/02/2024 12:09 MCH 31 pg 27 - 33 Final EST 12/02/2024 12:09 MCHC 34 X10 3 32 - 36 Final EST 12/02/2024 12:09 RDW/CV 13.1 % 12.0 - 15.6 Final EST 12/02/2024 12:09 PLATELET 177 x10/UL 150 - 450 Final EST 12/02/2024 12:09 AUTOMATED MPV 7.8 fl 6.6 - 10.5 Final EST DIFFERENTIAL 12/02/2024 12:09 NEUT % 62.8 % 46.0 - 76.0 Final EST 12/02/2024 12:09 LYMPH % 22.0 % 20.0 - 45.0 Final EST 13.0 % 12/02/2024 12:09 MONOS % 0.0 - 10.0 Final Above high normal EST 12/02/2024 12:09 EO % 2.0 % 0.0 - 7.0 Final EST 12/02/2024 12:09 BASO % 0.2 % 0.0 - 2.0 Final EST 12/02/2024 12:09 Lymph # 1.07 x10/UL 0.80 - 2.80 Final EST 12/02/2024 12:09 Neut # 3.05 x10/UL 1.50 - 7.10 Final EST 12/02/2024 12:09 Dale # 0.63 x10/UL 0.20 - 1.00 Final EST 4 of 13 Narrative Lab Test Result Reference Status Received Comments 12/02/2024 12:09 EO # 0.10 x10/UL 0.00 - 0.50 Final EST 12/02/2024 12:09 Baso # 0.01 x10/UL 0.00 - 0.10 Final EST 12/02/2024 12:09 MANUAL DIFF N/A New Order EST 12/02/2024 12:09 MORPHOLOGY N/A New Order EST CMP with eGFR Final GABRIELA: 12/02/2024 11:35:00 EST MsgRcvd: 12/02/2024 12:34 EST Lab Test Result Reference Status Received Comments COMPREHENSIVE 12/02/2024 (more content not included)... Normal [facility] ED SUPER BILLon 12-02-2024 ED SUPER BILL [facility] [address] [place] [address] [phone] 12/02/2024 Patient: HONG SNOW Sex: Female : 1970 Age: 54y Item Facility Professional Category Description Code Code Quantity Fee Total Drugs Normal Saline 950578 1 $0.00 $0.00 1000cc (488613) Nurse/E/M EMERGENCY 252292 1 $0.00 $0.00 DEPARTMENT VISIT HIGH/URGENT SEVERITY (25960-68) Nurse/IV/IM/Infusions Hydration 512105 2 $0.00 $0.00 additional hour (21822) Nurse/IV/IM/Infusions IVP initial 682002 1 $0.00 $0.00 (84127) Nurse/Procedures Respiratory 498184 1 $0.00 $0.00 therapy - inhalation (82980) Grand Total $0.00 1 of 2 [facility] Providers Dario Linares D.O. Chief Complaint DYSPNEA. Principal Diagnosis Headache. Viral syndrome elevated liver enzymes AST, ALT and ALK PHOS. ICD-10 Codes B34.9: Viral infection, unspecified R51.9: Headache, unspecified 2 of 2 Normal [facility] ED VISIT SUMMARYon ED VISIT SUMMARY Visit Overview Visit Overview [facility] [address] [place] [address] [phone] 12/02/2024 Patient: HONG SNOW Sex: Female : 1970 Age: 54y 12/02/2024 05:30 PM EST ED Arrival:10:35 12/02/2024 EST Status:not Recent Travel:no Language:eng Adv Directive:No Isolation Status: Ethnicity:N Fall Risk:no risk Infectious Disease Exposure:no Measurements:5'4 / 162.6 Self-Harm Status:risk Sepsis Screen:negative cm 147.0 lb / 66.7 kg Chief Complaint:DIFFICULTY BREATHING, SHORTNESS OF BREATH, ([facility] ), (Pt has a history of long covid. Symptoms started on . Painful cough. Pt has tried several OTC remedies. She has felt feverish on and off. ), and ( ) ALLERGIES Demerol shellfish derived HOME MEDICATIONS 1 of 4 Visit Overview albuterol sulfate HFA 90 mcg/actuation aerosol inhaler: 2 inhalations every 4-6 hours . estradioL 0.05 mg/24 hr weekly transdermal patch: 1 patch weekly . (Twice weekly and Tuesday) PAST MEDICAL HISTORY / PROBLEMS Asthma: Active LNMP: .The patient has had a hysterectomy long covid See nurses notes PAST SURGICAL HISTORY Appendectomy Hernia Repair. x2 Hysterectomy wrist surgery. right wrist SOCIAL HISTORY Smoking status: No Alcohol use: No Drug use: No ED COURSE MEDICATIONS GIVEN IN EMERGENCY DEPARTMENT 11:37 12/02/24 IV NS 0.9 % 1000 mL 500 mL/hr 11:39 12/02/24 Dexamethasone (Decadron) IVP 10 mg 11:47 12/02/24 Albuterol-Ipratropium (DuoNeb) 3mg/0.5mg Neb Tx 3 mL IV SITE INFORMATION INTAKE OUTPUT REASSESMENT (most recent) 2 of 4 Visit Overview 12:35 12/02/24. ( Pt arrives ambulatory to ER#7 c/o cough and SOB since . Pt has a dry cough noted and states she has burning pain in her chest.). GENERAL / NEURO / PSYCH: Alert. Oriented X 4. Appears in no acute distress. HEENT: Mucous membranes are pink. RESPIRATORY: No respiratory distress. Respirations not labored. Chest nontender. Breath sounds within normal limits. CVS: Normal sinus rhythm noted. Capillary refill less than 2 seconds. SKIN: Skin is warm and dry. Normal skin turgor. VITAL SIGNS First Vitals Last Vitals Temp 10:42 12/02/24 Temp 13:32 12/02/24 BP 10:42 12/02/24 154/83 BP 13:32 12/02/24 HR 10:42 12/02/24 98 HR 13:32 12/02/24 86 RR 10:42 12/02/24 RR 13:32 12/02/24 O2 Sat 10:42 12/02/24 O2 Sat 13:32 12/02/24 96% Pain 10:42 12/02/24 Pain 13:32 12/02/24 ETCO2 10:42 12/02/24 ETCO2 13:32 12/02/24 GCS 10:42 12/02/24 GCS 13:32 12/02/24 RTS 10:42 12/02/24 RTS 13:32 12/02/24 PROCEDURES NURSING INTERVENTIONS Respiratory therapy LABS / STUDIES LABS / STUDIES ORDERED CBC w Diff Chest 2V CMP D-Dimer EKG - ED Flu Swab (Influenzae AAg) Rapid COVID (SARS) ANTIGEN TEST CLINICAL IMPRESSION 3 of 4 Visit Overview HEADACHE POSSIBLE PNEUMONIA VIRAL SYNDROME 4 of 4 Normal [facility] ED VITALS FLOW SHEETon 12-02 ED VITALS FLOW SHEET Vitals Vital Sign Flow Sheet [address] [address] [phone] 12/02/2024 [id number] Sex: Female : 1970 Age: 54y Measurements Wt: 66.7 kg, Ht/Milton: 64.0 in, BMI: 25.23 Measured Time BP MAP HR RR O2Sat ETCO2 Temp Pain GCS RTS 13:32 12/02/2024 86 96% 13:27 12/02/2024 82 94% 13:26 12/02/2024 139/77 97 83 13:22 12/02/2024 85 94% 13:17 12/02/2024 84 94% 13:12 12/02/2024 88 96% 13:11 12/02/2024 134/85 93 88 13:07 12/02/2024 81 95% 12:52 12/02/2024 88 94% 12:47 12/02/2024 90 98% 12:42 12/02/2024 94 97% 12:41 12/02/2024 134/79 92 87 12:37 12/02/2024 97 95% 12:32 12/02/2024 89 95% 12:27 12/02/2024 90 94% 1 of 3 Vitals Measured Time BP MAP HR RR O2Sat ETCO2 Temp Pain GCS RTS 12:26 12/02/2024 134/83 100 89 12:22 12/02/2024 90 94% 12:17 12/02/2024 88 93% 12:12 12/02/2024 98 95% 12:11 12/02/2024 131/79 93 87 12:07 12/02/2024 101 95% 12:02 12/02/2024 99 95% 11:57 12/02/2024 96 94% 11:57 12/02/2024 140/80 100 92 11:52 12/02/2024 96 96% 11:47 12/02/2024 89 94% 11:42 12/02/2024 89 94% 11:41 12/02/2024 150/86 107 89 11:37 12/02/2024 86 95% 11:32 12/02/2024 93 95% 11:27 12/02/2024 87 94% 11:26 12/02/2024 132/82 104 90 11:22 12/02/2024 92 94% 11:17 12/02/2024 101 97% 11:12 12/02/2024 96 96% 11:11 12/02/2024 149/84 120 96 11:07 12/02/2024 98 97% 11:02 12/02/2024 89 95% 10:57 12/02/2024 106 93% 10:56 12/02/2024 147/84 114 89 2 of 3 Vitals Measured Time BP MAP HR RR O2Sat ETCO2 Temp Pain GCS RTS 10:52 12/02/2024 93 95% 10:51 12/02/2024 154/83 107 93 20 96% 98.1 F 7 10:47 12/02/2024 98 95% 10:42 12/02/2024 100 94% 10:42 12/02/2024 154/83 112 98 3 of 3 Normal [facility] INFLUENZA VIRUS RAPID A/Bon 12-02-2024 INFLUENZA VIRUS RAPID A/B INFLUENZA A NEGATIVE INFLUENZA B NEGATIVE INTERNAL NEG QC PASS INTERNAL POS QC PASS EXTERNAL QC DONE? YES SEND TO IC? NO A NEGATIVE TEST RESULT DOES NOT EXCLUDE INFECTION WITH INFLUENZA A OR B. THEREFORE, THE RESULTS OBTAINED FROM THIS FLU TEST SHOULD BE USED IN CONJUCTION WITH CLINICAL FINDINGS TO MAKE AN ACCURATE DIAGNOSIS. A POSITIVE RESULT DOES NOT RULE OUT CO-INFECTIONS WITH OTHER PATHOGENS OR IDENTIFY ANY SPECIFIC INFLUENZA A VIRUS SUBTYPE.CO-INFECTION WITH INFLUENZA A AND B IS RARE. IT IS RECOMMENDED THAT DUAL POSITIVE RESULTS BE CONFIRMED BY VIRAL CULTURE OR AN FDA-CLEARED INFLUENZA A AND B MOLECULAR ASSAY. INDIVIDUALS WHO HAVE RECEIVED NASALLY ADMINISTERED INFLUENZA A VACCINE MAY TEST POSITIVE IN COMMERCIALLY AVAILABLE INFLUENZA RAPID DIAGNOSTIC TESTS FOR UP TO THREE DAYS. RESULT CRITICAL? NO Normal [facility] Comment on above: Performed By: #### 2 [id number] ####[facility],[address] [place] [address] CRPon 08-06-2024 C-REACTIVE PROT 8.54 mg/L High 0.0-3.0 [facility] Comment on above: Result Comment: C-Re active Protein (CRP) provides useful information for the diagnosis, therapy and monitoring of inflammatory processes and associated diseases. For the evaluation of Relative Risk for Cardiovascular Disease, a High Sensitivity CRP (HSCRP) should be ordered. Performed By: #### L 101.9900, L501.6710, L3300.1750, L3100.5170 ####[facility] [id number] [place], [address] Erythrocyte Sed Rateon 08-06 SED RATE 4 mm/hr Normal 0-30 [facility] Comment on above: Performed By: #### L 101.9900, L501.6710, L3300.1750, L3100.5170 ####[facility] [id number] [place], [address] Estradiolon 08-06-2024 ESTRADIOL 55.1 pg/mL Normal [facility] Comment on above: Result Comment: NORM AL REFERENCE RANGES FEMALE FOLLICULAR 21.4 - 164.8 pg/mL MID-CYCLE PEAK 49.9 - 367.2 pg/mL LUTEAL 40.2 - 259.0 pg/mL POST-MENOPAUSAL ON MHT <11.0 - 462.1 pg/mL NOT ON MHT <11.0 - 58.3 pg/mL MALE <11.0 - 52.5 pg/mL NOTE: [facility] HAS CONFIRMED THE DRUG FULVETRANT (FASLODEX) MAY CAUSE FALSELY ELEVATED ESTRADIOL RESULTS WHEN USING THIS TEST METHOD. IF PATIENT IS TAKING FULVESTRANT AN ALTERNATIVE METHOD SHOULD BE USED TO DETERMINE ESTRADIOL CONCENTRATION. Performed By: #### L 101.9900, L501.6710, L3300.1750, L3100.5170 ####[facility] [id number] [place], [address] Gastroenterology Visit Repor ton 08-06-2024 Gastroenterology Visit Report [facility] [address] [place] [address] OFFICE VISIT Date of Service: 08/06/24 MR#: [id number] Acct: [id number] Name: HONG SNOW Rep #: [id number] : 1970 Provider: CHEL patel Age/Sex: 54/F [place] [facility] Status: Signed Intake Vital Signs 11/23/23 14:04 Height 5 ft 4 in Weight: 151 lb BMI 25.9 Intake Visit Reasons: 4 M FU Chief Complaint: diarrhea Allergies gluten Allergy (Verified 11/23/23 14:05) Other iodine Allergy (Verified 11/23/23 14:05) Other milk (dairy) Allergy (Verified 11/23/23 14:05) Other monosodium glutamate (msg) Allergy (Verified 11/23/23 14:05) Other shellfish derived Allergy (Verified 11/23/23 14:05) Food Allergy meperidine (From Demerol) Adverse Reaction (Intermediate, Verified 11/23/23 14:05) Vomiting Medications ???Medication ???Instructions ???Recorded ???Confirmed ???Type albuterol sulfate 90 mcg/actuation 1 inh inhalation ONCE 06/09/22 08/06/24 History aerosol inhaler (Ventolin HFA) magnesium 200 mg tablet 400 mg PO BID 08/10/22 08/06/24 History multivitamin 1 tab PO DAILY 08/10/22 08/06/24 History dicyclomine 10 mg capsule 10 mg PO BID PRN 04/11/24 08/06/24 History estradiol 0.05 mg/24 hr weekly 1 patch transdermal .2XWEEK 08/06/24 08/06/24 History transdermal patch Nurse's Note: OV 08.06.24 pt reports that she is feeling better since LV. Has been off work and she reports this has decreased her stress significantly. Pt reports 1 formed BM per day. States that she will occasionally have HB and will do some baking soda and water which pt reports is effective. [facility] Medical History (Updated 11/23/23 @ 14:[address] Coleman Friend, DO) Wears contact lenses Wears glasses Post-menopausal Anxiety Arthritis Migraine headache Injury of head and neck TIA (transient ischemic attack) History of GI bleed History of hiatal hernia History of IBS Gastric reflux Non-smoker Shortness of breath on exertion Asthma Fibromyalgia Leg cramps History of pain when walking Surgical History (Updated 11/23/23 @ 14:19 by Mary Singh) H/O wrist surgery Hx of hysterectomy Hx of laparoscopy Hx of hernia repair Hx of section Social History Smoking Status: Never smoker HPI HPI Chief Complaint: diarrhea Details: HONG SNOW, is a 54 F who presents to the office today for FU. FH father???s side of the family has a lot of similar GI symptoms; no known diagnosis. Prior workup: Stool testing enteric pathogens, ova/parasite WNL. *BGI established 06.09.22 with referral from PCP for evaluation of watery, bloody diarrhea and periodic abdominal pain with onset and occurring daily with worsening in severity. Weight has been maintained but pays particular attention to not lose. Similar symptoms historically that are relieved with diet changes. Diet is organic, gluten free and dairy free. Biochemical workup CMP, LDH, CBC, ESR, ANCA, celiac, IgA, GAME, ISABEL, IBD prognostic not suggestive of IBD, Chromagranin A WNL CRP H11.1, Anti-double strand ab H25 24 hr urine 5-HIAA WNL Stool testing calprotectin, lactoferrin, pancreatic elastase, C.Difficile WNL EGD and colonoscopy 08.11.22. EGD found gastric stenosis, chronic inflammation; erythematous duodenopathy, metaplasia. Colonoscopy found abnormal perianal exam; congested mucosa sigmoid through hepatic flexure; proctitis. Normal ileum. No pathologic changes. OV 11.. She stopped taking pre/probiotic gummy, started daily fresh blueberries, pineapple juice, stopped coffee and started natural teas. She is now having one BM a day which is normal and formed for her. Recently stopped estrogen due to age and concern r/t mini-stroke history early 2021. OV 2..23 symptoms much improved with resolution of diarrhea: probiotic gummy stopped and has been minimizing eating out (but when she does she has abdominal discomfort/pain). Started a tea from [employer] with four ingredients and feels this has been very helpful with anxiety/depression and getting out of bed. Diarrhea, biochemical workup. Biochemical Anti-dbl strand DNA H30, CRP, H4.86 OV 1.31.24 abdominal cramping and diarrhea. Dairy and gluten cut out without success. Dicyclomine effective and taken as needed. Reports loose stools 2-3 times daily, occasionally will appear to have small amount of blood. OV 6.19.24 Pt reports that she was prescribed cannabis for her fibromyalgia last month and has not had diarrhea since. Pt reports that she has 2-3 formed bm per day; denies blood in the stool. Pt reports that sugar causes bloating and some HB; pt reports that she has tried to limit dairy and gluten intake, but not fully eliminate. Continues with Dicyclomine a (more content not included)... Normal [facility] Luteinizing Hormoneon 2023 LH 21.4 mIU/mL Normal [facility] Comment on above: Result Comment: NORMAL REFERENCE RANGES FEMALE FOLLICULAR 1.9 - 26.2 mIU/mL MID-CYCLE PEAK 22.8 - 76.1 mIU/mL LUTEAL 0.6 - 16.6 mIU/mL POST-MENOPAUSAL ON MHT 1.1 - 52.4 mIU/mL NOT ON MHT 8.6 - 61.8 mIU/mL MALE 1.2 - 10.6 mIU/mL Performed By: #### L 101.9900, L501.6710, L3300.1750, L3100.5170 ####[facility] [id number] [place], [address] FOOT COMPLETE LTon FOOT COMPLETE LT [place] [address] Patient: HONG SNOW Phone#: : 1970 Age: 54 Gender: F Pt. Type: ER Account: [id number] Location: [facility] Ordering: SEAMUS VÁSQUEZ Exam Date: 06/27/2024/8:51 Family Phys: RISSA DESHLER Charge Code: [id number] Physician: [place] Order #: [id number] Dose#: PROCEDURE: X-RAY FOOT LT COMPLETE MIN 3 VIEWS COMPARISON: None. INDICATIONS: Pain. FINDINGS: BONES: Normal. No significant arthropathy or acute abnormality. No fracture or dislocation. SOFT TISSUES: Negative. No visible soft tissue swelling. EFFUSION: None visible. OTHER: Negative. CONCLUSION: 1. No acute osseous abnormality. Dictated by: Kayla Duenas MD on 06/27/2024 at 9:01 Approved by: Kayla Duenas MD on 06/27/2024 at 9:04 Normal [facility] US BREAST LT UNILATERAL COMP LETEon 03-14-2024 US BREAST LT UNILATERAL COMPLETE [address] [address] Patient: HONG SNOW Phone#: : 1970 Age: 54 Gender: F Pt. Type: Out Account: [id number] Location: 010 Ordering: [facility] Exam Date: 03/14/2024/10:08 Family Phys: Charge Code: [id number] Physician: [place] Order #: [id number] Dose#: PROCEDURE: ULTRASOUND BREAST LT COMPARISON: [facility], BREAST LT COMPLETE, 09/07/2023, 13:30. INDICATIONS: Left Breast Cyst, follow up TECHNIQUE: Breast ultrasound was performed, with evaluation focusing on all four quadrants. FINDINGS: DIAGNOSTIC CATEGORY 2--BENIGN: LEFT BREAST: In the 12 o'clock position 2 complicated cysts measuring 6 x 4 millimeter and 4 x 3 millimeter. In the 12:00 o'clock is a stable simple cyst measuring 8 x 8 millimeters. In the 2 o'clock position is a 3 x 3 millimeter complicated cyst. In the 2 o'clock position is a 2nd 3 millimeter complicated cyst. In the 3 o'clock position is a 4 millimeter complicated cyst. At the 5 o'clock position is complicated 5 millimeter cyst. In the 9 o'clock position is a simple 8 x 8 millimeter cyst. In the 10 o'clock position is a complicated 4 x 4 millimeter cyst. RECOMMENDATIONS: ROUTINE MAMMOGRAM AND CLINICAL EVALUATION IN 12 MONTHS. PLEASE NOTE: A NORMAL MAMMOGRAM DOES NOT EXCLUDE THE POSSIBILITY OF BREAST CANCER. A CLINICALLY SUSPICIOUS PALPABLE LUMP SHOULD BE BIOPSIED. Dictated by: Aime Blandon MD on 03/14/2024 at 15:10 Approved by: Aime Blandon MD on 03/14/2024 at 15:42 Normal [facility] Basophil percentageOrdered B y: Jared Friend on 12-15-2022 Basophil percentage < 0.2 AI 0.0-0.9 [facility] Erythrocyte sedimentation ra teOrdered By: Jared Self on 12-15-2022 ESR (Bld) [Velocity] 5 mm/h 0-30 [facility] No Panel InformationOrdered By: Jared Self on 12-15-2022 Centromere B Antibody <0.2 AI 0.0-0.9 [facility] [employer] Antibody 0.3 AI 0.0-0.9 [facility] Serum DNA double strand anti body assay (units/volume)Ordered By: Jared Self on 12-15-2022 DNA double strand Ab Qn (S) 30 [IU]/mL 0-9 [facility] Comment on above: Negative <5 Equivoca l 5 - 9 Positive >9 Serum Padma-1 antibody assay (u nits/volume)Ordered By: Jared Self on 12-15-2022 Padma-1 extractable nuclear Ab Qn (S) <0.2 AI 0.0-0.9 [facility] Serum Scl-70 extractable nuc lear antibody assay (units/volume)Ordered By: Jared Self on 12-15-2022 SCL-70 extractable nuclear Ab Qn (S) <0.2 AI 0.0-0.9 [facility] Serum Sheth extractable nucl ear antibody detectionOrdered By: Jared Self on 12-15-2022 Sheth extractable nuclear Ab Ql (S) <0.2 AI 0.0-0.9 [facility] Serum or plasma C reactive p rotein measurement (mass/volume)Ordered By: Jared Self on 12-15-2022 CRP [Mass/Vol] 4.86 mg/L 0.0-3.0 [facility] Comment on above: C-Reactive Protein ( CRP) provides useful information for thediagnosis, therapy and monitoring of inflammatory processesand associated diseases. For the evaluation of Relative Riskfor Cardiovascular Disease, a High Sensitivity CRP (HSCRP)should be ordered. Absolute lymphocyte counton 06-09-2022 Lymphocytes Auto (Unsp spec) [#/Vol] 2.75 10*3/uL 0.83-4.51 [facility] Work Phone: Basophil percentageon 2021 Basophil percentage < 0.2 AI 0.0-0.9 [facility] Work Phone: Basophils/100 WBC (Bld) 0.2 % 0-1 [facility] Work Phone: Bilirubin [Mass/Vol] 0.30 mg/dL 0.20-1.00 [facility] Work Phone: Comment on above: For patients on eltr ombopag therapy, use of Dimension [place] TBIL is not recommended. Chloride [Moles/Vol] 107 mmol/L 98-107 [facility] Work Phone: Eosinophils/100 WBC (Bld) 1.8 % 0-5 [facility] Work Phone: Glucose [Mass/Vol] 82 mg/dL 74-106 [facility] Work Phone: Neutrophils (Bld) [#/Vol] 5.1 10*3/uL 2.0-7.7 [facility] Work Phone: Neutrophils/100 WBC (Bld) 58.2 % 47-70 [facility] Work Phone: Potassium [Moles/Vol] 3.8 mmol/L 3.5-5.1 [facility] Work Phone: Protein [Mass/Vol] 7.6 g/dL 6.4-8.2 [facility] Work Phone: Sodium [Moles/Vol] 140 mmol/L 136-145 [facility] Work Phone: WBC (Bld) [#/Vol] 8.8 10*3/uL 4.4-11.0 [facility] Work Phone: Blood erythrocytes count (nu mber/volume)on 06-09-2022 RBC (Bld) [#/Vol] 4.75 10*6/uL 4.2-5.4 [facility] Work Phone: Blood hemoglobin measurement (mass/volume)on 06-09-2022 Hemoglobin (Bld) [Mass/Vol] 14.6 g/dL 12.0-15.0 [facility] Work Phone: Blood lymphocytes/100 leukoc yteson 06-09-2022 Lymphocytes/100 WBC (Bld) 31.2 % 19-41 [facility] Work Phone: Blood monocytes/100 leukocyt eson 06-09-2022 Monocytes/100 WBC (Bld) 8.5 % 0-10 [facility] Work Phone: Blood platelet mean volumeon 06-09-2022 Platelet mean volume (Bld) [Entitic vol] 10.2 fL 6.2-12.0 [facility] Work Phone: [phone] Determination of erythrocyte mean corpuscular volume (MCV)on 06-09-2022 MCV (RBC) [Entitic vol] 91.4 fL 81-99 [facility] Work Phone: Erythrocyte sedimentation ra daniel 06-09-2022 ESR (Bld) [Velocity] 10 mm/h 0-30 [facility] Work Phone: Hematocrit Auto (Bld) [Volum e fraction]on 06-09-2022 Hematocrit (Bld) [Volume fraction] 43.4 % 37-47 [facility] Work Phone: [phone] Laboratory - Chemistry and C hemistry - challengeon 06-09-2022 ALP [Catalytic activity/Vol] 75 U/L 45-117 [facility] Work Phone: ALT [Catalytic activity/Vol] 22 U/L 13-56 [facility] Work Phone: CO2 [Moles/Vol] 27.0 mmol/L 21.0-32.0 [facility] Work Phone: Globulin (S) [Mass/Vol] 3.8 g/dL 2.2-4.2 [facility] Work Phone: Urea nitrogen/Creatinine [Mass ratio] 22.9 mg/mg 10-20 [facility] Work Phone: Laboratory - Hematology and Cell countson 08-17-2022 Erythrocyte distribution width (RBC) [Entitic vol] 36.6 fL 35.1-43.9 [facility] Work Phone: Erythrocyte distribution width (RBC) [Ratio] 10.9 % 11.6-14.6 [facility] Work Phone: Immature granulocytes/100 WBC (Bld) 0.100 % 0.0-0.9 [facility] Work Phone: Comment on above: IG% - Immature Granu locytes (promyelocytes, myelocytes and metamyelocytes) > 1% indicates that a LEFT SHIFT is Present. MCH (RBC) [Entitic mass] 30.7 pg 27.0-32.0 [facility] Work Phone: Nucleated RBC/100 WBC (Bld) [Ratio] 0 % 0-5 [facility] Work Phone: MCHC Auto (RBC) [Mass/Vol]on 06-09-2022 MCHC (RBC) [Mass/Vol] 33.6 g/dL 32-36 [facility] Work Phone: No Panel Informationon 06-09 Centromere B Antibody <0.2 AI 0.0-0.9 [facility] Work Phone: Endomysial IgA Antibody Negative Negative [facility] Work Phone: Estimated GFR (MDRD) Amer 105 mL/min >60 [facility] Work Phone: Comment on above: GFR Calc Estimated GFR (MDRD) Non-Af Amer 86 mL/min >60 [facility] Work Phone: Comment on above: Non- GFR Calc PEER TUTOR Antibody 0.3 AI 0.0-0.9 [facility] Work Phone: Platelets bldon 06-09-2022 Platelets (Bld) [#/Vol] 283 10*3/uL 150-450 [facility] Work Phone: Serum DNA double strand anti body assay (units/volume)on 06-09-2022 DNA double strand Ab Qn (S) 25 [IU]/mL 0-9 [facility] Work Phone: Comment on above: Negative <5 Equivoca l 5 - 9 Positive >9 Serum IgA measurement (units /volume)on 06-09-2022 IgA Qn (S) 218 mg/dL 87-352 [facility] Work Phone: Comment on above: Performed at: [address] [id number] Director: Jet Valladares PhD, Phone: [phone] Serum Padma-1 antibody assay (u nits/volume)on 06-09-2022 Padma-1 extractable nuclear Ab Qn (S) <0.2 AI 0.0-0.9 [facility] Work Phone: Serum Scl-70 extractable nuc lear antibody assay (units/volume)on 06-09-2022 SCL-70 extractable nuclear Ab Qn (S) <0.2 AI 0.0-0.9 [facility] Work Phone: Serum Sheth extractable nucl ear antibody detectionon 06-09-2022 Sheth extractable nuclear Ab Ql (S) <0.2 AI 0.0-0.9 [facility] Work Phone: Serum or plasma C reactive p rotein measurement (mass/volume)on 06-09-2022 CRP [Mass/Vol] 11.10 mg/L 0.0-3.0 [facility] Work Phone: Comment on above: C-Reactive Protein ( CRP) provides useful information for thediagnosis, therapy and monitoring of inflammatory processesand associated diseases. For the evaluation of Relative Riskfor Cardiovascular Disease, a High Sensitivity CRP (HSCRP)should be ordered. Serum or plasma albumin alex urement (mass/volume)on 06-09-2022 Albumin [Mass/Vol] 3.8 g/dL 3.2-5.0 [facility] Work Phone: Serum or plasma albumin/glob ulin mass ratioon 06-09-2022 Albumin/Globulin [Mass ratio] 1.0 {ratio} 0.9-2.4 [facility] Work Phone: Serum or plasma calcium alex urement (mass/volume)on 06-09-2022 Calcium [Mass/Vol] 9.0 mg/dL 8.5-10.1 [facility] Work Phone: Serum or plasma creatinine m easurement (mass/volume)on 06-09-2022 Creatinine [Mass/Vol] 0.74 mg/dL 0.55-1.02 [facility] Work Phone: Comment on above: The validity of the calculated GFR & GFRAA in patients over 70 years has not been determined. Clinical correlation is essential. Serum or plasma urea nitroge n measurement (mass/volume)on 06-09-2022 Urea nitrogen [Mass/Vol] 17 mg/dL 7-18 [facility] Work Phone: Serum tissue transglutaminas e IgA antibody assay (units/volume)on 06-09-2022 tTG IgA Qn (S) <2 U/mL 0-3 [facility] Work Phone: Comment on above: Negative 0 - 3 Weak Positive 4 - 10 Positive >10 Tissue Transglutaminase (tTG) has been identified as the endomysial antigen. Studies have demonstr- ated that endomysial IgA antibodies have over 99% specificity for gluten sensitive enteropathy. Thin prep Papanicolaou smear with manual screeningon 06-09-2022 Thin prep Papanicolaou smear with manual screening 24 U/L 15-37 [facility] Work Phone: Thin prep Papanicolaou smear with manual screening 6 5-15 [facility] Work Phone: Thin prep Papanicolaou smear with manual screening 185 U/L 84-246 [facility] Work Phone: Coronavirus 2019on 0 COVID 19 Result TITLE INVESTIGATOR Normal Negative for COVID19 (SARS CoV2) by PCR. [facility] Comment on above: Result Comment: Nega tive for This test was developed and its performance characteristics determined by [facility] [place]. This test has been authorized by FDA under an Emergency Use Authorization (EUA). This test has been validated in accordance with the FDA's Guidance Document Policy for Diagnostics Testing in Laboratories Certified to Perform High Complexity Testing under CLIA prior to Emergency use Authorization for Coronavirus Disease 2019 during the Public Health Emergency issued on December 22, 2019. COVID19 (SARS This test was developed and its performance characteristics determined by [facility] [place]. This test has been authorized by FDA under an Emergency Use Authorization (EUA). This test has been validated in accordance with the FDA's Guidance Document Policy for Diagnostics Testing in Laboratories Certified to Perform High Complexity Testing under CLIA prior to Emergency use Authorization for Coronavirus Disease 2019 during the Public Health Emergency issued on December 22, 2019. CoV2) by PCR. This test was developed and its performance characteristics determined by [facility] [place]. This test has been authorized by FDA under an Emergency Use Authorization (EUA). This test has been validated in accordance with the FDA's Guidance Document Policy for Diagnostics Testing in Laboratories Certified to Perform High Complexity Testing under CLIA prior to Emergency use Authorization for Coronavirus Disease 2019 during the Public Health Emergency issued on December 22, 2019. COVID 19 Source TITLE INVESTIGATOR TITLE INVESTIGATOR Normal [facility] HEPATIC PANELon 07-09-2019 A:G RATIO 1.66 Normal 1.1-2.5 [facility] Comment on above: Performed By: #### L [id number] #### ML - LABORATORY [address] [place] [phone] Albumin [Mass/Vol] 4.5 g/dL Normal 3.5-5.2 [facility] Comment on above: Performed By: #### L [id number] #### ML - LABORATORY [address] [place] [address]91 ALK. PHOS 62 U/L Normal 35-105 [facility] Comment on above: Performed By: #### L 100.0030 #### ML [facility] [address] [place] [address]25 ALT [Catalytic activity/Vol] 13 U/L Normal 5-33 [facility] Comment on above: Performed By: #### L [id number] #### ML [facility] [address] [place] [address]6429 AST [Catalytic activity/Vol] 22 U/L Normal 5-32 [facility] Comment on above: Performed By: #### L [id number] #### ML - LABORATORY [address] [place] [address] 02226 Bilirubin Ql (U) 0.4 mg/dL Normal 0.2-1.2 [facility] Comment on above: Performed By: #### L [id number] #### ML - LABORATORY [address] [place] [address] 9[address]19 DIRECT BILIRUBI <0.2 Normal 0.0-0.3 [facility] Comment on above: Performed By: #### L [id number] #### ML - LABORATORY [address] [place] [address] 39360 Globulin (S) [Mass/Vol] 2.7 g/dL Normal 1.5-4.5 [facility] Comment on above: Performed By: #### L [id number] #### ML - LABORATORY [address] [place] [address]20 Protein [Mass/Vol] 7.2 g/dL Normal 6.4-8.3 [facility] Comment on above: Performed By: #### L [id number] #### ML - LABORATORY [address] [place] [address]8947 SURGICALon 10-12-2017 SURGICAL CHEST, BIOPSY OF - L T MID CHEST SHAVEBREAST SKIN - LEFT INFERIOR BREAST SHAVEGROSS DESCRIPTION: Specimen is received in two appropriately labeled containers.A. The first specimen is designated as A left mid chest. Specimen consists of a superficial skin biopsy that is blount that measures 3.0 x 2.0 x 1.0 mm. This is bisected. (2,ns).B. The second specimen is designated as left inferior breast. Specimen consists of a superficial shave type skin biopsy that is blount that measures 6.0 x 5.0 x 2.0 mm. This has a vague brown granular macular area identified with slightly irregular pigmentation near irregular borders. (3,ns). DLB/sl MICROSCOPI C DESCRIPTION: A-B. Slides reviewed. DLB/sl FINAL DIAGNOSIS: A. LEFT MID CHEST - SHAVE BIOPSY OF SKIN WITH BENIGN CAPILLARY HEMANGIOMA WITH MICROSCOPIC AREAS OF FIBRIN THROMBUS FORMATION. NO MALIGNANCY IDENTIFIED.B. LEFT INFERIOR BREAST - SHAVE BIOPSY OF SKIN WITH BENIGN SEBORRHEIC KERATOSIS. Dictated by: PARVEEN ZAMORA D.O LCLINICAL DATA: PROCEDURE: Shave removal A) left mid chest, B) left inferior breastPRE-OP: A) Rule out basal cell carcinoma, B) rule out dysplastic nevusPOST-OP: Not givenHISTORY: A) Pearly bordered papule measuring 0.4 cm, well demarcated with slight blackish discoloration. Ulceration noted in association with this area. B) Irregularly hyperpigmented macule measuring up to 0.6 cm, poorly demarcated with some blackish discoloration. No ulcerations, erosions or infections.Signed *Electronically Signed* PARVEEN ZAMORA D.O 10/14/17 1544 [facility] Comment on above: Performed By: #### P -S ####ML - [facility] [id number] [place] [address] Vital Signs Date Time Vital Sign Value Performing Clinician Antonio haynes 04-01-2025 11:07-0400 Body height 162.56 cm [employer] PA-C Work Phone: [facility] 04-01-2025 11:07-0400 Body mass index (BMI) [Ratio] 25.7 kg/m2 [employer] PA-C Work Phone: [facility] 04-01-2025 11:07-0400 Body weight 68.03 kg [employer] PA-C Work Phone: [facility] 04-01-2025 11:07-0400 Diastolic blood pressure 91 mm[Hg] [employer] PA-C Work Phone: [facility] 04-01-2025 11:07-0400 Heart rate 97 /min [employer] PA-C Work Phone: [facility] 04-01-2025 11:07-0400 SaO2% (BldA) [Mass fraction] 97 % [employer] PA-C Work Phone: [facility] 04-01-2025 11:07-0400 Systolic blood pressure 163 mm[Hg] [employer] PA-C Work Phone: [facility] 12-20-2024 11:14-0500 Body height 162.56 cm [employer] PA-C Work Phone: [facility] 12-20-2024 11:14-0500 Body mass index (BMI) [Ratio] 24.3 kg/m2 [employer] PA-C Work Phone: [facility] 12-20-2024 11:14-0500 Body weight 64.41 kg [employer] PA-C Work Phone: [facility] 12-20-2024 11:14-0500 Diastolic blood pressure 96 mm[Hg] [employer] PA-C Work Phone: [facility] 12-20-2024 11:14-0500 Heart rate 90 /min [employer] PA-C Work Phone: [facility] 12-20-2024 11:14-0500 SaO2% (BldA) [Mass fraction] 97 % Rissa Hills PA-C Work Phone: [facility] 12-20-2024 11:14-0500 Systolic blood pressure 152 mm[Hg] Rissa Hills PA-C Work Phone: [facility] Encounters Encounter Date Encounter Type Care Provider Facility Start: 04-29-2025 ambulatory [facility] Facility: [facility] Start: 04-25-2025 Encounter for other preprocedural examination [facility] Start: 04-01-2025 End: 04-01-[address] Ankur Dunlap MD -[facility] Work Phone: Start: 04-01-2025 End: 04-01-2025 ambulatory Rissa Hills PA-C Work Phone: [facility] Work Phone: Start: 02-14-2025 End: 02-14-2025 Patient encounter procedure SUN FLOWERS MD -Laboratory Work Phone: Start: 02-14-2025 End: 02-14-2025 ambulatory SUN FLOWERS Facility:[facility] Start: 01-21-2025 End: 01-21-2025 ambulatory Genia FLOWERS [facility] Start: 12-31-2024 End: 12-31-2024 ambulatory Rissa [employer] [facility] PA-C Work Phone: [facility] Work Phone: Start: 12-31-2024 End: 12-31-[address] Ankur Dunlap MD -Ultrasound, [facility] Work Phone: Start: 12-31-2024 End: 12-31-2024 ambulatory Ankur Dunlap Facility:[facility] Start: 12-21-2024 End: 12-21-2024 ambulatory Genia FLOWERS [facility] Start: 12-20-2024 End: 12-20-[address] Ankur Dunlap MD -[facility] Work Phone: Start: 12-20-2024 End: 12-20-2024 ambulatory Ankur Dunlap [facility] Start: 12-11-2024 End: 12-11-2024 ambulatory [facility] Start: 12-07-2024 End: 12-07-2024 ambulatory [facility] Start: 12-02-2024 End: 12-02-2024 Emergency department patient visit DARIO LINARES [facility] Start: 08-06-2024 End: 08-06-2024 ambulatory Alix Reynolds [facility] Start: 08-06-2024 End: 08-06-2024 ambulatory Jared Self Facility:[facility] Start: 06-27-2024 End: 06-27-2024 Emergency department patient visit SEAMUS VÁSQUEZ [facility] Start: 03-14-2024 End: 03-14-2024 ambulatory [facility] Start: 12-15-2022 End: 12-15-2022 ambulatory PA-Orestes Tran PA Work Phone: [facility] Work Phone: Start: 12-15-2022 End: 12-15-2022 Patient encounter procedure PA-C Rissa Tran PA Work Phone: [facility] Start: 08-24-2022 End: 08-24-2022 Patient encounter procedure PA-C Rissa Tran PA Work Phone: [facility] Start: 06-13-2022 End: 06-13-[address] Jared Self Work Phone: [facility] Work Phone: Start: 06-13-2022 End: 06-13-[address] Jared Self Work Phone: [facility]-Laboratory, Specimen Start: 06-09-2022 End: 06-09-[address] Jared Self Work Phone: [facility] Start: 06-09-2022 End: 06-09-[address] Jared Self Work Phone: [facility] Start: 10-12-2017 Ambulatory PROVIDER UNKNOWN Facili ty:[facility]RE[facility] Procedures Date Procedure Procedure Detail Performing Clinician Start: 02-14-2025 Urnls dip stick/tabl et reagent auto microscopy [facility] PA-C Work Phone: Start: 02-14-2025 CODY measurement [facility] PA-C Work Phone: Start: 02-14-2025 Antibody to centrome re measurement [facility] PA-C Work Phone: Start: 02-14-2025 Antibody to extracta ble nuclear antigen measurement [facility] PA-C Work Phone: Start: 02-14-2025 Antibody to PADMA-1 measurement [facility] PA-C Work Phone: Start: 02-14-2025 Antibody to lupus La protein measurement [facility] PA-C Work Phone: Start: 02-14-2025 Antibody to SS-A measurement [facility] PA-C Work Phone: Start: 02-14-2025 Autoantibody measurement [facility] PA-C Work Phone: Start: 02-14-2025 Ceruloplasmin measurement [facility] PA-C Work Phone: Start: 02-14-2025 Copper measurement, serum [facility] PA-C Work Phone: Comment on above: Detection Limit = 5P erformed at: CB - [address] [id number] Director: Jet Valladares PhD, Phone: [phone] at: [address] [id number] Director: Thu Bradley MD, Phone: [phone] Start: 02-14-2025 Hepatitis A virus an tibody, IgM type [employer] Work Phone: Comment on above: A negative anti-HAV IgM result suggests no recent orcurrent HAV infection. Start: 02-14-2025 Hepatitis B core ant ibody measurement, IgM type [employer] Work Phone: Start: 02-14-2025 Hepatitis C antibody measurement [employer] Work Phone: Start: 02-14-2025 Procedure Rissa H ills [employer] Work Phone: Comment on above: Test Ordered: [id number] Enhanced Liver Fibrosis (ELF)ELF(TM) Score 10.46 [H ] Reference Range: <9.80ELF(TM) Score Interpretation:Risk cut-offs to assess the likelihood of progressionto cirrhosis and liver-related clinical events within3.9 years following baseline ELF score (IQR: 14.0-22.4months)*: Lower risk < 9.80 Mid risk 9.80 - 11.29 Higher risk >11.29Note: The ELF(TM) Score is a unitless numerical value.*Dani SA, Joe DURAN, Saniya T, et al. Selonsertibfor patients with bridging fibrosis or compensatedcirrhosis due to CERDA: Results from randomized phaseIII STELLAR trials. J Hepatol. 2020 Apr;73(1):26-39.Performed at: [address] [id number] Director: Thu Bradley MD, Phone: [phone] at: [address] [id number] Director: Jet Valladares PhD, Phone: [phone] Start: 02-14-2025 PEER TUTOR antibody measurement [facility] Work Phone: Start: 02-14-2025 Total iron binding c apacity measurement [facility] Work Phone: Start: 12-31-2024 Ultrasound elastogra phy of liver [facility] Work Phone: Clostridium difficil e detection Dr. Jared Self Work Phone: Lactoferrin measurement Dr. Jared Self Work Phone: Plan of Treatment Date Care Activity Detail Author Start: 06-13-2022 5-Hydroxyindoleaceta te [Mass/volume] in 24 hour Urine [facility] Work Phone: Start: 06-13-2022 Elastase, pancreatic (el-1), fecal; quantitative [facility] Work Phone: Start: 06-13-2022 Protein measurement [facility] Work Phone: Start: 06-09-2022 Immunoglobulin measurement [facility] Work Phone: Start: 06-09-2022 Procedure [facility] Work Phone: Start: 06-09-2022 Serum immunofixation [facility] Work Phone: Start: 06-09-2022 [facility] Work Phone: 5-Hydroxyindoleaceta te [Mass/volume] in 24 hour Urine [facility] Work Phone: 5-Hydroxyindoleaceti c acid measurement [facility] Work Phone: Acute hepatitis 2000 panel - Serum [facility] Albumin [Moles/volum e] in Serum or Plasma [facility] Work Phone: Albumin/Globulin ratio [facility] Work Phone: Bilirubin.direct [Ma ss/volume] in Serum or Plasma [facility] C reactive protein [ Mass/volume] in Serum or Plasma [facility] CBC W Auto Different ial panel - Blood [facility] Ceruloplasmin [Mass/ volume] in Serum or Plasma [facility] Comprehensive metabo lic 2000 panel - Serum or Plasma [facility] Copper [Moles/volume ] in Serum or Plasma [facility] Cytoplasmic ANCA Screen [facility] Electrophoresis: [id number] [facility] Work Phone: Electrophoresis: gamma globulin [facility] Work Phone: Ferritin [Mass/volum e] in Serum or Plasma [facility] Gamma glutamyl trans ferase measurement [facility] Globulin measurement [facility] Work Phone: IgA [Mass/volume] in Serum or Plasma [facility] Work Phone: IgE [Units/volume] i n Serum or Plasma [facility] Work Phone: IgG [Mass/volume] in Serum or Plasma [facility] Work Phone: IgM [Mass/volume] in Serum or Plasma [facility] Work Phone: Iron and Iron bindin g capacity panel - Serum or Plasma [facility] Lactate dehydrogenase measurement [facility] Mitochondria Ab [Pre sence] in Serum [facility] Neutrophil cytoplasm ic Ab.classic [Units/volume] in Serum [facility] Work Phone: P-ANCA measurement [facility] Work Phone: Procedure [facility] Work Phone: Procedure [facility] Protein electrophore sis panel - Serum or Plasma [facility] Work Phone: Protein measurement [facility] Work Phone: Prothrombin time [facility] Serum protein electrophoresis [facility] Work Phone: Smooth muscle Ab [Pr esence] in Serum [facility] T4 free measurement [facility] Thyroid stimulating hormone measurement [facility] Urinalysis complete panel - Urine [facility] Payers Date Payer Category Payer Self-pay 2024 Unknown [id number] 2013 Unknown [id number] 1970 Unknown [id number] 2.16.8 [id number] 1970 Unknown [id number] 2.16.8 40.1.680221.3.579.2.651 1970 Unknown [id number] 2.16.8 40.1.238058.3.579.2.651 1970 Unknown [id number] 2.16.8 40.1.872535.3.579.2.651 1970 Unknown [id number] 2.16.8 40.1.186775.3.579.2.651 1970 Unknown [id number] 2.16.8 40.1.493537.3.579.2.651 1970 Unknown [id number] 2.16.8 40.1.212915.3.579.2.651 Unknown [id number] 2.16.8 40.1.629018.3.579.2.462 Unknown [id number] 2.16.8 40.1.202074.3.579.2.462 Unknown [id number] 2.16.8 40.1.251494.3.579.2.462 Unknown [id number] 2.16.8 40.1.584452.3.579.2.462 Unknown [id number] 2.16.8 40.1.252090.3.579.2.462 Unknown [id number] 2.16.8 40.1.279564.3.579.2.462 Unknown [id number] 2.16.8 40.1.845776.3.579.2.462 Social History Date Type Detail Facility [facility] Work Phone: Start: 1970 Sex Assigned At Female [facility] Start: 12-15-2022 [facility] Start: 11-23-2023 [facility] Never [facility] tobacco (finding) [facility] Start: 01-10-2025 Sex Female (finding) [facility] Radiology Diagnostic study note 12-31-2024 Note Date & Type Note Facility 12-31-2024 Radiology Diagnostic study note [facility] Imaging Services [address] [place], [place] [address] ABD Limited w/ Elastography MR#: [id number] Acct: [id number] Name: HONG SNOW Rep #: [id number] : 1970 F 54 From: Joy More MD PCP: Rissa Tran PA-C Status: REG C LI Study:ABD Limited w/ Elastography Date of Exa m: 12/31/24 Exam# [id number] Ordering Dr: Ruchi Dunlap MD PROCEDURE: ABD LIMITED W/ ELASTOGRAPHY (USABDLELPARO), 12/31/2024 REASON FOR EXAM: Elevated liver enzymes. COMPARISON: None TECHNIQUE: Grayscale and color Doppler imaging of the right upper quadrant was performed. [employer] S-shear wave elastography was performed for non-invasive assessment of liver tissue stiffness. FINDINGS: Liver: Unremarkable. 13.3 cm in length. Gallbladder: Unremarkable. Reportedly, sonographic Gastelum's was negative. Biliary tree: Unremarkable. CBD measures 2 mm. Pancreas: Partially obscured by shadowing bowel gas, grossly unremarkable as visualized. Right kidney: Unremarkable. 10.9 cm in length. Spleen: Unremarkable. 9.1 cm in greatest dimension. Other: No visualized free fluid. Hepatic elastography: EQI median: 8.3kPa EQI median velocity: 1.67 m/s IQR/Med: 19.3% (kPa), 10.2 % (m/sec) (if the IQR/Med is IQR/median >30% (for kPa) or >15% in m/s, the variance in the measurements is a large and the accuracy of the measurement may be in question) US/ABD Limited w/ Elastography IMPRESSION: 1. Echogenic appearance of the hepatic parenchyma, typically associated with hepatic steatosis although this may also be seen in early fibrosis/cirrhosis. Correlate with clinical laboratory evidence of chronic liver disease. No biliary dilatation. 2. Per the below 2020 SRU criteria, US elastography findings (liver stiffness 8.3 kPa) rule out compensated advanced chronic liver disease (cACLD) in the absence of other known clinical signs. If there areknown clinical signs, further testing may be needed for confirmation. Note per the below, in some patients with NAFLD, the cutoff values for cACLD may be lower (7-9 kPa). 3. Additional description as above. Assessment is per the Update to the SRU Liver Elastography Consensus Statement (2020) Note that the above assessment of liver fibrosis is vendor-neutral and intended for use in fibrosis related to viral etiologies and non-alcoholic fatty-liver disease (NAFLD); in causes other than viral hepatitis and NAFLD, the cutoff values are currently not well established. In some patients with NAFLD, the cutoff values for cACLD may be lower (7-9 kPa). Note also that in the setting of elevated LFTs, nonfasting or vascular congestion, the stage of lifer fibrosis may be overestimated. Previous U reference values: <1.37 m/s (5.7kPa): No to mild fibrosis 1.37 m/s - 2.2 m/s: Moderate to severe fibrosis >2.2 m/s (15kPa): Significant fibrosis / cirrhosis Reading Location: [id number] CC: CHANDLER Tran; Dr. Ankur Dunlap MD ~ Crystallographer: Signed [facility] Evaluation note 12-20-2024 Note Date & Type Note Facility 12-20-2024 Evaluation note Diagnosis Onset Date Resolution Elevated liver enzymes acute December 20, 025 10:51am [facility] Work Phone: Evaluation note 12-20-2024 Note Date & Type Note Facility 12-20-2024 Evaluation note Diagnosis Onset Date Resolution Elevated liver enzymes acute December 20, 2 025 10:51am Elevated liver enzymes acute April 01, 2025 1 1:04am [facility] Work Phone: Clinical Note 12-02-2024 Note Date & Type Note Facility 12-02-2024 Note Discharge Instructio ns Discharge Summary [address] [place] [address] [phone] 12/02/2024 Patient: HONG SNOW Sex: Female : 1970 Age: 54y Thank you for visiting [facility]. You have been evaluated today by Dario Linares D.O. for the following condition(s): Principal Diagnosis Headache. Viral syndrome elevated liver enzymes AST, ALT and ALK PHOS. INSTRUCTIONS Prescription Medications: Zithromax Z-Keith tablet (azithromycin) 250: Take 2 tablet by mouth once a day for 5 days, dispense 6 tablet. Refills 0. Notes 2 tablets today and then 1 tab for next 4 days dispensed 6. Pharmacy: [facility] [id number] [place] [address]. prednisone 20 mg tablet: Take 1 tablet by mouth twice a day for 5 days, dispense 10 tablet. Refills 0. Pharmacy: [facility] [id number] [place] [address]. Follow-up with: ANN Sharp, [facility], Adult and Pediatric, Family [facility], Phone: [phone], [address] [address], [place] [address]. Follow up in two days. (Return if increasing cough any problems or concerns. Have her liver rechecked including her AST ALT and alk-phos. Return if any difficulties or concerns.). 1 of 7 Discharge Instructions You have been given the following additional information: Viral Syndrome (Adult) Pneumonia (Adult) Patient Signature Facility [employer] Date/Time General Instructions with ExitWriter [address] [place] [address] [phone] 12/02/2024 Patient: HONG SNOW Sex: Female : 1970 Age: 54y Thank you for visiting [facility]. You have been evaluated today by Dario Linares D.O. for the following condition(s): Principal Diagnosis Headache. Viral syndrome elevated liver enzymes AST, ALT and ALK PHOS. INSTRUCTIONS Prescription Medications: Zithromax Z-Keith tablet (azithromycin) 250: Take 2 tablet by mouth once a day for 5 days, dispense 6 tablet. Refills 0. Notes 2 tablets today and then 1 tab for next 4 days dispensed 6. Pharmacy: [facility] [id number] [place] [address]. 2 of 7 Discharge Instructions prednisone 20 mg tablet: Take 1 tablet by mouth twice a day for 5 days, dispense 10 tablet. Refills 0. Pharmacy: [facility] [id number] [place] [address]. Follow-up with: ANN Sharp, [facility], Phone: [phone], [address] [address]. Follow up in two days. (Return if increasing cough any problems or concerns. Have her liver rechecked including her AST ALT and alk-phos. Return if any difficulties or concerns.). ADDITIONAL INFORMATION Viral Syndrome (Adult) A viral illness may cause a number of symptoms such as fever. Other symptoms depend on the part of the body that the virus affects. If it settles in your nose, throat, and lungs, it may cause cough, sore throat, congestion, runny nose, headache, earache and other ear symptoms, or shortness of breath. If it settles in your stomach and intestinal tract, it may cause nausea, vomiting, cramping, and diarrhea. Sometimes it causes generalized symptoms like aching all over, feeling tired, loss of energy, or loss of appetite. A viral illness usually lasts anywhere from several days to several weeks, but sometimes it lasts longer. In some cases, a more serious infection can look like a viral syndrome in the first few days of the illness. You may need another exam and additional tests to know the difference. Watch for the warning signs listed below for when to seek medical advice. Home care Follow these guidelines for taking care of yourself at home: If symptoms are severe, rest at home for the first 2 to 3 days. Stay away from cigarette smoke - both your smoke and the smoke from others. You may use giox-lis-ibmhwjw acetaminophen or ibuprofen for fever, muscle aching, and headache, unless another medicine was prescribed for this. If you have chronic liver or kidney disease or ever had a stomach ulcer or gastrointestinal bleeding, talk with your healthcare provider before using these medicines. No one who is younger than 18 and ill with a fever should take aspirin. It may cause severe disease or . 3 of 7 Discharge Instructions Your appetite may be poor, so a light diet is fine. Avoid dehydration by drinking 8 to 12, 8-ounce glasses of fluids each day. This may include water; orange juice; lemonade; apple, grape, and cranberry juice; clear fruit drinks; electrolyte replacement and sports drinks; and decaffeinated teas and coffee. If you have bee (more content not included)... [facility] Clinical Note 09-22-2022 Note Date & Type Note Facility 09-22-2022 Note . MICRO - Microbiology PROCEDURE: Blood Culture (bacterial) [*1] SOURCE: Blood BODY SITE: COLLECTED DATE/TIME: 09/16/2022 23:36 EST RECEIVED DATE/TIME: 09/17/2022 16:53 EST START DATE/TIME: 09/17/2022 16:54 EST FREE TEXT SOURCE: FINAL REPORTS Final Report [] Verified Date/Time/Personnel: 09/22/2022 16:59 EST Blood Culture: No Growth at 5 days. PRELIMINARY REPORTS Preliminary Report [] Verified Date/Time/Personnel: 09/17/2022 17:59 EST Culture has been received in lab and is no growth to date. Routine cultures are held for 5 days. Performing Locations *1: This test was performed at: [facility], [address] [place] [address], [address] [place] [address] ([place]) Clinical Note 09-22-2022 Note Date & Type Note Facility 09-22-2022 Note . MICRO - Microbiology PROCEDURE: Blood Culture (bacterial) [*1] SOURCE: Blood BODY SITE: COLLECTED DATE/TIME: 09/16/2022 23:36 EST RECEIVED DATE/TIME: 09/17/2022 15:51 EST START DATE/TIME: 09/17/2022 15:52 EST FREE TEXT SOURCE: set #2 FINAL REPORTS Final Report [] Verified Date/Time/Personnel: 09/22/2022 15:59 EST Blood Culture: No Growth at 5 days. PRELIMINARY REPORTS Preliminary Report [] Verified Date/Time/Personnel: 09/17/2022 16:59 EST Culture has been received in lab and is no growth to date. Routine cultures are held for 5 days. Performing Locations *1: This test was performed at: [facility], [address] [place] [address], [facility] , [facility] ([place]) Evaluation note Note Date & Type Note Facility Evaluation note Diagnosis Onset Date Diarrhea acute [facility] Work Phone: Evaluation note Note Date & Type Note Facility Evaluation note Diagnosis Onset Date Diarrhea resolved Diarrhea resolved [facility] Work Phone: Reason for referral (narrative) Note Date & Type Note Facility Reason for referral (narrative) No reason for referral information available [facility] Work Phone: Summary Purpose Family History No Family History Records FoundNo Family History Records FoundNo Family History Records FoundNo Family History Records FoundNo Family History Records FoundNo Family History Records FoundNo Family History Records Found Advance Directives No Advanced Directives Records Found Advance Directive Response Recorded Date/ Time Living Will No August 10 8:48am Power of [employer] Chief Creative Officer No August 10, 2022 8:48am Chief Complaint and Reason for Visit Chief Complaint Consult E-ORDER Reason for Visit Diarrhea Chief Complaint 2 WK FU 4 MO FU INT LABS Reason for Visit Diarrhea Diarrhea Chief Complaint Admit Date ELEVATED LIVER ENZYMES December 20 10:51am ELEVATED LIVER ENZYMES, INCLUDE SPLEEN M arch 2024 7:48am Reason for Visit Admit Date Elevated liver enzymes December 20 10:51am Chief Complaint Admit Date ELEVATED LIVER ENZYMES December 20 10:51am ELEVATED LIVER ENZYMES, INCLUDE SPLEEN M arch 2024 7:48am 2 ORDERING DOCTORS February 14, 2025 12: 17pm 3 M FU April 01, 2025 11:04 am Reason for Visit Admit Date Elevated liver enzymes December 20 10:51am Elevated liver enzymes April 01, 2025 11 :04am Additional Source Comments INFORMATION SOURCE (unrecogn ized section and content) DATE CREATED AUTHOR 04/17/2018 [facility] DATE CREATED AUTHOR AUTHOR'S ORGANIZ ATION 07/25/2019 [facility] DATE CREATED AUTHOR AUTHOR'S ORGANIZ ATION 05/15/2020 [facility] DATE CREATED AUTHOR AUTHOR'S ORGANIZ ATION 09/23/2022 [facility] ([place]) DATE CREATED AUTHOR AUTHOR'S ORGANIZ ATION 01/27/2025 [facility] DATE CREATED AUTHOR AUTHOR'S ORGANIZ ATION 01/28/2025 [facility] DATE CREATED AUTHOR AUTHOR'S ORGANIZ ATION 04/27/2025 [facility] Goals (unrecognized section and content) Goals may be documented in a n alternate sectionGoals may be documented in an alternate sectionGoals may be documented in an alternate sectionGoals may be documented in an alternate sectionGoals may be documented in an alternate section Care Teams (unrecognized sec tion and content) Team Status: Active Member Role Status Dates Rissa Tran PA, PA-C Primary Care Provider Active Team Status: Inactive Member Role Status Dates Rissashanika Tran PA, PA-C Primary Care Provider, Referri ng Provider Active Dr. Jared Self DO Attending Provider Active Team Status: Inactive Member Role Status Dates Rissashanika Tran PA, PA-C Primary Care Provider Active Dr. Jared Self DO Attending Provider, Referring Provider Active Team Status: Inactive Member Role Status Dates Rissa Hills PA, PA-C Primary Care Provider Active Start: December 20, 2024 End: December 20, 2024 Rissa Tran PA, PA-C Referring Provider Active Start: December 20, 2024 End: December 20, 2024 Dr. Ankur Dunlap MD Attending Provider Active Start: December 20, 2024 End: December 20, 2024 Team Status: Inactive Member Role Status Dates Rissashanika Tran PA, PA-C Primary Care Provider Active Start: December 31, 2024 End: December 31, 2024 Dr. Ankur Dunlap MD Attending Provider Active Start: December 31, 2024 End: December 31, 2024 Dr. Ankur Dunlap MD Referring Provider Active Start: December 31, 2024 End: December 31, 2024 Team Status: Inactive Member Role Status Dates Rissa Tran PA, PA-C Primary Care Provider Active Start: February 14, 2025 End: February 14, 2025 SUN FLOWERS MD Attending Provider Active Star t: February 14, 2025 End: February 14, 2025 SUN FLOWERS MD Referring Provider Active Star t: February 14, 2025 End: February 14, 2025 Dr. Ankur Dunlap MD Other Provider Active Sta rt: February 14, 2025 End: February 14, 2025 Team Status: Inactive Member Role Status Dates Rissa JUAREZ PA-C Primary Care Provider Active Start: April 01, 2025 End: April 01, 2025 Rissa JUAREZ PA-C Referring Provider Active Start: April 01, 2025 End: April 01, 2025 Dr. Ankur Dnulap MD Attending Provider Active Start: April 01, 2025 End: April 01, 2025 FOR RECORDS PERTAINING TO PATIENTS WHO ARE OR HAVE BEEN ENROLLED IN A CHEMICAL DEPENDENCY/SUBSTANCEABUSE PROGRAM, SOME INFORMATION MAY BE OMITTED. This clinical summary was aggregated from multiple sources. Caution should be exercised in using it in the provision of clinical care. This summary normalizes information from multiple sources, and as a consequence, information in this document may materially change the coding, format and clinical context of patient data. In addition, data may be omitted in some cases. CLINICAL DECISIONS SHOULD BE BASED ON THE PRIMARY CLINICAL RECORDS. [employer] provides no warranty or guarantee of the accuracy or completeness of information in this document.
== END 2025-04-29 23:59 | disposition home or self-care (01) ==
PROVIDERS: PCP Family Medicine; Referring Provider Radiology Diagnostic Radiology; Visit Provider Internal Medicine
DX: Z01.818 Encounter for other preprocedural examination (principal); K74.60 Unspecified cirrhosis of liver; B18.9 Chronic viral hepatitis, unspecified; R74.8 Abnormal levels of other serum enzymes
CPT/HCPCS: 47000; 36415; 77012; 85025; 85610; 85730; 96374; 99156

== ENCOUNTER → 2025-05-10 | Outpatient (CLI) | payer BC, SELFPAY ==
[2025-05-10 13:06] LABS: Hematocrit 48.1 % (37-47); Hemoglobin 16.2 g/dL (12.0-15.0); Immature Granulocytes Count 0.020 X10^3/uL (0.0-0.0); Mean Corp Hgb Conc 33.7 g/dL (32-36); Mean Corpuscular Volume 92.1 fL (81-99); Mean Platelet Vol. 10.2 fl (6.2-12.0); NRBC Flagged by Analyzer 0 % (0-5); Platelet Count 183 K/mm3 (150-450); RBC Distribution Width CV 12.0 % (11.6-14.6); RBC Distribution Width SD 40.8 fl (35.1-43.9); Red Blood Count 5.22 M/mm3 (4.2-5.4); White Blood Count 8.9 K/mm3 (4.4-11.0)
[2025-05-10 13:21] LABS: Prothrombin Time (Protime)PT. 12.4 SECONDS (11.7-14.9)
[2025-05-10 14:16] LABS: Albumin, Serum 4.8 g/dL (3.5-5.0); BUN 18 mg/dL (4-19); BUN/Creat Ratio 28.2 RATIO (10-20); Glucose 82 mg/dL (70-99)
[2025-05-10 14:17] LABS: AST(SGOT) 278 U/L (<=31); Alanine Aminotransfer ALT/SGPT 383 U/L (<=34); Alkaline Phosphatase 168 U/L (35-104); Anion Gap 13 (5-15); Calcium,Total 9.7 mg/dL (7.6-11.0); Carbon Dioxide 23.3 mmol/L (21.0-32.0); Chloride 104 mmol/L (98-108); Globulin 3.4 g/dL (2.2-4.2); Potassium 4.2 mmol/L (3.3-5.1)
[2025-05-10 14:38] LABS: LDH 290 U/L (84-246)
[2025-05-12 08:07] LABS: GGTP 78 IU/L (0-60)
== END | disposition home or self-care (01) ==
LOC: LAB 12:28
PROVIDERS: Internal Medicine; PCP Family Medicine; Referring Provider Nurse Practitioner Acute Care; Visit Provider Nurse Practitioner Acute Care
DX: R74.8 Abnormal levels of other serum enzymes (principal); K58.0 Irritable bowel syndrome with diarrhea; M19.90 Unspecified osteoarthritis, unspecified site
CPT/HCPCS: 80053; 82977; 83036; 83615; 85025; 85610

== ENCOUNTER 2025-05-21 10:37 | Emergency (ER) | payer BC, SELFPAY ==
[2025-05-21 10:37] VITALS: BP 161/86; PULSE 79; RESP 14; TEMP 36.2; O2SAT 98
[2025-05-21 10:39] VITALS: BMI 28.8
--- NOTE | 2025-05-21 10:54 | EKG12_ITS ---
Test Reason : WEAKNESS Blood Pressure : */* mmHG Vent. Rate : 69 BPM Atrial Rate : 69 BPM P-R Int : 146 ms QRS Dur : 86 ms QT Int : 386 ms P-R-T Axes : 51 16 38 degrees QTcB Int : 413 ms Normal sinus rhythm Normal ECG Confirmed by NAOMI TOBAR, CAROLYN ([id number]), legal editor MARGO NDIAYE ([id number]) on 05/22/2025 8:34:21 AM Referred By: Confirmed By: CAROLYN SALGADO MD
--- NOTE | 2025-05-21 10:56 | EX.ED.DYSGE1 ---
HPI History of Present Illness Chief Complaint: Weakness Detail of Chief Complaint: Weakness Informant: patient Narrative Narrative: Patient presents to the emergency department with complaint of generalized weakness ongoing for at least 4 days. 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 Sees a liver specialist Dr. Dunlap who had patient have a biopsy April 29. Patient a week ago was started on ursodiol, prednisone, and azathioprine. Patient just states she feels short of breath at times with activity. She is been checking her O2 sat at home and it has been running at times from 90 to 94% on room air. She denies chest pain. She complains of some upper abdomen pain and bloating. She has had no vomiting. Last bowel movement was a few hours ago. At times she feels like she is in a pass out. She has not had any syncope. [facility] Medical History Wears contact lenses Wears glasses Post-menopausal Anxiety Arthritis Migraine headache Injury of head and neck TIA (transient ischemic attack) History of GI bleed History of hiatal hernia History of IBS Gastric reflux Non-smoker Shortness of breath on exertion Asthma Fibromyalgia Leg cramps History of pain when walking Home Medications ?Medication ?Instructions ?Recorded ?Last Taken ?Type azathioprine 50 mg tablet 50 mg PO QDAY 30 days #30 tabs 05/10/25 05/21/25 Rx pantoprazole 40 mg tablet,delayed 40 mg PO .breakfast 1 month #30 05/10/25 05/21/25 Rx release tabs prednisone 20 mg tablet 40 mg (2 x 20 mg) PO DAILY 1 month 05/10/25 05/21/25 Rx #60 tabs ursodiol 500 mg tablet 500 mg PO TID 1 month #90 tabs 05/10/25 05/21/25 Rx estradiol 0.05 mg/24 hr semiweekly 1 patch transdermal Q3D 05/21/25 05/19/25 History transdermal patch Allergy/AdvReac Type Severity Reaction Status Date / Time adhesive (adhesives) Allergy Intermediate RASH Verified 05/21/25 10:37 gluten Allergy Other Verified 05/21/25 10:37 iodine Allergy Other Verified 05/21/25 10:37 milk (dairy) Allergy Other Verified 05/21/25 10:37 monosodium glutamate (msg) Allergy Other Verified 05/21/25 10:37 shellfish derived Allergy Food Verified 05/21/25 10:37 Allergy meperidine (From Demerol) AdvReac Intermediate Vomiting Verified 05/21/25 10:37 Surgical History H/O wrist surgery Hx of hysterectomy Hx of laparoscopy Hx of hernia repair Hx of section Social History Smoking Status: Never smoker ROS ROS ED Review of Systems ROS Unobtainable: other Constitutional Constitutional ED: Reports lethargy; Denies chills, fever(s), sweats or weight loss Eyes Eyes: Denies blurry vision, change in vision or diplopia ENT ENT ED: Denies rhinorrhea or sore throat Cardiovascular Cardiovascular: Denies chest pain, orthopnea or racing heartbeat Respiratory/Chest Respiratory/Chest: Reports dyspnea and dyspnea on exertion; Denies cough, orthopnea or sputum Gastrointestinal Gastrointestinal: Reports abdominal pain and nausea; Denies diarrhea or vomiting Genitourinary Genitourinary ED: Denies dysuria, hematuria or urinary frequency Musculoskeletal Musculoskeletal: Denies arthralgias, back pain, myalgias or neck pain Integumentary Denies abscess, Abrasions or rash Neurologic Neurologic: Reports weakness; Denies headache(s) Psychiatric Psychiatric: Denies anxiety, depression or suicidal thoughts Endocrine Endocrinology: Denies polydipsia, polyphagia or polyuria Hematologic/Lymphatic Hematologic/Lymphatic: Denies easy bleeding, easy bruising or lymphadenopathy Allergic/Immunologic Allergic/Immunologic ED: Denies mouth swelling, tongue swelling or urticaria EXAM Physical Exam Const Vital Signs: 05/21/25 10:37 05/21/25 10:48 05/21/25 11:52 Temperature 97.1 F L Temperature Source Temporal Pulse Rate 79 Pulse Rate [Lying] 75 Pulse Rate [Sitting (for 1 minute prior to obtaining)] 70 Pulse Rate [Standing (for 1 minute prior to obtaining)] 83 Respiratory Rate 14 Respiratory Effort Short of Breath Respiratory Pattern Normal Blood Pressure 161/86 H Blood Pressure [Lying] 152/84 H Blood Pressure [Sitting (for 1 minute prior to obtaining)] 151/84 H Blood Pressure [Standing (for 1 minute prior to obtaining)] 178/91 H Blood Pressure Mean 111 Blood Pressure Mean [Lying] 106 Blood Pressure Mean [Sitting (for 1 minute prior to obtaining)] 106 Blood Pressure Mean [Standing (for 1 minute prior to obtaining)] 120 Pulse Ox 98 Oxygen Delivery Method Room Air 05/21/25 12:37 Temperature 97.8 F Temperature Source Oral Pulse Rate 67 Pulse Rate [Lying] Pulse Rate [Sitting (for 1 minute prior to obtaining)] Pulse Rate [Standing (for 1 minute prior to obtaining)] Respiratory Rate 14 Respiratory Effort Respiratory Pattern Blood Pressure 164/82 H Blood Pressure [Lying] Blood Pressure [Sitting (for 1 minute prior to obtaining)] Blood Pressure [Standing (for 1 minute prior to obtaining)] Blood Pressure Mean 109 Blood Pressure Mean [Lying] Blood Pressure Mean [Sitting (for 1 minute prior to obtaining)] Blood Pressure Mean [Standing (for 1 minute prior to obtaining)] Pulse Ox 98 Oxygen Delivery Method Room Air Positive well nourished and well developed General Appearance ED: well developed and NAD HEENT Reports TM's clear and moist mucous membranes normocephalic and atraumatic; Negative for trauma or tenderness Tympanic Membrane ED: Yes TM's clear Eyes PERRL and EOMs intact bilaterally General Eye ED: Negative for pale conjunctiva or scleral icterus Neck no lymphadenopathy, supple and no JVD General: Negative for tenderness Chest Wall inspection of chest normal and palpation of chest normal Chest: Negative for tenderness Resp normal respiratory effort and clear to auscultation bilaterally Effort and Inspection: Negative for respiratory distress or pain with movement Auscultation: Negative for rhonchi, wheezes or diminished lung sounds Cardio regular rate, regular rhythm, S1 normal heart sound, S2 normal heart sound and no murmurs Peripheral Pulses: pulses 2+ throughout GI normal to inspection, nondistended, normoactive bowel sounds, soft to palpation, non-tender, non-distended and no masses Back/Spine no CVA tenderness and no thoracic nor lumbar tenderness Extremity normal to inspection General Extremety ED: Negative for edema General Extremity: Negative for edema Neuro oriented x3, CN's II-XII intact bilaterally, no sensory deficits noted and gait normal Sensorium / Orientation: awake, alert, oriented to person, oriented to place and oriented to time Motor Exam: strength 5/5 throughout and strength abnormal Psych mental status grossly normal Skin no rashes or lesions noted and no wounds MDM MDM MDM Narrative Medical decision making narrative: Patient presents to the emergency department with multiple vague complaints today. She feels foggy and nauseated and generally weak. Currently being treated for autoimmune hepatitis and primary biliary cholangitis. Clinically she looks well and is nontoxic-appearing. EKG obtained on arrival shows sinus rhythm with ventricular rate of 69 bpm with no acute ST segment changes. CBC with differential shows a white count of 17,000 with hemoglobin 15.9 and platelet count of 277. Chemistries were unremarkable. D-dimer was less than 0.27. Troponin was normal at less than 6. AST was 36, ALT 54, and alk phos was 110 which is all improved compared to prior levels. Lipase minimally elevated at 82. Urinalysis was normal. Patient abdominal exam is benign and I do not think any type of imaging is indicated. I discussed results with patient. She received a liter fluid bolus while in the department. I did do orthostatic vital signs and they were negative. I suspect the elevated white count related to patient currently being on prednisone. Unclear why she is feeling poorly however cannot rule out medication reaction potentially. Recommend she follow-up with her liver specialist. Patient advised to return if worsening abdominal pain, fever, vomiting, or condition worsen anyway Lab Data Attestation: I reviewed the patient's lab results. Labs: Laboratory Results - last 24 hr 05/21/25 05/21/25 11:20 12:00 WBC 17.0 H RBC 5.14 Hgb 15.9 H Hct 47.3 H MCV 92.0 MCH 30.9 MCHC 33.6 RDW Std Deviation 40.3 RDW Coeff of Dewayne 11.9 Plt Count 277 MPV 9.6 Immature Gran % (Auto) 0.800 Neut % (Auto) 74.8 H Lymph % (Auto) 17.6 L [place] % (Auto) 6.1 Eos % (Auto) 0.5 Baso % (Auto) 0.2 Absolute Neuts (auto) 12.7 H Absolute Lymphs (auto) 2.99 Nucleated RBC % 0 ESR 4 PT 12.7 INR 0.9 D-Dimer Quant (PE/DVT) < 0.27 L Sodium 141 Potassium 3.7 Chloride 102 Carbon Dioxide 25.4 Anion Gap 14 BUN 20 H Creatinine 0.83 Estim Creat Clear Calc 74.78 Est GFR (MDRD) Non-Af 83 BUN/Creatinine Ratio 24.2 H Glucose 133 H Calcium 9.6 Total Bilirubin 0.45 AST 36 H ALT 54 H Alkaline Phosphatase 110 H Troponin T High Sens < 6 Total Protein 7.2 Albumin 4.6 Globulin 2.6 Albumin/Globulin Ratio 1.7 Lipase 82 H Urine Color Yellow Urine Clarity Sl. Cloudy Urine pH 7.0 Ur Specific [place] 1.010 Urine Protein 15 H Urine Glucose (UA) Normal Urine Ketones Negative Urine Occult Blood Negative Urine Nitrite Negative Urine Bilirubin Negative Urine Urobilinogen Normal Ur Leukocyte Esterase Negative Urine RBC 0 SEEN Urine WBC 0 SEEN Ur Squamous Epith Cells 0-5 SEEN Urine Bacteria 0 SEEN Urine Mucus 0 SEEN Radiography Diagnostic Testing: Clinical Impression(s) from Imaging Studies Chest X-Ray 05/21/25 11:52 IMPRESSION: No acute process is identified in the chest. Reading Location: [facility] 1 view chest x-ray obtained interpreted by myself as no evidence of infiltrate or pneumothorax or acute disease process. Radiology in agreement. EKG Initial EKG: Attestation: I personally reviewed and interpreted this EKG as follows: Comments: Sinus rhythm with ventricular rate of 69 bpm with no acute ST segment changes Discharge Plan Triage Chief Complaint: Weakness ED Provider: Nicola Campbell Dx/Rx/DC Orders Clinical Impression: Weakness, Dyspnea Instructions: ED Dyspnea, ED Weakness Uncertain Cause Prescriptions: No Action estradiol 0.05 mg/24 hr patch semiweekly 1 patch transdermal Q3D ursodiol 500 mg tablet 500 mg PO TID 30 Days Qty: 90 5RF prednisone 20 mg tablet 40 mg PO DAILY 30 Days Qty: 60 0RF Rx Instructions: 40 mg once daily for 2 week, 30 mg once daily for 1 week and then 20 mg once daily to continue pantoprazole 40 mg tablet,delayed release (DR/EC) 40 mg PO .breakfast 30 Days Qty: 30 2RF Rx Instructions: Take 1 hour before breakfast. azathioprine 50 mg tablet 50 mg PO QDAY 30 Days Qty: 30 2RF Primary Care Provider: Rissa Tran Referrals: Rissa Tran PA-C [Primary Care Provider] - 3-5 Days Print Language: Greek Disposition Disposition: Home, Self Care
[2025-05-21] MEDS: 0.9% Normal Saline (1000mL) 1,000 ML 1000 ML IV (11:23)
[2025-05-21 11:37] LABS: Hematocrit 47.3 % (37-47); Hemoglobin 15.9 g/dL (12.0-15.0); Immature Granulocytes Count 0.140 X10^3/uL (0.0-0.0); Mean Corp Hgb Conc 33.6 g/dL (32-36); Mean Corpuscular Volume 92.0 fL (81-99); Mean Platelet Vol. 9.6 fl (6.2-12.0); NRBC Flagged by Analyzer 0 % (0-5); Platelet Count 277 K/mm3 (150-450); RBC Distribution Width CV 11.9 % (11.6-14.6); RBC Distribution Width SD 40.3 fl (35.1-43.9); Red Blood Count 5.14 M/mm3 (4.2-5.4); White Blood Count 17.0 K/mm3 (4.4-11.0)
[2025-05-21 11:40] LABS: Prothrombin Time (Protime)PT. 12.7 SECONDS (11.7-14.9)
[2025-05-21 11:43] LABS: D-Dimer Quantitative (DVT/PE) < 0.27 FEU/ug/m (0.27-0.49)
[2025-05-21 11:52] VITALS: BP 151/84; BP 152/84; BP 178/91; PULSE 70; PULSE 75; PULSE 83
--- NOTE | 2025-05-21 11:52 | RAD_ITS ---
PROCEDURE: CHEST 1 VIEW (PORTABLE) 05/21/2025 REASON FOR EXAM: DYSPNEA TECHNIQUE: Frontal view of the chest. COMPARISON: None FINDINGS: Heart size and mediastinal configuration are within normal limits. There is no focal infiltrate or consolidation. There is no pneumothorax or effusion. There is no visible atherosclerosis. RAD/Chest 1 View (Portable) IMPRESSION: No acute process is identified in the chest. Reading Location: [facility]
[2025-05-21 12:05] LABS: Troponin T High Sensitivity < 6 ng/L (<=14)
[2025-05-21 12:09] LABS: Mucous, Urine 0 SEEN /hpf (<or=2+); Red Blood Cells-Urine 0 SEEN /hpf (0-5)
[2025-05-21 12:09] LABS: Lipase 82 U/L (13-75)
[2025-05-21 12:14] LABS: Color, Urine Yellow (Yellow); Glucose, Dipstick Normal (Normal); Ketone-Dipstick Negative (Negative); Leukocyte Esterase-Dipstick Negative /ul (Negative); Nitrite-Dipstick Negative (Negative); Occult Blood-Urine Negative /ul (Negative); Protein-Dipstick 15 mg/dl (Negative); Specific Gravity, Urine 1.010 (1.002-1.030); Urine Bilirubin Dipstick Negative (Negative)
[2025-05-21 12:15] LABS: AST(SGOT) 36 U/L (<=31); Alanine Aminotransfer ALT/SGPT 54 U/L (<=34); Albumin, Serum 4.6 g/dL (3.5-5.0); Alkaline Phosphatase 110 U/L (35-104); Anion Gap 14 (5-15); BUN 20 mg/dL (4-19); BUN/Creat Ratio 24.2 RATIO (10-20); Calcium,Total 9.6 mg/dL (7.6-11.0); Carbon Dioxide 25.4 mmol/L (21.0-32.0); Chloride 102 mmol/L (98-108); Estimated Creatinine Clearance 74.78 ml/min (50-250); Globulin 2.6 g/dL (2.2-4.2); Glucose 133 mg/dL (70-99); Potassium 3.7 mmol/L (3.3-5.1)
[2025-05-21 12:20] LABS: Squamous Epithelial Cells - UA 0-5 SEEN /hpf (5-10)
[2025-05-21 12:37] VITALS: BP 164/82; PULSE 67; RESP 14; TEMP 36.6; O2SAT 98
[2025-05-21 13:39] VITALS: BP 149/97; PULSE 66; RESP 14; TEMP 36.7; O2SAT 97
--- OUTSIDE RECORDS SUMMARY | 2025-05-21 21:57 | XMS RPT_ITS | CCD ---
Author Organization [facility] Care Team Providers Care Gyroscope Repairer Name Role Phone UNKNOWN, PROVIDER Unavailable Unavailable Friend, Dr. Coleman Attending Provider Rankin ANN PASammiC Rissa Primary Care Provider Rankin ANN PASammiC Rissa Referring Provider [phone] Friend, Dr. Coleman Attending Provider Rankin CHANDLER, Rissa Primary Care Provider [phone] Rankin CHANDLER, Rissa Referring Provider Germán TOBAR, Dr. Pascual Attending Provider Dr. Ankur Dunlap MD Referring Provider [phone] HILLS, RISSA Admitting Unavailable HILLS, RISSA Attending Unavailable YONKERS, RISSA Primary Care Unavailable YONKERS, RISSA Consulting Unavailable PROVIDER, UNKNOWN Consulting Unavailable Genia FLOWERS Admitting Unavailable Genia FLOWERS Attending Unavailable Genia FLOWERS Primary Care Unavailable YONKERS, RISSA Consulting Unavailable PROVIDER, UNKNOWN Consulting Unavailable SEAMUS VÁSQUEZ Admitting Unavailable SEAMUS VÁSQUEZ Attending Unavailable SEAMUS VÁSQUEZ Primary Care Unavailable HILLS, RISSA Consulting Unavailable YONKERS, RISSA Referring Unavailable PROVIDER, UNKNOWN Consulting Unavailable MILAGROSDARIO NASCIMENTO Admitting Unavailable MILAGROSDARIO Attending Unavailable MILAGROSDARIO NASCIMENTO Primary Care Unavailable HILLS, RISSA Consulting Unavailable HILLS, RISSA Referring Unavailable PROVIDER, UNKNOWN Consulting Unavailable HILLS, RISSA Admitting Unavailable HILLS, RISSA Attending Unavailable HILLS, RISSA Primary Care Unavailable HILLS, RISSA Consulting Unavailable PROVIDER, UNKNOWN Consulting Unavailable HILLS, RISSA Admitting Unavailable HILLS, RISSA Attending Unavailable HILLS, RISSA Primary Care Unavailable HILLS, RISSA Consulting Unavailable PROVIDER, UNKNOWN Consulting Unavailable Genia FLOWERS Admitting Unavailable Genia FLOWERS Attending Unavailable Genia FLOWERS Primary Care Unavailable HILLS, RISSA Consulting Unavailable PROVIDER, UNKNOWN Consulting Unavailable LIONEL TOBAR, SUN Attending Provider [phone] LIONEL TOBAR, SUN Referring Provider Germán TOBAR, Dr. Pascual Other Provider [phone] Rankin PA-C, Rissa Primary Care Provider [phone] Rankin PA-C, Rissa Referring Provider Germán TOBAR, Dr. Pascual Attending Provider Boaz TOBAR, Dr. Prajapati Referring Provider Un available Law CERT PHARMACY TECH-C, Cyndi Attending Provider Law CERT PHARMACY TECH-C, Cyndi Referring Provider Rankin, Rissa Referring Unavailable Rankin, Rissa Primary Care Unavailable Cyndi Foy Attending Unavailable Rankin, Rissa Primary Care Unavailable Rankin, Rissa Referring Unavailable Alix Reynolds Attending Unavailable Rankin, Rissa Primary Care Unavailable Germán, Ankur Attending Unavailable Rankin, Rissa Referring Unavailable Germán, Ankur Attending Unavailable Rankin, Rissa Primary Care Unavailable Alo Sandra Referring Unavailable Germán, Ankur Attending Unavailable Rankin, Rissa Referring Unavailable Rankin, Rissa Primary Care Unavailable Germán, Ankur Attending Unavailable Germán, Ankur Referring Unavailable Rankin, Rissa Primary Care Unavailable Rankin, Rissa Primary Care Unavailable Germán, Ankur Consulting Unavailable SUN FLOWERS Attending Unavailable LIONEL, SUN Referring Unavailable Rankin, Rissa Primary Care Unavailable Germán, Ankur Consulting Unavailable LawCyndi Attending Unavailable Law Cyndi Referring Unavailable Rankin, Rissa Primary Care Unavailable Friend, Jared Attending Unavailable Friend, Jared Referring Unavailable Adrian MURPHY, Dr. Petersen Emergency Provider Allergies Allergy Classification Reported Allergen(s) Allergy Type Date of Onset Reaction(s) Facility (9 sources) Meperidine Drug Allergy 2 Vomiting [facility] (7 sources) cow milk allergenic extract Drug Allergy 2 Other [facility] Comment on above: ABD PAIN (7 sources) Glutamate Drug Allergy 2 Other [facility] Comment on above: ABD PAIN (7 sources) Iodine Drug Allergy 2 Other [facility] (8 sources) Shellfish; Translations: [shellfish derived] Allergy to substance 2 Food Allergy [facility] (7 sources) Wheat gluten extract Drug Allergy 2 Other [facility] Comment on above: ABD PAIN (1 source) Iodine Drug Allergy [facility] (1 source) Meperidine Drug Allergy [facility] (4 sources) Adhesive agent; Translations: [adhesive] Allergy to substance 5 RASH [facility] (1 source) Gluten Drug allergy (disorder) 5 [facility] (1 source) Iodine Drug Allergy 5 [facility] (1 source) Meperidine Drug Allergy 5 [facility] (1 source) Milk Drug allergy (disorder) 5 [facility] (1 source) monosodium glutamate Drug allergy (disorder) 5 [facility]ository Medications Current Medications Medication Drug Class(es) Dates Sig (Normalized) Sig (Original) ALPRAZolam 0.25 mg oral tablet (2 sources) [...] MG PO DAILY June 09, 2022 12:00am azaTHIOprine 50 mg oral tablet (2 sources) Purine Antimetabolite Start: 05-10-2025 take 1 tablet by mouth once daily Azathioprine 50 mg tablet Active 50 mg PO daily 30 30 2 May 10, 2025 12:00am 84 hr estradiol 0.21268 mg/hr transdermal system (9 sources) Estrogen Start: 05-21-2025 Estradiol 0.05 mg/24 hr patch semiweekly Active 1 NMA TD Every 3 Days May 21, 2025 12:00am Start: 08-06-2024 End: 05-21-2025 Estradiol 0.05 mg/24 hr patc h weekly Discontinued 1 NMA TD .2XWEEK August 06, 2024 12:00am May 21, 2025 10:42am Start: 06-09-2022 take 2 mg by mouth once daily Estradiol Active 2 MG PO DAILY June 09, 2022 12:00am Multivitamin preparation (1 source) Start: 08-10-2022 take 1 tablet by mouth once daily Multivitamin Active 1 TABLET PO DAILY August 09, 2022 11:00pm pantoprazole 40 mg delayed release oral tablet (2 sources) Proton Pump Inhibitor Start: 05-10-2025 take 1 tablet by mouth 1 hour(s) before breakfast Pantoprazole 40 mg tablet,delayed release (DR/EC) Active 40 mg PO .breakfast 30 30 2 May 10, 2025 12:00am Take 1 hour before breakfast. predniSONE 20 mg oral tablet (2 sources) Start: 05-10-2025 Prednisone 20 mg tablet Active 40 mg PO DAILY 60 30 0 May 10, 2025 12:00am June 08, 2025 12:00am 40 mg once daily for 2 week, 30 mg once daily for 1 week and then 20 mg once daily to continue ursodiol 500 mg oral tablet (2 sources) Bile Acid Start: 05-10-2025 take 1 tablet by mouth three times daily Ursodiol 500 mg tablet Active 500 mg PO THREE TIMES A DAY 90 30 5 May 10, 2025 12:00am Vitamin B Complex (1 source) Start: 08-10-2022 take 1 tablet by mouth once daily Vitamin B Complex Active 1 TABLET PO DAILY August 09, 2022 11:00pm Completed/Discontinued Medications Medication Drug Class(es) Dates Sig (Normalized) Sig (Original) [id number] 200 actuat albuterol 0.09 mg/actuat metered dose inhaler (9 sources) beta2-Adrenergic Agonist Start: 06-09-2022 End: 05-21-2025 Albuterol Sulfate (Ventolin Hfa) 90 mcg/actuation HFA aerosol inhaler Discontinued 1 NMA INHALATION ONCE June 09, 2022 12:00am May 21, 2025 11:43am Start: 06-09-2022 Albuterol Sulf ate (Ventolin Hfa) 90 mcg/actuation HFA aerosol inhaler Active 1 INH INHALATION ONCE June 08, 2022 11:00pm ascorbic acid 500 mg oral tablet (13 sources) Vitamin C Start: 08-10-2022 End: 04-11-2024 take 1 tablet by mouth once daily as needed Ascorbic Acid (Vitamin C) (Vitamin C) 500 mg tablet Discontinued 500 mg PO DAILY as needed November 23, 2023 3:09pm April 11, 2024 3:11pm calcium carbonate 1500 mg oral tablet (9 sources) Start: 06-09-2022 End: 04-11-2024 take 1 tablet by mouth once daily Calcium Carbonate 600 mg calcium (1,500 mg) tablet Discontinued 600 mg PO DAILY June 09, 2022 12:00am April 11, 2024 3:12pm cholecalciferol 0.025 mg oral tablet (7 sources) Vitamin D Start: 08-10-2022 End: 04-11-2024 take 1 tablet by mouth twice daily Cholecalciferol (Vitamin D3) (Vitamin D3) 25 mcg (1,000 unit) Tablet Discontinued 25 ug PO TWICE A DAY August 10, 2022 12:00am April 11, 2024 3:12pm dicyclomine hydrochloride 10 mg oral capsule (12 sources) Anticholinergic Start: 03-30-2023 End: 12-20-2024 take 1 capsule by mouth twice daily as needed Dicyclomine 10 mg capsule Discontinued 10 mg PO TWICE A DAY as needed April 11, 2024 3:12pm December 20, 2024 12:17pm Magnesium (7 sources) Start: 08-10-2022 End: 05-21-2025 take 2 tablets by mouth twice daily Magnesium 200 mg Tablet Discontinued 400 mg PO TWICE A DAY August 10, 2022 12:00am May 21, 2025 11:44am Start: 08-10-2022 take 2 tablets by mo [facility] twice daily Magnesium 200 mg Tablet Active 400 mg PO TWICE A DAY August 10, 2022 12:00am Start: 08-10-2022 take 400 mg by mouth twice binta ly Magnesium Active 400 MG PO TWICE A DAY August 09, 2022 11:00pm melatonin 10 mg oral capsule (9 sources) Start: 06-09-2022 End: 11-23-2023 take 1 capsule by mouth at bedtime as needed Melatonin 10 mg capsule Discontinued 10 mg PO BEDTIME as needed for ASTHMA June 09, 2022 12:00am November 23, 2023 3:10pm Multivitamin Tablet (6 sources) Start: 08-10-2022 End: 04-29-2025 Multivitamin Tablet Discontinued 1 {tbl} PO DAILY August 10, 2022 12:00am April 29, 2025 9:32am Start: 08-10-2022 Multivitamin T ablet Active 1 {tbl} PO DAILY August 10, 2022 12:00am psyllium 500 mg oral capsule (7 sources) Start: 08-10-2022 End: 11-23-2023 take 1 g by mouth once daily Psyllium 500 mg Capsule Discontinued 1 g PO DAILY August 10, 2022 12:00am November 23, 2023 3:10pm Start: 08-10-2022 take 1 g by mouth once daily P syllium Active 1 GM PO DAILY August 09, 2022 11:00pm Vitamin B Complex Tablet (6 sources) Start: 08-10-2022 End: 11-23-2023 Vitamin B [...] Translations: [Unspecified asthma, uncomplicated] Onset: 12-02-2024 Chronic Malaise and fatigue (1 source) Asthenia; Translations: [Weakness] 05-21-2025 Episodic Osteoarthritis (6 sources) Arthritis; Translations: [Unspecified osteoarthritis, unspecified site] 11-23-2023 Chronic Other aftercare (1 source) Other detention (current) drug therapy; Translations: [Other continuous churn buttermaker (current) drug therapy] Onset: 12-02-2024 Episodic Other gastrointestinal disorders (6 sources) Irritable bowel syndrome with diarrhea; Translations: [Irritable bowel syndrome with diarrhea] 03-30-2023 Chronic Other gastrointestinal disorders (9 sources) Diarrhea; Translations: [Diarrhea, unspecified] 08-24-2022 Episodic Other liver diseases (4 sources) Cirrhosis of liver; Translations: [Unspecified cirrhosis of liver] 05-10-2025 Chronic Other liver diseases (15 sources) Elevated liver enzymes level; Translations: [Abnormal levels of other serum enzymes] 12-20-2024 Episodic Other liver diseases (2 sources) Abnormal levels of other serum enzymes; Translations: [Abnormal levels of other serum enzymes] Onset: 12-02-2024 Episodic Other lower respiratory disease (2 sources) Dyspnea, unspecified; Translations: [Dyspnea, unspecified] Onset: 12-02-2024 Episodic Other lower respiratory disease (1 source) Dyspnea; Translations: [Dyspnea, unspecified] 05-21-2025 Episodic Other screening for suspected conditions (not [...] Test Name Value Interpretation Reference Range Facility Absolute lymphocyte countOrd ered By: Nicola Campbell on 05-21-2025 Lymphocytes Auto (Unsp spec) [#/Vol] 2.99 10*3/uL 0.83-4.51 [facility] Absolute neutrophil countOrd ered By: Nicola Campbell on 05-21-2025 Neutrophils (Bld) [#/Vol] 12.7 10*3/uL High 2.0-7.7 [facility] Anion gap in Serum or Plasma Ordered By: Nicola Campbell on 05-21-2025 Anion gap [Moles/Vol] 14 mmol/L 5-[address] [facility] Automated lymphocyte count a s percentage of total leukocytesOrdered By: Nicola Campbell on 05-21-2025 Lymphocytes/100 WBC Auto (Unsp spec) 17.6 % Low 19-41 [facility] BUN/creatinine ratioOrdered By: Nicola Campbell on 05-21-2025 Urea nitrogen/Creatinine [Mass ratio] 24.2 mg/mg High 10-20 [facility] Basophil percentageOrdered B y: Nicola Campbell on 05-21-2025 Basophils/100 WBC (Bld) 0.2 % 0-1 [facility] Bilirubin Test strip Ql (U)O rdered By: Nicola Campbell on 05-21-2025 Bilirubin Ql (U) Negative Negative [facility] Bilirubin, totalOrdered By: Nicola Campbell on 05-21-2025 Bilirubin [Mass/Vol] 0.45 mg/dL 0.00-1.30 [facility] Carbon dioxide, total [Moles /volume] in Central venous bloodOrdered By: Nicola Campbell on 05-21-2025 CO2 [Moles/Vol] 25.4 mmol/L 21.0-32.0 [facility] Chloride assayOrdered By: Yudi Campbell on 05-21-2025 Chloride [Moles/Vol] 102 mmol/L 98-108 [facility] Eosinophil percentageOrdered By: Nicola Campbell on 05-21-2025 Eosinophils/100 WBC (Bld) 0.5 % 0-5 [facility] Erythrocyte distribution wid th ratioOrdered By: Nicola Campbell on 05-21-2025 Erythrocyte distribution width (RBC) [Ratio] 11.9 % 11.6-14.6 [facility] Erythrocyte distribution wid th standard deviationOrdered By: Nicola Campbell on 05-21-2025 Erythrocyte distribution width (RBC) [Ratio] 40.3 fl 35.1-43.9 [facility] Erythrocyte sedimentation ra teOrdered By: Nicola Campbell on 05-21-2025 ESR (Bld) [Velocity] 4 mm/h 0-30 [facility] Glomerular filtration rate ( GFR) estimation/1.73 sq m using serum, plasma, or whole bOrdered By: Nicola Campbell on 05-21-2025 GFR/1.73 sq M.predicted among non-blacks MDRD (S/P/Bld) [Vol rate/Area] 83 mL/min/{1.73_m2} >60 [facility] Comment on above: mL/min/1.73m2 CKD-EP I Creatinine Equation (2020) Hematocrit Auto (Bld) [Volum e fraction]Ordered By: Nicola Campbell on 05-21-2025 Hematocrit (Bld) [Volume fraction] 47.3 % High 37-47 [facility] Hemoglobin measurementOrdere d By: Nicola Campbell on 05-21-2025 Hemoglobin (Bld) [Mass/Vol] 15.9 g/dL High 12.0-15.0 [facility] Immature granulocytes/100 WB C Auto (Bld)Ordered By: Nicola Campbell on 05-21-2025 Immature granulocytes/100 WBC (Bld) 0.800 % 0.0-0.9 [facility] Comment on above: IG% - Immature Granu locytes (promyelocytes, myelocytes and metamyelocytes) > 1% indicates that a LEFT SHIFT is Present. International normalized rat io (INR) calculationOrdered By: Nicola Campbell on 05-21-2025 INR Coag (Bld) [Relative time] 0.9 {INR} [facility] Ketones Test strip Ql (U)Ord ered By: Nicola Campbell on 05-21-2025 Ketones Ql (U) Negative Negative [facility] Laboratory - Chemistry and C hemistry - challengeOrdered By: Nicola Campbell on 05-21-2025 AST [Catalytic activity/Vol] 36 U/L High <32 [facility] Comment on above: Hemolysis present, R esults could be affected. Lipase measurementOrdered By : Nicola Campbell on 05-21-2025 Lipase [Catalytic activity/Vol] 82 U/L High 13-75 [facility] Comment on above: Please note:LIPASE r evised reference range effective 23. New Lipase methodology. Expected to produce lower values than the previous assay method. NEW Reference Range: 13 - 75 U/L MCV (mean corpuscular volume ) determinationOrdered By: Nicola Campbell on 05-21-2025 MCV (RBC) [Entitic vol] 92.0 fL 81-99 [facility] Mean corpuscular hemoglobin (MCH) determinationOrdered By: Nicola Campbell on 05-21-2025 MCH (RBC) [Entitic mass] 30.9 pg 27.0-32.0 [facility] Mean corpuscular hemoglobin concentration (MCHC) determinationOrdered By: Nicola Campbell on 05-21-2025 MCHC (RBC) [Mass/Vol] 33.6 g/dL 32-[address] [facility] Mean platelet volume determi nationOrdered By: Nicola Campbell on 05-21-2025 Platelet mean volume (Bld) [Entitic vol] 9.6 fL 6.2-12.0 [facility] Microscopic analysis of urin e for red blood cells (RBC)Ordered By: Nicola Campbell on 05-21-2025 Microscopic analysis of urine for red blood cells (RBC) 0 SEEN /hpf 0-5 [facility] Monocyte percentageOrdered B y: Nicola Campbell on 05-21-2025 Monocytes/100 WBC (Bld) 6.1 % 0-10 [facility] Mucus LM Ql (Urine sed)Order ed By: Nicola Campbell on 05-21-2025 Mucus Ql (Urine sed) 0 SEEN /hpf [facility] Neutrophil percentageOrdered By: Nicola Campbell on 05-21-2025 Neutrophils/100 WBC (Bld) 74.8 % High 47-70 [facility] Nitrite Test strip Ql (U)Ord ered By: Nicola Campbell on 05-21-2025 Nitrite Ql (U) Negative Negative [facility] Nucleated red blood cell per centageOrdered By: Nicola Campbell on 05-21-2025 Nucleated RBC/100 WBC (Bld) [Ratio] 0 % 0-5 [facility] Platelet countOrdered By: Yudi Campbell on 05-21-2025 Platelets (Bld) [#/Vol] 277 10*3/uL 150-450 [facility] Potassium measurement (mass/ volume)Ordered By: Nicola Campbell on 05-21-2025 Potassium (Unsp spec) [Mass/Vol] 3.7 mmol/L 3.3-5.1 [facility] Comment on above: Hemolysis present, R esults could be affected. Protein Test strip Ql (U)Ord ered By: Nicola Campbell on 05-21-2025 Protein Ql (U) 15 mg/dl High Negative [facility] Prothrombin timeOrdered By: Nicola Campbell on 05-21-2025 PT Coag (PPP) [Time] 12.7 s 11.7-14.9 [facility] RBC Auto (Bld) [#/Vol]Ordere d By: Nicola Campbell on 05-21-2025 RBC (Bld) [#/Vol] 5.14 10*6/uL 4.2-5.4 [facility] Serum creatinine measurement (mass/volume)Ordered By: Nicola Campbell on 05-21-2025 Creatinine [Mass/Vol] 0.83 mg/dL 0.70-1.[address] [facility] Serum globulin measurementOr dered By: Nicola Campbell on 05-21-2025 Globulin (S) [Mass/Vol] 2.6 g/dL 2.2-4.2 [facility] Serum glucose measurement (m ass/volume)Ordered By: Nicola Campbell on 05-21-2025 Glucose [Mass/Vol] 133 mg/dL High 70-99 [facility] Serum or plasma alanine pritchard otransferase (ALT) measurementOrdered By: Nicola Campbell on 05-21-2025 ALT [Catalytic activity/Vol] 54 U/L High <35 [facility] Serum or plasma albumin alex urement (mass/volume)Ordered By: Nicola Campbell on 05-21-2025 Albumin [Mass/Vol] 4.6 g/dL 3.5-5.0 [facility] Serum or plasma albumin/glob ulin mass ratioOrdered By: Nicola Campbell 05-21-2025 Albumin/Globulin [Mass ratio] 1.7 {ratio} 0.9-2.4 [facility] Serum or plasma alkaline batsheva sphatase measurementOrdered By: Nicola Campbell on 05-21-2025 ALP [Catalytic activity/Vol] 110 U/L High 35-104 [facility] Serum or plasma calcium alex urement (mass/volume)Ordered By: Nicola Campbell on 05-21-2025 Calcium [Mass/Vol] 9.6 mg/dL 7.6-11.0 [facility] Serum or plasma urea nitroge n measurement (mass/volume)Ordered By: Remus Campbell on 05-21-2025 Urea nitrogen [Mass/Vol] 20 mg/dL High 4-19 [facility] Sodium levelOrdered By: Alyssau s Adrian on 05-21-2025 Sodium [Moles/Vol] 141 mmol/L 133-145 [facility] Squamous epithelial cells de tection in urine sediment by light microscopyOrdered By: Remus Campbell on 05-21-2025 Epithelial cells.squamous LM Ql (Urine sed) 0-5 SEEN /hpf 5-10 [facility] Total proteinOrdered By: Rem us Campbell on 05-21-2025 Protein [Mass/Vol] 7.2 g/dL 5.9-8.4 [facility] Troponin T.cardiac [Mass/vol ume] in Serum or Plasma by High sensitivity methodOrdered By: Remus Campbell on 05-21-2025 Troponin T.cardiac High sensitivity method [Mass/Vol] < 6 ng/L <14 [facility] Urine clarityOrdered By: Rem us Adrian on 05-21-2025 Clarity (U) Sl. Cloudy Clear [facility] Urine color determinationOrd ered By: Nicola Campbell on 05-21-2025 Color (U) Yellow Yellow [facility] Urine glucose detectionOrder ed By: Nicola Campbell on 05-21-2025 Glucose Ql (U) Normal mg/dl Normal [facility] Urine leukocyte esterase det ection by dipstickOrdered By: Remus Campbell on 05-21-2025 Leukocyte esterase Test strip Ql (U) Negative Negative [facility] Urine pHOrdered By: Nicola Ontiveros gur on 05-21-2025 pH (U) 7.0 [pH] 5.0 - 8.0 [facility] Urine sediment bacteria coun t by microscopy (number/high power field)Ordered By: Nicola Campbell on 05-21-2025 Bacteria LM.HPF (Urine sed) [#/Area] 0 /[HPF] None Seen [facility] Urine specific gravity measu rementOrdered By: Remus Campbell on 05-21-2025 Specific gravity (U) [Rel density] 1.010 1.002-1.030 [facility] Urine urobilinogen measureme ntOrdered By: Nicola Campbell on 05-21-2025 Urobilinogen Ql (U) Normal mg/dl Normal [facility] White blood cell (WBC) count Ordered By: Nicola Campbell on 05-21-2025 WBC (Bld) [#/Vol] 17.0 10*3/uL High 4.4-11.0 [facility] White blood cell countOrdere d By: Nicola Campbell on 05-21-2025 White blood cell count 0 SEEN /hpf 0-5 [facility] [id number] 05-13-2025 [facility] Misc. 2 COMMENT Normal . [facility] Comment on above: Order Comment: [id number] Subclass 4 (IgG4) SERUM RF Result Comment: Test Ordered: [id number] IgG, Subclass 4 IgG, Subclass 4 15 mg/dL Reference Range: 2-96 Performed at: [facility] [id number] Therapist'S Assistant: Jet Valladares PhD, Phone: [phone] Performed By: #### L 501.9985, L504.2610, L3410.9994 #### [facility] [address] [place], [place], [id number] [id number] 05-12-2025 GGTP 78 IU/L Abnormal 0-60 [facility] Comment on above: Result Comment: Perf ormed at: [facility] [id number] Therapist'S Assistant: Jet Valladares PhD, Phone: [phone] Performed By: #### L 100.0100, L300.3900, L500.4050, L501.5101 ####[facility] [address] [place], [place], [id number] Absolute lymphocyte countOrd ered By: Ankur Dunlap on 05-10-2025 Lymphocytes Auto (Unsp spec) [#/Vol] 2.77 10*3/uL 0.83-4.51 [facility] Absolute neutrophil countOrd ered By: Ankur Dunlap on 05-10-2025 Neutrophils (Bld) [#/Vol] 5.2 10*3/uL 2.0-7.7 [facility] Anion gap in Serum or Plasma Ordered By: Ankur Dunlap on 05-10-2025 Anion gap [Moles/Vol] 13 mmol/L 5-[address] [facility] Automated lymphocyte count a s percentage of total leukocytesOrdered By: Ankur Dunlap on 05-10-2025 Lymphocytes/100 WBC Auto (Unsp spec) 31.0 % 19- [facility] BUN/creatinine ratioOrdered By: Ankur Dunlap on 05-10-2025 Urea nitrogen/Creatinine [Mass ratio] 28.2 mg/mg High 10- [facility] Basophil percentageOrdered B y: Ankur Dunlap on 05-10-2025 Basophils/100 WBC (Bld) 0.3 % 0-1 [facility] Bilirubin, totalOrdered By: Ankur Dunlap on 05-10-2025 Bilirubin [Mass/Vol] 0.53 mg/dL 0.00-1.30 [facility] CBC W/Diff, Automatedon 04-23 Absolute Lymph 2.77 X10 3/uL Normal 0.83-4.51 [facility] Comment on above: Performed By: #### L 100.0100, L300.3900, L500.4050, L501.5101 ####[facility] [address] [place], [address] Absolute Neut 5.2 X10 3/uL Normal 2.0-7.7 [facility] Comment on above: Performed By: #### L 100.0100, L300.3900, L500.4050, L501.5101 ####[facility] [address] [place], [address] Basophils/100 WBC (Bld) 0.3 % Normal 0-1 [facility] Comment on above: Performed By: #### L 100.0100, L300.3900, L500.4050, L501.5101 ####[facility] [address] [place], [address] Eosinophils/100 WBC (Bld) 1.9 % Normal 0-5 [facility] Comment on above: Performed By: #### L 100.0100, L300.3900, L500.4050, L501.5101 ####[facility] [address] [place], [address] Erythrocyte distribution width (RBC) [Ratio] 12.0 % Normal 11.6-14.6 [facility] Comment on above: Performed By: #### L 100.0100, L300.3900, L500.4050, L501.5101 ####[facility] [address] [place], [address] Hematocrit (Bld) [Volume fraction] 48.1 % High 37-47 [facility] Comment on above: Performed By: #### L 100.0100, L300.3900, L500.4050, L501.5101 ####[facility] [address] [place], [address] Hemoglobin (Bld) [Mass/Vol] 16.2 g/dL High 12.0-15.0 [facility] Comment on above: Performed By: #### L 100.0100, L300.3900, L500.4050, L501.5101 ####[facility] [address] [place], [address] IG% 0.200 Normal 0.0-0.9 [facility] Comment on above: Result Comment: IG% - Immature Granulocytes (promyelocytes, myelocytes and metamyelocytes) > 1% indicates that a LEFT SHIFT is Present. Performed By: #### L 100.0100, L300.3900, L500.4050, L501.5101 ####[facility] [address] [place], [address] Lymphocytes/100 WBC (Bld) 31.0 % Normal 19-41 [facility] Comment on above: Performed By: #### L 100.0100, L300.3900, L500.4050, L501.5101 ####[facility] [address] [place], [address] MCH (RBC) [Entitic mass] 31.0 pg Normal 27.0-32.0 [facility] Comment on above: Performed By: #### L 100.0100, L300.3900, L500.4050, L501.5101 ####[facility] [address] [place], [address] MCHC (RBC) [Mass/Vol] 33.7 g/dL Normal 32-[address] [facility] Comment on above: Performed By: #### L 100.0100, L300.3900, L500.4050, L501.5101 ####[facility] [address] [place], [address] MCV (RBC) [Entitic vol] 92.1 fL Normal 81-99 [facility] Comment on above: Performed By: #### L 100.0100, L300.3900, L500.4050, L501.5101 ####[facility] [address] [place], [address] Monocytes/100 WBC (Bld) 8.4 % Normal 0-10 [facility] Comment on above: Performed By: #### L 100.0100, L300.3900, L500.4050, L501.5101 ####[facility] [address] [place], [address] Neutrophils/100 WBC (Bld) 58.2 % Normal 47-70 [facility] Comment on above: Performed By: #### L 100.0100, L300.3900, L500.4050, L501.5101 ####[facility] [address] [place], [address] Nucleated RBC (Bld) [#/Vol] 0 10*3/uL Normal 0-5 [facility] Comment on above: Performed By: #### L 100.0100, L300.3900, L500.4050, L501.5101 ####[facility] [address] [place], [address] Platelet mean volume (Bld) [Entitic vol] 10.2 fL Normal 6.2-12.0 [facility] Comment on above: Performed By: #### L 100.0100, L300.3900, L500.4050, L501.5101 ####[facility] [address] [place], [address] Platelets (Bld) [#/Vol] 183 10*3/uL Normal 150-450 [facility] Comment on above: Performed By: #### L 100.0100, L300.3900, L500.4050, L501.5101 ####[facility] [address] [place], [address] RBC (Bld) [#/Vol] 5.22 10*6/uL Normal 4.2-5.4 [facility] Comment on above: Performed By: #### L 100.0100, L300.3900, L500.4050, L501.5101 ####[facility] [address] [place], [address] RDW SD 40.8 fl Normal 35.1-43.9 [facility] Comment on above: Performed By: #### L 100.0100, L300.3900, L500.4050, L501.5101 ####[facility] [address] [place], [address] WBC (Bld) [#/Vol] 8.9 10*3/uL Normal 4.4-11.0 [facility] Comment on above: Performed By: #### L 100.0100, L300.3900, L500.4050, L501.5101 ####[facility] [address] [place], [address] Carbon dioxide, total [Moles /volume] in Central venous bloodOrdered By: Ankur Dunlap on 05-10-2025 CO2 [Moles/Vol] 23.3 mmol/L 21.0-32.0 [facility] Chloride assayOrdered By: Ruchi Dunlap on 05-10-2025 Chloride [Moles/Vol] 104 mmol/L 98-108 [facility] Comprehensive Metabolic Prof ilon 05-10-2025 Albumin/Globulin [Mass ratio] 1.4 {ratio} Normal 0.9-2.4 [facility] Comment on above: Performed By: #### L 100.0100, L300.3900, L500.4050, L501.5101 ####[facility] [address] [place], [address] ALK PHOS 168 U/L High 35-104 [facility] Comment on above: Performed By: #### L 100.0100, L300.3900, L500.4050, L501.5101 ####[facility] [address] [place], [address] ALT [Catalytic activity/Vol] 383 U/L High <=34 [facility] Comment on above: Performed By: #### L 100.0100, L300.3900, L500.4050, L501.5101 ####[facility] [address] [place], [address] AST [Catalytic activity/Vol] 278 U/L High <=31 [facility] Comment on above: Performed By: #### L 100.0100, L300.3900, L500.4050, L501.5101 ####[facility] [address] [place], [address] Bilirubin [Mass/Vol] 0.53 mg/dL Normal 0.00-1.30 [facility] Comment on above: Performed By: #### L 100.0100, L300.3900, L500.4050, L501.5101 ####[facility] [address] [place], [address] Calcium [Mass/Vol] 9.7 mg/dL Normal 7.6-11.0 [facility] Comment on above: Performed By: #### L 100.0100, L300.3900, L500.4050, L501.5101 ####[facility] [address] [place], [address] Chloride [Moles/Vol] 104 mmol/L Normal 98-108 [facility] Comment on above: Performed By: #### L 100.0100, L300.3900, L500.4050, L501.5101 ####[facility] [address] [place], [address] CO2 [Moles/Vol] 23.3 mmol/L Normal 21.0-32.0 [facility] Comment on above: Performed By: #### L 100.0100, L300.3900, L500.4050, L501.5101 ####[facility] [address] [place], [address] GAP 13 Normal 5-15 [facility] Comment on above: Performed By: #### L 100.0100, L300.3900, L500.4050, L501.5101 ####[facility] [address] [place], [address] Globulin (S) [Mass/Vol] 3.4 g/dL Normal 2.2-4.2 [facility] Comment on above: Performed By: #### L 100.0100, L300.3900, L500.4050, L501.5101 ####[facility] [address] [place], [address] Potassium [Moles/Vol] 4.2 mmol/L Normal 3.3-5.[address] [facility] Comment on above: Result Comment: Hemo lysis present, Results??could be affected. ?? Performed By: #### L 100.0100, L300.3900, L500.4050, L501.5101 ####[facility] [address] [place], [address] Sodium [Moles/Vol] 140 mmol/L Normal 133-145 [facility] Comment on above: Performed By: #### L 100.0100, L300.3900, L500.4050, L501.5101 ####[facility] [address] [place], [address] Albumin [Mass/Vol] 4.8 g/dL Normal 3.5-5.0 [facility] Comment on above: Performed By: #### L 100.0100, L300.3900, L500.4050, L501.5101 ####[facility] [address] [place], [address] BUN/CRE 28.2 RATIO High 10-20 [facility] Comment on above: Performed By: #### L 100.0100, L300.3900, L500.4050, L501.5101 ####[facility] [address] [place], [address] Creatinine [Mass/Vol] 0.65 mg/dL Low 0.70-1.[address] [facility] Comment on above: Performed By: #### L 100.0100, L300.3900, L500.4050, L501.5101 ####[facility] [address] [place], [address] GFR/1.73 sq M.predicted among non-blacks MDRD (S/P/Bld) [Vol rate/Area] 103 mL/min/{1.73_m2} Normal >60 [facility] Comment on above: Result Comment: mL/m in/1.73m2 CKD-EPI Creatinine Equation (2020) Performed By: #### L 100.0100, L300.3900, L500.4050, L501.5101 ####[facility] [address] [place], [address] Glucose [Mass/Vol] 82 mg/dL Normal 70-99 [facility] Comment on above: Performed By: #### L 100.0100, L300.3900, L500.4050, L501.5101 ####[facility] [address] [place], [address] T PROT 8.2 g/dL Normal 5.9-8.4 [facility] Comment on above: Performed By: #### L 100.0100, L300.3900, L500.4050, L501.5101 ####[facility] [address] [place], [address] Urea nitrogen [Mass/Vol] 18 mg/dL Normal 4-19 [facility] Comment on above: Performed By: #### L 100.0100, L300.3900, L500.4050, L501.5101 ####[facility] [address] [place], [address] Eosinophil percentageOrdered By: Ankur Dunlap on 05-10-2025 Eosinophils/100 WBC (Bld) 1.9 % 0-5 [facility] Erythrocyte distribution wid th ratioOrdered By: Ankur Dunlap on 05-10-2025 Erythrocyte distribution width (RBC) [Ratio] 12.0 % 11.6-14.6 [facility] Erythrocyte distribution wid th standard deviationOrdered By: Ankur Dunlap on 05-10-2025 Erythrocyte distribution width (RBC) [Ratio] 40.8 fl 35.1-43.9 [facility] Gamma glutamyl transferase ( GGT) measurementOrdered By: Ankur Dunlap on 05-10-2025 Amylase [Catalytic activity/Vol] 78 U/L High 0-60 [facility] Comment on above: Performed at: [address] [id number] Director: Jet Valladares PhD, Phone: [phone] Gastroenterology Visit Repor ton 05-10-2025 Gastroenterology Visit Report [facility] Gastroenterology [address] [place] [address] OFFICE VISIT Date of Service: 05/10/25 MR#: [id number] Acct: [id number] Name: HONG SNOW Rep #: [id number] : 1970 Provider: CHEL stuart Age/Sex: 55/F [place] [facility] Status: Signed with Addenda ADDENDUM by Dr. Ankur Dunlap MD on 05/11/25 at 1153 Addendum The patient was called to inform that prescriptions of azathioprine, prednisone, pantoprazole and ursodiol has been sent. She also needs to do TPMT genotype and enzyme activity blood test. She needs to start the medications as soon as possible. Follow-up in the office in May. 05/11/25 1153 Date Ankur Dunlap MD cc: CHEL Foy; Dr. Ankur Dunlap MD * Signed ADDENDUM by Dr. Ankur Dunlap MD on 05/10/25 at 1653 HPI Details: HONG SNOW, is a 55 F who presents to the office today for Addendum Labs reviewed or today. Elevated AST ALT alkaline phosphatase and LDH. 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 TPMT test ordered. Started on high-dose of prednisone, azathioprine, ursodiol and pantoprazole. 05/10/25 1653 Date Ankur Dunlap MD cc: [facility] TECH-C Cyndi Foy; Dr. Ankur Dunlap MD * Signed Intake Vital Signs 04/29/25 09:34 05/10/25 11:14 Height 5 ft 4 in 5 ft 4 in Weight: 157 lb 2 oz BMI 26.9 BP 146/80 H Blood Pressure Location Lt brachial Position Sitting Respiration 14 Pulse 80 Pulse Source Monitor Pulse Oximetry (%) 97 Oxygen Delivery Method room air Intake Visit Reasons: GERMÁN PT - BX RESULTS Chief Complaint: liver biopsy results Allergies adhesive (adhesives) Allergy (Intermediate, Verified 05/10/25 11:21) RASH gluten Allergy (Verified 05/10/25 11:20) Other iodine Allergy (Verified 05/10/25 11:20) Other milk (dairy) Allergy (Verified 05/10/25 11:20) Other monosodium glutamate (msg) Allergy (Verified 05/10/25 11:20) Other shellfish derived Allergy (Verified 05/10/25 11:20) Food Allergy meperidine (From Demerol) Adverse Reaction (Intermediate, Verified 05/10/25 11:20) Vomiting Medications ???Medication ???Instructions ???Recorded ???Confirmed ???Type albuterol sulfate 90 mcg/actuation 1 inh inhalation ONCE 06/09/22 0 05/10/25 History aerosol inhaler (Ventolin HFA) magnesium 200 mg tablet 400 mg PO BID 08/10/22 05/10/25 Hi story estradiol 0.05 mg/24 hr weekly 1 patch transdermal .2XWEEK 05/10/25 History transdermal patch Nurse's Note: Patient is here for her liver biopsy results she had. Everything has been going okay. [facility] Medical History Wears contact lenses Wears glasses [...] Status: Never smoker HPI HPI Chief Complaint: liver biopsy results Details: The patient is a 55-year-old female presenting for follow-up on liver biopsy results and evaluation of muscle weakness and fatigue. The patient underwent a liver biopsy due to suspected liver disease, which revealed advanced changes of liver disease. She has a history of a positive antinuclear antibody (CODY) test, but further autoimmune workup was negative. The differential diagnosis includes autoimmune hepatitis, primary biliary cholangitis, primary sclerosing cholangitis, viral hepatitis, and drug-induced liver injury. The patient does not consume alcohol. The patient reports significant muscle weakness, particularly in her core muscles, leading to falls and inability to work since June of the previous year. She suspects polymyositis as a potential diagnosis due to her symptoms. The patient describes herself as a COVID long-hauler, having experienced prolonged symptoms after initial infection, including fatigue and headaches. She has tested positive for COVID-19 multiple times, with persistent symptoms affecting her quality of life. The patient also reports potential mold exposure in her home, which she believes may be contributing to her health decline. She notes a coating on her clothes and has discussed this with family members (more content not included)... Normal [facility] Glomerular filtration rate ( GFR) estimation/1.73 sq m using serum, plasma, or whole bOrdered By: Ankur Dunlap on 05-10-2025 GFR/1.73 sq M.predicted among non-blacks MDRD (S/P/Bld) [Vol rate/Area] 103 mL/min/{1.73_m2} >60 [facility] Comment on above: mL/min/1.73m2 CKD-EP I Creatinine Equation (2020) Hematocrit Auto (Bld) [Volum e fraction]Ordered By: Ankur Dunlap on 05-10-2025 Hematocrit (Bld) [Volume fraction] 48.1 % High 37-47 [facility] Hemoglobin A1con 05-10-2025 HbA1c (Bld) [Mass fraction] 5.3 % Normal <=5.6 [facility] Comment on above: Result Comment: Norm al < 5.7 % Prediabetic 5.7 - 6.4 % Diabetic >or= 6.5 % Please note range changes. Performed By: #### L 501.9985, L504.2610, L3410.9994 #### [facility] Laboratory [address] [place], [place], [id number] Hemoglobin A1c percentageOrd ered By: Cyndi Foy on 05-10-2025 HbA1c (Bld) [Mass fraction] 5.3 % <5.7 [facility] Comment on above: Normal < 5.7 % Predi abetic 5.7 - 6.4 % Diabetic >or= 6.5 % Please note range changes. Hemoglobin measurementOrdere d By: Ankur Dunlap on 05-10-2025 Hemoglobin (Bld) [Mass/Vol] 16.2 g/dL High 12.0-15.0 [facility] Immature granulocytes/100 WB C Auto (Bld)Ordered By: Ankur Dunlap on 05-10-2025 Immature granulocytes/100 WBC (Bld) 0.200 % 0.0-0.9 [facility] Comment on above: IG% - Immature Granu locytes (promyelocytes, myelocytes and metamyelocytes) > 1% indicates that a LEFT SHIFT is Present. International normalized rat io (INR) calculationOrdered By: Ankur Dunlap on 05-10-2025 INR Coag (Bld) [Relative time] 0.9 {INR} [facility] LDHon 05-10-2025 LDH 290 U/L High 84-246 [facility] Comment on above: Order Comment: 1 Result Comment: Hemo lysis present, Results??could be affected. ?? Performed By: #### L 501.9985, L504.2610, L3410.9994 #### [facility] [address] [place], [place], [address] Laboratory - Chemistry and C hemistry - challengeOrdered By: Ankur Dunlap on 05-10-2025 AST [Catalytic activity/Vol] 278 U/L High <32 [facility] Lactate dehydrogenase (LDH) measurementOrdered By: Cyndi Foy on 05-10-2025 LDH [Catalytic activity/Vol] 290 U/L High 84-246 [facility] Comment on above: Hemolysis present, R esults could be affected. MCV (mean corpuscular volume ) determinationOrdered By: Ankur Dunlap on 05-10-2025 MCV (RBC) [Entitic vol] 92.1 fL 81-99 [facility] Mean corpuscular hemoglobin (MCH) determinationOrdered By: Ankur Dunlap on 05-10-2025 MCH (RBC) [Entitic mass] 31.0 pg 27.0-32.0 [facility] Mean corpuscular hemoglobin concentration (MCHC) determinationOrdered By: Ankur Dunlap on 05-10-2025 MCHC (RBC) [Mass/Vol] 33.7 g/dL 32-[address] [facility] Mean platelet volume determi nationOrdered By: Ankur Dunlap on 05-10-2025 Platelet mean volume (Bld) [Entitic vol] 10.2 fL 6.2-12.0 [facility] Monocyte percentageOrdered B y: Ankur Dunlap on 05-10-2025 Monocytes/100 WBC (Bld) 8.4 % 0-10 [facility] Neutrophil percentageOrdered By: Ankur Dunlap on 05-10-2025 Neutrophils/100 WBC (Bld) 58.2 % 47-70 [facility] Nucleated red blood cell per centageOrdered By: Ankur Dunlap on 05-10-2025 Nucleated RBC/100 WBC (Bld) [Ratio] 0 % 0-5 [facility] Platelet countOrdered By: Ruchi Dunlap on 05-10-2025 Platelets (Bld) [#/Vol] 183 10*3/uL 150-450 [facility] Potassium measurement (mass/ volume)Ordered By: Ankur Dunlap on 05-10-2025 Potassium (Unsp spec) [Mass/Vol] 4.2 mmol/L 3.3-5.1 [facility] Comment on above: Hemolysis present, R esults could be affected. Prothrombin Time w/INRon INR Coag (PPP) [Relative time] 0.9 {INR} Normal [facility] Comment on above: Performed By: #### L 100.0100, L300.3900, L500.4050, L501.5101 ####[facility] [address] [place], [address] PT Coag (PPP) [Time] 12.4 s Normal 11.7-14.9 [facility] Comment on above: Performed By: #### L 100.0100, L300.3900, L500.4050, L501.5101 ####[facility] [address] [place], [address] Prothrombin timeOrdered By: Ankur Dunlap on 05-10-2025 PT Coag (PPP) [Time] 12.4 s 11.7-14.9 [facility] RBC Auto (Bld) [#/Vol]Ordere d By: Ankur Dunlap on 05-10-2025 RBC (Bld) [#/Vol] 5.22 10*6/uL 4.2-5.4 [facility] Serum creatinine measurement (mass/volume)Ordered By: Ankur Dulnap on 05-10-2025 Creatinine [Mass/Vol] 0.65 mg/dL Low 0.70-1.[address] [facility] Serum globulin measurementOr dered By: Ankur Dunlap on 05-10-2025 Globulin (S) [Mass/Vol] 3.4 g/dL 2.2-4.2 [facility] Serum glucose measurement (m ass/volume)Ordered By: Ankur Dunlap on 05-10-2025 Glucose [Mass/Vol] 82 mg/dL 70-99 [facility] Serum or plasma alanine pritchard otransferase (ALT) measurementOrdered By: Ankur Dunlap on 05-10-2025 ALT [Catalytic activity/Vol] 383 U/L High <35 [facility] Serum or plasma albumin alex urement (mass/volume)Ordered By: Ankur Dunlap on 05-10-2025 Albumin [Mass/Vol] 4.8 g/dL 3.5-5.0 [facility] Serum or plasma albumin/glob ulin mass ratioOrdered By: Ankur Dunlap on 05-10-2025 Albumin/Globulin [Mass ratio] 1.4 {ratio} 0.9-2.4 [facility] Serum or plasma alkaline batsheva sphatase measurementOrdered By: Ankur Dunlap on 05-10-2025 ALP [Catalytic activity/Vol] 168 U/L High 35-104 [facility] Serum or plasma calcium alex urement (mass/volume)Ordered By: Ankur Dunlap on 05-10-2025 Calcium [Mass/Vol] 9.7 mg/dL 7.6-11.0 [facility] Serum or plasma urea nitroge n measurement (mass/volume)Ordered By: Ankur Dunlap on 05-10-2025 Urea nitrogen [Mass/Vol] 18 mg/dL 4-19 [facility] Sodium levelOrdered By: Betty Dunlap on 05-10-2025 Sodium [Moles/Vol] 140 mmol/L 133-145 [facility] Total proteinOrdered By: Francisco Dunlap on 05-10-2025 Protein [Mass/Vol] 8.2 g/dL 5.9-8.4 [facility] White blood cell (WBC) count Ordered By: Ankur Dunlap on 05-10-2025 WBC (Bld) [#/Vol] 8.9 10*3/uL 4.4-11.0 [facility] Absolute lymphocyte countOrd ered By: Alo Sandra on 04-29-2025 Lymphocytes Auto (Unsp spec) [#/Vol] 2.43 10*3/uL 0.83-4.51 [facility] Absolute neutrophil countOrd ered By: Alo Sandra on 04-29-2025 Neutrophils (Bld) [#/Vol] 3.6 10*3/uL 2.0-7.7 [facility] Activated partial thrombopla stin time (aPTT) in platelet poor plasma by coagulation aOrdered By: Alo Sandra on 04-29-2025 aPTT Coag (PPP) [Time] 27.9 s 24.1-36.2 [facility] Automated lymphocyte count a s percentage of total leukocytesOrdered By: Alo Sandra on 04-29-2025 Lymphocytes/100 WBC Auto (Unsp spec) 34.4 % 19-41 [facility] Basophil percentageOrdered B y: Alo Sandra on 04-29-2025 Basophils/100 WBC (Bld) 0.6 % 0-1 [facility] Biopsy/Inj or Needle Placeme nton 04-29-2025 Biopsy/Inj or Needle Placement [facility] Imaging Services [address] [place] [address] Biopsy/Inj or Needle Placement MR#: [id number] Acct: [id number] Name: HONG SNOW Rep #: [id number] : 1970 F 55 From: Alo delgado MD PCP: Rissa Tran PA-C Status: REG CLI Study: Biopsy/Inj or Needle Placement Date of Exam: 0 04/29/25 Exam# [id number] Ordering Dr: Ankur Dunlap MD EXAM: CT-guided liver biopsy. CLINICAL HISTORY: Fatty infiltration of the liver. COMPARISON: Prior sonogram dated December 31, 2024. TECHNIQUE: The procedure as well as the benefits and possible complications including infection and bleeding were explained to the patient. Informed consent was obtained. The patient was in the supine position. Conscious sedation was performed. The patient received 2 mg of Versed and 25 mcg of fentanyl intravenously. Conscious sedation was started at 10:27 a.m. and terminated at 10:45 a.m.. The patient was independently monitored by the department nurse. The overlying skin was prepped and draped in the usual sterile fashion. Following local anesthetic application, 4 core biopsies of the right lobe of the liver was performed with an 18 gauge core biopsy needle system. The patient tolerated the procedure well. FINDINGS: Successful CT-guided core biopsies of the right lobe of the liver as described. The patient tolerated the procedure well. No immediate complication noted. CT/Biopsy/Inj or Needle Placement IMPRESSION: Successful CT-guided core biopsy of the right lobe of the liver as described. Reading Location: [place] [address] CC: CHANDLER Tran; Dr. Ankur Dunlap MD Ob Gyn Physician Assistant: Signed Normal [facility] CBC W/Diff, Automatedon Absolute Lymph 2.43 X10 3/uL Normal 0.83-4.51 [facility] Comment on above: Performed By: #### L 300.3900, L300.4310, L100.0100 ####[facility] [address] [place], [address] Absolute Neut 3.6 X10 3/uL Normal 2.0-7.7 [facility] Comment on above: Performed By: #### L 300.3900, L300.4310, L100.0100 ####[facility] [address] [place], [address] Basophils/100 WBC (Bld) 0.6 % Normal 0-1 [facility] Comment on above: Performed By: #### L 300.3900, L300.4310, L100.0100 ####[facility] [address] [place], [address] Eosinophils/100 WBC (Bld) 3.0 % Normal 0-5 [facility] Comment on above: Performed By: #### L 300.3900, L300.4310, L100.0100 ####[facility] [address] [place], [address] Erythrocyte distribution width (RBC) [Ratio] 11.9 % Normal 11.6-14.6 [facility] Comment on above: Performed By: #### L 300.3900, L300.4310, L100.0100 ####[facility] [address] [place], [address] Hematocrit (Bld) [Volume fraction] 45.1 % Normal 37-47 [facility] Comment on above: Performed By: #### L 300.3900, L300.4310, L100.0100 ####[facility] [address] [place], [address] Hemoglobin (Bld) [Mass/Vol] 15.3 g/dL High 12.0-15.0 [facility] Comment on above: Performed By: #### L 300.3900, L300.4310, L100.0100 ####[facility] [address] [place], [address] IG% 0.300 Normal 0.0-0.9 [facility] Comment on above: Result Comment: IG% - Immature Granulocytes (promyelocytes, myelocytes and metamyelocytes) > 1% indicates that a LEFT SHIFT is Present. Performed By: #### L 300.3900, L300.4310, L100.0100 ####[facility] [address] [place], [address] Lymphocytes/100 WBC (Bld) 34.4 % Normal 19-41 [facility] Comment on above: Performed By: #### L 300.3900, L300.4310, L100.0100 ####[facility] [address] [place], [address] MCH (RBC) [Entitic mass] 31.4 pg Normal 27.0-32.0 [facility] Comment on above: Performed By: #### L 300.3900, L300.4310, L100.0100 ####[facility] [address] [place], [address] MCHC (RBC) [Mass/Vol] 33.9 g/dL Normal 32-[address] [facility] Comment on above: Performed By: #### L 300.3900, L300.4310, L100.0100 ####[facility] [address] [place], [address] MCV (RBC) [Entitic vol] 92.6 fL Normal 81-99 [facility] Comment on above: Performed By: #### L 300.3900, L300.4310, L100.0100 ####[facility] [address] [place], [address] Monocytes/100 WBC (Bld) 10.9 % High 0-10 [facility] Comment on above: Performed By: #### L 300.3900, L300.4310, L100.0100 ####[facility] [address] [place], [address] Neutrophils/100 WBC (Bld) 50.8 % Normal 47-70 [facility] Comment on above: Performed By: #### L 300.3900, L300.4310, L100.0100 ####[facility] [address] [place], [address] Nucleated RBC (Bld) [#/Vol] 0 10*3/uL Normal 0-5 [facility] Comment on above: Performed By: #### L 300.3900, L300.4310, L100.0100 ####[facility] [address] [place], [address] Platelet mean volume (Bld) [Entitic vol] 9.9 fL Normal 6.2-12.0 [facility] Comment on above: Performed By: #### L 300.3900, L300.4310, L100.0100 ####[facility] [address] [place], [address] Platelets (Bld) [#/Vol] 192 10*3/uL Normal 150-450 [facility] Comment on above: Performed By: #### L 300.3900, L300.4310, L100.0100 ####[facility] [address] [place], [address] RBC (Bld) [#/Vol] 4.87 10*6/uL Normal 4.2-5.4 [facility] Comment on above: Performed By: #### L 300.3900, L300.4310, L100.0100 ####[facility] [address] [place], [address] RDW SD 40.5 fl Normal 35.1-43.9 [facility] Comment on above: Performed By: #### L 300.3900, L300.4310, L100.0100 ####[facility] [address] [place], [address] WBC (Bld) [#/Vol] 7.1 10*3/uL Normal 4.4-11.0 [facility] Comment on above: Performed By: #### L 300.3900, L300.4310, L100.0100 ####[facility] [address] [place], [address] Eosinophil percentageOrdered By: Alo Sandra on 04-29-2025 Eosinophils/100 WBC (Bld) 3.0 % 0-5 [facility] Erythrocyte distribution wid th ratioOrdered By: Alo Sandra on 04-29-2025 Erythrocyte distribution width (RBC) [Ratio] 11.9 % 11.6-14.6 [facility] Erythrocyte distribution wid th standard deviationOrdered By: Alo Sandra on 04-29-2025 Erythrocyte distribution width (RBC) [Ratio] 40.5 fl 35.1-43.9 [facility] Hematocrit Auto (Bld) [Volum e fraction]Ordered By: Alo Sandra on 04-29-2025 Hematocrit (Bld) [Volume fraction] 45.1 % 37-47 [facility] Hemoglobin measurementOrdere d By: Alo Sandra on 04-29-2025 Hemoglobin (Bld) [Mass/Vol] 15.3 g/dL High 12.0-15.0 [facility] Immature granulocytes/100 WB C Auto (Bld)Ordered By: Alo Sandra on 04-29-2025 Immature granulocytes/100 WBC (Bld) 0.300 % 0.0-0.9 [facility] Comment on above: IG% - Immature Granu locytes (promyelocytes, myelocytes and metamyelocytes) > 1% indicates that a LEFT SHIFT is Present. International normalized rat io (INR) calculationOrdered By: Alo Sandra on 04-29-2025 INR Coag (Bld) [Relative time] 1.0 {INR} [facility] L305.1805on 04-29-2025 Path [facility] Liver SEE PATHOLOGY REPORT Normal [facility] Comment on above: Order Comment: RESUL TS FAXED TO Dr. Dunlap 05/01/25 [address]. Result Comment: Spec imen sent to [facility] Pathology Department. Report available in EMR. Performed By: #### L 305.1805 #### [facility] Laboratory [address], [address] MCV (mean corpuscular volume ) determinationOrdered By: Alo Sandra on 04-29-2025 MCV (RBC) [Entitic vol] 92.6 fL 81-99 [facility] Mean corpuscular hemoglobin (MCH) determinationOrdered By: Alo Sandra on 04-29-2025 MCH (RBC) [Entitic mass] 31.4 pg 27.0-32.0 [facility] Mean corpuscular hemoglobin concentration (MCHC) determinationOrdered By: Alo Sandra on 04-29-2025 MCHC (RBC) [Mass/Vol] 33.9 g/dL 32-[address] [facility] Mean platelet volume determi nationOrdered By: Alo Sandra on 04-29-2025 Platelet mean volume (Bld) [Entitic vol] 9.9 fL 6.2-12.0 [facility] Monocyte percentageOrdered B y: Alo Sandra on 04-29-2025 Monocytes/100 WBC (Bld) 10.9 % High 0-10 [facility] Neutrophil percentageOrdered By: Alojessica Sandra on 04-29-2025 Neutrophils/100 WBC (Bld) 50.8 % 47-70 [facility] Nucleated red blood cell per centageOrdered By: Alo Sandra on 04-29-2025 Nucleated RBC/100 WBC (Bld) [Ratio] 0 % 0-5 [facility] Partial Thromboplast Timeon 04-29-2025 aPTT Coag (Bld) [Time] 27.9 s Normal 24.1-36.2 [facility] Comment on above: Performed By: #### L 300.3900, L300.4310, L100.0100 ####[facility] [address] [place], [address] Platelet countOrdered By: Matias Sandra on 04-29-2025 Platelets (Bld) [#/Vol] 192 10*3/uL 150-450 [facility] Prothrombin Time w/INRon INR Coag (PPP) [Relative time] 1.0 {INR} Normal [facility] Comment on above: Performed By: #### L 300.3900, L300.4310, L100.0100 ####[facility] [address], [address] PT Coag (PPP) [Time] 12.9 s Normal 11.7-14.9 [facility] Comment on above: Performed By: #### L 300.3900, L300.4310, L100.0100 ####[facility] [address] [place], [address] Prothrombin timeOrdered By: Alo Sandra on 04-29-2025 PT Coag (PPP) [Time] 12.9 s 11.7-14.9 [facility] RBC Auto (Bld) [#/Vol]Ordere d By: Alo Sandra on 04-29-2025 RBC (Bld) [#/Vol] 4.87 10*6/uL 4.2-5.4 [facility] White blood cell (WBC) count Ordered By: Alo Sandra on 04-29-2025 WBC (Bld) [#/Vol] 7.1 10*3/uL 4.4-11.0 [facility] Gastroenterology Visit Repor ton 04-01-2025 Gastroenterology Visit Report [facility] Gastroenterology [address] [place] [address] OFFICE VISIT Date of Service: 04/01/25 MR#: [id number] Acct: [id number] Name: HONG SNOW Rep #: [id number] : 1970 Provider: Dr. Ankur ga MD Age/Sex: 55/F [place] [facility] Status: Signed Intake Vital Signs 12/20/24 11:14 [...] testing enteric pathogens, ova/parasite WNL. *BGI established 8. with referral from PCP for evaluation of [...] has abdominal discomfort/pain). Started a tea from [employer] with four ingredients and feels this has [...] eliminate. Continues with Dicyclomine as needed. OV 10.24 Pt reports that she is able to stay at home now due to her getting a better job opportunity. Her stress levels have reduced greatly, she experiences a complete formed BM daily (more content not included)... Normal [facility] Anti-Smooth Muscle ABSon ANTISMOOTH MUSC 3 Units Normal 0-19 [facility] Comment on above: Order Comment: Test( s) 134035-Zabbhq, Serum or Plasmawas developed and its performance characteristicsdetermined by General Specific. It has not been cleared or approvedby the Food and Drug Administration. Result Comment: Nega tive 0 - 19 Weak positive 20 - 30 Moderate to strong positive >30 Actin Antibodies are found in 52-85% of patients with autoimmune hepatitis or chronic active hepatitis and in 22% of patients with primary biliary cirrhosis. Performed By: #### L 300.3900, L501.9520, L503.6550, L506.0400, L3890.6202, L500.4050, L501.4700, L501.6710, L503.6030, L504.2610, L800.1280, L3410.9992, L501.5101, L803.2200, L3000.0375, L3300.0100, L3400.0700, L3100.5450, L100.0100, L400.0001 ####[facility] [address] [place], [address] Ceruloplasminon 02-20-2025 CERULOPLASMIN 30.5 mg/dL Normal 19.0-39.0 [facility] Comment on above: Order Comment: Test( s) 446237-Vktazf, Serum or Plasmawas developed and its performance characteristicsdetermined by [facility]. It has not been cleared or approvedby the Food and Drug Administration. Performed By: #### L 300.3900, L501.9520, L503.6550, L506.0400, L3890.6202, L500.4050, L501.4700, L501.6710, L503.6030, L504.2610, L800.1280, L3410.9992, L501.5101, L803.2200, L3000.0375, L3300.0100, L3400.0700, L3100.5450, L100.0100, L400.0001 ####[facility] [address] [place], [place], [address] Copper, Serum or Plasmaon COPPER, SERUM 135 ug/dL Normal 80-158 [facility] Comment on above: Order Comment: Test( s) 585516-Jylmlw, Serum or Plasmawas developed and its performance characteristicsdetermined by General Specific. It has not been cleared or approvedby the Food and Drug Administration. Result Comment: Dete ction Limit = 5 Performed at: [facility] [employer] [id number] Therapist'S Assistant: Jet Valladares PhD, Phone: [phone] Performed at: [facility] [employer] [id number] Therapist'S Assistant: Thu Bradley MD, Phone: [phone] Performed By: #### L 300.3900, L501.9520, L503.6550, L506.0400, L3890.6202, L500.4050, L501.4700, L501.6710, L503.6030, L504.2610, L800.1280, L3410.9992, L501.5101, L803.2200, L3000.0375, L3300.0100, L3400.0700, L3100.5450, L100.0100, L400.0001 ####[facility] [address] [place], [address] Hepatitis Panel Acuteon 04-3 0-2025 COMMENT Comment Normal . [facility] Comment on above: Order Comment: Test( s) 784502-Caxupq, Serum or Plasmawas developed and its performance characteristicsdetermined by General Specific. It has not been cleared or approvedby the Food and Drug Administration. Result Comment: Not infected with HCV unless early or acute infection is suspected (which may be delayed in an immunocompromised individual), or other evidence exists to indicate HCV infection. Performed By: #### L 300.3900, L501.9520, L503.6550, L506.0400, L3890.6202, L500.4050, L501.4700, L501.6710, L503.6030, L504.2610, L800.1280, L3410.9992, L501.5101, L803.2200, L3000.0375, L3300.0100, L3400.0700, L3100.5450, L100.0100, L400.0001 ####[facility] [address] [place], [place], [address] HEP B CORE,IgM Negative Normal Negative [facility] Comment on above: Order Comment: Test( s) 993330-Wppwop, Serum or Plasmawas developed and its performance characteristicsdetermined by General Specific. It has not been cleared or approvedby the Food and Drug Administration. Performed By: #### L 300.3900, L501.9520, L503.6550, L506.0400, L3890.6202, L500.4050, L501.4700, L501.6710, L503.6030, L504.2610, L800.1280, L3410.9992, L501.5101, L803.2200, L3000.0375, L3300.0100, L3400.0700, L3100.5450, L100.0100, L400.0001 ####[facility] [address] [place], [place], [address] HEP B SURF AG Negative Normal Negative [facility] Comment on above: Order Comment: Test( s) 825283-Hmrjbz, Serum or Plasmawas developed and its performance characteristicsdetermined by General Specific. It has not been cleared or approvedby the Food and Drug Administration. Performed By: #### L 300.3900, L501.9520, L503.6550, L506.0400, L3890.6202, L500.4050, L501.4700, L501.6710, L503.6030, L504.2610, L800.1280, L3410.9992, L501.5101, L803.2200, L3000.0375, L3300.0100, L3400.0700, L3100.5450, L100.0100, L400.0001 ####[facility] [address] [facility] [place], [address] HEP C VIRUS AB Non-Reactive Normal Non Reactive [facility] Comment on above: Order Comment: Test( s) 406526-Elbdfd, Serum or Plasmawas developed and its performance characteristicsdetermined by General Specific. It has not been cleared or approvedby the Food and Drug Administration. Performed By: #### L 300.3900, L501.9520, L503.6550, L506.0400, L3890.6202, L500.4050, L501.4700, L501.6710, L503.6030, L504.2610, L800.1280, L3410.9992, L501.5101, L803.2200, L3000.0375, L3300.0100, L3400.0700, L3100.5450, L100.0100, L400.0001 ####[facility] [address] [facility] [place], [address] HEPATITIS A-IgM Negative Normal Negative [facility] Comment on above: Order Comment: Test( s) 953417-Hbrxzr, Serum or Plasmawas developed and its performance characteristicsdetermined by General Specific. It has not been cleared or approvedby the Food and Drug Administration. Result Comment: A ne gative anti-HAV IgM result suggests no recent or current HAV infection. Performed By: #### L 300.3900, L501.9520, L503.6550, L506.0400, L3890.6202, L500.4050, L501.4700, L501.6710, L503.6030, L504.2610, L800.1280, L3410.9992, L501.5101, L803.2200, L3000.0375, L3300.0100, L3400.0700, L3100.5450, L100.0100, L400.0001 ####[facility] [address] [facility] [place], [place], [address] L501.5101on 02-20-2025 GGTP 34 IU/L Normal 0-60 [facility] Comment on above: Order Comment: Test( s) 258978-Aldgno, Serum or Plasmawas developed and its performance characteristicsdetermined by General Specific. It has not been cleared or approvedby the Food and Drug Administration. Performed By: #### L 300.3900, L501.9520, L503.6550, L506.0400, L3890.6202, L500.4050, L501.4700, L501.6710, L503.6030, L504.2610, L800.1280, L3410.9992, L501.5101, L803.2200, L3000.0375, L3300.0100, L3400.0700, L3100.5450, L100.0100, L400.0001 ####[facility] [address] [facility] [address] [place], [place], [address] CODY w/ Reflex Mult Confirmon 02-18-2025 CODY,DIRECT Positive Abnormal Negative [facility] Comment on above: Performed By: #### L 300.3900, L501.9520, L503.6550, L506.0400, L3890.6202, L500.4050, L501.4700, L501.6710, L503.6030, L504.2610, L800.1280, L3410.9992, L501.5101, L803.2200, L3000.0375, L3300.0100, L3400.0700, L3100.5450, L100.0100, L400.0001 #### [facility] [address] [place], [address] ANTI-CENT B AB <0.2 Normal 0.0-0.9 [facility] Comment on above: Performed By: #### L 300.3900, L501.9520, L503.6550, L506.0400, L3890.6202, L500.4050, L501.4700, L501.6710, L503.6030, L504.2610, L800.1280, L3410.9992, L501.5101, L803.2200, L3000.0375, L3300.0100, L3400.0700, L3100.5450, L100.0100, L400.0001 #### [facility] [address] [facility] [address] [place], [address] ANTI-DNA (DS)AB 11 IU/mL Abnormal 0-9 [facility] Comment on above: Result Comment: Nega tive <5 Equivocal 5 - 9 Positive >9 Performed By: #### L 300.3900, L501.9520, L503.6550, L506.0400, L3890.6202, L500.4050, L501.4700, L501.6710, L503.6030, L504.2610, L800.1280, L3410.9992, L501.5101, L803.2200, L3000.0375, L3300.0100, L3400.0700, L3100.5450, L100.0100, L400.0001 #### [facility] [address] [place], [address] ANTI-PADMA-1 <0.2 Normal 0.0-0.9 [facility] Comment on above: Performed By: #### L 300.3900, L501.9520, L503.6550, L506.0400, L3890.6202, L500.4050, L501.4700, L501.6710, L503.6030, L504.2610, L800.1280, L3410.9992, L501.5101, L803.2200, L3000.0375, L3300.0100, L3400.0700, L3100.5450, L100.0100, L400.0001 #### [facility] [address] [facility] [place], [address] ANTI-SS-A < 0.2 Normal 0.0-0.9 [facility] Comment on above: Performed By: #### L 300.3900, L501.9520, L503.6550, L506.0400, L3890.6202, L500.4050, L501.4700, L501.6710, L503.6030, L504.2610, L800.1280, L3410.9992, L501.5101, L803.2200, L3000.0375, L3300.0100, L3400.0700, L3100.5450, L100.0100, L400.0001 #### [facility] [address] [facility] [place], [address] ANTI-SS-B < 0.2 Normal 0.0-0.9 [facility] Comment on above: Performed By: #### L 300.3900, L501.9520, L503.6550, L506.0400, L3890.6202, L500.4050, L501.4700, L501.6710, L503.6030, L504.2610, L800.1280, L3410.9992, L501.5101, L803.2200, L3000.0375, L3300.0100, L3400.0700, L3100.5450, L100.0100, L400.0001 #### [facility] [address] [facility] [place], [address] ANTICHROMATIN <0.2 Normal 0.0-0.9 [facility] Comment on above: Performed By: #### L 300.3900, L501.9520, L503.6550, L506.0400, L3890.6202, L500.4050, L501.4700, L501.6710, L503.6030, L504.2610, L800.1280, L3410.9992, L501.5101, L803.2200, L3000.0375, L3300.0100, L3400.0700, L3100.5450, L100.0100, L400.0001 #### [facility] [address] [place], [address] BIOMEDICAL SCIENTIST Ab 0.4 AI Normal 0.0-0.9 [facility] Comment on above: Performed By: #### L 300.3900, L501.9520, L503.6550, L506.0400, L3890.6202, L500.4050, L501.4700, L501.6710, L503.6030, L504.2610, L800.1280, L3410.9992, L501.5101, L803.2200, L3000.0375, L3300.0100, L3400.0700, L3100.5450, L100.0100, L400.0001 #### [facility] [address] [place], [address] SHETH Ab <0.2 Normal 0.0-0.9 [facility] Comment on above: Performed By: #### L 300.3900, L501.9520, L503.6550, L506.0400, L3890.6202, L500.4050, L501.4700, L501.6710, L503.6030, L504.2610, L800.1280, L3410.9992, L501.5101, L803.2200, L3000.0375, L3300.0100, L3400.0700, L3100.5450, L100.0100, L400.0001 #### [facility] Laboratory [address] [place], [place], [phone] Anti-Mitochondrial ABon 04- ANTIMITOCHON AB <20.0 Normal 0.0-20.0 [facility] Comment on above: Result Comment: Nega tive 0.0 - 20.0 Equivocal 20.1 - 24.9 Positive >24.9 Mitochondrial (M2) Antibodies are found in 90-96% of patients with primary biliary cirrhosis. Performed By: #### L 300.3900, L501.9520, L503.6550, L506.0400, L3890.6202, L500.4050, L501.4700, L501.6710, L503.6030, L504.2610, L800.1280, L3410.9992, L501.5101, L803.2200, L3000.0375, L3300.0100, L3400.0700, L3100.5450, L100.0100, L400.0001 ####[facility] [address] [place], [place], [address] L3410.9992on 02-18-2025 [facility] Misc. COMMENT Normal . [facility] Comment on above: Order Comment: [id number] 9ELF TEST TIGER RF Result Comment: Test Ordered: [id number] Enhanced Liver Fibrosis (ELF) ELF(TM) Score 10.46 [H ] BN Reference Range: <9.80 ELF(TM) Score Interpretation: Risk [...] trials. J Hepatol. 2020 Apr;73(1):26-39. Performed at: - [facility] [id number] Therapist'S Assistant: Thu Bradley MD, Phone: [phone] Performed at: - [facility] [id number] [place], [place] [id number] Therapist'S Assistant: Jet Valladares PhD, Phone: [phone] Performed By: #### L 300.3900, L501.9520, L503.6550, L506.0400, L3890.6202, L500.4050, L501.4700, L501.6710, L503.6030, L504.2610, L800.1280, L3410.9992, L501.5101, L803.2200, L3000.0375, L3300.0100, L3400.0700, L3100.5450, L100.0100, L400.0001 ####[facility] [address] [place], [place], [phone] Absolute lymphocyte countOrd ered By: Ankur Dunlap on 02-14-2025 Lymphocytes Auto (Unsp spec) [#/Vol] 1.81 10*3/uL 0.83-4.51 [facility] Absolute neutrophil countOrd ered By: Ankur Dunlap on 02-14-2025 Neutrophils (Bld) [#/Vol] 4.3 10*3/uL 2.0-7.7 [facility] Anion gap in Serum or Plasma Ordered By: Ankur Dunlap on 02-14-2025 Anion gap [Moles/Vol] 13 mmol/L 5-[address] [facility] Automated lymphocyte count a s percentage of total leukocytesOrdered By: Ankur Dunlap on 02-14-2025 Lymphocytes/100 WBC Auto (Unsp spec) 26.3 % 19-41 [facility] BUN/creatinine ratioOrdered By: Ankur Dunlap on 02-14-2025 Urea nitrogen/Creatinine [Mass ratio] 17.5 mg/mg 10-20 [facility] Basophil percentageOrdered B y: Ankur Dunlap on 02-14-2025 Basophils/100 WBC (Bld) 0.3 % 0-1 [facility] Bilirubin Test strip Ql (U)O rdered By: Ankur Dunlap on 02-14-2025 Bilirubin Ql (U) Negative Negative [facility] Bilirubin directOrdered By: Ankur Dunlap on 02-14-2025 Bilirubin.direct [Mass/Vol] 0.17 mg/dL 0.00-0.30 [facility] Bilirubin, Directon 02-15-20 25 Bilirubin.direct [Mass/Vol] 0.17 mg/dL Normal 0.00-0.30 [facility] Comment on above: Order Comment: DR. Kezia MILLER ORDERED A LIVER PANEL WELL Performed By: #### L 300.3900, L501.9520, L503.6550, L506.0400, L3890.6202, L500.4050, L501.4700, L501.6710, L503.6030, L504.2610, L800.1280, L3410.9992, L501.5101, L803.2200, L3000.0375, L3300.0100, L3400.0700, L3100.5450, L100.0100, L400.0001 ####[facility] [address] [place], [address] Bilirubin, totalOrdered By: Ankur Dunlap on 02-14-2025 Bilirubin [Mass/Vol] 0.44 mg/dL 0.00-1.30 [facility] CBC W/Diff, Automatedon 01-23 Absolute Lymph 1.81 X10 3/uL Normal 0.83-4.51 [facility] Comment on above: Performed By: #### L 300.3900, L501.9520, L503.6550, L506.0400, L3890.6202, L500.4050, L501.4700, L501.6710, L503.6030, L504.2610, L800.1280, L3410.9992, L501.5101, L803.2200, L3000.0375, L3300.0100, L3400.0700, L3100.5450, L100.0100, L400.0001 ####[facility] [address] [facility] [place], [place], [phone](327) Absolute Neut 4.3 X10 3/uL Normal 2.0-7.7 [facility] Comment on above: Performed By: #### L 300.3900, L501.9520, L503.6550, L506.0400, L3890.6202, L500.4050, L501.4700, L501.6710, L503.6030, L504.2610, L800.1280, L3410.9992, L501.5101, L803.2200, L3000.0375, L3300.0100, L3400.0700, L3100.5450, L100.0100, L400.0001 ####[facility] [address] [facility] [place], [place], [phone](895) Basophils/100 WBC (Bld) 0.3 % Normal 0-1 [facility] Comment on above: Performed By: #### L 300.3900, L501.9520, L503.6550, L506.0400, L3890.6202, L500.4050, L501.4700, L501.6710, L503.6030, L504.2610, L800.1280, L3410.9992, L501.5101, L803.2200, L3000.0375, L3300.0100, L3400.0700, L3100.5450, L100.0100, L400.0001 ####[facility] [address] [place], [address] Eosinophils/100 WBC (Bld) 1.7 % Normal 0-5 [facility] Comment on above: Performed By: #### L 300.3900, L501.9520, L503.6550, L506.0400, L3890.6202, L500.4050, L501.4700, L501.6710, L503.6030, L504.2610, L800.1280, L3410.9992, L501.5101, L803.2200, L3000.0375, L3300.0100, L3400.0700, L3100.5450, L100.0100, L400.0001 ####[facility] [address] [place], [place], [phone](577) Erythrocyte distribution width (RBC) [Ratio] 12.0 % Normal 11.6-14.6 [facility] Comment on above: Performed By: #### L 300.3900, L501.9520, L503.6550, L506.0400, L3890.6202, L500.4050, L501.4700, L501.6710, L503.6030, L504.2610, L800.1280, L3410.9992, L501.5101, L803.2200, L3000.0375, L3300.0100, L3400.0700, L3100.5450, L100.0100, L400.0001 ####[facility] [address] [place], [address] Hematocrit (Bld) [Volume fraction] 41.5 % Normal 37-47 [facility] Comment on above: Performed By: #### L 300.3900, L501.9520, L503.6550, L506.0400, L3890.6202, L500.4050, L501.4700, L501.6710, L503.6030, L504.2610, L800.1280, L3410.9992, L501.5101, L803.2200, L3000.0375, L3300.0100, L3400.0700, L3100.5450, L100.0100, L400.0001 ####[facility] [address] [place], [address](999) Hemoglobin (Bld) [Mass/Vol] 14.3 g/dL Normal 12.0-15.0 [facility] Comment on above: Performed By: #### L 300.3900, L501.9520, L503.6550, L506.0400, L3890.6202, L500.4050, L501.4700, L501.6710, L503.6030, L504.2610, L800.1280, L3410.9992, L501.5101, L803.2200, L3000.0375, L3300.0100, L3400.0700, L3100.5450, L100.0100, L400.0001 ####[facility] [address] [facility] [place], [place], [phone](228) IG% 0.100 Normal 0.0-0.9 [facility] Comment on above: Result Comment: IG% - Immature Granulocytes (promyelocytes, myelocytes and metamyelocytes) > 1% indicates that a LEFT SHIFT is Present. Performed By: #### L 300.3900, L501.9520, L503.6550, L506.0400, L3890.6202, L500.4050, L501.4700, L501.6710, L503.6030, L504.2610, L800.1280, L3410.9992, L501.5101, L803.2200, L3000.0375, L3300.0100, L3400.0700, L3100.5450, L100.0100, L400.0001 ####[facility] [address] [facility] [place], [place], [phone](085) Lymphocytes/100 WBC (Bld) 26.3 % Normal 19-41 [facility] Comment on above: Performed By: #### L 300.3900, L501.9520, L503.6550, L506.0400, L3890.6202, L500.4050, L501.4700, L501.6710, L503.6030, L504.2610, L800.1280, L3410.9992, L501.5101, L803.2200, L3000.0375, L3300.0100, L3400.0700, L3100.5450, L100.0100, L400.0001 ####[facility] [address] [facility] [place], [place], [phone] MCH (RBC) [Entitic mass] 31.6 pg Normal 27.0-32.0 [facility] Comment on above: Performed By: #### L 300.3900, L501.9520, L503.6550, L506.0400, L3890.6202, L500.4050, L501.4700, L501.6710, L503.6030, L504.2610, L800.1280, L3410.9992, L501.5101, L803.2200, L3000.0375, L3300.0100, L3400.0700, L3100.5450, L100.0100, L400.0001 ####[facility] [address] [place], [place], [phone] MCHC (RBC) [Mass/Vol] 34.5 g/dL Normal 32-[address] [facility] Comment on above: Performed By: #### L 300.3900, L501.9520, L503.6550, L506.0400, L3890.6202, L500.4050, L501.4700, L501.6710, L503.6030, L504.2610, L800.1280, L3410.9992, L501.5101, L803.2200, L3000.0375, L3300.0100, L3400.0700, L3100.5450, L100.0100, L400.0001 ####[facility] [address] [place], [place], [phone] MCV (RBC) [Entitic vol] 91.6 fL Normal 81-99 [facility] Comment on above: Performed By: #### L 300.3900, L501.9520, L503.6550, L506.0400, L3890.6202, L500.4050, L501.4700, L501.6710, L503.6030, L504.2610, L800.1280, L3410.9992, L501.5101, L803.2200, L3000.0375, L3300.0100, L3400.0700, L3100.5450, L100.0100, L400.0001 ####[facility] [address] [place], [place], [phone](318) Monocytes/100 WBC (Bld) 8.4 % Normal 0-10 [facility] Comment on above: Performed By: #### L 300.3900, L501.9520, L503.6550, L506.0400, L3890.6202, L500.4050, L501.4700, L501.6710, L503.6030, L504.2610, L800.1280, L3410.9992, L501.5101, L803.2200, L3000.0375, L3300.0100, L3400.0700, L3100.5450, L100.0100, L400.0001 ####[facility] [address] [facility] [place], [place], [phone](842) Neutrophils/100 WBC (Bld) 63.2 % Normal 47-70 [facility] Comment on above: Performed By: #### L 300.3900, L501.9520, L503.6550, L506.0400, L3890.6202, L500.4050, L501.4700, L501.6710, L503.6030, L504.2610, L800.1280, L3410.9992, L501.5101, L803.2200, L3000.0375, L3300.0100, L3400.0700, L3100.5450, L100.0100, L400.0001 ####[facility] [address] [place], [place], [phone](821) Nucleated RBC (Bld) [#/Vol] 0 10*3/uL Normal 0-5 [facility] Comment on above: Performed By: #### L 300.3900, L501.9520, L503.6550, L506.0400, L3890.6202, L500.4050, L501.4700, L501.6710, L503.6030, L504.2610, L800.1280, L3410.9992, L501.5101, L803.2200, L3000.0375, L3300.0100, L3400.0700, L3100.5450, L100.0100, L400.0001 ####[facility] [address] [place], [place], [phone](523) Platelet mean volume (Bld) [Entitic vol] 9.9 fL Normal 6.2-12.0 [facility] Comment on above: Performed By: #### L 300.3900, L501.9520, L503.6550, L506.0400, L3890.6202, L500.4050, L501.4700, L501.6710, L503.6030, L504.2610, L800.1280, L3410.9992, L501.5101, L803.2200, L3000.0375, L3300.0100, L3400.0700, L3100.5450, L100.0100, L400.0001 ####[facility] [address] [place], [place], [phone] Platelets (Bld) [#/Vol] 213 10*3/uL Normal 150-450 [facility] Comment on above: Performed By: #### L 300.3900, L501.9520, L503.6550, L506.0400, L3890.6202, L500.4050, L501.4700, L501.6710, L503.6030, L504.2610, L800.1280, L3410.9992, L501.5101, L803.2200, L3000.0375, L3300.0100, L3400.0700, L3100.5450, L100.0100, L400.0001 ####[facility] [address] [place], [place], [phone] RBC (Bld) [#/Vol] 4.53 10*6/uL Normal 4.2-5.4 [facility] Comment on above: Performed By: #### L 300.3900, L501.9520, L503.6550, L506.0400, L3890.6202, L500.4050, L501.4700, L501.6710, L503.6030, L504.2610, L800.1280, L3410.9992, L501.5101, L803.2200, L3000.0375, L3300.0100, L3400.0700, L3100.5450, L100.0100, L400.0001 ####[facility] [address] [place], [place], [phone] RDW SD 40.3 fl Normal 35.1-43.9 [facility] Comment on above: Performed By: #### L 300.3900, L501.9520, L503.6550, L506.0400, L3890.6202, L500.4050, L501.4700, L501.6710, L503.6030, L504.2610, L800.1280, L3410.9992, L501.5101, L803.2200, L3000.0375, L3300.0100, L3400.0700, L3100.5450, L100.0100, L400.0001 ####[facility] [address] [place], [place], [phone] WBC (Bld) [#/Vol] 6.9 10*3/uL Normal 4.4-11.0 [facility] Comment on above: Performed By: #### L 300.3900, L501.9520, L503.6550, L506.0400, L3890.6202, L500.4050, L501.4700, L501.6710, L503.6030, L504.2610, L800.1280, L3410.9992, L501.5101, L803.2200, L3000.0375, L3300.0100, L3400.0700, L3100.5450, L100.0100, L400.0001 ####[facility] [address] [place], [address] CRPon 02-14-2025 C-REACTIVE PROT 8.11 mg/L High 0.0-3.0 [facility] Comment on above: Order Comment: DR. Kezia MILLER ORDERED A LIVER PANEL WELL Performed By: #### L 300.3900, L501.9520, L503.6550, L506.0400, L3890.6202, L500.4050, L501.4700, L501.6710, L503.6030, L504.2610, L800.1280, L3410.9992, L501.5101, L803.2200, L3000.0375, L3300.0100, L3400.0700, L3100.5450, L100.0100, L400.0001 ####[facility] [address] [place], [place], [phone] Carbon dioxide, total [Moles /volume] in Central venous bloodOrdered By: Ankur Dunlap on 02-14-2025 CO2 [Moles/Vol] 21.5 mmol/L 21.0-32.0 [facility] Chloride assayOrdered By: Ruchi Dunlap on 02-14-2025 Chloride [Moles/Vol] 106 mmol/L 98-108 [facility] Comprehensive Metabolic Prof ilon 02-14-2025 Albumin [Mass/Vol] 4.1 g/dL Normal 3.5-5.0 [facility] Comment on above: Order Comment: DR. Kezia MILLER ORDERED A LIVER PANEL WELL Performed By: #### L 300.3900, L501.9520, L503.6550, L506.0400, L3890.6202, L500.4050, L501.4700, L501.6710, L503.6030, L504.2610, L800.1280, L3410.9992, L501.5101, L803.2200, L3000.0375, L3300.0100, L3400.0700, L3100.5450, L100.0100, L400.0001 ####[facility] [address] [facility]. [place], [place], [phone]) Albumin/Globulin [Mass ratio] 1.6 {ratio} Normal 0.9-2.4 [facility] Comment on above: Order Comment: DR. Kezia MILLER ORDERED A LIVER PANEL WELL Performed By: #### L 300.3900, L501.9520, L503.6550, L506.0400, L3890.6202, L500.4050, L501.4700, L501.6710, L503.6030, L504.2610, L800.1280, L3410.9992, L501.5101, L803.2200, L3000.0375, L3300.0100, L3400.0700, L3100.5450, L100.0100, L400.0001 ####[facility] [address] [facility] [place], [place], [phone] [phone] PHOS 104 U/L Normal 35-104 [facility] Comment on above: Order Comment: DR. Kezia MILLER ORDERED A LIVER PANEL WELL Performed By: #### L 300.3900, L501.9520, L503.6550, L506.0400, L3890.6202, L500.4050, L501.4700, L501.6710, L503.6030, L504.2610, L800.1280, L3410.9992, L501.5101, L803.2200, L3000.0375, L3300.0100, L3400.0700, L3100.5450, L100.0100, L400.0001 ####[facility] [address] [facility]. [place], [place], [phone] ALT [Catalytic activity/Vol] 185 U/L High <=34 [facility] Comment on above: Order Comment: DR. Kezia MILLER ORDERED A LIVER PANEL WELL Performed By: #### L 300.3900, L501.9520, L503.6550, L506.0400, L3890.6202, L500.4050, L501.4700, L501.6710, L503.6030, L504.2610, L800.1280, L3410.9992, L501.5101, L803.2200, L3000.0375, L3300.0100, L3400.0700, L3100.5450, L100.0100, L400.0001 ####[facility] [address] [facility] [place], [address] AST [Catalytic activity/Vol] 172 U/L High <=31 [facility] Comment on above: Order Comment: DR. Kezia MILLER ORDERED A LIVER PANEL WELL Performed By: #### L 300.3900, L501.9520, L503.6550, L506.0400, L3890.6202, L500.4050, L501.4700, L501.6710, L503.6030, L504.2610, L800.1280, L3410.9992, L501.5101, L803.2200, L3000.0375, L3300.0100, L3400.0700, L3100.5450, L100.0100, L400.0001 ####[facility] [address] [facility] [address] [place], [place], [phone] Bilirubin [Mass/Vol] 0.44 mg/dL Normal 0.00-1.30 [facility] Comment on above: Order Comment: DR. Kezia MILLER ORDERED A LIVER PANEL WELL Performed By: #### L 300.3900, L501.9520, L503.6550, L506.0400, L3890.6202, L500.4050, L501.4700, L501.6710, L503.6030, L504.2610, L800.1280, L3410.9992, L501.5101, L803.2200, L3000.0375, L3300.0100, L3400.0700, L3100.5450, L100.0100, L400.0001 ####[facility] [address] [place], [place], [phone] BUN/CRE 17.5 RATIO Normal 10-20 [facility] Comment on above: Order Comment: DR. Kezia MILLER ORDERED A LIVER PANEL WELL Performed By: #### L 300.3900, L501.9520, L503.6550, L506.0400, L3890.6202, L500.4050, L501.4700, L501.6710, L503.6030, L504.2610, L800.1280, L3410.9992, L501.5101, L803.2200, L3000.0375, L3300.0100, L3400.0700, L3100.5450, L100.0100, L400.0001 ####[facility] [address] [facility] [place], [address] Calcium [Mass/Vol] 8.5 mg/dL Normal 7.6-11.0 [facility] Comment on above: Order Comment: DR. Kezia MILLER ORDERED A LIVER PANEL WELL Performed By: #### L 300.3900, L501.9520, L503.6550, L506.0400, L3890.6202, L500.4050, L501.4700, L501.6710, L503.6030, L504.2610, L800.1280, L3410.9992, L501.5101, L803.2200, L3000.0375, L3300.0100, L3400.0700, L3100.5450, L100.0100, L400.0001 ####[facility] [address] [facility] [place], [address] Chloride [Moles/Vol] 106 mmol/L Normal 98-108 [facility] Comment on above: Order Comment: DR. Kezia MILLER ORDERED A LIVER PANEL WELL Performed By: #### L 300.3900, L501.9520, L503.6550, L506.0400, L3890.6202, L500.4050, L501.4700, L501.6710, L503.6030, L504.2610, L800.1280, L3410.9992, L501.5101, L803.2200, L3000.0375, L3300.0100, L3400.0700, L3100.5450, L100.0100, L400.0001 ####[facility] [address] [place], [place], [phone] CO2 [Moles/Vol] 21.5 mmol/L Normal 21.0-32.0 [facility] Comment on above: Order Comment: DR. Kezai MILLER ORDERED A LIVER PANEL WELL Performed By: #### L 300.3900, L501.9520, L503.6550, L506.0400, L3890.6202, L500.4050, L501.4700, L501.6710, L503.6030, L504.2610, L800.1280, L3410.9992, L501.5101, L803.2200, L3000.0375, L3300.0100, L3400.0700, L3100.5450, L100.0100, L400.0001 ####[facility] [address] [facility]. [place], [place], [phone] Creatinine [Mass/Vol] 0.93 mg/dL Normal 0.70-1.[address] [facility] Comment on above: Order Comment: DR. Kezia MILLER ORDERED A LIVER PANEL WELL Performed By: #### L 300.3900, L501.9520, L503.6550, L506.0400, L3890.6202, L500.4050, L501.4700, L501.6710, L503.6030, L504.2610, L800.1280, L3410.9992, L501.5101, L803.2200, L3000.0375, L3300.0100, L3400.0700, L3100.5450, L100.0100, L400.0001 ####[facility] [address] [facility] [place], [place], [phone] GAP 13 Normal 5-15 [facility] Comment on above: Order Comment: DR. Kezia MILLER ORDERED A LIVER PANEL WELL Performed By: #### L 300.3900, L501.9520, L503.6550, L506.0400, L3890.6202, L500.4050, L501.4700, L501.6710, L503.6030, L504.2610, L800.1280, L3410.9992, L501.5101, L803.2200, L3000.0375, L3300.0100, L3400.0700, L3100.5450, L100.0100, L400.0001 ####[facility] [id number] [facility]. [place], [place], [id number] GFR/1.73 sq M.predicted among non-blacks MDRD (S/P/Bld) [Vol rate/Area] 72 mL/min/{1.73_m2} Normal >60 [facility] Comment on above: Order Comment: DR. Kezia MILLER ORDERED A LIVER PANEL WELL Result Comment: mL/m in/1.73m2 CKD-EPI Creatinine Equation (2020) Performed By: #### L 300.3900, L501.9520, L503.6550, L506.0400, L3890.6202, L500.4050, L501.4700, L501.6710, L503.6030, L504.2610, L800.1280, L3410.9992, L501.5101, L803.2200, L3000.0375, L3300.0100, L3400.0700, L3100.5450, L100.0100, L400.0001 ####[facility] [id number], [address] Globulin (S) [Mass/Vol] 2.6 g/dL Normal 2.2-4.2 [facility] Comment on above: Order Comment: DR. Kezia MILLER ORDERED A LIVER PANEL WELL Performed By: #### L 300.3900, L501.9520, L503.6550, L506.0400, L3890.6202, L500.4050, L501.4700, L501.6710, L503.6030, L504.2610, L800.1280, L3410.9992, L501.5101, L803.2200, L3000.0375, L3300.0100, L3400.0700, L3100.5450, L100.0100, L400.0001 ####[facility] [id number] [place], [address] Glucose [Mass/Vol] 104 mg/dL High 70-99 [facility] Comment on above: Order Comment: DR. Kezia MILLER ORDERED A LIVER PANEL WELL Performed By: #### L 300.3900, L501.9520, L503.6550, L506.0400, L3890.6202, L500.4050, L501.4700, L501.6710, L503.6030, L504.2610, L800.1280, L3410.9992, L501.5101, L803.2200, L3000.0375, L3300.0100, L3400.0700, L3100.5450, L100.0100, L400.0001 ####[facility] [id number] [facility] [place], [address] Potassium [Moles/Vol] 3.8 mmol/L Normal 3.3-5.[address] [facility] Comment on above: Order Comment: DR. Kezia MILLER ORDERED A LIVER PANEL WELL Result Comment: Hemo lysis present, Results??could be affected. ?? Performed By: #### L 300.3900, L501.9520, L503.6550, L506.0400, L3890.6202, L500.4050, L501.4700, L501.6710, L503.6030, L504.2610, L800.1280, L3410.9992, L501.5101, L803.2200, L3000.0375, L3300.0100, L3400.0700, L3100.5450, L100.0100, L400.0001 ####[facility] [address] [place], [place], [id number] Sodium [Moles/Vol] 141 mmol/L Normal 133-145 [facility] Comment on above: Order Comment: DR. Kezia MILLER ORDERED A LIVER PANEL WELL Performed By: #### L 300.3900, L501.9520, L503.6550, L506.0400, L3890.6202, L500.4050, L501.4700, L501.6710, L503.6030, L504.2610, L800.1280, L3410.9992, L501.5101, L803.2200, L3000.0375, L3300.0100, L3400.0700, L3100.5450, L100.0100, L400.0001 ####[facility] [address] [place], [place], [id number] T PROT 6.7 g/dL Normal 5.9-8.4 [facility] Comment on above: Order Comment: DR. Kezia MILLER ORDERED A LIVER PANEL WELL Performed By: #### L 300.3900, L501.9520, L503.6550, L506.0400, L3890.6202, L500.4050, L501.4700, L501.6710, L503.6030, L504.2610, L800.1280, L3410.9992, L501.5101, L803.2200, L3000.0375, L3300.0100, L3400.0700, L3100.5450, L100.0100, L400.0001 ####[facility] [address] [place], [address] Urea nitrogen [Mass/Vol] 16 mg/dL Normal 4-19 [facility] Comment on above: Order Comment: DR. Kezia MILLER ORDERED A LIVER PANEL WELL Performed By: #### L 300.3900, L501.9520, L503.6550, L506.0400, L3890.6202, L500.4050, L501.4700, L501.6710, L503.6030, L504.2610, L800.1280, L3410.9992, L501.5101, L803.2200, L3000.0375, L3300.0100, L3400.0700, L3100.5450, L100.0100, L400.0001 ####[facility] [address] [facility]. [place], [place], [id number] Eosinophil percentageOrdered By: [facility] on 02-14-2025 Eosinophils/100 WBC (Bld) 1.7 % 0-5 [facility] Erythrocyte distribution wid th ratioOrdered By: [facility] on 02-14-2025 Erythrocyte distribution width (RBC) [Ratio] 12.0 % 11.6-14.6 [facility] Erythrocyte distribution wid th standard deviationOrdered By: [facility] on 02-14-2025 Erythrocyte distribution width (RBC) [Ratio] 40.3 fl 35.1-43.9 [facility] Ferritinon 02-14-2025 Ferritin [Mass/Vol] 96 ng/mL Normal 22-378 [facility] Comment on above: Order Comment: DR. Kezia MILLER ORDERED A LIVER PANEL WELL Performed By: #### L 300.3900, L501.9520, L503.6550, L506.0400, L3890.6202, L500.4050, L501.4700, L501.6710, L503.6030, L504.2610, L800.1280, L3410.9992, L501.5101, L803.2200, L3000.0375, L3300.0100, L3400.0700, L3100.5450, L100.0100, L400.0001 ####[facility] [address] [place], [address] Gamma glutamyl transferase ( GGT) measurementOrdered By: Ankur Dunlap on 02-14-2025 Amylase [Catalytic activity/Vol] 34 U/L 0-60 [facility] Glomerular filtration rate ( GFR) estimation/1.73 sq m using serum, plasma, or whole bOrdered By: Ankur Dunlap on 02-14-2025 GFR/1.73 sq M.predicted among non-blacks MDRD (S/P/Bld) [Vol rate/Area] 72 mL/min/{1.73_m2} >60 [facility] Comment on above: mL/min/1.73m2 CKD-EP I Creatinine Equation (2020) Hematocrit Auto (Bld) [Volum e fraction]Ordered By: Ankur Dunlap on 02-14-2025 Hematocrit (Bld) [Volume fraction] 41.5 % 37-47 [facility] Hemoglobin measurementOrdere d By: Ankur Dunlap on 02-14-2025 Hemoglobin (Bld) [Mass/Vol] 14.3 g/dL 12.0-15.0 [facility] Hepatitis B Surface Antibody on 02-14-2025 HEP B Surf Ab REAC Normal [facility] Comment on above: Order Comment: DR. Kezia MILLER ORDERED A LIVER PANEL WELL Result Comment: <8.5 mIU/mL: Non-Reactive 8.5<= x <11.5 mIU/mL: Indeterminate >=11.5 mIU/mL: Reactive Non Reactive: Inconsistent with immunity less than <10 mIU/mL Reactive: Consistent with immunity greater than or equal to 10 mIU/mL Performed By: #### L 300.3900, L501.9520, L503.6550, L506.0400, L3890.6202, L500.4050, L501.4700, L501.6710, L503.6030, L504.2610, L800.1280, L3410.9992, L501.5101, L803.2200, L3000.0375, L3300.0100, L3400.0700, L3100.5450, L100.0100, L400.0001 ####[facility] [address] [place], [address] Immature granulocytes/100 WB C Auto (Bld)Ordered By: Ankur Dunlap on 02-14-2025 Immature granulocytes/100 WBC (Bld) 0.100 % 0.0-0.9 [facility] Comment on above: IG% - Immature Granu locytes (promyelocytes, myelocytes and metamyelocytes) > 1% indicates that a LEFT SHIFT is Present. International normalized rat io (INR) calculationOrdered By: Ankur Dunlap on 02-14-2025 INR Coag (Bld) [Relative time] 0.9 {INR} [facility] Iron measurement (mass/mass) Ordered By: Ankur Dunlap on 02-14-2025 Iron (Unsp spec) [Mass/Mass] 110 ug/dL 50-170 [facility] Iron+Iron Binding Capacityon 02-14-2025 Iron [Mass/Vol] 110 ug/dL Normal 50-170 [facility] Comment on above: Order Comment: DR. Kezia MILLER ORDERED A LIVER PANEL WELL Performed By: #### L 300.3900, L501.9520, L503.6550, L506.0400, L3890.6202, L500.4050, L501.4700, L501.6710, L503.6030, L504.2610, L800.1280, L3410.9992, L501.5101, L803.2200, L3000.0375, L3300.0100, L3400.0700, L3100.5450, L100.0100, L400.0001 ####[facility] [address], [address] UIBC 172 ug/dL Low 228-428 [facility] Comment on above: Order Comment: DR. Kezia MILLER ORDERED A LIVER PANEL WELL Performed By: #### L 300.3900, L501.9520, L503.6550, L506.0400, L3890.6202, L500.4050, L501.4700, L501.6710, L503.6030, L504.2610, L800.1280, L3410.9992, L501.5101, L803.2200, L3000.0375, L3300.0100, L3400.0700, L3100.5450, L100.0100, L400.0001 ####[facility] [address] [facility]. [place], [place], [id number] Ketones Test strip Ql (U)Ord ered By: Ankur Dunlap on 02-14-2025 Ketones Ql (U) Negative Negative [facility] LDHon 02-14-2025 LDH 269 U/L High 84-246 [facility] Comment on above: Order Comment: DR. Kezia MILLER ORDERED A LIVER PANEL WELL1 Result Comment: Hemo lysis present, Results??could be affected. ?? Performed By: #### L 300.3900, L501.9520, L503.6550, L506.0400, L3890.6202, L500.4050, L501.4700, L501.6710, L503.6030, L504.2610, L800.1280, L3410.9992, L501.5101, L803.2200, L3000.0375, L3300.0100, L3400.0700, L3100.5450, L100.0100, L400.0001 ####[facility] [address] [facility]. [place], [place], [id number] Laboratory - Chemistry and C hemistry - challengeOrdered By: Ankur Dunlap on 02-14-2025 AST [Catalytic activity/Vol] 172 U/L High <32 [facility] Lactate dehydrogenase (LDH) measurementOrdered By: Ankur Dunlap on 02-14-2025 LDH [Catalytic activity/Vol] 269 U/L High 84-246 [facility] Comment on above: Hemolysis present, R esults could be affected. MCV (mean corpuscular volume ) determinationOrdered By: Ankur Dunlap on 02-14-2025 MCV (RBC) [Entitic vol] 91.6 fL 81-99 [facility] Mean corpuscular hemoglobin (MCH) determinationOrdered By: Ankur Dunlap on 02-14-2025 MCH (RBC) [Entitic mass] 31.6 pg 27.0-32.0 [facility] Mean corpuscular hemoglobin concentration (MCHC) determinationOrdered By: Ankur Dunlap on 02-14-2025 MCHC (RBC) [Mass/Vol] 34.5 g/dL 32-[address] [facility] Mean platelet volume determi nationOrdered By: Ankur Dunlap on 02-14-2025 Platelet mean volume (Bld) [Entitic vol] 9.9 fL 6.2-12.0 [facility] Microscopic analysis of urin e for red blood cells (RBC)Ordered By: Ankur Dunlap on 02-14-2025 Microscopic analysis of urine for red blood cells (RBC) 0 SEEN /hpf 0-5 [facility] Monocyte percentageOrdered B y: Ankur Dunlap on 02-14-2025 Monocytes/100 WBC (Bld) 8.4 % 0-10 [facility] Mucus LM Ql (Urine sed)Order ed By: Ankur Dunlap on 02-14-2025 Mucus Ql (Urine sed) 0 SEEN /hpf [facility] Neutrophil percentageOrdered By: Ankur Dunlap on 02-14-2025 Neutrophils/100 WBC (Bld) 63.2 % 47-70 [facility] Nitrite Test strip Ql (U)Ord ered By: Ankur Dunlap on 02-14-2025 Nitrite Ql (U) Negative Negative [facility] No Panel InformationOrdered By: Ankur Dunlap on 02-14-2025 Hepatitis C Antibody Comment Comment . [facility] Comment on above: Not infected with HC V unless early or acute infection issuspected (which may be delayed in an immunocompromisedindividual), or other evidence exists to indicate HCVinfection. Unsaturated Iron Binding Capacity 172 ug/dL Low 228-428 [facility] Nucleated red blood cell per centageOrdered By: Ankur Dunlap on 02-14-2025 Nucleated RBC/100 WBC (Bld) [Ratio] 0 % 0-5 [facility] Platelet countOrdered By: Ruchi Dunlap on 02-14-2025 Platelets (Bld) [#/Vol] 213 10*3/uL 150-450 [facility] Potassium measurement (mass/ volume)Ordered By: Ankur Dunlap on 02-14-2025 Potassium (Unsp spec) [Mass/Vol] 3.8 mmol/L 3.3-5.1 [facility] Comment on above: Hemolysis present, R esults could be affected. Protein Test strip Ql (U)Ord ered By: Ankur Dunlap on 02-14-2025 Protein Ql (U) 30 mg/dl High Negative [facility] Prothrombin Time w/INRon INR Coag (PPP) [Relative time] 0.9 {INR} Normal [facility] Comment on above: Performed By: #### L 300.3900, L501.9520, L503.6550, L506.0400, L3890.6202, L500.4050, L501.4700, L501.6710, L503.6030, L504.2610, L800.1280, L3410.9992, L501.5101, L803.2200, L3000.0375, L3300.0100, L3400.0700, L3100.5450, L100.0100, L400.0001 ####[facility] [address] [place], [place], [phone] PT Coag (PPP) [Time] 12.7 s Normal 11.7-14.9 [facility] Comment on above: Performed By: #### L 300.3900, L501.9520, L503.6550, L506.0400, L3890.6202, L500.4050, L501.4700, L501.6710, L503.6030, L504.2610, L800.1280, L3410.9992, L501.5101, L803.2200, L3000.0375, L3300.0100, L3400.0700, L3100.5450, L100.0100, L400.0001 ####[facility] [address], [address] Prothrombin timeOrdered By: Ankur Dunlap on 02-14-2025 PT Coag (PPP) [Time] 12.7 s 11.7-14.9 [facility] RBC Auto (Bld) [#/Vol]Ordere d By: Ankur Dunlap on 02-14-2025 RBC (Bld) [#/Vol] 4.53 10*6/uL 4.2-5.4 [facility] Serum DNA double strand anti body assay (units/volume)Ordered By: Ankur Dunlap on 02-14-2025 DNA double strand Ab Qn (S) 11 [IU]/mL High 0-9 [facility] Comment on above: Negative <5 Equivoca l 5 - 9 Positive >9 Serum Scl-70 antibody assay (units/volume)Ordered By: Ankur Dunlap on 02-14-2025 SCL-70 extractable nuclear Ab Qn (S) <0.2 AI 0.0-0.9 [facility] Comment on above: Previous reported re sult: TNP AIEdited by: LI on 02/18/25:1408 AMENDED REPORT 02/18/25 1408 ANTISCLER previously reported as: Test not performed Serum creatinine measurement (mass/volume)Ordered By: Ankur Dunlap on 02-14-2025 Creatinine [Mass/Vol] 0.93 mg/dL 0.70-1.[address] [facility] Serum globulin measurementOr dered By: Ankur Dunlap on 02-14-2025 Globulin (S) [Mass/Vol] 2.6 g/dL 2.2-4.2 [facility] Serum glucose measurement (m ass/volume)Ordered By: Ankur Dunlap on 02-14-2025 Glucose [Mass/Vol] 104 mg/dL High 70-99 [facility] Serum hepatitis B virus surf jessica antibody detectionOrdered By: Ankur Dunlap on 02-14-2025 HBV surface Ab Ql (S) REAC [facility] Comment on above: <8.5 mIU/mL: Non-Bush ctive8.5<= x <11.5 mIU/mL: Indeterminate>=11.5 mIU/mL: Reactive Non Reactive: Inconsistent with immunity less than <10 mIU/mL Reactive: Consistent with immunity greater than or equal to 10 mIU/mL Serum mitochondria antibody detectionOrdered By: Ankur Dunlap on 02-14-2025 Mitochondria Ab Ql (S) <20.0 Units 0.0-20.0 [facility] Comment on above: Negative 0.0 - 20.0 Equivocal 20.1 - 24.9 Positive >24.9Mitochondrial (M2) Antibodies are found in 90-96% ofpatients with primary biliary cirrhosis. Serum or plasma C reactive p rotein measurement (mass/volume)Ordered By: Ankur Dunlap on 02-14-2025 CRP [Mass/Vol] 8.11 mg/L High 0.0-3.0 [facility] Serum or plasma actin IgG an tibody assay (units/volume)Ordered By: Ankur Dunlap on 02-14-2025 Actin IgG Qn 3 Units 0-19 [facility] Comment on above: Negative 0 - 19 Weak positive 20 - 30 Moderate to strong positive >30 Actin Antibodies are found in 52-85% of patients with autoimmune hepatitis or chronic active hepatitis and in 22% of patients with primary biliary cirrhosis. Serum or plasma alanine pritchard otransferase (ALT) measurementOrdered By: Ankur Dunlap on 02-14-2025 ALT [Catalytic activity/Vol] 185 U/L High <35 [facility] Serum or plasma albumin alex urement (mass/volume)Ordered By: Ankur Dunlap on 02-14-2025 Albumin [Mass/Vol] 4.1 g/dL 3.5-5.0 [facility] Serum or plasma albumin/glob ulin mass ratioOrdered By: Ankur Dunlap on 02-14-2025 Albumin/Globulin [Mass ratio] 1.6 {ratio} 0.9-2.4 [facility] Serum or plasma alkaline batsheva sphatase measurementOrdered By: Ankur Dunlap on 02-14-2025 ALP [Catalytic activity/Vol] 104 U/L 35-104 [facility] Serum or plasma calcium alex urement (mass/volume)Ordered By: Ankur Dunlap on 02-14-2025 Calcium [Mass/Vol] 8.5 mg/dL 7.6-11.0 [facility] Serum or plasma ferritin corrine surement (mass/volume)Ordered By: Ankur Dunlap on 02-14-2025 Ferritin [Mass/Vol] 96 ng/mL 22-378 [facility] Serum or plasma hepatitis B virus surface antigen detection by immunoassayOrdered By: Ankur Dunlap on 02-14-2025 HBV surface Ag IA Ql Negative Negative [facility] Serum or plasma iron saturat ion measurement (mass fraction)Ordered By: Ankur Dunlap on 02-14-2025 Iron saturation [Mass fraction] 39.0 % 13-59 [facility] Serum or plasma urea nitroge n measurement (mass/volume)Ordered By: Ankur Dunlap on 02-14-2025 Urea nitrogen [Mass/Vol] 16 mg/dL 4-19 [facility] Sodium levelOrdered By: Betty Dunlap on 02-14-2025 Sodium [Moles/Vol] 141 mmol/L 133-145 [facility] Squamous epithelial cells de tection in urine sediment by light microscopyOrdered By: Ankur Dunlap on 02-14-2025 Epithelial cells.squamous LM Ql (Urine sed) 0-5 SEEN /hpf 5-10 [facility] T4 Free Directon 02-14-2025 T4 FREE DIRECT 0.80 ng/dL Normal 0.76-1.46 [facility] Comment on above: Order Comment: DR. Kezia MILLER ORDERED A LIVER PANEL WELL Performed By: #### L 300.3900, L501.9520, L503.6550, L506.0400, L3890.6202, L500.4050, L501.4700, L501.6710, L503.6030, L504.2610, L800.1280, L3410.9992, L501.5101, L803.2200, L3000.0375, L3300.0100, L3400.0700, L3100.5450, L100.0100, L400.0001 ####[facility] [address], [address] T4 freeOrdered By: Ankur mesa on 02-14-2025 Free T4 [Mass/Vol] 0.80 ng/dL 0.76-1.46 [facility] TSH DL <= 0.005 mIU/L QnOrde red By: Ankur Dunlap on 02-14-2025 TSH Qn 2.120 uIU/mL 0.300-4.200 [facility] Thyroid Stim Hormone (TSH)on 02-14-2025 TSH 2.120 uIU/mL Normal 0.300-4.200 [facility] Comment on above: Order Comment: DR. Kezia MILLER ORDERED A LIVER PANEL WELL Performed By: #### L 300.3900, L501.9520, L503.6550, L506.0400, L3890.6202, L500.4050, L501.4700, L501.6710, L503.6030, L504.2610, L800.1280, L3410.9992, L501.5101, L803.2200, L3000.0375, L3300.0100, L3400.0700, L3100.5450, L100.0100, L400.0001 ####[facility] [address] [facility] [address] [place], [place], [phone] Total proteinOrdered By: Francisco Dunlap on 02-14-2025 Protein [Mass/Vol] 6.7 g/dL 5.9-8.4 [facility] Urinalysis, Completeon 02-14 EPI,SQUAMOUS 0-5 SEEN Normal 5-10 [facility] Comment on above: Order Comment: COLLE CTOR TO SPECIFY Performed By: #### L 300.3900, L501.9520, L503.6550, L506.0400, L3890.6202, L500.4050, L501.4700, L501.6710, L503.6030, L504.2610, L800.1280, L3410.9992, L501.5101, L803.2200, L3000.0375, L3300.0100, L3400.0700, L3100.5450, L100.0100, L400.0001 ####[facility] [address] [place], [place], [id number] WBC 0-5 SEEN Normal 0-5 [facility] Comment on above: Order Comment: COLLE CTOR TO SPECIFY Performed By: #### L 300.3900, L501.9520, L503.6550, L506.0400, L3890.6202, L500.4050, L501.4700, L501.6710, L503.6030, L504.2610, L800.1280, L3410.9992, L501.5101, L803.2200, L3000.0375, L3300.0100, L3400.0700, L3100.5450, L100.0100, L400.0001 ####[facility] [address] [facility]. [place], [place], [id number] BACTERIA 0 SEEN Normal None Seen [facility] Comment on above: Order Comment: COLLE CTOR TO SPECIFY Performed By: #### L 300.3900, L501.9520, L503.6550, L506.0400, L3890.6202, L500.4050, L501.4700, L501.6710, L503.6030, L504.2610, L800.1280, L3410.9992, L501.5101, L803.2200, L3000.0375, L3300.0100, L3400.0700, L3100.5450, L100.0100, L400.0001 ####[facility] [address] [facility]. [place], [place], [phone] Mucus Ql (Urine sed) 0 SEEN Normal [facility] Comment on above: Order Comment: COLLE CTOR TO SPECIFY Performed By: #### L 300.3900, L501.9520, L503.6550, L506.0400, L3890.6202, L500.4050, L501.4700, L501.6710, L503.6030, L504.2610, L800.1280, L3410.9992, L501.5101, L803.2200, L3000.0375, L3300.0100, L3400.0700, L3100.5450, L100.0100, L400.0001 ####[facility] [address] [facility]. [place], [place], [phone] RBC 0 SEEN Normal 0-5 [facility] Comment on above: Order Comment: COLLE CTOR TO SPECIFY Performed By: #### L 300.3900, L501.9520, L503.6550, L506.0400, L3890.6202, L500.4050, L501.4700, L501.6710, L503.6030, L504.2610, L800.1280, L3410.9992, L501.5101, L803.2200, L3000.0375, L3300.0100, L3400.0700, L3100.5450, L100.0100, L400.0001 ####[facility] [address] [facility]. [place], [place], [phone] Urine clarityOrdered By: Francisco Dunlap on 02-14-2025 Clarity (U) Clear Clear [facility] Urine color determinationOrd ered By: Ankur Dunlap on 02-14-2025 Color (U) Yellow Yellow [facility] Urine glucose detectionOrder ed By: Ankur Dunlap on 02-14-2025 Glucose Ql (U) Normal mg/dl Normal [facility] Urine leukocyte esterase det ection by dipstickOrdered By: Ankur Dunlap on 02-14-2025 Leukocyte esterase Test strip Ql (U) 25 /ul High Negative [facility] Urine pHOrdered By: Ankur Dunlap on 02-14-2025 pH (U) 7.0 [pH] 5.0 - 8.0 [facility] Urine sediment bacteria coun t by microscopy (number/high power field)Ordered By: Ankur Dunlap on 02-14-2025 Bacteria LM.HPF (Urine sed) [#/Area] 0 /[HPF] None Seen [facility] Urine specific gravity measu rementOrdered By: Ankur Dunlap on 02-14-2025 Specific gravity (U) [Rel density] 1.015 1.002-1.030 [facility] Urine urobilinogen measureme ntOrdered By: Ankur Dunlap on 02-14-2025 Urobilinogen Ql (U) Normal mg/dl Normal [facility] White blood cell (WBC) count Ordered By: Ankur Dunlap on 02-14-2025 WBC (Bld) [#/Vol] 6.9 10*3/uL 4.4-11.0 [facility] White blood cell countOrdere d By: Ankur Dunlap on 02-14-2025 White blood cell count 0-5 SEEN /hpf 0-5 [facility] MITOCHONDRIAL ANTIBODY PANEL [CCL]on 01-25-2025 MITOCHONDRIAL ANTIBODY PANEL [CCL] Normal [facility] Comment on above: Result Comment: _MIT OCHONDRIAL AB PANEL [CCL]_ SEE SCANNED REPORT Performed By: #### 2 [id number] #### [place] [address] SMOOTH MUSCLE AB SCREEN [CCL ]on 01-25-2025 SMOOTH MUSCLE AB SCREEN [CCL] Normal [facility] Comment on above: Result Comment: _SMO OTH MUSCLE AB SCREEN [CCL]_ SEE SCANNED REPORT Performed By: #### 2 08721 #### [facility],[address] [place] [address] HEPATIC FUNCTION PANELon Albumin [Mass/Vol] 3.9 g/dL Normal 3.4 - 5.0 [facility] Comment on above: Performed By: #### 2 13180 #### [facility],[address] [place] [address] ALK PHOS 128 U/L High 46 - 116 [facility] Comment on above: Performed By: #### 2 86622 #### [facility],[address] [place] [address] ALT [Catalytic activity/Vol] 267 U/L High 16 - 63 [facility] Comment on above: Performed By: #### 2 52902 #### [facility],[address] [place], [place] [id number] AST [Catalytic activity/Vol] 188 U/L High 13 - 39 [facility] Comment on above: Performed By: #### 2 97947 #### [facility],[address] [place], [place] [id number] Bilirubin [Mass/Vol] 0.5 mg/dL Normal 0.2 - 1.0 [facility] Comment on above: Performed By: #### 2 69477 #### [facility],[address] [place] [address] Bilirubin.direct [Mass/Vol] 0.1 mg/dL Normal 0.0 - 0.2 [facility] Comment on above: Performed By: #### 2 06769 #### [facility],[address] [place] [address] Hepatic function 2000 panel Normal [facility] Comment on above: Result Comment: HEPA TIC FUNCTION PROFILE Performed By: #### 2 11091 #### [facility],[address] [place] [address] Protein [Mass/Vol] 7.6 g/dL Normal 6.4 - 8.2 [facility] Comment on above: Performed By: #### 2 30224 #### [facility],[address] [place], [place] [id number] Mitochondria Ab IF Ql (S)on 01-21-2025 Mitochondria M2 Ab IA Qn (S) 1.8 Units Normal <=20.0 [facility] Comment on above: Order Comment: Speci men Type: BLOOD SPECIMEN Ordering Facility: [facility] Address: [address] [place] [address] Performed By: #### 1 1572-5, ANAIFS, 22157-2, 4498-2, 35484-9, 4485-9, MICRO #### [facility] CLIA [id number] [address] [place] [address] [facility] Mitochondria M2 Ab Ql (S) Negative Normal Negative [facility] Comment on above: Order Comment: Chaparro bell Type: BLOOD SPECIMEN Ordering Facility: [facility] Address: [address] [place] [address] Result Comment: Anti -mitochondrial antibody test is used as an aid in diagnosis of primary biliary cholangitis. Clinical correlation is required. Performed By: #### 1 1572-5, ANAIFS, 44426-9, 4498-2, 03042-3, 4485-9, MICRO #### [facility] CLIA [id number] [address] [place] [address] [place] Smooth muscle Ab Ql (S)on ACTIN SMOOTH MUSCLE IGG QUALITATIVE Negative Normal Negative [facility] Comment on above: Order Comment: Chaparro bell Type: BLOOD SPECIMEN Ordering Facility: [facility] Address: [address] [place] [address] Performed By: #### 1 4252-1 #### [facility] CLIA [id number] [address] [place] [address] [facility] ACTIN SMOOTH MUSCLE IGG QUANTITATIVE 3 Units Normal <20 [facility] Comment on above: Order Comment: Chaparro bell Type: BLOOD SPECIMEN Ordering Facility: [facility] Address: [address] [place] [address] Performed By: #### 1 4252-1 #### [facility] CLIA [id number] [address] [place] [address] [place] ABD Limited w/ Elastographyo n 12-31-2024 ABD Limited w/ Elastography [facility] Services [address] [place], [place] [address] ABD Limited w/ Elastography MR#: [id number] Acct: [id number] Name: HONG SNOW Rep #: [id number] : 1970 F 54 From: [place] MD PCP: Rissa Tran PA-C Status: [facility] CLI Study: ABD Limited w/ Elastography Date of Exam: 12/22 Exam# [id number] Ordering Dr: Ankur Dunlap MD PROCEDURE: ABD LIMITED W/ ELASTOGRAPHY (USABDLELPARO), 12/31/2024 REASON FOR EXAM: Elevated liver enzymes. COMPARISON: None TECHNIQUE: Grayscale and color Doppler imaging of the right upper quadrant was performed. [employer] S-shear wave elastography was performed for non-invasive [...] of lifer fibrosis may be overestimated. Previous SRU reference values: <1.37 m/s (5.7kPa): No to mild fibrosis 1.37 m/s - 2.2 m/s: Moderate to severe fibrosis >2.2 m/s (15kPa): Significant fibrosis / cirrhosis Reading Location: [id number] CC: CHANDLER Tran; Dr. Ankur Dunlap MD Ob Gyn Physician Assistant: Signed Normal [facility] TRANSGLUTAMINASE IgG [CCL]on 12-27-2024 TRANSGLUTAMINASE IgG [CCL] Normal [facility] Comment on above: Result Comment: _TRA NSGLUTAMINASE IgG [CCL]_ SEE SCANNED REPORT Performed By: #### 2 35132 #### [place] [address] CCP AB, IgG AND IgA [CCL]on 12-25-2024 CCP AB, IgG AND IgA [CCL] Normal [facility] Comment on above: Result Comment: _CCP AB, IgG AND IgA [CCL]_ SEE SEPARATE REPORT Performed By: #### 2 45707 ####[place] [address] CODY BY IFA SCREEN [CCL]on Nuclear Ab IF (S) [Titer] Negative Normal Negative [facility] Comment on above: Result Comment: Anti -nuclear antibody test is used as an aid in diagnosis of systemic autoimmune diseases. Where positive and clinically warranted, follow-up using disease-specific testing is recommended. Low positive titers are not uncommon with advanced age, certain chronic infections, and malignancies among others. Test methodology: Indirect fluorescence immunoassay (IFA) using HEp-2 cells. [place] [address] [place] [address] Dominik Moralez III, M.D. [id number] Performed By: #### 2 98946 #### [place] [address]34 DNA ANTIBODY [CCL]on 025 DNA ANTIBODY [CCL] Normal [facility] Comment on above: Result Comment: _DNA ANTIBODY [CCL]_ SEE SCANNED REPORT Performed By: #### 2 71539 ####[facility],[address] [place] [address] ISSAC ANTIBODY PANEL [CCL]on 0 12-24-2024 ISSAC ANTIBODY PANEL [CCL] Normal [facility] Comment on above: Result Comment: _ENA ANTIBODY PANEL(CCL)_ SEE SCANNED REPORT Performed By: #### 2 15146 #### [facility],[address] [place] [address]6784 TRANSGLUTAMINASE IGA ABS [CC L]on 12-24-2024 TRANSGLUTAMINASE IGA ABS [CCL] Normal [facility] Comment on above: Result Comment: _TRA NSGLUTAMINASE IGA ABS [CCL]_ SEE SCANNED REPORT Performed By: #### 2 93362 #### [facility],[address] [place] [address]281 COMPLEMENT C3 [CCL]on 2024 C3 Complement 135 mg/dL Normal 86-166 [facility] Comment on above: Result Comment: [facility] [address] [place] [address] Dominik Moralez III, M.D. [id number] Performed By: #### 2 23057 #### [facility],[address] [place] [address] 11352 COMPLEMENT C4 [CCL]on 2024 C4 Complement 17 mg/dL Normal 13-46 [facility] Comment on above: Result Comment: [facility] [employer] [address] [place] [address] Dominik Moralez III, M.D. [id number] Performed By: #### 2 80328 ####[facility],[address] [place] [address]8846 RHEUMATOID FACTOR [CCL]on 03 -01-2025 Rheumatoid Factor <10 Normal <16 [facility] Comment on above: Result Comment: [address] [address] Dominik Moralez III, M.D. [id number] Performed By: #### 2 39744 ####[facility],[address] [place] [address] THYROID PEROXIDASE AB [CCL]o n 12-22-2024 TPO Antibody <3.0 Normal <5.6 [facility] Comment on above: Result Comment: Thyr oid Peroxidase Antibody test is used as an aid in diagnosis of autoimmune thyroid disease. Clinical correlation is required. [address] [address] Dominik Moralez III, M.D. [id number] Performed By: #### 2 98229 ####[facility],[address] [place] [address]226 CODY BY IFA SCREENon 12-21-19 25 Nuclear Ab Ql (S) Negative Normal Negative [facility] Comment on above: Order Comment: Speci men Type: BLOOD SPECIMEN Ordering Facility: [facility] Address: [address] [place] [address] Result Comment: Anti -nuclear antibody test is used as an aid in diagnosis of systemic autoimmune diseases. Where positive and clinically warranted, follow-up using disease-specific testing is recommended. Low positive titers are not uncommon with advanced age, certain chronic infections, and malignancies among others. Test methodology: Indirect fluorescence immunoassay (IFA) using HEp-2 cells. Performed By: #### 1 1572-5, ANAIFS, 89310-4, 4498-2, 35634-2, 4485-9, MICRO #### [facility] CLIA [id number] [address] [place] [address] [place] BUN/CREAT eGFR (NON-)on 12-21-2024 AGE 54 years Normal [facility] Comment on above: Performed By: #### 2 24103 ####[facility],[address] [place] [address] BUN/CREAT eGFR (NON-) Normal [facility] Comment on above: Result Comment: BUN/ CREATININE eGFR NON-) Performed By: #### 2 23250 ####[facility],[address] [place] [address]3025 Creatinine [Mass/Vol] 0.71 mg/dL Normal 0.55 - 1.02 [facility] Comment on above: Performed By: #### 2 96081 ####[facility],[address] [place] [address] GFR/1.73 sq M.predicted among non-blacks MDRD (S/P/Bld) [Vol rate/Area] mL/min/{1.73_m2} Normal 60 - 999 [facility] Comment on above: Result Comment: ACCO RDING [...] 18 AND OLDER. Performed By: #### 2 98318 ####[facility],[address] [place] [address] 60670 Urea nitrogen [Mass/Vol] 19 mg/dL High 7 - 18 [facility] Comment on above: Performed By: #### 2 93645 ####[facility],[address] [place] [address]35[address] C-REACTIVE PROTEINon 025 CRP 0.92 mg/dl High 0.00 - 0.90 [facility] Comment on above: Performed By: #### 2 49680 ####[facility],[address] [place] [address] C3 SerPl-mCncon 12-21-2024 Complement C3 [Mass/Vol] 135 mg/dL Normal 86-166 [facility] Comment on above: Order Comment: Speci men Type: BLOOD SPECIMEN Ordering Facility: [facility] Address: [address] [place], [place] [address] Performed By: #### 1 1572-5, ANAIFS, 92037-4, 4498-2, 05038-4, 4485-9, MICRO #### [facility] CLIA [id number] [address] [address] [place] C4 SerPl-mCncon 12-21-2024 Complement C4 [Mass/Vol] 17 mg/dL Normal 13-46 [facility] Comment on above: Order Comment: Speci men Type: BLOOD SPECIMEN Ordering Facility: [facility] Address: [address] [place] [address] Performed By: #### 1 1572-5, ANAIFS, 37282-3, 4498-2, 68432-6, 4485-9, MICRO #### [facility] CLIA [id number] [address] [place] [id number] [place] CBC + DIFFon 12-21-2024 Baso # 0.02 x10EE3/UL Normal 0.00 - 0.10 [facility] Comment on above: Performed By: #### 2 25433 #### [facility],[address] [place] [address] Basophils/100 WBC (Bld) 0.3 % Normal 0.0 - 2.0 [facility] Comment on above: Performed By: #### 2 03448 #### [facility],[address] [place] [address] [place] [address] CBC + DIFF Normal [facility] Comment on above: Result Comment: CBC- COMPLETE BLOOD COUNT Performed By: #### 2 36957 #### [facility],[address] [place] [address] 31155 EO # 0.11 x10EE3/UL Normal 0.00 - 0.50 [facility] Comment on above: Performed By: #### 2 13353 #### [facility],[address] [place], [place] [address] Eosinophils/100 WBC (Bld) 1.3 % Normal 0.0 - 7.0 [facility] Comment on above: Performed By: #### 2 97440 #### [facility],[address] [place] [address] Erythrocyte distribution width (RBC) [Ratio] 13.0 % Normal 12.0 - 15.6 [facility] Comment on above: Performed By: #### 2 21131 #### [place] [address] Hematocrit (Bld) [Volume fraction] 43.2 % Normal 34.0 - 46.0 [facility] Comment on above: Performed By: #### 2 35218 #### [place] [address] Hemoglobin (Bld) [Mass/Vol] 15.1 g/dL Normal 12.0 - 16.0 [facility] Comment on above: Performed By: #### 2 03346 #### [place] [address] Lymph # 2.20 x10EE3/UL Normal 0.80 - 2.80 [facility] Comment on above: Performed By: #### 2 05914 #### [place] [address] Lymphocytes/100 WBC (Bld) 24.6 % Normal 20.0 - 45.0 [facility] Comment on above: Performed By: #### 2 90656 #### [place] [id number] MANUAL DIFF N/A Normal [facility] Comment on above: Performed By: #### 2 46381 #### [place] [address] MCH (RBC) [Entitic mass] 32 pg Normal 27 - 33 [facility] Comment on above: Performed By: #### 2 36446 #### [facility],[address] [place] [address] MCHC 35 X10 3 Normal 32 - 36 [facility] Comment on above: Performed By: #### 2 69078 #### [facility],[address] [place] [address] MCV (RBC) [Entitic vol] 92 fL Normal 80 - 99 [facility] Comment on above: Performed By: #### 2 30331 #### [facility],[address] [place] [address] Izard # 0.58 x10EE3/UL Normal 0.20 - 1.00 [facility] Comment on above: Performed By: #### 2 29360 #### [facility],[address] [place] [address] MONOS % 6.5 % Normal 0.0 - 10.0 [facility] Comment on above: Performed By: #### 2 87794 #### [facility],[address] [place], [place] [address] Morphology Socrates (Bld) [Interp] N/A Normal [facility] Comment on above: Performed By: #### 2 30977 #### [facility],[address] [place] [address] Neut # 6.02 x10EE3/UL Normal 1.50 - 7.10 [facility] Comment on above: Performed By: #### 2 84029 #### [facility],[address] [place], [place] [address] Neutrophils/100 WBC (Bld) 67.3 % Normal 46.0 - 76.0 [facility] Comment on above: Performed By: #### 2 41519 #### [facility],[address] [place], [place] [address] PLATELET 184 x10EE3/UL Normal 150 - 450 [facility] Comment on above: Performed By: #### 2 31229 #### [facility],[address] [place] [address] Platelet mean volume (Bld) [Entitic vol] 8.5 fL Normal 6.6 - 10.5 [facility] Comment on above: Result Comment: AUTO MATED DIFFERENTIAL Performed By: #### 2 07569 #### [facility],[address] [place] [address]771 RBC 4.70 x 10EE6/UL Normal 4.10 - 5.30 [facility] Comment on above: Performed By: #### 2 03205 #### [facility],[address] [place] [address] 33946 WBC 8.9 x 10EE3/UL Normal 4.5 - 10.8 [facility] Comment on above: Performed By: #### 2 31015 #### [facility],[address] [place] [address]65[address] CPKon 12-21-2024 CPK 50 U/L Normal 26 - 192 [facility] Comment on above: Performed By: #### 2 10804 ####[facility],[address] [place] [address]72[address] Centromere Ab IF Ql (S)on Centromere Ab Qn (S) <0.2 Normal <1.0 [facility] Comment on above: Order Comment: Speci men Type: BLOOD SPECIMEN Ordering Facility: [facility] Address: [address] [place] [address] Result Comment: Anti -centromere antibody is used as in aid in diagnosis of systemic sclerosis. Clinical correlation is required. Test Methodology: Multiplex flow immunoassay. Performed By: #### M ISC1 #### [facility] CLIA [id number] [address] [place] [address] [place] NON-INTERFACED REF LABS CLIA SEE SCANNED RESULTS #### RNAIII #### [facility] CLIA [id number] [address] [place] [address] CENTROMERE AB QUAL Negative Normal Negative [facility] Comment on above: Order Comment: Speci men Type: BLOOD SPECIMEN Ordering Facility: [facility] Address: [address] [place] [address] Performed By: #### M ISC1 #### [facility] CLIA [id number] [address] [place] [address] [facility] NON-INTERFACED REF LABS CLIA SEE SCANNED RESULTS #### RNAIII #### [facility] CLIA [id number] [address] [place] [address] Chromatin Ab Qnon 12-21-2024 CHROMATIN AB QUAL Negative Normal Negative [facility] Comment on above: Order Comment: Speci men Type: BLOOD SPECIMEN Ordering Facility: [facility] Address: [address] [place] [address] Performed By: #### M ISC1 #### [facility] CLIA [id number] [address] [place] [address] NON-INTERFACED REF LABS CLIA SEE SCANNED RESULTS #### RNAIII #### [facility] CLIA [id number] [address] [place] [address] Chromatin Ab SerPl-aCncon Chromatin Ab Qn <0.2 Normal <1.0 [facility] Comment on above: Order Comment: Speci men Type: BLOOD SPECIMEN Ordering Facility: [facility] Address: [address] [place] [address] Result Comment: Test Methodology: Multiplex flow immunoassay. Performed By: #### M ISC1 #### [facility] CLIA [id number] [address] [place] [address] OF [place] NON-INTERFACED REF LABS CLIA SEE SCANNED RESULTS #### RNAIII #### [facility] CLIA [id number] [address] [place] [address] DNA ANTIBODY DS BLDon 2024 DNA ANTIBODY 6 IU/mL Normal <=200 [facility] Comment on above: Order Comment: Speci men Type: BLOOD SPECIMEN Ordering Facility: [facility] Address: [address] [place] [address] Result Comment: Nega tive: <200 IU/mL Equivocal: 201-300 IU/mL Moderate Positive: 301-800 IU/mL Strong Positive: >801 IU/mL Performed By: #### M ISC1 #### [facility] CLIA [id number] [address] [place] [address] NON-INTERFACED REF LABS CLIA SEE SCANNED RESULTS #### RNAIII #### [facility] CLIA [id number] [address] [place] [address] DNA ANTIBODY QUALITATIVE INTERPRETATION Negative Normal Negative [facility] Comment on above: Order Comment: Chaparro bell Type: BLOOD SPECIMEN Ordering Facility: [facility] Address: [address] [place] [address] Performed By: #### M ISC1 #### [facility] CLIA [id number] [address] [place] [address] NON-INTERFACED REF LABS CLIA SEE SCANNED RESULTS #### RNAIII #### [facility] CLIA [id number] [address] [place] [address] DORSAL SPINE 2 VIEWSon 12-21 DORSAL SPINE 2 VIEWS [place] [address] Patient: HONG SNOW Phone#: : 1970 Age: 54 Gender: F Pt. Type: Out Account: [id number] Location: [facility] Ordering: [facility] Exam Date: 12/21/2024/13:17 Family Phys: Charge Code: [id number] Physician: Ogle Order #: [id number] Dose#: PROCEDURE: X-RAY DORSAL SPINE 2 VIEWS [...] MD on 12/21/2024 at 13:49 Approved by: Aiem Blandon MD on 12/21/2024 at 13:50 Normal [facility] ISSAC Jo1 Ab Ser-aCncon 2024 Padma-1 extractable nuclear Ab Qn (S) <0.2 Normal <1.0 [facility] Comment on above: Order Comment: Specstefanie bell Type: BLOOD SPECIMEN Ordering Facility: [facility] Address: [address] [place] [address] Performed By: #### M ISC1 #### [facility] CLIA [id number] [address] [place] [address] NON-INTERFACED REF LABS CLIA SEE SCANNED RESULTS #### RNAIII #### [facility] CLIA [id number] [address] [place] [address] ISSAC BIOMEDICAL SCIENTIST Ab Ser-aCncon 2024 Ribonucleoprotein extractable nuclear Ab Qn (S) <0.2 Normal <1.0 [facility] Comment on above: Order Comment: Chaparro bell Type: BLOOD SPECIMEN Ordering Facility: [facility] Address: [address] [place] [address] Performed By: #### M ISC1 #### [facility] CLIA [id number] [address] [place] [address] NON-INTERFACED REF LABS CLIA SEE SCANNED RESULTS #### RNAIII #### [facility] CLIA [id number] [address] [place] [address] Ribonucleoprotein extractable nuclear Ab Qn (S) 0.3 AI Normal <1.0 [facility] Comment on above: Order Comment: Chaparro bell Type: BLOOD SPECIMEN Ordering Facility: [facility] Address: [address] [place] [address] Performed By: #### 1 1572-5, ANAIFS, 16682-0, 4498-2, 67348-6, 4485-9, MICRO #### [facility] CLIA [id number] [address] [place] [address] [place] ISSAC SM IgG Ser-aCncon 2024 Sheth extractable nuclear IgG Qn (S) <0.2 Normal <1.0 [facility] Comment on above: Order Comment: Speci men Type: BLOOD SPECIMEN Ordering Facility: [facility] Address: [address] [place] [address] Performed By: #### M ISC1 #### [facility] CLIA [id number] [address] [place] [address] [place] NON-INTERFACED REF LABS CLIA SEE SCANNED RESULTS #### RNAIII #### [facility] CLIA [id number] [address] [place] [address] ISSAC SS-A Ab Ser-aCncon 12-21 Sjogrens syndrome-A extractable nuclear Ab Qn (S) <0.2 Normal <1.0 [facility] Comment on above: Order Comment: Speci [facility] Type: BLOOD SPECIMEN Ordering Facility: [facility] Address: [address] [place] [address] Result Comment: Test Methodology: Multiplex flow immunoassay. Performed By: #### 1 1572-5, ANAIFS, 44101-2, 4498-2, 43681-3, 4485-9, MICRO #### [facility] CLIA [id number] [address] [place] [address] [place] ISSAC SS-B Ab Ser-aCncon 12-21 Sjogrens syndrome-B extractable nuclear Ab Qn (S) <0.2 Normal <1.0 [facility] Comment on above: Order Comment: Speci [facility] Type: BLOOD SPECIMEN Ordering Facility: [facility] Address: [address] [place] [address] Result Comment: Anti -SSB (anti-La) antibody is used as an aid in diagnosis of a variety of systemic autoimmune diseases, especially for Sjogren's syndrome and systemic lupus erythematosus. Clinical correlation is required. Test Methodology: Multiplex flow immunoassay. Performed By: #### M ISC1 #### [facility] CLIA [id number] [address] [place] [address] [place] [address] [place] NON-INTERFACED REF LABS CLIA SEE SCANNED RESULTS #### RNAIII #### [facility] CLIA [id number] [address] [place] [address] HAND LT MIN 3 VIEWSon 2024 HAND LT MIN [address] [address] Patient: HONG SNOW Phone#: : 1970 Age: 54 Gender: F Pt. Type: Out Account: [id number] Location: 052 Ordering: [facility] Exam Date: 12/21/2024/13:13 Family Phys: Charge Code: [id number] Physician: Ogle Order #: [id number] Dose#: PROCEDURE: X-RAY HAND LT COMPLETE 3 VIEWS COMPARISON: None. INDICATIONS: Inflammatory changes. FINDINGS: BONES: Normal. No significant arthropathy or acute abnormality. SOFT TISSUES: Negative. No visible soft tissue swelling. EFFUSION: None visible. OTHER: Negative. CONCLUSION: No acute disease. Dictated by: Aime Blandon MD on 12/21/2024 at 13:46 Approved by: Aime Blandon MD on 12/21/2024 at 13:47 Normal [facility] HAND RT MIN 3 VIEWSon 2024 HAND RT MIN [address] [address] Patient: HONG SNOW Phone#: : 1970 Age: 54 Gender: F Pt. Type: Out Account: [id number] Location: 052 Ordering: [facility] Exam Date: 12/21/2024/13:02 Family Phys: Charge Code: [id number] Physician: Ogle Order #: [id number] Dose#: PROCEDURE: X-RAY HAND RT COMPLETE MIN 3 VIEWS COMPARISON: None. INDICATIONS: Inflammatory changes. FINDINGS: BONES: Normal. No significant arthropathy or acute abnormality. SOFT TISSUES: Negative. No visible soft tissue swelling. EFFUSION: None visible. OTHER: Negative. CONCLUSION: No acute disease. Dictated by: Aime Blandon MD on 12/21/2024 at 13:43 Approved by: Aime Blandon MD on 12/21/2024 at 13:45 Normal [facility] Padma-1 extractable nuclear Ab Qn (S)on 12-21-2024 PADMA 1 ANTIBODY QUAL Negative Normal Negative [facility] Comment on above: Order Comment: Chaparro bell Type: BLOOD SPECIMEN Ordering Facility: [facility] Address: [address] [place] [address] Result Comment: Anti -PADMA-1 antibody is used as an aid in diagnosis of polymyositis and dermatomyositis especially with pulmonary involvement. A negative result cannot rule out polymyositis or dermatomyositis. Clinical correlation is required. Test Methodology: Multiplex flow immunoassay. Performed By: #### M ISC1 #### [facility] CLIA [id number] [address] [place] [address] [place] NON-INTERFACED REF LABS CLIA SEE SCANNED RESULTS #### RNAIII #### [facility] CLIA [id number] [address] [place] [address] [facility] SEND OUT TST 1on 2024 [facility] SCAN TEST RESULTS 1 View results in Scanned Documents link when available Normal [facility] Comment on above: Order Comment: Chaparro bell Type: BLOOD SPECIMEN Ordering Facility: [facility] Address: [address] [place] [address] Performed By: #### M ISC1 #### [facility] CLIA [id number] [address] [place] [address] OF [place] NON-INTERFACED REF LABS CLIA SEE SCANNED RESULTS #### RNAIII #### [facility] CLIA [id number] [address] [place] [address] REFERRAL LAB 1 (DROP-DOWN) [facility] (and subsidiaries including [facility], [facility], and [facility] Normal [facility] Comment on above: Order Comment: Chaparro bell Type: BLOOD SPECIMEN Ordering Facility: [facility] Address: [address] [place] [address] Performed By: #### M ISC1 #### [facility] CLIA [id number] [address] [place], [place] [address] [facility] NON-INTERFACED REF LABS CLIA SEE SCANNED RESULTS #### RNAIII #### [facility] CLIA [id number] [address] [place] [address] TEST 1 Anti-CCP (Cyclic Citrullinated Peptide) Antibodies, IgG and IgA, SARITHA Normal [facility] Comment on above: Order Comment: Chaparro bell Type: BLOOD SPECIMEN Ordering Facility: [facility] Address: [address] [place] [address] Performed By: #### M ISC1 #### [facility] CLIA [id number] [address] [place], [place] [address] [facility] [place] NON-INTERFACED REF LABS CLIA SEE SCANNED RESULTS #### RNAIII #### [facility] CLIA [id number] [address] [place] [address] RNA POLYMERASE III ABon 02- RNA POLYMERASE III AB 3 Units Normal 0-19 [facility] Comment on above: Order Comment: Chaparro [facility] Type: BLOOD SPECIMEN Ordering Facility: [facility] Address: [address] [place] [address] Result Comment: INTE RPRETIVE INFORMATION: RNA Polymerase [...] antibodies associated with SSc, including centromere, Scl-70, U3-BIOMEDICAL SCIENTIST, PM/Scl, or Th/To. Performed By: [facility] [address] [place] [address] Lube Worker: Kevin Kauffman MD, PhD CLIA Number: [id number] Performed By: #### M ISC1 #### [facility] CLIA [id number] [address] [place] [address] [place] NON-INTERFACED REF LABS CLIA SEE SCANNED RESULTS #### RNAIII #### [facility] CLIA [id number] [address] [place] [address] Rheumatoid fact SerPl-aCncon 12-21-2024 Rheumatoid factor Qn [IU]/mL Normal <16 [facility] Comment on above: Order Comment: Chaparro bell Type: BLOOD SPECIMEN Ordering Facility: [facility] Address: [address] [place] [address] Performed By: #### 1 1572-5, ANAIFS, 26317-0, 4498-2, 12069-7, 4485-9, MICRO #### [facility] CLIA [id number] [address] [place] [address] [place] Ribonucleoprotein extractabl e nuclear Ab Qn (S)on 12-21-2024 ANTI-BIOMEDICAL SCIENTIST QUAL Negative Normal Negative [facility] Comment on above: Order Comment: Chaparro [facility] Type: BLOOD SPECIMEN Ordering Facility: [facility] Address: [address] [place] [address] Performed By: #### 1 1572-5, ANAIFS, 28084-3, 4498-2, 15858-1, 4485-9, MICRO #### [facility] CLIA [id number] [address] [place] [address] [place] RIBOSOMAL BIOMEDICAL SCIENTIST QUAL Negative Normal Negative [facility] Comment on above: Order Comment: Speci men Type: BLOOD SPECIMEN Ordering Facility: [facility] Address: [address] [place] [address] Result Comment: Anti -Ribosomal RNA (Ribosomal P) antibody is used as an aid in diagnosis of systemic autoimmune diseases especially systemic lupus erythematosus and mixed connective tissue disease. Cross-reactivity with Anti-sheth antibody is not uncommon. Clinical correlation is required. Test Methodology: Multiplex flow immunoassay. Performed By: #### M ISC1 #### [facility] CLIA [id number] [address] [place] [address] [place] NON-INTERFACED REF LABS CLIA SEE SCANNED RESULTS #### RNAIII #### [facility] CLIA [id number] [address] [place] [address] SACRO ILIAC JTSon 12-21-2024 SA[facility] ILIAC [place] [address] Patient: HONG SNOW Phone#: : 1970 Age: 54 Gender: F Pt. Type: Out Account: [id number] Location: [facility] Ordering: [facility] Exam Date: 12/21/2024/13:24 Family Phys: Charge Code: [id number] Physician: Ogle Order #: [id number] Dose#: PROCEDURE: X-RAY SI JOINTS COMPARISON: None. [...] Blandon MD on 12/21/2024 at 13:53 Normal [facility] SCL-70 extractable nuclear I gG IA Qn (S)on 12-21-2024 SCLERODERMA AB QUAL Negative Normal Negative [facility] Comment on above: Order Comment: Speci men Type: BLOOD SPECIMEN Ordering Facility: [facility] Address: [address] [place] [address] Performed By: #### M ISC1 #### [facility] CLIA [id number] [address] [place] [address] [facility] NON-INTERFACED REF LABS CLIA SEE SCANNED RESULTS #### RNAIII #### [facility] CLIA [id number] [address] [place] [address] SCLERODERMA IGG AB <0.2 Normal <1.0 [facility] Comment on above: Order Comment: Speci [facility] Type: BLOOD SPECIMEN Ordering Facility: [facility] Address: [address] [place] [address] Result Comment: Scl- 70/Scleroderma antibody test is used as an aid in diagnosis of systemic sclerosis especially the diffuse cutaneous form. A negative result cannot rule out systemic sclerosis. The final interpretation should consider clinical picture and other test results such as anti-centromere antibody. Test Methodology: Multiplex flow immunoassay. Performed By: #### M ISC1 #### [facility] CLIA [id number] [address] [place] [address] [facility] NON-INTERFACED REF LABS CLIA SEE SCANNED RESULTS #### RNAIII #### [facility] CLIA [id number] [address] [place] [address] SEDRATEon 12-21-2024 SEDRATE 4 mm/hr Normal 0 - 30 [facility] Comment on above: Performed By: #### 2 20864 #### [facility],[address] [place] [address] SGOT (AST)on 12-21-2024 AST [Catalytic activity/Vol] 256 U/L High 13 - 39 [facility] Comment on above: Performed By: #### 2 74988 #### [facility],[address] [place] [address] SGPT (ALT)on 12-21-2024 ALT [Catalytic activity/Vol] 334 U/L High 16 - 63 [facility] Comment on above: Performed By: #### 2 20693 #### [facility],[address] [place] [address] 268[address] Sjogrens syndrome-A extracta ble nuclear Ab Qn (S)on 12-21-2024 SSA ANTIBODY QUAL Negative Normal Negative [facility] Comment on above: Order Comment: Speci men Type: BLOOD SPECIMEN Ordering Facility: [facility] Address: [address] [place] [address] Performed By: #### 1 1572-5, ANAIFS, 08691-1, 4498-2, 14760-7, 4485-9, MICRO #### [facility] CLIA [id number] [address] [place] [address] [place] Sjogrens syndrome-B extracta ble nuclear Ab Qn (S)on 12-21-2024 SSB ANTIBODY QUAL Negative Normal Negative [facility] Comment on above: Order Comment: Speci men Type: BLOOD SPECIMEN Ordering Facility: [facility] Address: [address] [place] [address] Performed By: #### M ISC1 #### [facility] CLIA [id number] [address] [place], [place] [address] [place] NON-INTERFACED REF LABS CLIA SEE SCANNED RESULTS #### RNAIII #### [facility] CLIA [id number] [address] [place] [address] Sheth extractable nuclear Ig G Qn (S)on 12-21-2024 SM ANTIBODY QUAL Negative Normal Negative [facility] Comment on above: Order Comment: Speci men Type: BLOOD SPECIMEN Ordering Facility: [facility] Address: [address] [place] [address] Result Comment: Anti -Sm (Sheth) antibody is used as an aid in diagnosis of systemic lupus erythematosus and its presence is associated with renal disease. A negative result cannot rule out systemic lupus erythematosus. Clinical correlation is required. Test Methodology: Multiplex flow immunoassay. Performed By: #### M ISC1 #### [facility] CLIA [id number] [facility] [place] [address] [place] NON-INTERFACED REF LABS CLIA SEE SCANNED RESULTS #### RNAIII #### [facility] CLIA [id number] [address] [place] [address] THYROID PEROXIDASE ANTIBODYo n 12-21-2024 TPO Ab Qn [IU]/mL Normal <5.6 [facility] Comment on above: Order Comment: Speci men Type: BLOOD SPECIMEN Ordering Facility: [facility] Address: [address] [place] [address] Result Comment: Thyr oid Peroxidase Antibody test is used as an aid in diagnosis of autoimmune thyroid disease. Clinical correlation is required. Performed By: #### 1 1572-5, ANAIFS, 18985-3, 4498-2, 15390-7, 4485-9, MICRO #### [facility] CLIA [id number] [address] [place] [address] [place] URINALYSIS WITH MICROSCOPYon 12-21-2024 Amorphous NONE Normal [facility] Comment on above: Performed By: #### 2 96585 ####[facility],[address] [place] [address] Bacteria NONE Normal [facility] Comment on above: Performed By: #### 2 05452 ####[facility],[address] [place] [address] Bilirubin Ql (U) Negative Normal NORMAL: NEGATIVE [facility] Comment on above: Performed By: #### 2 85374 ####[facility],[address] [place] [address] 45842 Casts NONE Normal [facility] Comment on above: Performed By: #### 2 25715 ####[facility],[address] [place] [address]4437 Clarity (U) clear Normal NORMAL: CLEAR [facility] Comment on above: Performed By: #### 2 20449 ####[facility],[address] [place] [address] 10965 Color (U) yellow Normal NORMAL: YELLOW [facility] Comment on above: Performed By: #### 2 93770 ####[facility],[address] [place] [address] 62831 Crystals LM Nom (Urine sed) NONE Normal [facility] Comment on above: Performed By: #### 2 08670 ####[facility],[address] [place] [address] 02725 Epi Cells NONE Normal [facility] Comment on above: Performed By: #### 2 68555 ####[facility],[address] [place] [address] 17766 Glucose Ql (U) NORM Normal NORMAL: NORMAL [facility] Comment on above: Performed By: #### 2 91241 ####[facility],[address] [place] [address] 99094 Hemoglobin Ql (U) Negative Normal NORMAL: NEGATIVE [facility] Comment on above: Performed By: #### 2 49483 ####[facility],[address] [place] [address] 34906 Ketone Negative Normal NORMAL: NEGATIVE [facility] Comment on above: Performed By: #### 2 36680 ####[facility],[address] [place] [address] 59262 Leukocytes Negative Normal NORMAL: NEGATIVE [facility] Comment on above: Result Comment: URIN E MICROSCOPIC Performed By: #### 2 62381 ####[facility],[address] [place] [address] 43249 Mucous NONE Normal [facility] Comment on above: Performed By: #### 2 97403 ####[facility],[address] [place] [address] Nitrite Ql (U) Negative Normal NORMAL: NEGATIVE [facility] Comment on above: Performed By: #### 2 30565 ####[facility],[address] [place] [address] pH (U) 7 [pH] Normal NORMAL: 5.0-8.0 [facility] Comment on above: Performed By: #### 2 32239 ####[facility],[address] [place] [address] Protein Ql (U) 15 Abnormal NORMAL: NEGATIVE [facility] Comment on above: Performed By: #### 2 62016 ####[facility],[address] [place] [address] Rbc NONE Normal 0-3 / hpf [facility] Comment on above: Performed By: #### 2 71025 ####[facility],[address] [place] [address] Sp [place] 1.015 Normal NORMAL: 1.010-1.030 [facility] Comment on above: Performed By: #### 2 67969 ####[facility],[address] [place] [address] Specimen Type Clean catch Normal [facility] Comment on above: Performed By: #### 2 14562 ####[facility],[address] [place] [address] URINALYSIS WITH MICROSCOPY Normal [facility] Comment on above: Result Comment: URIN ALYSIS Performed By: #### 2 88822 ####[facility],[address] [place] [address] Urobilinog NORM Normal NORMAL: NORMAL [facility] Comment on above: Performed By: #### 2 12813 ####[facility],[address] [place] [address] Wbc NONE Normal 0-5 / hpf [facility] Comment on above: Performed By: #### 2 93240 ####[facility],[address] [place] [address] [place] [address] Yeast NONE Normal [facility] Comment on above: Performed By: #### 2 59462 ####[facility],[address] [place] [address] 89874 VITAMIN D, 25 HYDROXYon 11-25 VitD 94.30 ng/mL Normal 30.00 - 100 [facility] Comment on above: Result Comment: 25-O HD3 [...] D2 Not Established Performed By: #### 2 38863 #### [facility],[address] [place] [address] 96598 WRIST COMPLETE LTon 12-21-19 25 WRIST COMPLETE LT [address] [address] Patient: HONG SNOW Phone#: : 1970 Age: 54 Gender: F Pt. Type: Out Account: [id number] Location: [facility] Ordering: [facility] Exam Date: 12/21/2024/13:16 Family Phys: Charge Code: [id number] Physician: Ogle Order #: [id number] Dose#: PROCEDURE: X-RAY WRIST LT COMPLETE MIN [...] Blandon MD on 12/21/2024 at 13:48 Normal [facility] WRIST COMPLETE RTon 12-21-19 25 WRIST COMPLETE RT [place] [address] Patient: HONG SNOW Phone#: : 1970 Age: 54 Gender: F Pt. Type: Out Account: [id number] Location: [facility] Ordering: [facility] Exam Date: 12/21/2024/13:12 Family Phys: Charge Code: [id number] Physician: Ogle Order #: [id number] Dose#: PROCEDURE: X-RAY WRIST RT COMPLETE MIN 3 VIEWS COMPARISON: None. INDICATIONS: Inflammatory changes. FINDINGS: BONES: Normal. No significant arthropathy or acute abnormality. SOFT TISSUES: Negative. No visible soft tissue swelling. EFFUSION: None visible. OTHER: Negative. CONCLUSION: No acute disease. Dictated by: Aime Blandon MD on 12/21/2024 at 13:46 Approved by: Aime Blandon MD on 12/21/2024 at 13:46 Normal [facility] tTG IgA Qn (S)on 12-21-2024 TRANSGLUTAMINASE IGA ABS INTERPRETATION Negative Normal Negative [facility] Comment on above: Order Comment: Speci men Type: BLOOD SPECIMEN Ordering Facility: [facility] Address: [address] [place] [address] Result Comment: The following results were obtained with [email or web address] R h-tTG IgA SARITHA.???R h-tTG IgA values obtained with different manufacturers' assay methods may not be used interchangeably. The magnitude of the reported IgA levels cannot be correlated to an endpoint???concentration. This is used as an aid in diagnosis of celiac disease. Clinical correlation is required. Performed By: #### 1 1572-5, ANAIFS, 93872-4, 4498-2, 40988-7, 4485-9, MICRO #### [facility] CLIA [id number] [address] [place] [address] [place] tTG IgA Ser-aCncon 5 tTG IgA Qn (S) <2 Normal <4 [facility] Comment on above: Order Comment: Chaparro bell Type: BLOOD SPECIMEN Ordering Facility: [facility] Address: [address] [place] [address] Performed By: #### 1 1572-5, ANAIFS, 31812-0, 4498-2, 60322-3, 4485-9, MICRO #### [facility] CLIA [id number] [address] [place] [address] [place] tTG IgG Qn (S)on 12-21-2024 TRANSGLUTAMINASE IGG ABS INTERPRETATION Negative Normal Negative [facility] Comment on above: Order Comment: Chaparro bell Type: BLOOD SPECIMEN Ordering Facility: [facility] Address: [address] [place] [address] Result Comment: The following results were obtained with [email or web address] Lite R h-tTG IgG SARITHA.???R h-tTG IgG values obtained with different manufacturers' assay methods may not be used interchangeably. The magnitude of the reported IgG levels cannot be correlated to an endpoint???concentration. This test is used as an aid in diagnosis of celiac disease in IgA-deficient individuals only. Clinical correlation is required. Performed By: #### 1 1572-5, ANAIFS, 81003-7, 4498-2, 29444-1, 4485-9, MICRO #### [facility] CLIA [id number] [address] [place], [place] [address] [place] tTG IgG Ser-aCncon 5 tTG IgG Qn (S) <2 Normal <6 [facility] Comment on above: Order Comment: Chaparro bell Type: BLOOD SPECIMEN Ordering Facility: [facility] Address: [address] [place] [address] Performed By: #### 1 1572-5, ANAIFS, 08148-9, 4498-2, 85415-5, 4485-9, MICRO #### [facility] CLIA [id number] [address] [place] [id number] [place] Gastroenterology Visit Repor ton 12-20-2024 Gastroenterology Visit Report [facility]enterology [address] [place] [address] OFFICE VISIT Date of Service: 12/20/24 MR#: [id number] Acct: [id number] Name: HONG SNOW Rep #: [id number] : 1970 Provider: Dr. Ankur ga MD Age/Sex: 54/F Location: [facility] Status: Signed Intake Vital Signs 11/23/23 14:04 [...] presents to the office today for HONG SNOW, is a 54 F who [...] proctitis. Normal ileum. No pathologic changes. OV 11.22 She stopped taking pre/probiotic gummy, started daily [...] has abdominal discomfort/pain). Started a tea from [employer] with four ingredients and feels this has [...] a c (more content not included)... Normal [facility] RUQ (GB/PANCREAS)on 12-11 RUQ (GB/PANCREAS) [place] [address] Patient: HONG SNOW Phone#: : 1970 Age: 54 Gender: F Pt. Type: Out Account: [id number] Location: [facility] Ordering: [facility] Exam Date: 12/11/2024/7:29 Family Phys: Charge Code: [id number] Physician: Ogle Order #: [id number] Dose#: PROCEDURE: RUQ (GB) ULTRASOUND COMPARISON: None. [...] BLANDON MD ON 12/11/2024 AT 10:15 Normal [facility] GAMMA GTon 12-10-2024 GAMMA GT Normal [facility] Comment on above: Result Comment: SEE SCANNED REPORT Performed By: #### 2 49669 #### [facility],[address] [place] [address] LIPID PROFILEon 12-10-2024 Lipid 1996 panel Normal [facility] Comment on above: Result Comment: LIPI D PROFILE SEE SCANNED REPORT Performed By: #### 2 37361 ####[facility],[address] [place] [address] 91651 CMP with eGFRon 12-07-2024 AGE 54 years Normal [facility] Comment on above: Performed By: #### 2 28789 #### [facility],[address] [place] [address] 82450 Albumin [Mass/Vol] 3.4 g/dL Normal 3.4 - 5.0 [facility] Comment on above: Performed By: #### 2 91642 #### [facility],[address] [place] [address] 43675 Albumin/Globulin [Mass ratio] 1.0 {ratio} Normal 0.9 - 1.6 [facility] Comment on above: Performed By: #### 2 14363 #### [facility],[address] [place] [address] 49342 ALK PHOS 131 U/L High 46 - 116 [facility] Comment on above: Performed By: #### 2 53978 #### [facility],[address] [place] [address] 53611 ALT [Catalytic activity/Vol] 157 U/L High 16 - 63 [facility] Comment on above: Performed By: #### 2 29417 #### [facility],[address] [place] [address] 23195 Anion gap [Moles/Vol] 12 mmol/L Normal 10 - 20 [facility] Comment on above: Performed By: #### 2 24346 #### [facility],[address] [place] [address] 83107 AST [Catalytic activity/Vol] 66 U/L High 13 - 39 [facility] Comment on above: Performed By: #### 2 26875 #### [facility],[address] [place] [address] 41545 B/C RATIO 30 ratio Normal 0 - 30 [facility] Comment on above: Performed By: #### 2 29132 #### [facility],[address] [place] [address] 43896 Bilirubin [Mass/Vol] 0.5 mg/dL Normal 0.2 - 1.0 [facility] Comment on above: Performed By: #### 2 79086 #### [facility],[address] [place] [address] 01946 Calcium [Mass/Vol] 8.2 mg/dL Low 8.5 - 10.1 [facility] Comment on above: Performed By: #### 2 06041 #### [facility],[address] [place] [address] 12029 Chloride [Moles/Vol] 103 mmol/L Normal 98 - 107 [facility] Comment on above: Performed By: #### 2 81421 #### [facility],[address] [place] [address] 62352 CMP with eGFR Normal [facility] Comment on above: Result Comment: COMP REHENSIVE METABOLIC PANEL Performed By: #### 2 49172 #### [facility],[address] [place] [address] 93456 CO2 [Moles/Vol] 29.5 mmol/L Normal 21.0 - 32.0 [facility] Comment on above: Performed By: #### 2 01337 #### [facility],[address] [place] [address] 07422 Creatinine [Mass/Vol] 0.67 mg/dL Normal 0.55 - 1.02 [facility] Comment on above: Performed By: #### 2 23335 #### [facility],[address] [place] [address] 45634 GFR/1.73 sq M.predicted among non-blacks MDRD (S/P/Bld) [Vol rate/Area] mL/min/{1.73_m2} Normal 60 - 999 [facility] Comment on above: Performed By: #### 2 61866 #### [facility],[address] [place] [address] 31523 Result Comment: ACCO RDING TO THE NATIONAL KIDNEY DISEASE EDUCATION PROGRAM(NKDE), A NORMAL eGFR IS A VALUE GREATER THAN OR EQUAL TO 60 ML/MIN/1.73 SQ METERS. CHRONIC KIDNEY DISEASE: <60mL/MIN/1.73 SQ METERS KIDNEY FAILURE: <15mL/MIN/1.73 SQ METERS THIS TEST SHOULD ONLY BE USED FOR PATIENTS 18 YEARS OF AGE AND OLDER. Globulin (S) [Mass/Vol] 3.5 g/dL Normal 1.5 - 3.8 [facility] Comment on above: Performed By: #### 2 59321 #### [address] [address] Glucose [Mass/Vol] 76 mg/dL Normal 74 - 106 [facility] Comment on above: Performed By: #### 2 13908 #### [address] [address] Potassium [Moles/Vol] 3.4 mmol/L Low 3.5 - 5.1 [facility] Comment on above: Performed By: #### 2 72086 #### [address] [address] Protein [Mass/Vol] 6.9 g/dL Normal 6.4 - 8.2 [facility] Comment on above: Performed By: #### 2 58231 #### [address] [address] Sodium [Moles/Vol] 141 mmol/L Normal 136 - 145 [facility] Comment on above: Performed By: #### 2 01374 #### [facility],[address] [place] [address] 51656 Urea nitrogen [Mass/Vol] 20 mg/dL High 7 - 18 [facility] [facility] Comment on above: Performed By: #### 2 25561 #### [facility],[address] [place] [address] 17603 GGT SerPl-cCncon 12-07-2024 Gamma glutamyl transferase [Catalytic activity/Vol] 87 U/L High 6-46 [facility] Comment on above: Order Comment: Speci [facility] Type: BLOOD SPECIMEN Ordering Facility: [facility] Address: [address] [place] [address] Performed By: #### M ISC1 #### [facility] CLIA [id number] [address] [place] [address] [facility] NON-INTERFACED REF LABS CLIA SEE SCANNED RESULTS #### RNAIII #### [facility] CLIA [id number] [address] [place] [address] Lipid 1996 panelon Cholesterol [Mass/Vol] 201 mg/dL High <200 [facility] Comment on above: Order Comment: Rosannai [facility] Type: BLOOD SPECIMEN Ordering Facility: [facility] Address: [address] [place] [address] Result Comment: <200 mg/dL, Desirable 200-239 mg/dL, Borderline high >239 mg/dL, High Performed By: #### M ISC1 #### [facility] CLIA [id number] [address] [place], [place] [id number] [facility] NON-INTERFACED REF LABS CLIA SEE SCANNED RESULTS #### RNAIII #### [facility] CLIA [id number] [address] [place] [address] Cholesterol in HDL [Mass/Vol] 62 mg/dL Normal >39 [facility] Comment on above: Order Comment: Speci men Type: BLOOD SPECIMEN Ordering Facility: [facility] Address: [address] [place] [address] Result Comment: 40-5 9 mg/dL, Acceptable >59 mg/dL, High: Negative risk factor for coronary heart disease <40 mg/dL, Low: Positive risk factor for coronary heart disease Performed By: #### M ISC1 #### [facility] CLIA [id number] [address] NON-INTERFACED REF LABS CLIA SEE SCANNED RESULTS #### RNAIII #### [facility] CLIA [id number] [address] [place] [address] Cholesterol in LDL [Mass/Vol] 113 mg/dL High <100 [facility] Comment on above: Order Comment: Chaparro bell Type: BLOOD SPECIMEN Ordering Facility: [facility] Address: [address] [place] [address] Result Comment: <100 mg/dL, Optimal 100-129 mg/dL, Near optimal/above optimal 130-159 mg/dL, Borderline high 160-189 mg/dL, High >189 mg/dL, Very high Secondary prevention optimal LDL Cholesterol levels are recommended to be < 70 mg/dL Performed By: #### M ISC1 #### [facility] CLIA [id number] [address] [place] [address] NON-INTERFACED REF LABS CLIA SEE SCANNED RESULTS #### RNAIII #### [facility] CLIA [id number] [address] [place] [address] Cholesterol in LDL/Cholesterol in HDL [Mass ratio] 1.82 {ratio} Normal <2.54 [facility] Comment on above: Order Comment: Chaparro blel Type: BLOOD SPECIMEN Ordering Facility: [facility] Address: [address] [place] [address] Result Comment: Refarpita ding: 1. National Cholesterol Education Program ATP III Guideline At-A-Glance Quick Desk Reference: National Heart, Lung, and Blood [place]. National Institutes of Health. 2001: NIH Publication No. 01-3305. 2. An International Atherosclerosis Society position paper: global recommendations for the management of dyslipidemia: executive summary, Atherosclerosis. 2014: 232(2):410-413. Performed By: #### M ISC1 #### [facility] CLIA [id number] [address] NON-INTERFACED REF LABS CLIA SEE SCANNED RESULTS #### RNAIII #### [facility] CLIA [id number] [address] [place] [address] Cholesterol in VLDL [Mass/Vol] 26 mg/dL Normal <30 [facility] Comment on above: Order Comment: Speci men Type: BLOOD SPECIMEN Ordering Facility: [facility] Address: [address] [place] [address] Performed By: #### M ISC1 #### [facility] CLIA [id number] [address] [place] [address] NON-INTERFACED REF LABS CLIA SEE SCANNED RESULTS #### RNAIII #### [facility] CLIA [id number] [address] [place] [address] Cholesterol non HDL [Mass/Vol] 139 mg/dL High <130 [facility] Comment on above: Order Comment: Speci [facility] Type: BLOOD SPECIMEN Ordering Facility: [facility] Address: [address] [place] [address] Result Comment: <130 mg/dL, Optimal 130-159 mg/dL, Near optimal/above optimal 160-189 mg/dL, Borderline high 190-219 mg/dL, High >219 mg/dL, Very high Secondary prevention optimal non HDL Cholesterol levels are recommended to be <100 mg/dL Performed By: #### M ISC1 #### [facility] CLIA [id number] [address] [place], [place] [id number] [facility] NON-INTERFACED REF LABS CLIA SEE SCANNED RESULTS #### RNAIII #### [facility] CLIA [id number] [address] [place] [address] Cholesterol.total/Chol esterol in HDL [Mass ratio] 3.24 {ratio} Normal <5.10 [facility] Comment on above: [facility]: [facility] Type: BLOOD SPECIMEN Ordering Facility: [facility] Address: [address] [place] [address] Performed By: #### M ISC1 #### [facility] CLIA [id number] [address] [place] [address] NON-INTERFACED REF LABS CLIA SEE SCANNED RESULTS #### RNAIII #### [facility] CLIA [id number] [address] [place] [address] FASTING TIME 12 hrs Normal [facility] Comment on above: Order Comment: Speci men Type: BLOOD SPECIMEN Ordering Facility: [facility] Address: [address] [place] [address] Performed By: #### M ISC1 #### [facility] CLIA [id number] [address] [place] [address] NON-INTERFACED REF LABS CLIA SEE SCANNED RESULTS #### RNAIII #### [facility] CLIA [id number] [address] [place] [address] Triglyceride [Mass/Vol] 129 mg/dL Normal <150 [facility] Comment on above: Order Comment: Speci men Type: BLOOD SPECIMEN Ordering Facility: [facility] Address: [address] [place] [address] Result Comment: <150 mg/dL, Normal 150-199 mg/dL, Borderline high 200-499 mg/dL, High >499 mg/dL, Very high Performed By: #### M ISC1 #### [facility] CLIA [id number] [address] [place] [address] NON-INTERFACED REF LABS CLIA SEE SCANNED RESULTS #### RNAIII #### [facility] CLIA [id number] [address] [place] [address] CBC + DIFFon 12-02-2024 Baso # 0.01 x10EE3/UL Normal 0.00 - 0.10 [facility] Comment on above: Performed By: #### 2 55663 ####[facility],[address] [place] [address] 44090 Basophils/100 WBC (Bld) 0.2 % Normal 0.0 - 2.0 [facility] Comment on above: Performed By: #### 2 86897 ####[place] [address] CBC + DIFF Normal [facility] Comment on above: Result Comment: CBC- COMPLETE BLOOD COUNT Performed By: #### 2 91099 ####[facility],[address] [place] [address] EO # 0.10 x10EE3/UL Normal 0.00 - 0.50 [facility] Comment on above: Performed By: #### 2 90804 ####[place] [address] Eosinophils/100 WBC (Bld) 2.0 % Normal 0.0 - 7.0 [facility] Comment on above: Performed By: #### 2 38742 ####[place] [address] Erythrocyte distribution width (RBC) [Ratio] 13.1 % Normal 12.0 - 15.6 [facility] Comment on above: Performed By: #### 2 40131 ####[place] [address] Hematocrit (Bld) [Volume fraction] 43.8 % Normal 34.0 - 46.0 [facility] Comment on above: Performed By: #### 2 10903 ####[facility],[address] [place] [address] Hemoglobin (Bld) [Mass/Vol] 14.7 g/dL Normal 12.0 - 16.0 [facility] Comment on above: Performed By: #### 2 55586 ####[place] [address] Lymph # 1.07 x10EE3/UL Normal 0.80 - 2.80 [facility] Comment on above: Performed By: #### 2 06200 ####[facility] [place] [address] Lymphocytes/100 WBC (Bld) 22.0 % Normal 20.0 - 45.0 [facility] Comment on above: Performed By: #### 2 14334 ####[place] [address] MANUAL DIFF N/A Normal [facility] Comment on above: Performed By: #### 2 68293 ####[place] [address] MCH (RBC) [Entitic mass] 31 pg Normal 27 - 33 [facility] Comment on above: Performed By: #### 2 26346 ####[place] [address] MCHC 34 X10 3 Normal 32 - 36 [facility] Comment on above: Performed By: #### 2 33547 ####[place] [address] MCV (RBC) [Entitic vol] 92 fL Normal 80 - 99 [facility] Comment on above: Performed By: #### 2 32437 ####[place] [address] Izard # 0.63 x10EE3/UL Normal 0.20 - 1.00 [facility] Comment on above: Performed By: #### 2 49844 ####[place] [address] MONOS % 13.0 % High 0.0 - 10.0 [facility] Comment on above: Performed By: #### 2 73860 ####[place] [address] Morphology Socrates (Bld) [Interp] N/A Normal [facility] Comment on above: Performed By: #### 2 49004 ####[place] [address] Neut # 3.05 x10EE3/UL Normal 1.50 - 7.10 [facility] Comment on above: Performed By: #### 2 27827 ####[facility],[address] [place] [address] 67417 Neutrophils/100 WBC (Bld) 62.8 % Normal 46.0 - 76.0 [facility] Comment on above: Performed By: #### 2 36856 ####[facility],[address] [place] [address]30 PLATELET 177 x10EE3/UL Normal 150 - 450 [facility] Comment on above: Performed By: #### 2 01030 ####[facility],[address] [place] [address] 50373 Platelet mean volume (Bld) [Entitic vol] 7.8 fL Normal 6.6 - 10.5 [facility] Comment on above: Result Comment: AUTO MATED DIFFERENTIAL Performed By: #### 2 46754 ####[facility],[address] [place] [address] 66027 RBC 4.78 x 10EE6/UL Normal 4.10 - 5.30 [facility] Comment on above: Performed By: #### 2 63762 ####[facility],[address] [place] [address] 02451 WBC 4.9 x 10EE3/UL Normal 4.5 - 10.8 [facility] Comment on above: Performed By: #### 2 55217 ####[facility],[address] [place] [address] 96531 CHEST 2 VIEWSon 12-02-2024 CHEST 2 VIEWS [place] [address] Patient: HONG SNOW Phone#: : 1970 Age: 54 Gender: F Pt. Type: ER Account: [id number] Location: [facility] Ordering: DARIO LINARES Exam Date: 12/02/2024/13:07 Family Phys: RISSA TRAN Charge Code: 842003 Physician: Ogle Order #: [id number] Dose#: PROCEDURE: X-RAY CHEST 2 VIEWS COMPARISON: [facility], XR, CHEST 1 VIEW, 09/16/2022, 23:15. [...] Blandon MD on 12/02/2024 at 20:04 Normal [facility] CMP with eGFRon 12-02-2024 AGE 54 years Normal [facility] Comment on above: Performed By: #### 2 37195 #### [facility],[address] [place], [place] [address] Albumin [Mass/Vol] 3.3 g/dL Low 3.4 - 5.0 [facility] Comment on above: Performed By: #### 2 60425 #### [facility],[address] [place] [address] 00005 Albumin/Globulin [Mass ratio] 1.0 {ratio} Normal 0.9 - 1.6 [facility] Comment on above: Performed By: #### 2 29117 #### [facility],[address] [place] [address] 50807 ALK PHOS 159 U/L High 46 - 116 [facility] Comment on above: Performed By: #### 2 12985 #### [facility],[address] [place] [address] 03485 ALT [Catalytic activity/Vol] 436 U/L High 16 - 63 [facility] Comment on above: Performed By: #### 2 31997 #### [facility],[address] [place] [address] 85123 Anion gap [Moles/Vol] 14 mmol/L Normal 10 - 20 [facility] Comment on above: Performed By: #### 2 65324 #### [facility],[address] [place] [address] 26656 AST [Catalytic activity/Vol] 363 U/L High 13 - 39 [facility] Comment on above: Performed By: #### 2 50747 #### [facility],[address] [place] [address] 97462 B/C RATIO 18 ratio Normal 0 - 30 [facility] Comment on above: Performed By: #### 2 24822 #### [facility],[address] [place] [address] 13620 Bilirubin [Mass/Vol] 0.3 mg/dL Normal 0.2 - 1.0 [facility] Comment on above: Performed By: #### 2 12206 #### [facility],[address] [place] [address] 14836 Calcium [Mass/Vol] 8.3 mg/dL Low 8.5 - 10.1 [facility] Comment on above: Performed By: #### 2 38920 #### [facility],[address] [place] [address] 32073 Chloride [Moles/Vol] 107 mmol/L Normal 98 - 107 [facility] Comment on above: Performed By: #### 2 66271 #### [facility],[address] [place] [address] 45693 CMP with eGFR Normal [facility] Comment on above: Result Comment: COMP REHENSIVE METABOLIC PANEL Performed By: #### 2 38575 #### [facility],[address] [place] [address] 01712 CO2 [Moles/Vol] 25.8 mmol/L Normal 21.0 - 32.0 [facility] Comment on above: Performed By: #### 2 76715 #### [facility],[address] [place], [place] [address] Creatinine [Mass/Vol] 0.78 mg/dL Normal 0.55 - 1.02 [facility] Comment on above: Performed By: #### 2 92718 #### [facility],[address] [place] [address] GFR/1.73 sq M.predicted among non-blacks MDRD (S/P/Bld) [Vol rate/Area] mL/min/{1.73_m2} Normal 60 - 999 [facility] Comment on above: Performed By: #### 2 90389 #### [facility],[address] [place] [address] Result Comment: ACCO RDING TO THE NATIONAL KIDNEY DISEASE EDUCATION PROGRAM(NKDE), A NORMAL eGFR IS A VALUE GREATER THAN OR EQUAL TO 60 ML/MIN/1.73 SQ METERS. CHRONIC KIDNEY DISEASE: <60mL/MIN/1.73 SQ METERS KIDNEY FAILURE: <15mL/MIN/1.73 SQ METERS THIS TEST SHOULD ONLY BE USED FOR PATIENTS 18 YEARS OF AGE AND OLDER. Globulin (S) [Mass/Vol] 3.2 g/dL Normal 1.5 - 3.8 [facility] Comment on above: Performed By: #### 2 18889 #### [facility],[address] [place], [place] [address] Glucose [Mass/Vol] 157 mg/dL High 74 - 106 [facility] Comment on above: Performed By: #### 2 86175 #### [facility],[address] [place] [address] 69192 Potassium [Moles/Vol] 3.7 mmol/L Normal 3.5 - 5.1 [facility] Comment on above: Performed By: #### 2 27201 #### [facility],[address] [place] [address] 03831 Protein [Mass/Vol] 6.5 g/dL Normal 6.4 - 8.2 [facility] Comment on above: Performed By: #### 2 45822 #### [facility],[address] [place] [address] 89989 Sodium [Moles/Vol] 143 mmol/L Normal 136 - 145 [facility] Comment on above: Performed By: #### 2 48134 #### [facility],[address] [place] [address] 72908 Urea nitrogen [Mass/Vol] 14 mg/dL Normal 7 - 18 [facility] Comment on above: Performed By: #### 2 04194 #### [facility],[address] [place] [address] 27203 CORONAVIRUS (SARS) ANTIGEN T ESTon 12-02-2024 EXTERNAL QC DONE? YES Normal [facility] Comment on above: Performed By: #### 2 42085 ####[facility],[address] [place] [address] INTERNAL CONTROL PASS Normal [facility] Comment on above: Performed By: #### 2 54812 ####[facility],[address] [place] [address] 40010 SARS ANTIGEN Negative Normal NORMAL: NEGATIVE [facility] Comment on above: Performed By: #### 2 83103 ####[facility],[address] [place] [address] 68343 SEND TO ? YES Normal [facility] Comment on above: Result Comment: SARS -CoV-2 THIS TEST IS BEING USED UNDER THE FDA EUA PROCEDURE. THIS ASSAY HAS BEEN VALIDATED AT [facility] FOR USE WITH NASAL AND NASOPHARYNGEAL SWAB [...] PUBLIC HEALTH AUTHORITIES. Performed By: #### 2 10303 ####[address] [address] D-DIMER, QUANTITATIVEon 02-0 D-DIMER QUANT <200 Normal 0 - 230 [facility] Comment on above: Performed By: #### 2 17901 ####[address] [address] D-DIMER, QUANTITATIVE Normal [facility] Comment on above: Result Comment: MARISOL T D-DIMER Performed By: #### 2 28475 ####[address] [address] ED MED ADMINISTRATION DETAIL on 12-02-2024 ED MED ADMINISTRATION DETAIL Brisket Puller Medication Administration Record [place] [id number] 12/02/2024 Patient: HONG SNOW Sex: Female : 1970 Age: 54y MEASUREMENTS: Wt: 66.7 kg, Ht/Milton: 64.0 in, BMI: 25.23 ALLERGIES: Demerol, shellfish derived Medication Ordered Medication Administration Date/Time IV NS 0.9 % 1000 11:37 12/02 IV NS 0.9 % 1000 mL started in bag#1 1000 mL at Started mL at 500 mL/hr 500 mL/hr via Site# 1. Allergies verified and confirmed 5 rights. IV 11:37 12/02/2024 (NOW x1) patency established. IV site checked: no pain, redness, or swelling. Gretta Dupree R.N. IV flushed thoroughly pre-medication administration. Information Stopped reviewed with patient. Verbalizes understanding. - 11:39 Gretta 13:32 12/02/2024 Giovanni Dupree R.N. Scanned 13:32 12/02 Medication Discontinued: bag #1. Total amount infused: 950 mL. IV patency established. IV site checked: no pain, redness, or swelling. IV flushed thoroughly post-medication administration. - 13:37 Gretta Dupree R.N. Dexamethasone 11:39 12/02 Dexamethasone (Decadron) IVP 10 mg given via Given (Decadron) IVP 10 Site# 1. Allergies verified and confirmed 5 rights. IV patency 11:39 12/02/2024 mg (NOW x1) established. IV site checked: no pain, redness, or swelling. IV Gretta Dupree R.N. flushed thoroughly pre-medication administration. Information Scanned reviewed with patient. Verbalizes understanding. - 11:40 Gretta Dupree R.N. Albuterol-Ipratropiu 11:47 12/02 Albuterol-Ipratropium (DuoNeb) 3mg/0.5mg Neb Tx 3 Given m (DuoNeb) mL given. Given by the respiratory therapist. Information reviewed 11:47 12/02/2024 3mg/0.5mg Neb Tx with patient including reason for taking this medication. Verbalizes Shaina Bain 3 mL (NOW x1) understanding. - 11:48 Shaina Bain Scanned 1 of 2 Brisket Puller 2 of 2 Normal [facility] ED NURSES CLINICAL NOTEon ED NURSES CLINICAL NOTE Nurse Narrative Nurse Clinical Narrative [address] [place] [address] [id number] 12/02/2024 Patient: HONG SNOW Sex: Female : 1970 Age: 54y Primary Insurance: [employer] OUTPATIENT Policy Number: [id number] Group Number: [id number] Subscriber: Other Disposition: Discharge to Home Disposition [...] ENRIQUE Guzman R.N. 10:41 12/02/24. Preferred Pharmacy: [facility] -- 10:53 12/02/24 JOSE ENRIQUE Guzman R.N. [...] advanced directive. -- 10:53 12/02/24 JOSE ENRIQUE Guzman R.N. PHYSICAL ASSESSMENT 12:35 12/02/24. ( Pt [...] 5 rights. (more content not included)... Normal [facility] ED ORDER SHEET (CPOE ONLY)on 12-02-2024 ED ORDER SHEET (CPOE ONLY) Order Sheet Order Sheet [address] [place] [address] [id number] 12/02/2024 Patient: HONG SNOW Sex: Female : [...] 13:00 12/02/2024 Gretta Ledezma Shauna Ewing, D.O. R.NRenita R.N. D-Dimer Stat Stat 11:20 12/02/2024 11:37 12/02/2024 13:00 12/02/2024 Gretta Ledezma Shauna Ewing, D.O. R.N. R.N. EKG - ED Stat Stat 11:20 12/02/2024 11:37 12/02/2024 13:00 12/02/2024 Gretta Ledezma Shauna Ewing, D.O. R.N. R.N. Rapid COVID (SARS) Stat 11:20 12/02/2024 11:37 12/02/2024 13:00 12/02/2024 ANTIGEN TEST Stat Gretta Ledezma Shauna Ewing, D.O. R.NRenita RRenitaNRenita Flu Swab (Influenzae Stat 11:20 12/02/2024 11:37 12/02/2024 13:00 12/02/2024 AAg) Stat Gretta Ledezma Shauna Ewing, D.O. R.NRenita R.NRenita DIAGNOSTIC STUDY ORDERS Order Description Priority Entered Acknowledged Completed Chest 2V Stat Stat 12:55 12/02/2024 13:00 Dario Linares 12/02/2024 Tutu Dupree, R.NRenita Reason for Study: Cough 2 of 3 Order Sheet STAFF ORDERS Order Description Priority Entered Acknowledged Collected Completed IV Saline Lock 11:20 12/02/2024 11:37 12/02/2024 13:00 12/02/2024 Gretta Ledezma Shauna Ewing, D.O. R.N. RRenitaNRenita [Electronically signed by Dario Linares D.O. (12/02/2024 14:19 EST)] 3 of 3 Normal [facility] ED PHYSICIAN CLINICAL REPORT on 12-02-2024 ED PHYSICIAN CLINICAL REPORT Narrative Physician Clinical Narrative [address] [address] [id number] 12/02/2024 Patient: HONG SNOW Sex: Female : 1970 Age: 54y Primary Insurance: [employer] OUTPATIENT Policy Number: [id number] Group Number: [id number] Subscriber: Other Disposition: Discharge to Home Disposition [...] Motrin she has also been taking some vuml-jfp-heajjpx remedies shows her headache 05/02 which also [...] 1.50 - 7.10 Final EST 12/02/2024 12:09 Izard # 0.63 x10/UL 0.20 - 1.00 Final [...] Comments COMPREHENSIVE 12/02/2024 (more content not included)... [facility] ED SUPER BILLon 12-02-2024 ED SUPER BILL [address] [address] [id number] 12/02/2024 Patient: HONG SNOW Sex: Female : 1970 Age: 54y Item Facility Professional Category Description Code Code Quantity Fee Total Drugs Normal Saline 892559 1 $0.00 $0.00 1000cc (342108) Nurse/E/M EMERGENCY 552381 1 $0.00 $0.00 DEPARTMENT VISIT HIGH/URGENT SEVERITY (09834-53) Nurse/IV/IM/Infusions Hydration 143306 2 $0.00 $0.00 additional hour (90908) Nurse/IV/IM/Infusions IVP initial 248560 1 $0.00 $0.00 (94793) Nurse/Procedures Respiratory 288880 1 $0.00 $0.00 therapy - inhalation (25763) Grand Total $0.00 1 of 2 [facility] Providers Dario Linares D.O. Chief Complaint DYSPNEA. Principal Diagnosis Headache. Viral syndrome elevated liver enzymes AST, ALT and ALK PHOS. ICD-10 Codes B34.9: Viral infection, unspecified R51.9: Headache, unspecified 2 of [address] [facility] ED VISIT SUMMARYon ED VISIT SUMMARY Visit Overview Visit Overview [address] [address] [id number] 12/02/2024 Patient: HONG SNOW Sex: Female : 1970 Age: 54y 12/02/2024 05:30 PM EST ED Arrival:10:35 12/02/2024 EST Status:not Recent Travel:no Language:eng Adv Directive:No Isolation Status: Ethnicity:N Fall Risk:no risk Infectious Disease Exposure:no Measurements:5'4 / 162.6 Self-Harm Status:risk Sepsis Screen:negative cm 147.0 lb / 66.7 kg Chief Complaint:DIFFICULTY BREATHING, SHORTNESS OF BREATH, ([facility] ), (Pt has a history of long covid. Symptoms started on . Painful cough. Pt has tried several OTC remedies. She has felt feverish on and off. ), and ( ) ALLERGIES Demerol shellfish derived HOME MEDICATIONS Visit Overview albuterol sulfate HFA 90 mcg/actuation [...] SITE INFORMATION INTAKE OUTPUT REASSESMENT (most recent) Visit Overview 12:35 12/02/24. ( Pt arrives [...] PNEUMONIA VIRAL SYNDROME 4 of 4 Normal [facility] ED VITALS FLOW SHEETon 12-02 ED VITALS FLOW SHEET Vitals Vital Sign Flow Sheet 33 [address] [address] [id number] 12/02/2024 Patient: HONG SNOW Sex: Female : 1970 Age: 54y Measurements [...] 154/83 112 98 3 of 3 Normal [facility] INFLUENZA VIRUS RAPID A/Bon 12-02-2024 INFLUENZA VIRUS [...] TO THREE DAYS. RESULT CRITICAL? NO Normal [facility] Comment on above: Performed By: #### 2 [id number] ####[facility],[address] [place] [id number] CRPon 08-06-2024 C-REACTIVE PROT 8.54 mg/L High 0.0-3.0 [facility] Comment on above: Result Comment: C-Re active Protein (CRP) provides useful information for the diagnosis, therapy and monitoring of inflammatory processes and associated diseases. For the evaluation of Relative Risk for Cardiovascular Disease, a High Sensitivity CRP (HSCRP) should be ordered. Performed By: #### L 101.9900, L501.6710, L3100.5170, L3300.1750 ####[facility] [id number] [place], [place], [id number] Erythrocyte Sed Rateon 08-06 SED RATE 4 mm/hr Normal 0-30 [facility] Comment on above: Performed By: #### L 101.9900, L501.6710, L3100.5170, L3300.1750 ####[facility] [id number] [place], [address] Estradiolon 08-06-2024 ESTRADIOL 55.1 pg/mL Normal [facility] Comment on above: Result Comment: NORM AL [...] CONCENTRATION. Performed By: #### L 101.9900, L501.6710, L3100.5170, L3300.1750 ####[facility] [id number] [place], [address] Gastroenterology Visit Repor ton 08-06-2024 Gastroenterology Visit Report [facility]enter[facility] [address] [place] [address] OFFICE VISIT Date of Service: 08/06/24 MR#: [id number] Acct: [id number] Name: HONG SNOW Rep #: [id number] : 1970 Provider: CHEL patel Age/Sex: 54/F Location[place] [facility] Status: Signed Intake Vital Signs 11/23/23 14:04 [...] and water which pt reports is effective. [facility] Medical History (Updated 11/23/23 @ 14:34 by [...] testing enteric pathogens, ova/parasite WNL. *[facility] established 8.17.22 with referral from PCP for evaluation of [...] has abdominal discomfort/pain). Started a tea from [employer] with four ingredients and feels this has been very helpful with anxiety/depression and getting out of bed. Diarrhea, biochemical workup. Biochemical Anti-dbl strand DNA H30, CRP, H4.86 OV 11.23.24 abdominal cramping and diarrhea. Dairy and gluten [...] Dicyclomine a (more content not included)... Normal [facility] Luteinizing Hormoneon 2023 LH 21.4 mIU/mL Normal [facility] Comment on above: Result Comment: NORMAL REFERENCE RANGES FEMALE FOLLICULAR 1.9 - 26.2 mIU/mL MID-CYCLE PEAK 22.8 - 76.1 mIU/mL LUTEAL 0.6 - 16.6 mIU/mL POST-MENOPAUSAL ON MHT 1.1 - 52.4 mIU/mL NOT ON MHT 8.6 - 61.8 mIU/mL MALE 1.2 - 10.6 mIU/mL Performed By: #### L 101.3300, L501.9586, L3100.6480, L3300.7790 ####[facility] [id number] [place], [address] FOOT COMPLETE LTon FOOT COMPLETE LT [address] [address] Patient: HONG SNOW Phone#: : 1970 Age: 54 Gender: F Pt. Type: ER Account: [id number] Location: 052 Ordering: SEAMUS VÁSQUEZ Exam Date: 06/27/2024/8:51 Family Phys: RISSA TRAN Charge Code: [id number] Physician: Ogle Order #: [id number] Dose#: PROCEDURE: X-RAY FOOT LT COMPLETE MIN [...] Duenas MD on 06/27/2024 at 9:04 Normal [facility] US BREAST LT UNILATERAL COMP LETEon 03-14-2024 US BREAST LT UNILATERAL COMPLETE [address] [address] Patient: HONG SNOW Phone#: : 1970 Age: 54 Gender: F Pt. Type: Out Account: [id number] Location: 010 Ordering: Qustodian Exam Date: 03/14/2024/10:08 Family Phys: Charge Code: [id number] Physician: Ogle Order #: [id number] Dose#: PROCEDURE: ULTRASOUND BREAST LT COMPARISON: [facility], BREAST LT COMPLETE, 09/07/2023, 13:30. INDICATIONS: Left [...] Blandon MD on 03/14/2024 at 15:42 Normal [facility] Basophil percentageOrdered B y: Jared Self on 12-15-2022 Basophil percentage < 0.2 AI 0.0-0.9 [facility] Erythrocyte sedimentation ra teOrdered By: Jared Self on 12-15-2022 ESR (Bld) [Velocity] 5 mm/h 0-30 [facility] No Panel InformationOrdered By: Jared Self on 12-15-2022 Centromere B Antibody <0.2 AI 0.0-0.[address] [facility] BIOMEDICAL SCIENTIST Antibody 0.3 AI 0.0-0.9 [facility] Serum DNA double strand anti body assay (units/volume)Ordered By: Jared Self on 12-15-2022 DNA double strand Ab Qn (S) 30 [IU]/mL 0-9 [facility] Comment on above: Negative <5 Equivoca l 5 - 9 Positive >9 Serum Padma-1 antibody assay (u nits/volume)Ordered By: Jared Self on 12-15-2022 Padma-1 extractable nuclear Ab Qn (S) <0.2 AI 0.0-0.9 [facility] Serum Scl-70 extractable nuc lear antibody assay (units/volume)Ordered By: Jared Self on 12-15-2022 SCL-70 extractable nuclear Ab Qn (S) <0.2 AI 0.0-0.9 [facility] Serum Sheth extractable nucl ear antibody detectionOrdered By: Jared Self on 12-15-2022 Sheth extractable nuclear Ab Ql (S) <0.2 AI 0.0-0.9 [facility] Serum or plasma C reactive p rotein measurement (mass/volume)Ordered By: Jared Self on 12-15-2022 CRP [Mass/Vol] 4.86 mg/L 0.0-3.0 [facility] Comment on above: C-Reactive Protein ( CRP) provides useful information for thediagnosis, therapy and monitoring of inflammatory processesand associated diseases. For the evaluation of Relative Riskfor Cardiovascular Disease, a High Sensitivity CRP (HSCRP)should be ordered. Absolute lymphocyte counton 06-09-2022 Lymphocytes Auto (Unsp spec) [#/Vol] 2.75 10*3/uL 0.83-4.51 [facility] Work Phone: Basophil percentageon 2021 Basophil percentage < 0.2 AI 0.0-0.9 [facility] Work Phone: Basophils/100 WBC (Bld) 0.2 % 0-1 [facility] Work Phone: Bilirubin [Mass/Vol] 0.30 mg/dL 0.20-1.00 [facility] Work Phone: Comment on above: For patients on eltr ombopag therapy, use of Dimension [place] TBIL is not recommended. Chloride [Moles/Vol] 107 mmol/L 98-107 [facility] Work Phone: Eosinophils/100 WBC (Bld) 1.8 % 0-5 [facility] Work Phone: Glucose [Mass/Vol] 82 mg/dL 74-106 [facility] Work Phone: Neutrophils (Bld) [#/Vol] 5.1 10*3/uL 2.0-7.7 [facility] Work Phone: Neutrophils/100 WBC (Bld) 58.2 % 47-70 [facility] Work Phone: Potassium [Moles/Vol] 3.8 mmol/L 3.5-5.[address] [facility] Work Phone: Protein [Mass/Vol] 7.6 g/dL 6.4-8.2 [facility] Work Phone: Sodium [Moles/Vol] 140 mmol/L 136-145 [facility] Work Phone: WBC (Bld) [#/Vol] 8.8 10*3/uL 4.4-11.0 [facility] Work Phone: Blood erythrocytes count (nu mber/volume)on 06-09-2022 RBC (Bld) [#/Vol] 4.75 10*6/uL 4.2-5.4 [facility] Work Phone: Blood hemoglobin measurement (mass/volume)on 06-09-2022 Hemoglobin (Bld) [Mass/Vol] 14.6 g/dL 12.0-15.0 [facility] Work Phone: Blood lymphocytes/100 leukoc yteson 06-09-2022 Lymphocytes/100 WBC (Bld) 31.2 % 19-41 [facility] Work Phone: Blood monocytes/100 leukocyt eson 06-09-2022 Monocytes/100 WBC (Bld) 8.5 % 0-10 [facility] Work Phone: Blood platelet mean volumeon 06-09-2022 Platelet mean volume (Bld) [Entitic vol] 10.2 fL 6.2-12.0 [facility] Work Phone: Determination of erythrocyte mean corpuscular volume (MCV)on 06-09-2022 MCV (RBC) [Entitic vol] 91.4 fL 81-99 [facility] Work Phone: Erythrocyte sedimentation ra daniel 06-09-2022 ESR (Bld) [Velocity] 10 mm/h 0-30 [facility] Work Phone: [phone] Hematocrit Auto (Bld) [Volum e fraction]on 06-09-2022 Hematocrit (Bld) [Volume fraction] 43.4 % 37-47 [facility] Work Phone: [phone] Laboratory - Chemistry and C hemistry - challengeon 06-09-2022 ALP [Catalytic activity/Vol] 75 U/L 45-117 [facility] Work Phone: ALT [Catalytic activity/Vol] 22 U/L 13-56 [facility] Work Phone: CO2 [Moles/Vol] 27.0 mmol/L 21.0-32.0 [facility] Work Phone: [phone] Globulin (S) [Mass/Vol] 3.8 g/dL 2.2-4.2 [facility] Work Phone: [phone] Urea nitrogen/Creatinine [Mass ratio] 22.9 mg/mg 10-20 [facility] Work Phone: Laboratory - Hematology and Cell countson 06-09-2022 Erythrocyte distribution width (RBC) [Entitic vol] 36.6 fL 35.1-43.9 [facility] Work Phone: [phone] Erythrocyte distribution width (RBC) [Ratio] 10.9 % 11.6-14.6 [facility] Work Phone: [phone] Immature granulocytes/100 WBC (Bld) 0.100 % 0.0-0.9 [facility] Work Phone: [phone] Comment on above: IG% - Immature Granu locytes (promyelocytes, myelocytes and metamyelocytes) > 1% indicates that a LEFT SHIFT is Present. MCH (RBC) [Entitic mass] 30.7 pg 27.0-32.0 [facility] Work Phone: [phone] Nucleated RBC/100 WBC (Bld) [Ratio] 0 % 0-5 [facility] Work Phone: [phone] MCHC Auto (RBC) [Mass/Vol]on 08-17-2022 MCHC (RBC) [Mass/Vol] 33.6 g/dL 32-[address] [facility] Work Phone: No Panel Informationon 06-09 Centromere B Antibody <0.2 AI 0.0-0.[address] [facility] Work Phone: Endomysial IgA Antibody Negative Negative [facility] Work Phone: Estimated GFR (MDRD) Amer 105 mL/min >60 [facility] Work Phone: Comment on above: GFR Calc Estimated GFR (MDRD) Non-Af Amer 86 mL/min >60 [facility] Work Phone: Comment on above: Non- GFR Calc BIOMEDICAL SCIENTIST Antibody 0.3 AI 0.0-0.9 [facility] Work Phone: Platelets bldon 06-09-2022 Platelets (Bld) [#/Vol] 283 10*3/uL 150-450 [facility] Work Phone: Serum DNA double strand anti body assay (units/volume)on 06-09-2022 DNA double strand Ab Qn (S) 25 [IU]/mL 0-9 [facility] Work Phone: Comment on above: Negative <5 Equivoca l 5 - 9 Positive >9 Serum IgA measurement (units /volume)on 06-09-2022 IgA Qn (S) 218 mg/dL 87-352 [facility] Work Phone: Comment on above: Performed at: [address] [id number] Director: Jet Valladares PhD, Phone: [phone] Serum Padma-1 antibody assay (u nits/volume)on 06-09-2022 Padma-1 extractable nuclear Ab Qn (S) <0.2 AI 0.0-0.9 [facility] Work Phone: Serum Scl-70 extractable nuc lear antibody assay (units/volume)on 06-09-2022 SCL-70 extractable nuclear Ab Qn (S) <0.2 AI 0.0-0.9 [facility] Work Phone: Serum Sheth extractable nucl ear antibody detectionon 06-09-2022 Sheth extractable nuclear Ab Ql (S) <0.2 AI 0.0-0.9 [facility] Work Phone: Serum or plasma C reactive p rotein measurement (mass/volume)on 06-09-2022 CRP [Mass/Vol] 11.10 mg/L 0.0-3.0 [facility] Work Phone: Comment on above: C-Reactive Protein ( CRP) provides useful information for thediagnosis, therapy and monitoring of inflammatory processesand associated diseases. For the evaluation of Relative Riskfor Cardiovascular Disease, a High Sensitivity CRP (HSCRP)should be ordered. Serum or plasma albumin alex urement (mass/volume)on 06-09-2022 Albumin [Mass/Vol] 3.8 g/dL 3.2-5.0 [facility] Work Phone: Serum or plasma albumin/glob ulin mass ratioon 06-09-2022 Albumin/Globulin [Mass ratio] 1.0 {ratio} 0.9-2.4 [facility] Work Phone: Serum or plasma calcium alex urement (mass/volume)on 06-09-2022 Calcium [Mass/Vol] 9.0 mg/dL 8.5-10.1 [facility] Work Phone: Serum or plasma creatinine m easurement (mass/volume)on 06-09-2022 Creatinine [Mass/Vol] 0.74 mg/dL 0.55-1.[address] [facility] Work Phone: Comment on above: The validity of the calculated GFR & GFRAA in patients over 70 years has not been determined. Clinical correlation is essential. Serum or plasma urea nitroge n measurement (mass/volume)on 06-09-2022 Urea nitrogen [Mass/Vol] 17 mg/dL 7-18 [facility] Work Phone: Serum tissue transglutaminas e IgA antibody assay (units/volume)on 06-09-2022 tTG IgA Qn (S) <2 U/mL 0-3 [facility] Work Phone: Comment on above: Negative 0 - 3 Weak Positive 4 - 10 Positive >10 Tissue Transglutaminase (tTG) has been identified as the endomysial antigen. Studies have demonstr- ated that endomysial IgA antibodies have over 99% specificity for gluten sensitive enteropathy. Thin prep Papanicolaou smear with manual screeningon 06-09-2022 Thin prep Papanicolaou smear with manual screening 24 U/L 15-37 [facility] Work Phone: Thin prep Papanicolaou smear with manual screening 6 5-15 [facility] Work Phone: Thin prep Papanicolaou smear with manual screening 185 U/L 84-246 [facility] Work Phone: Coronavirus 2019on 0 COVID 19 Result CERT PHARMACY TECH Normal Negative for COVID19 (SARS CoV2) by PCR. [facility] Comment on above: Result Comment: Nega tive for This test was developed and its performance characteristics determined by [facility] [place]. This test has been authorized by FDA [...] developed and its performance characteristics determined by [facility] [place]. This test has been authorized by FDA [...] developed and its performance characteristics determined by [facility] [place]. This test has been authorized by FDA under an Emergency Use Authorization (EUA). This test has been validated in accordance with the FDA's Guidance Document Policy for Diagnostics Testing in Laboratories Certified to Perform High Complexity Testing under CLIA prior to Emergency use Authorization for Coronavirus Disease 2019 during the Public Health Emergency issued on December 22, 2019. COVID 19 Source CERT PHARMACY TECH CERT PHARMACY TECH Normal [facility] HEPATIC PANELon 07-09-2019 A:G RATIO 1.66 Normal 1.1-2.5 [facility] Comment on above: Performed By: #### L 100.0030 #### - LABORATORY [address] [place] [address] Albumin [Mass/Vol] 4.5 g/dL Normal 3.5-5.2 [facility] Comment on above: Performed By: #### L 100.0030 #### ML [facility] [address] [place] [address] ALK. PHOS 62 U/L Normal 35-105 [facility] Comment on above: Performed By: #### L 100.0030 #### ML [facility] [address] [place] [address] ALT [Catalytic activity/Vol] 13 U/L Normal 5-33 [facility] Comment on above: Performed By: #### L 100.0030 #### [facility] [address] [place] [address] AST [Catalytic activity/Vol] 22 U/L Normal 5-32 [facility] Comment on above: Performed By: #### L 100.0030 #### [facility] [address] [place] [address] Bilirubin Ql (U) 0.4 mg/dL Normal 0.2-1.2 [facility] Comment on above: Performed By: #### L 100.0030 #### [facility] [address] [place] [address] DIRECT BILIRUBI <0.2 Normal 0.0-0.3 [facility] Comment on above: Performed By: #### L 100.0030 #### [facility] [address] [place] [address] Globulin (S) [Mass/Vol] 2.7 g/dL Normal 1.5-4.5 [facility] Comment on above: Performed By: #### L 100.0030 #### [facility] [address] [place] [address] Protein [Mass/Vol] 7.2 g/dL Normal 6.4-8.3 [facility] Comment on above: Performed By: #### L 100.0030 #### [facility] [address] [place] [address] SURGICALon 10-12-2017 SURGICAL CHEST, BIOPSY OF - [...] slightly irregular pigmentation near irregular borders. (3,ns). Yony MICROSCOPI C DESCRIPTION: A-B. Slides reviewed. Yony FINAL DIAGNOSIS: A. LEFT MID CHEST - [...] *Electronically Signed* PARVEEN ZAMORA D.O 10/14/17 1544 [facility] Comment on above: Performed By: #### P -S ####ML - [facility] [id number] [place] [address] Vital Signs Date Time Vital Sign Value Performing Clinician Antonio haynes 05-21-2025 13:39-0400 Body temperature 98.1 [degF] [employer] Work Phone: [facility] 05-21-2025 13:39-0400 Diastolic blood pressure 97 mm[Hg] [employer] Work Phone: [facility] 05-21-2025 13:39-0400 Heart rate 66 /min [facility] [employer] Work Phone: [facility] 05-21-2025 13:39-0400 Respiratory rate 14 /min [employer] Work Phone: [facility] 05-21-2025 13:39-0400 SaO2% (BldA) [Mass fraction] 97 % [employer] Work Phone: [facility] 05-21-2025 13:39-0400 Systolic blood pressure 149 mm[Hg] [employer] PA-C Work Phone: [facility] 05-21-2025 10:39-0400 Body mass index (BMI) [Ratio] 28.8 kg/m2 [employer] PA-C Work Phone: [facility] 05-21-2025 10:39-0400 Body weight 76.3 kg Sun Number PA-C Work Phone: [facility] 05-21-2025 10:37-0400 Body height 162.56 cm Sun Number PA-C Work Phone: [facility] 05-10-2025 11:14-0400 Body height 162.56 cm [employer] PA-C Work Phone: [facility] 05-10-2025 11:14-0400 Body mass index (BMI) [Ratio] 26.9 kg/m2 [employer] PA-C Work Phone: [facility] 05-10-2025 11:14-0400 Body weight 71.27 kg [employer] Number PA-C Work Phone: [facility] 05-10-2025 11:14-0400 Diastolic blood pressure 80 mm[Hg] [employer] Number PA-C Work Phone: [facility] 05-10-2025 11:14-0400 Heart rate 80 /min [employer] PA-C Work Phone: [facility] 05-10-2025 11:14-0400 Respiratory rate 14 /min [employer] PA-C Work Phone: [facility] 05-10-2025 11:14-0400 SaO2% (BldA) [Mass fraction] 97 % [employer] PA-C Work Phone: [facility] 05-10-2025 11:14-0400 Systolic blood pressure 146 mm[Hg] [employer] PA-C Work Phone: [facility] 04-29-2025 11:52-0400 Diastolic blood pressure 90 mm[Hg] Rissa [employer] PA-C Work Phone: [facility] 04-29-2025 11:52-0400 Heart rate 65 /min [employer] PA-C Work Phone: [facility] 04-29-2025 11:52-0400 Respiratory rate 14 /min [employer] PA-C Work Phone: [facility] 04-29-2025 11:52-0400 SaO2% (BldA) [Mass fraction] 99 % [employer] PA-C Work Phone: [facility] 04-29-2025 11:52-0400 Systolic blood pressure 154 mm[Hg] [employer]issa [employer] PA-C Work Phone: [facility] 04-29-2025 10:45-0400 Inhaled oxygen flow rate 2 L/min Sun Number PA-C Work Phone: [facility] 04-29-2025 09:34-0400 Body height 162.56 cm [employer] Number PA-C Work Phone: [facility] 04-29-2025 09:34-0400 Body mass index (BMI) [Ratio] 25.4 kg/m2 [employer] PA-C Work Phone: [facility] 04-29-2025 09:34-0400 Body temperature 98.5 [degF] [employer] PA-C Work Phone: [facility] 04-29-2025 09:34-0400 Body weight 67.13 kg Rissa [employer] PA-C Work Phone: [facility] 04-01-2025 11:07-0400 Body height 162.56 cm [employer] PA-C Work Phone: [facility] 04-01-2025 11:07-0400 Body mass index (BMI) [Ratio] 25.7 kg/m2 [employer] PA-C Work Phone: [facility] 04-01-2025 11:07-0400 Body weight 68.03 kg Rissa [employer] PA-C Work Phone: [facility] 04-01-2025 11:07-0400 Diastolic blood pressure 91 mm[Hg] Sun Number PA-C Work Phone: [facility] 04-01-2025 11:07-0400 Heart rate 97 /min Sun Number PA-C Work Phone: [facility] 04-01-2025 11:07-0400 SaO2% (BldA) [Mass fraction] 97 % [employer] Number PA-C Work Phone: [facility] 04-01-2025 11:07-0400 Systolic blood pressure 163 mm[Hg] Sun Number PA-C Work Phone: [facility] 12-20-2024 11:14-0500 Body height 162.56 cm Sun Number PA-C Work Phone: [facility] 12-20-2024 11:14-0500 Body mass index (BMI) [Ratio] 24.3 kg/m2 Sun Number PA-C Work Phone: [facility] 12-20-2024 11:14-0500 Body weight 64.41 kg Sun Number PA-C Work Phone: [facility] 12-20-2024 11:14-0500 Diastolic blood pressure 96 mm[Hg] Sun Number PA-C Work Phone: [facility] 12-20-2024 11:14-0500 Heart rate 90 /min Sun Number PA-C Work Phone: [facility] 12-20-2024 11:14-0500 SaO2% (BldA) [Mass fraction] 97 % [facility] PA-C Work Phone: [facility] 12-20-2024 11:14-0500 Systolic blood pressure 152 mm[Hg] Rissa Rankin PA-C Work Phone: [facility] Encounters Encounter Date Encounter Type Care Provider Facility Start: 05-21-2025 End: 05-21-2025 Emergency department patient visit Rissa Rankin PA-C Work Phone: -Emergency Department Work Phone: Start: 05-10-2025 End: 05-10-2025 ambulatory [facility] PA-C Work Phone: -Laboratory Start: 05-10-2025 End: 05-10-2025 Patient encounter procedure Cyndi MILLIGAN -Laboratory Work Phone: Start: 05-10-2025 End: 05-10-2025 Patient encounter procedure Cyndi MILLIGAN -[facility] Work Phone: Start: 05-10-2025 End: 05-10-2025 ambulatory [facility] PA-C Work Phone: -[facility] Start: 05-10-2025 End: 05-10-2025 ambulatory [facility] Facility:[facility] Start: 05-02-2025 Encounter for other preprocedural examination [facility] Start: 04-29-2025 End: 04-29-2025 ambulatory [facility] PA-C Work Phone: -Cat Scan [facility] Start: 04-29-2025 End: 04-29-[address] Ankur Dunlap MD -Cat Scan [facility] Work Phone: Start: 04-29-2025 End: 04-29-2025 ambulatory [facility] Facility:[facility] Start: 04-01-2025 End: 04-01-[address] Ankur Dunlap MD -[facility] Work Phone: Start: 04-01-2025 End: 04-01-2025 ambulatory [facility] PA-C Work Phone: [facility] Work Phone: Start: 02-14-2025 End: 02-14-2025 Patient encounter procedure SUN FLOWERS MD -Laboratory Work Phone: Start: 02-14-2025 End: 02-14-2025 ambulatory [facility] Facility:[facility] Start: 01-21-2025 End: 01-21-2025 ambulatory Genia LOLYBATSHEVAFazal FLOWERS [facility] Start: 12-31-2024 End: 12-31-2024 ambulatory [facility] PA-C Work Phone: [facility] Work Phone: Start: 12-31-2024 End: 12-31-[address] Ankur Dunlap MD -Ultrasound, [facility] Work Phone: Start: 12-31-2024 End: 12-31-2024 ambulatory Ankur Dunlap Facility:[facility] Start: 12-21-2024 End: 12-21-2024 ambulatory Genia LOLYMARTA LIONEL [facility] Start: 12-20-2024 End: 12-20-[address] Ankur Dunlap MD -[facility] Work Phone: Start: 12-20-2024 End: 12-20-2024 ambulatory [facility] Facility:[facility] Start: 12-11-2024 End: 12-11-2024 ambulatory [facility] Start: 12-07-2024 End: 12-07-2024 ambulatory [facility] Start: 12-02-2024 End: 12-02-2024 Emergency department patient visit DARIO LINARES [facility] Start: 08-06-2024 End: 08-06-2024 ambulatory [facility] Facility:[facility] Start: 08-06-2024 End: 08-06-2024 ambulatory [facility] Facility:[facility] Start: 06-27-2024 End: 06-27-2024 Emergency department patient visit SEAMUS VÁSQUEZ [facility] Start: 03-14-2024 End: 03-14-20[facility] Start: 12-15-2022 End: 12-15-2022 ambulatory PA-C Rissa Rankin PA Work Phone: [facility] Work Phone: Start: 12-15-2022 End: 12-15-2022 Patient encounter procedure PA-C Rissa Rankin PA Work Phone: [facility] Start: 08-24-2022 End: 08-24-2022 Patient encounter procedure PA-Oretses Tran PA Work Phone: [facility] Start: 06-13-2022 End: 06-13-[address] Jared Self Work Phone: [facility] Work Phone: Start: 06-13-2022 End: 06-13-[address] Jared Self Work Phone: [facility]-Laboratory, Specimen Start: 06-09-2022 End: 06-09-[address] Jared Self Work Phone: [facility]-Laboratory Start: 06-09-2022 End: 06-09-[address] Jared Self Work Phone: [facility] Start: 10-12-2017 Ambulatory PROVIDER UNKNOWN Facili ty:OUTREACH Procedures Date Procedure Procedure Detail Performing Clinician Start: 05-21-2025 Urnls dip stick/tabl et reagent auto microscopy Rissa JUAREZ-C Work Phone: Start: 05-21-2025 Plain chest X-ray Fritz Tran PA-C Work Phone: Start: 05-21-2025 D-dimer assay, quantitative [facility]- Work Phone: Comment on above: NORMAL D-Dimer level (<0.50) indicates no DVT or PE. Start: 05-21-2025 Estimated creatinine clearance [facility] Work Phone: Start: 05-10-2025 [facility] Work Phone: Comment on above: Test Ordered: [id number] IgG, Subclass 4IgG, Subclass 4 15 mg/dL CB Reference Range: 2-96Performed at: [facility] [id number] Director: Jet Valladares PhD, Phone: [phone] Start: 04-29-2025 Biopsy/Inj or Needle Placement [facility] Work Phone: Start: 02-14-2025 Urnls dip stick/tabl et reagent auto microscopy [facility]- Work Phone: Start: 02-14-2025 CODY measurement [facility]- Work Phone: Start: 02-14-2025 Antibody to centrome re measurement [facility]- Work Phone: Start: 02-14-2025 Antibody to extracta ble nuclear antigen measurement [facility]- Work Phone: Start: 02-14-2025 Antibody to PADMA-1 measurement [facility] Work Phone: Start: 02-14-2025 Antibody to lupus La protein measurement [facility]- Work Phone: Start: 02-14-2025 Antibody to SS-A measurement [facility] Work Phone: Start: 02-14-2025 Autoantibody measurement [facility]- Work Phone: Start: 02-14-2025 Ceruloplasmin measurement [facility] Work Phone: Start: 02-14-2025 Copper measurement, serum [employer] Work Phone: Comment on above: Detection Limit = 5P erformed at: [facility] [id number] [place], [place] [id number] Director: Jet Valladares PhD, Phone: [phone] at: [facility] [address] [id number] Director: Thu Bradley MD, Phone: [phone] Start: 02-14-2025 Hepatitis A virus an tibody, IgM type [facility] Work Phone: Comment on above: A negative anti-HAV IgM result suggests no recent orcurrent HAV infection. Start: 02-14-2025 Hepatitis B core ant ibody measurement, IgM type [facility] Work Phone: Start: 02-14-2025 Hepatitis C antibody measurement [facility] Work Phone: Start: 02-14-2025 Procedure Rissa H Powervations Done In :60 Seconds-[facility] Work Phone: Comment on above: Test Ordered: [id number] Enhanced Liver Fibrosis (ELF)ELF(TM) Score 10.46 [H ] Reference Range: <9.80ELF(TM) Score Interpretation:Risk cut-offs to assess the likelihood of progressionto cirrhosis and liver-related clinical events within3.9 years following baseline ELF score (IQR: 14.0-22.4months)*: Lower risk < 9.80 Mid risk 9.80 - 11.29 Higher risk >11.29Note: The ELF(TM) Score is a unitless numerical value.*Dani SA, Joe VW, Saniya T, et al. Selonsertibfor patients with bridging fibrosis or compensatedcirrhosis due to CERDA: Results from randomized phaseIII STELLAR trials. J Hepatol. 2020 Apr;73(1):26-39.Performed at: [facility] [address] [id number] Director: Thu Bradley MD, Phone: [phone] at: [facility] [address] [id number] Director: Jet Valladares PhD, Phone: [phone] Start: 02-14-2025 BIOMEDICAL SCIENTIST antibody measurement [facility] PA-C Work Phone: Start: 02-14-2025 Total iron binding c apacity measurement [facility] PA-C Work Phone: Start: 12-31-2024 Ultrasound elastogra phy of liver [facility] Work Phone: Clostridium difficil e detection Dr. Jared Self Work Phone: Lactoferrin measurement Dr. Jared Self Work Phone: Plan of Treatment Date Care Activity Detail Author Start: 05-21-2025 [facility] Start: 05-21-2025 Measurement of C-mamadou ctive protein using high sensitivity technique [facility] Start: 05-21-2025 [facility] Start: 04-29-2025 Biopsy liver needle percutaneous NEEDLE BIOPSY OF LIVER PERQ [facility] Start: 04-29-2025 Catheterization of vein [facility] Start: 04-29-2025 Oxygen therapy [facility] Start: 04-29-2025 Patient discharge [facility] Start: 04-29-2025 Vital signs measurements [facility] Start: 06-13-2022 5-Hydroxyindoleaceta te [Mass/volume] in 24 hour Urine [facility] Work Phone: Start: 06-13-2022 Elastase, pancreatic (el-1), fecal; quantitative [facility] Work Phone: Start: 06-13-[address] [facility] Work Phone: Start: 06-09-2022 Immunoglobulin measurement [facility] Work Phone: Start: 06-09-2022 Procedure [facility] Work Phone: Start: 06-09-2022 Serum immunofixation [facility] Work Phone: Start: 06-09-2022 [facility] Work Phone: 5-Hydroxyindoleaceta te [Mass/volume] in 24 hour Urine [facility] Work Phone: 5-Hydroxyindoleaceti c acid measurement [facility] Work Phone: Acute hepatitis 1999 panel - Serum [facility] Albumin [Moles/volum e] in Serum or Plasma [facility] Work Phone: Albumin/Globulin ratio [facility] Work Phone: Bilirubin.direct [Mass/volume] in Serum or Plasma [facility] C reactive protein [Mass/volume] in Serum or Plasma [facility] CBC W Auto Different ial panel - Blood [facility] CBC W Auto Different ial panel - Blood [facility] Ceruloplasmin [Mass/ volume] in Serum or Plasma [facility] metabo lic 1999 panel - Serum or Plasma [facility] metabo lic 1999 panel - Serum or Plasma [facility] Copper [Moles/volume ] in Serum or Plasma [facility] Cytoplasmic ANCA Screen [facility] Electrophoresis: [id number] [facility] Work Phone: Electrophoresis: des ma globulin [facility] Work Phone: Ferritin [Mass/volum e] in Serum or Plasma [facility] Gamma glutamyl trans ferase measurement [facility] Gamma glutamyl trans ferase measurement [facility] Globulin measurement [facility] Work Phone: Hemoglobin A1c/Hemoglobin.total in Blood [facility] Hemoglobin A1c/Hemoglobin.total in Blood [facility] IgA [Mass/volume] in Serum or Plasma [facility] Work Phone: IgE [Units/volume] i n Serum or Plasma [facility] Work Phone: IgG [Mass/volume] in Serum or Plasma [facility] Work Phone: IgM [Mass/volume] in Serum or Plasma [facility] Work Phone: Iron and Iron bindin g capacity panel - Serum or Plasma [facility] Lactate dehydrogenas e measurement [facility] Lactate dehydrogenas e measurement [facility] Lactate dehydrogenas e measurement [facility] Mitochondria Ab [Pre sence] in Serum [facility] Neutrophil cytoplasm ic Ab.classic [Units/volume] in Serum [facility] Work Phone: P-ANCA measurement [facility] Work Phone: Patient Education [facility] Work Phone: Procedure [facility] Work Phone: Procedure [facility] Procedure [facility] Protein electrophore sis panel - Serum or Plasma [facility] Work Phone: Protein measurement [facility] Work Phone: Prothrombin time [facility] Prothrombin time [facility] Serum protein electrophoresis [facility] Work Phone: Smooth muscle Ab [Pr esence] in Serum [facility] T4 free measurement [facility] Thyroid stimulating hormone measurement [facility] Urinalysis complete panel - Urine [facility] Payers Date Payer Category Payer Self-pay 2024 Unknown [id number] 2013 Unknown [id number] 1970 Unknown [id number] 2.16.8 [id number] 1970 Unknown [id number] 2.16.8 40.1.925523.3.579.2 1970 Unknown [id number] 2.16.8 40.1.494985.3.579.2 1970 Unknown [id number] 2.16.8 40.1.518987.3.579.2 1970 Unknown [id number] 2.16.8 40.1.390216.3.579.2.651 1970 Unknown [id number] 2.16.8 40.1.631438.3.579.2.651 1970 Unknown [id number] 2.16.8 40.1.934093.3.579.2.651 Unknown [id number] 2.16.8 [id number] Unknown [id number] 2.16.8 [id number] Unknown [id number] 2.16.8 [id number] Unknown [id number] 2.16.8 40.1.103020.3.579.2.462 Unknown [id number] 2.16.8 [id number] Unknown [id number] 2.16.8 40.1.794222.3.579.2.462 Unknown [id number] 2.16.8 40.1.831841.3.579.2.462 Unknown [id number] 2.16.8 40.1.582969.3.579.2.462 Unknown [id number] 2.16.8 40.1.477384.3.579.2.462 Social History Date Type Detail [facility] Work Phone: Start: 1970 Sex Assigned At Female [facility] Start: 12-15-2022 [facility] Start: 11-23-2023 End: 05-21-2025 Tobacco smoking status NHIS Never smoked tobacco (finding) [facility] Start: 01-10-2025 Sex Female (finding) [facility] Mental Status Date Assessment Result Facility 05-21-2025 Cognitive function Level Of Cons ciousness Awake;Alert;Appropriate [facility] Work Phone: 04-29-2025 Cognitive function Awake;Alert;Appropriat e [facility] Work Phone: Clinical Notes 09-22-2022 to 05-21-2025 Note Date & Type Note Facility 05-21-2025 Radiology Diagnostic study note [facility] Imaging Services [address] [place] [address] Chest 1 View (Portable) MR#: [id number] Acct: [id number] Name: HONG SNOW Rep #: [id number] : 1970 F 55 From: Aracelis Morrow MD PCP: Rissa Tran PA-C Status: REG E R Study:Chest 1 View (Portable) Date of Exam: 05/21/25 Exam# [id number] Ordering Dr: Yudi Campbell DO PROCEDURE: CHEST 1 VIEW (PORTABLE) 05/21/2025 REASON FOR EXAM: DYSPNEA TECHNIQUE: Frontal view of the chest. COMPARISON: None FINDINGS: Heart size and mediastinal configuration are within normal limits. There is no focal infiltrate or consolidation. There is no pneumothorax or effusion. There is no visible atherosclerosis. RAD/Chest 1 View (Portable) IMPRESSION: No acute process is identified in the chest. Reading Location: [facility] CC: CHANDLER Tran; Dr. Nicola Campbell, ~ Ob Gyn Physician Assistant: Signed [facility] 04-29-2025 Radiology Diagnostic study note [facility] Imaging Services [address] [place], [place] [id number] Biopsy/Inj or Needle Placement MR#: [id number] Acct: [id number] Name: HONG SNOW Rep #: [id number] : 1970 F 55 From: Yoel Sandra MD PCP: Rissa Tran PA-C Status: REG C LI Study:Biopsy/Inj or Needle Placement Date of Exam: 04/29/25 Exam# [id number] Ordering Dr: Ruchi Dunlap MD EXAM: CT-guided liver biopsy. CLINICAL HISTORY: Fatty infiltration of the liver. COMPARISON: Prior sonogram dated December 31, 2024. TECHNIQUE: The procedure as well as the benefits and possible complications including infection and bleeding were explained to the patient. Informed consent was obtained. The patient was in the supine position. Conscious sedation was performed. The patient received 2 mg of Versed and 25 mcg of fentanyl intravenously. Conscious sedation was started at 10:27 a.m. and terminated at 10:45 a.m.. The patient was independently monitored by the department nurse. The overlying skin was prepped and draped in the usual sterile fashion. Following local anesthetic application, 4 core biopsies of the right lobe of the liver was performed with an 18 gauge core biopsy needlesystem. The patient tolerated the procedure well. FINDINGS: Successful CT-guided core biopsies of the right lobe of the liver as described. The patient tolerated the procedure well. No immediate complication noted. CT/Biopsy/Inj or Needle Placement IMPRESSION: Successful CT-guided core biopsy of the right lobe of the liver as described. Reading Location: [place] [address] CC: CHANDLER Tran; Dr. Ankur Dunlap MD ~ Ob Gyn Physician Assistant: Signed [facility] 04-01-2025 Evaluation note Diagnosis Onset Date Resolution Elevated liver enzymes acute April 01, 2025 1 1:04am [facility] Work Phone: 1(271) 378-618306-09-2025 Evaluation note* Diagnosis Onset Date Resolution Status Admit Date Elevated liver enzymes acute 2024 11:04am Cirrhosis acute May 10 11:09am Elevated liver enzymes acute 2024 11:09am [facility] Work Phone: 1(215) 582-134903-10-2025 Radiology Diagnostic study note [facility] Imaging Services [address] [place], [place] [address] ABD Limited w/ Elastography MR#: [id number] Acct: [id number] Name: HONG SNOW Rep #: [id number] : 1970 F 54 From: Joy More MD PCP: Rissa Tran PA-C Status: REG C LI Study:ABD Limited w/ Elastography Date of Exa m: 12/31/24 Exam# [id number] Ordering Dr: Ruchi Dunlap MD PROCEDURE: ABD LIMITED W/ ELASTOGRAPHY (USABDLELPARO), 12/31/2024 REASON FOR EXAM: Elevated liver enzymes. COMPARISON: None TECHNIQUE: Grayscale and color Doppler imaging of the right upper quadrant was performed. [facility] [employer] S-shear waveelastography was performed for non-invasive assessment of liver [...] is vendor-neutral and intended for use in fibrosisrelated to viral etiologies and non-alcoholic fatty-liver disease (NAFLD); in causes other than viral hepatitis and NAFLD, the cutoff values are currently not well established. In some patients with NAFLD, the cutoff values for cACLD may be lower (7-9 kPa). Note also that in the setting of elevated LFTs, nonfasting or vascular congestion, the stage of lifer fibrosis may be overestimated. Previous SRU reference values: <1.37 m/s (5.7kPa): No to mild fibrosis 1.37 m/s - 2.2 m/s: Moderate to severe fibrosis >2.2 m/s (15kPa): Significant fibrosis / cirrhosis Reading Location: [place] CC: CHANDLER Tran; Dr. Ankur Dunlap MD ~ Ob Gyn Physician Assistant: Signed [facility]02-27-2025 Evaluation note* Diagnosis Onset Date Resolution Status Admit Date Elevated liver enzymes acute Fe bruary 2024 10:51am [facility] Work Phone: 1(876) 382-102702-27-2025 Evaluation note* Diagnosis Onset Date Resolution Status Admit Date Elevated liver enzymes acute Fe bruary 2024 10:51am Elevated liver enzymes acute Ju ne 2024 11:04am [facility] Work Phone: 1(947) 531-638002-09-2025 NoteDischarge Instructions Discharge Summary [address] [id number] 12/02/2024 Patient: HONG SNOW Sex: Female : 1970 Age: 54y Thank you for visiting [facility]. You have been evaluated today by Dario Linares D.O. for the following condition(s): Principal Diagnosis Headache. Viral syndrome elevated liver enzymes AST, ALT and ALK PHOS. INSTRUCTIONS Prescription Medications: Zithromax Z-Keith tablet (azithromycin) 250: Take 2 tablet by mouth once a day for 5 days, dispense 6tablet. Refills 0. Notes 2 tablets today and then 1 tab for next 4 days dispensed 6. Pharmacy: [facility] [id number] [place] [address]. prednisone 20 mg tablet: Take 1 tablet by mouth twice a day for 5 days, dispense 10 tablet. Refills0. Pharmacy: [facility] [id number] [place] [address]. Follow-up with: ANN Sharp, [facility], Phone: [phone], [address] [place] [address]. Follow up in two days. (Return if increasing cough any problems or concerns. Have her liver rechecked including her AST ALT and alk-phos. Return if any difficulties or concerns.). 1 of 7 Discharge Instructions You have been given the following additional information: Viral Syndrome (Adult) Pneumonia (Adult) Patient Signature Facility [employer] Research Worker Date/Time General Instructions with ExitWriter [address] [place] [phone] 12/02/2024 Patient: HONG SNOW Sex: Female : 1970 Age: 54y Thank you for visiting [facility]. You have been evaluated today by Dario Linares D.O. for the following condition(s): Principal Diagnosis Headache. Viral syndrome elevated liver enzymes AST, ALT and ALK PHOS. INSTRUCTIONS Prescription Medications: Zithromax Z-Keith tablet (azithromycin) 250: Take 2 tablet by mouth once a day for 5 days, dispense 6tablet. Refills 0. Notes 2 tablets today and then 1 tab for next 4 days dispensed 6. Pharmacy: [facility] [id number] [place] [address]. 2 of 7 Discharge Instructions prednisone 20 mg tablet: Take 1 tablet by mouth twice a day for 5 days, dispense 10 tablet. Refills0. Pharmacy: [facility] [id number] [place] [address]. Follow-up with: ANN Sharp, [facility], Phone: [phone], [address] [address], [place] [address]. Follow up in two days. (Return if [...] shortness of breath. If it settles in yourstomach and intestinal tract, it may cause nausea, [...] the smoke from others. You may use [id number] acetaminophen or ibuprofen for fever, muscle aching, [...] orange juice; lemonade; apple, grape, and cranberry juice;clear fruit drinks; electrolyte replacement and sports drinks; and decaffeinated teas and coffee. If you have bee (more content not included)...[facility]11-30-2022 Note. MICRO - Microbiology PROCEDURE: Blood Culture (bacterial) [...] Locations *1: This test was performed at: [address], [address] [place] [address] ([place])09-22-2022 Note. MICRO - Microbiology PROCEDURE: Blood Culture (bacterial) [...] Locations *1: This test was performed at: [address], [address] [place] [address] ([place])Evaluation note* Diagnosis Onset Date Resolution Status Diarrhea acute [facility] Work Phone: Evaluation note* Diagnosis Onset Date Resolution Status Diarrhea resolved Diarrhea resolved [facility] Work Phone: Reason for referral (narrative)No reason for referral [facility] Work Phone: Summary Purpose Family History No Family History Records FoundNo Family History Records FoundNo Family History Records FoundNo Family History Records FoundNo Family History Records FoundNo Family History Records FoundNo Family History Records Found Advance Directives Advance Directive Response Recorded Date/ Time Living Will No August 10 8:48am Power of Cue Selector No August 10, 2022 8:48am Advance Directive Response Recorded Date/ Time Do you have a Healthcare Power of Cue Selector? No May 21, 2025 10:47am Chief Complaint and Reason for Visit Chief [...] liver enzymes April 01, 2025 11 :04am Chief Complaint Admit Date 2 ORDERING DOCTORS February 14, 2025 12: 17pm 3 M FU April 01, 2025 11:04 am Abnormal levels of other serum enzymes/s tat labs April 29, 2025 8:28am Reason for Visit Admit Date Elevated liver enzymes April 01, 2025 11 :04am Chief Complaint Admit Date 2 ORDERING DOCTORS February 14, 2025 12: 17pm 3 M FU April 01, 2025 11:04 am Abnormal levels of other serum enzymes/s tat labs April 29, 2025 8:28am GERMÁN PT - BX RESULTS May 10, 2025 11 :09am Chief Complaint Admit Date 2 ORDERING DOCTORS February 14, 2025 12: 17pm 3 M FU April 01, 2025 11:04 am Abnormal levels of other serum enzymes/s tat labs April 29, 2025 8:28am GERMÁN PT - BX RESULTS May 10, 2025 11 :09am 2 ORDERING DOCTORS GERMÁN AND LAW Barrera y 2024 12:27pm Reason for Visit Admit Date Elevated liver enzymes April 01, 2025 11 :04am Cirrhosis May 10, 2025 11:0 9am Elevated liver enzymes May 10, 2025 1 1:09am Chief Complaint Admit Date 2 ORDERING DOCTORS February 14, 2025 12: 17pm 3 M FU April 01, 2025 11:04 am Abnormal levels of other serum enzymes/s tat labs April 29, 2025 8:28am GERMÁN PT - BX RESULTS May 10, 2025 11 :09am 2 ORDERING DOCTORS GERMÁN AND LAW hernandez 2024 12:27pm SOB May 21, 2025 10:3 7am Additional Source Comments INFORMATION SOURCE (unrecogn ized section and content) DATE CREATED AUTHOR 04/17/2018 [facility] DATE CREATED AUTHOR AUTHOR'S ORGANIZ ATION 07/25/2019 [facility] DATE CREATED AUTHOR AUTHOR'S ORGANIZ ATION 05/15/2020 [facility] DATE CREATED AUTHOR AUTHOR'S ORGANIZ ATION 09/23/2022 [facility] ([place] DATE CREATED AUTHOR AUTHOR'S ORGANIZ ATION 01/27/2025 [facility] DATE CREATED AUTHOR AUTHOR'S ORGANIZ ATION 01/28/2025 [facility] DATE CREATED AUTHOR AUTHOR'S ORGANIZ ATION 05/18/2025 [facility] Goals (unrecognized section and content) Goals may [...] Status: Active Member Role Status Dates Rissa JUAREZ PA-C Primary Care Provider Active Team Status: Inactive Member Role Status Dates Rissa JUAREZ PASammiC Primary Care Provider, Referri ng Provider Active Dr. Jared Self DO Attending Provider Active Team Status: Inactive Member Role Status Dates Rissa JUAREZ PA-C Primary Care Provider Active Dr. Jared Self DO Attending Provider, Referring Provider Active Team Status: Inactive Member Role Status Dates Rissa JUAREZ PASammiC Primary Care Provider Active Start: December 20, 2024 End: December 20, 2024 Rissa JUAREZ PASammiC Referring Provider Active Start: December 20, 2024 [...] PA, PA-C Primary Care Provider Active Start: April 01, 2025 End: April 01, 2025 Rissa Chelsea PA, PA-C Referring Provider Active Start: April 01, 2025 End: April 01, 2025 Dr. Ankur Dunlap MD Attending Provider Active Start: April 01, 2025 End: April 01, 2025 Team Status: Active Member Role/Relationship Status Dates Rissa Tran PA, PA-C Primary Care Provider Active Team Status: Inactive Member Role/Relationship Status Dates Rissa Tran PA, PA-C Primary [...] February 14, 2025 Team Status: Inactive Member Role/Relationship Status Dates Rissa Tran PA, PA-C Primary Care Provider Active Start: April 01, 2025 End: April 01, 2025 Rissa Rankin PA, PA-C Referring Provider Active Start: April 01, 2025 End: April 01, 2025 Dr. Ankur Dunlap MD Attending Provider Active Start: April 01, 2025 End: April 01, 2025 Team Status: Inactive Member Role/Relationship Status Dates Rissa Hills PA, PA-C Primary Care Provider Active Start: April 29, 2025 End: April 29, 2025 Dr. Ankur Dunlap MD Attending Provider Active Start: April 29, 2025 End: April 29, 2025 Dr. Alo Sandra MD Referring Provider Active Start: April 29, 2025 End: April 29, 2025 Team Status: Inactive Member Role/Relationship Status Dates Rissa Hills PA, PA-C Primary Care Provider Active Start: May 10, 2025 End: May 10, 2025 Rissa Hills PA, PA-C Referring Provider Active Start: May 10, 2025 End: May 10, 2025 Cyndi Foy [employer] TECH-C Attending Provider Active Start: May 10, 2025 End: May 10, 2025 Team Status: Inactive Member Role/Relationship Status Dates Rissa Hills PA, PA-C Primary Care Provider Active Start: May 10, 2025 End: May 10, 2025 Cyndi Foy [employer] TECH-C Attending Provider Active Start: May 10, 2025 End: May 10, 2025 Cyndi Foy NP-C Referring Provider Active Start: May 10, 2025 End: May 10, 2025 Dr. Ankur Dunlap MD Other Provider Active Sta rt: May 10, 2025 End: May 10, 2025 Team Status: Inactive Member Role/Relationship Status Dates Rissa Tran PA, PA-C Primary Care Provider Active Start: May 21, 2025 End: May 21, 2025 Dr. Nicola Campbell , Emergency Provider Active S tart: May 21, 2025 End: May 21, 2025 FOR RECORDS PERTAINING TO PATIENTS WHO [...] BE BASED ON THE PRIMARY CLINICAL RECORDS. [facility] [employer] [facility]. provides no warranty or guarantee of the accuracy or completeness of information in this document.
[2025-05-22 04:07] LABS: CRP, High Sensitivity 1.04 mg/L (0.00-3.00)
== END 2025-05-21 13:43 | disposition home or self-care (01) ==
PROVIDERS: Emergency Provider Emergency Medicine; PCP Family Medicine; Visit Provider Emergency Medicine
DX: R53.1 Weakness (principal); K75.4 Autoimmune hepatitis; R06.00 Dyspnea, unspecified; Z86.73 Personal history of transient ischemic attack (TIA), and cerebral infarction without residual deficits; K21.9 Gastro-esophageal reflux disease without esophagitis; Z79.899 Other long term (current) drug therapy
CPT/HCPCS: 71045; 80053; 81001; 83690; 84484; 85025; 85379; 85610; 85652; 86141; 93005; 99284; A4216

== ENCOUNTER → 2025-05-24 | Outpatient (CLI) | payer BC, SELFPAY | END | disposition home or self-care (01) | LOC: LAB 13:36 | PROVIDERS: PCP Family Medicine; Referring Provider Internal Medicine; Visit Provider Internal Medicine | DX: R74.8 Abnormal levels of other serum enzymes (principal); K58.0 Irritable bowel syndrome with diarrhea | CPT/HCPCS: 36415 ==

== ENCOUNTER → 2025-05-25 | Outpatient (CLI) | payer BC, SELFPAY ==
--- OUTSIDE RECORDS SUMMARY | 2025-05-25 11:03 | XMS RPT_ITS | CCD ---
Author Organization [facility] Care Team Providers Care Washing Machine Operator Name Role Phone UNKNOWN, PROVIDER Unavailable Unavailable Friend, Dr. Coleman Attending Provider [place] ANN PASammiC Rissa Primary Care Provider [place] ANN PASammiC Rissa Referring Provider Friend, Dr. Coleman Attending Provider [place] CHANDLER, Rissa Primary Care Provider [place] CHANDLER, Rissa Referring Provider [phone] Germán TOBAR, Dr. Pascual Attending Provider [phone] Dr. Ankur Dunlap MD Referring Provider HILLS, RISSA Admitting Unavailable HILLS, RISSA Attending Unavailable HOUSTON, RISSA Primary Care Unavailable HOUSTON, RISSA Consulting Unavailable PROVIDER, UNKNOWN Consulting Unavailable Genia FLOWERS Admitting Unavailable Genia FLOWERS Attending Unavailable Genia FLOWERS Primary Care Unavailable [place]ST[place], RISSA Consulting Unavailable PROVIDER, UNKNOWN Consulting Unavailable SEAMUS VÁSQUEZ Admitting Unavailable SEAMUS VÁSQUEZ Attending Unavailable SEAMUS VÁSQUEZ Primary Care Unavailable HILLS, RISSA Consulting Unavailable HOUSTON, RISSA Referring Unavailable PROVIDER, UNKNOWN Consulting Unavailable SAMIRDARIO NASCIMENTO Admitting Unavailable SAMIRDARIO Attending Unavailable SAMIRDARIO NASCIMENTO Primary Care Unavailable HILLS, RISSA Consulting [...] Consulting Unavailable LIONEL TOBAR, SUN Attending Provider LIONEL TOBAR, SUN Referring Provider Germán TOBAR, Dr. Pascual Other Provider [place] PA-C, Rissa Primary Care Provider [phone] [place] PA-C, Rissa Referring Provider Germán TOBAR, Dr. Pascual Attending Provider Boaz TOBAR, Dr. Prajapati Referring Provider Un available Law EMBEDDED SOFTWARE DEVELOPER-C, Cyndi Attending Provider Law EMBEDDED SOFTWARE DEVELOPER-C, Cyndi Referring Provider Dr. Nicola Campbell DO Emergency Provider [phone] Ankur Dunlap Attending Unavailable [place], Rissa Referring Unavailable [place], Rissa Primary Care Unavailable [place], Rissa Referring Unavailable Germán, Ankur Attending Unavailable [place], Rissa Primary Care Unavailable Germán, Ankur Attending Unavailable [place], Rissa Primary Care Unavailable Alo Sandra Referring Unavailable [place], Rissa Primary Care Unavailable Nicola Campbell Attending Unavailable [place], Rissa Primary Care Unavailable Germán, Ankur Consulting Unavailable LawCyndi barrientos Attending Unavailable LawCyndi barrientos Referring Unavailable Friend, Jared Attending Unavailable Friend, Jared Referring Unavailable [place], Rissa Primary Care Unavailable Germán, Ankur Attending Unavailable Germán, Ankur Referring Unavailable [place], Rissa Primary Care Unavailable [place], Rissa Primary Care Unavailable Germán, Ankur Consulting Unavailable SUN FLOWERS Attending Unavailable SUN FLOWERS Referring Unavailable [place], Rissa Referring Unavailable [place], Rissa Primary Care Unavailable Cyndi Foy Attending Unavailable [place], Rissa Primary Care Unavailable [place], Rissa Referring Unavailable Alix Reynolds Attending Unavailable Allergies Allergy Classification Reported Allergen(s) Allergy Type Date of Onset Reaction(s) Facility (9 sources) Meperidine Drug Allergy 2 [facility] (7 sources) cow milk allergenic extract Drug Allergy 2 Other [facility] Comment on above: ABD PAIN (7 sources) Glutamate Drug Allergy 2 Other [facility] Comment on above: ABD PAIN (7 sources) Iodine Drug Allergy 2 [facility] (8 sources) Shellfish; Translations: [shellfish derived] Allergy to substance 2 Food Allergy [facility] (7 sources) Wheat gluten extract Drug Allergy 2 Other [facility] Comment on above: ABD PAIN (1 source) Iodine Drug Allergy [facility] (1 source) Meperidine Drug Allergy [facility] (4 sources) Adhesive agent; Translations: [adhesive] Allergy to substance 5 RASH [facility] (1 source) Gluten Drug allergy (disorder) 5 [facility] (1 source) Iodine Drug Allergy 5 [facility] (1 source) Meperidine Drug Allergy 5 [facility] (1 source) Milk Drug allergy (disorder) 5 [facility] (1 source) monosodium glutamate Drug allergy (disorder) 5 [facility] Medications Current Medications Medication [...] May 10, 2025 12:00am 84 hr estradiol 0.74015 mg/hr transdermal system (9 sources) Estrogen Start: [...] Drug Class(es) Dates Sig (Normalized) Sig (Original) [id number] 200 actuat albuterol 0.09 mg/actuat metered dose [...] Start: 08-10-2022 take 2 tablets by mo uth twice daily Magnesium 200 mg Tablet Active [...] 11-23-2023 Chronic Other aftercare (1 source) Other longwall headgate operator (current) drug therapy; Translations: [Other longwall headgate operator (current) drug therapy] Onset: 12-02-2024 Episodic Other gastrointestinal disorders (6 sources) Irritable bowel syndrome with diarrhea; Translations: [Irritable bowel syndrome with diarrhea] 06-07-2023 Chronic Other gastrointestinal disorders (9 sources) Diarrhea; [...] Test Name Value Interpretation Reference Range Facility CRP, High Sensitivity [id number] on 05-22-2025 CRP, HIGH SENS 1.04 mg/L Normal 0.00-3.00 [facility] Comment on above: Result Comment: Rela tive Risk for Future Cardiovascular Event Low <1.00 Average 1.00 - 3.00 High >3.00 Performed at: [facility] [id number] Asset Recovery Specialist: Jet Valladares PhD, Phone: [phone] Performed By: #### L 100.3769, L336.0448, L320.7219 #### [facility] [address] [place], [address] 12 Lead EKGon 05-21-2025 12 Lead EKG [facility] [address] [place] [address] 12 Lead EKG 05/21/25 1103 MR#: [id number] Acct: [id number] Name: HONG SNOW Rep #: [id number] : 1970 55 From: Cullen Ibarra MD Attending Dr: Status: DEP ER Ordering Dr: Nicola Campbell DO Date: 05/21/25 Location: ED Sex: F C Admitted: Test Reason : WEAKNESS Blood Pressure : */* mmHG Vent. Rate : 69 BPM Atrial Rate : 69 BPM P-R Int : 146 ms QRS Dur : 86 ms QT Int : 386 ms P-R-T Axes : 51 16 38 degrees QTcB Int : 413 ms Normal sinus rhythm Normal ECG Confirmed by NAOMI TOBAR, CULLEN ([id number]), electronic news gathering editor MARGO NDIAYE ([id number]) on 05/22/2025 8:34:21 AM Referred By: Confirmed By: CULLEN IBARRA MD 05/22/25 0834 Date Cullen Ibarra MD CC: CHANDLER Tran; Dr. Nicola Campbell DO Signed Normal [facility] Absolute lymphocyte countOrd ered By: Nicola Campbell on 05-21-2025 Lymphocytes Auto (Unsp spec) [#/Vol] 2.99 10*3/uL 0.83-4.51 [facility] Absolute neutrophil countOrd ered By: Nicola Campbell on 05-21-2025 Neutrophils (Bld) [#/Vol] 12.7 10*3/uL High 2.0-7.7 [facility] Anion gap in Serum or Plasma Ordered By: Nicola Campbell on 05-21-2025 Anion gap [Moles/Vol] 14 mmol/L 5-15 [facility] Automated lymphocyte count a s percentage of total leukocytesOrdered By: Nicola Campbell on 05-21-2025 Lymphocytes/100 WBC Auto (Unsp spec) 17.6 % Low 19-41 [facility] BUN/creatinine ratioOrdered By: Nicola Campbell on 05-21-2025 Urea nitrogen/Creatinine [Mass ratio] 24.2 mg/mg High 10-20 [facility] Basophil percentageOrdered B y: Nicola Campbell on 05-21-2025 Basophils/100 WBC (Bld) 0.2 % 0-1 [facility] Bilirubin Test strip Ql (U)O rdered By: Nicola Campbell on 05-21-2025 Bilirubin Ql (U) Negative Negative [facility] Bilirubin, totalOrdered By: Nicola Campbell on 05-21-2025 Bilirubin [Mass/Vol] 0.45 mg/dL 0.00-1.30 [facility] CBC W/Diff, Automatedon 04-24 Absolute Lymph 2.99 X10 3/uL Normal 0.83-4.51 [facility] Comment on above: Performed By: #### L 100.0100, L300.4310, L300.3900 #### [facility] [address] [place], [address] Absolute Neut 12.7 X10 3/uL High 2.0-7.7 [facility] Comment on above: Performed By: #### L 100.0100, L300.4310, L300.3900 #### [facility] [address] [place], [address] Basophils/100 WBC (Bld) 0.2 % Normal 0-1 [facility] Comment on above: Performed By: #### L 100.0100, L300.4310, L300.3900 #### [facility] [address] [place], [address] Eosinophils/100 WBC (Bld) 0.5 % Normal 0-5 [facility] Comment on above: Performed By: #### L 100.0100, L300.4310, L300.3900 #### [facility] [address] [place], [address] Erythrocyte distribution width (RBC) [Ratio] 11.9 % Normal 11.6-14.6 [facility] Comment on above: Performed By: #### L 100.0100, L300.4310, L300.3900 #### [facility] [address] [place], [address] Hematocrit (Bld) [Volume fraction] 47.3 % High 37-47 [facility] Comment on above: Performed By: #### L 100.0100, L300.4310, L300.3900 #### [facility] [address] [place], [address] Hemoglobin (Bld) [Mass/Vol] 15.9 g/dL High 12.0-15.0 [facility] Comment on above: Performed By: #### L 100.0100, L300.4310, L300.3900 #### [facility] [address] [place], [address] IG% 0.800 Normal 0.0-0.9 [facility] Comment on above: Result Comment: IG% - Immature Granulocytes (promyelocytes, myelocytes and metamyelocytes) > 1% indicates that a LEFT SHIFT is Present. Performed By: #### L 100.0100, L300.4310, L300.3900 #### [facility] [address] [place], [address] Lymphocytes/100 WBC (Bld) 17.6 % Low 19-41 [facility] Comment on above: Performed By: #### L 100.0100, L300.4310, L300.3900 #### [facility] [address] [place], [address] MCH (RBC) [Entitic mass] 30.9 pg Normal 27.0-32.0 [facility] Comment on above: Performed By: #### L 100.0100, L300.4310, L300.3900 #### [facility] [address] [place], [address] MCHC (RBC) [Mass/Vol] 33.6 g/dL Normal 32-36 [facility] Comment on above: Performed By: #### L 100.0100, L300.4310, L300.3900 #### [facility] [address] [place], [address] MCV (RBC) [Entitic vol] 92.0 fL Normal 81-99 [facility] Comment on above: Performed By: #### L 100.0100, L300.4310, L300.3900 #### [facility] [address] [place], [address] Monocytes/100 WBC (Bld) 6.1 % Normal 0-10 [facility] Comment on above: Performed By: #### L 100.0100, L300.4310, L300.3900 #### [facility] [address] [place], [address] Neutrophils/100 WBC (Bld) 74.8 % High 47-70 [facility] Comment on above: Performed By: #### L 100.0100, L300.4310, L300.3900 #### [facility] [address] [place], [address] Nucleated RBC (Bld) [#/Vol] 0 10*3/uL Normal 0-5 [facility] Comment on above: Performed By: #### L 100.0100, L300.4310, L300.3900 #### [facility] [address] [place], [address] Platelet mean volume (Bld) [Entitic vol] 9.6 fL Normal 6.2-12.0 [facility] Comment on above: Performed By: #### L 100.0100, L300.4310, L300.3900 #### [facility] [address] [place], [address] Platelets (Bld) [#/Vol] 277 10*3/uL Normal 150-450 [facility] Comment on above: Performed By: #### L 100.0100, L300.4310, L300.3900 #### [facility] [address] [place], [address] RBC (Bld) [#/Vol] 5.14 10*6/uL Normal 4.2-5.4 [facility] Comment on above: Performed By: #### L 100.0100, L300.4310, L300.3900 #### [facility] [address] [place], [address] RDW SD 40.3 fl Normal 35.1-43.9 [facility] Comment on above: Performed By: #### L 100.0100, L300.4310, L300.3900 #### [facility] [address] [place], [address] WBC (Bld) [#/Vol] 17.0 10*3/uL High 4.4-11.0 [facility] Comment on above: Performed By: #### L 100.0100, L300.4310, L300.3900 #### [facility] [address] [place], [address] Carbon dioxide, total [Moles /volume] in Central venous bloodOrdered By: Nicola Campbell on 05-21-2025 CO2 [Moles/Vol] 25.4 mmol/L 21.0-32.0 [facility] Chest 1 View (Portable)on Chest 1 View (Portable) [facility] [address] [place] [address] Chest 1 View (Portable) MR#: [id number] Acct: [id number] Name: HONG SNOW Rep #: [id number] : 1970 F 55 From: Trenton Morrow MD PCP: Rissa Tran PA-C Status: REG ER Study: Chest 1 View (Portable) Date of Exam: 05/21/25 Exam# [id number] Ordering Dr: Nicola Campbell DO PROCEDURE: CHEST 1 VIEW (PORTABLE) [...] Location: [facility] CC: CHANDLER Tran; Dr. Nicola Campbell DO Room Service Food Server: Signed Normal [facility] Chloride assayOrdered By: Yudi Campbell on 05-21-2025 Chloride [Moles/Vol] 102 mmol/L 98-108 [facility] Comprehensive Metabolic Prof ilon 05-21-2025 Albumin [Mass/Vol] 4.6 g/dL Normal 3.5-5.0 [facility] Comment on above: Performed By: #### L 100.0100, L300.4310, L300.3900 #### [facility] [address] [place], [address] Albumin/Globulin [Mass ratio] 1.7 {ratio} Normal 0.9-2.4 [facility] Comment on above: Performed By: #### L 100.0100, L300.4310, L300.3900 #### [facility] [address] [place], [address] ALK PHOS 110 U/L High 35-104 [facility] Comment on above: Performed By: #### L 100.0100, L300.4310, L300.3900 #### [facility] [address] [place], [address] ALT [Catalytic activity/Vol] 54 U/L High <=34 [facility] Comment on above: Performed By: #### L 100.0100, L300.4310, L300.3900 #### [facility] [address] [place], [address] AST [Catalytic activity/Vol] 36 U/L High <=31 [facility] Comment on above: Result Comment: Hemo lysis present, Results??could be affected. ?? Performed By: #### L 100.0100, L300.4310, L300.3900 #### [facility] [address] [place], [address] Bilirubin [Mass/Vol] 0.45 mg/dL Normal 0.00-1.30 [facility] Comment on above: Performed By: #### L 100.0100, L300.4310, L300.3900 #### [facility] [address] [place], [address] BUN/CRE 24.2 RATIO High 10-20 [facility] Comment on above: Performed By: #### L 100.0100, L300.4310, L300.3900 #### [facility] [address] [place], [address] Calcium [Mass/Vol] 9.6 mg/dL Normal 7.6-11.0 [facility] Comment on above: Performed By: #### L 100.0100, L300.4310, L300.3900 #### [facility] [address] [place], [address] Chloride [Moles/Vol] 102 mmol/L Normal 98-108 [facility] Comment on above: Performed By: #### L 100.0100, L300.4310, L300.3900 #### [facility] [address] [place], [address] CO2 [Moles/Vol] 25.4 mmol/L Normal 21.0-32.0 [facility] Comment on above: Performed By: #### L 100.0100, L300.4310, L300.3900 #### [facility] [address] [place], [address] Creatinine [Mass/Vol] 0.83 mg/dL Normal 0.70-1.20 [facility] Comment on above: Performed By: #### L 100.0100, L300.4310, L300.3900 #### [facility] [address] [place], [address] ECRCL 74.78 ml/min Normal 50-250 [facility] Comment on above: Performed By: #### L 100.0100, L300.4310, L300.3900 #### [facility] [address] [place], [address] GAP 14 Normal 5-15 [facility] Comment on above: Performed By: #### L 100.0100, L300.4310, L300.3900 #### [facility] [address] [place], [address] GFR/1.73 sq M.predicted among non-blacks MDRD (S/P/Bld) [Vol rate/Area] 83 mL/min/{1.73_m2} Normal >60 [facility] Comment on above: Result Comment: mL/m in/1.73m2 CKD-EPI Creatinine Equation (2020) Performed By: #### L 100.0100, L300.4310, L300.3900 #### [facility] [address] [place], [address] Globulin (S) [Mass/Vol] 2.6 g/dL Normal 2.2-4.2 [facility] Comment on above: Performed By: #### L 100.0100, L300.4310, L300.3900 #### [facility] [address] [place], [address] Glucose [Mass/Vol] 133 mg/dL High 70-99 [facility] Comment on above: Performed By: #### L 100.0100, L300.4310, L300.3900 #### [facility] [address] [place], [address] Potassium [Moles/Vol] 3.7 mmol/L Normal 3.3-5.1 [facility] Comment on above: Result Comment: Hemo lysis present, Results??could be affected. ?? Performed By: #### L 100.0100, L300.4310, L300.3900 #### [facility] [address] [place], [address] Sodium [Moles/Vol] 141 mmol/L Normal 133-145 [facility] Comment on above: Performed By: #### L 100.0100, L300.4310, L300.3900 #### [facility] [address] [place], [address] T PROT 7.2 g/dL Normal 5.9-8.4 [facility] Comment on above: Performed By: #### L 100.0100, L300.4310, L300.3900 #### [facility] [address] [place], [address] Urea nitrogen [Mass/Vol] 20 mg/dL High 4-19 [facility] Comment on above: Performed By: #### L 100.0100, L300.4310, L300.3900 #### [facility] [address] [place], [address] D-Dimer Quantitative (DVT/PE )on 05-21-2025 D-DIMER QUANT < 0.27 Low 0.27-0.49 [facility] Comment on above: Result Comment: NORM AL D-Dimer level (<0.50) indicates no DVT or PE. Performed By: #### L 100.0100, L300.4310, L300.3900 #### [facility] [address] [place], [address] Emergency Department Summary on 05-21-2025 Emergency Department Summary [facility] Medical Records Department [address] [place] [address] Emergency Department Summary 05/21/25 MR#: [id number] Acct: [id number] Name: HONG SNOW Rep #: [id number] : 1970 55 From: Nicola Campbell DO PCP: Rissa Tran PA-C Status:DEP ER Location: ED HPI History of Present Illness Chief Complaint: Weakness Detail of Chief Complaint: Weakness Informant: patient Narrative Narrative: Patient presents to the emergency department with complaint of generalized weakness ongoing for at least 4 days. 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 Sees a liver specialist Dr. Dunlap who had patient have a biopsy April 29. Patient a week ago was started on ursodiol, prednisone, and azathioprine. Patient just states she feels short of breath at times with activity. She is been checking her O2 sat at home and it has been running at times from 90 to 94% on room air. She denies chest pain. She complains of some upper abdomen pain and bloating. She has had no vomiting. Last bowel movement was a few hours ago. At times she feels like she is in a pass out. She has not had any syncope. [facility] Medical History Wears contact lenses Wears glasses Post-menopausal Anxiety Arthritis Migraine headache Injury of head and neck TIA (transient ischemic attack) History of GI bleed History of hiatal hernia History of IBS Gastric reflux Non-smoker Shortness of breath on exertion Asthma Fibromyalgia Leg cramps History of pain when walking Home Medications ???Medication ???Instructions ???Recorded ???Last Taken ???Type azathioprine 50 mg tablet 50 mg PO QDAY 30 days #30 tabs 05/21/25 Rx pantoprazole 40 mg tablet,delayed 40 mg PO .breakfast 1 month #30 0 05/10/25 05/21/25 Rx release tabs prednisone 20 mg tablet 40 mg (2 x 20 mg) PO DAILY 1 month 05/10/25 05/21/25 Rx #60 tabs ursodiol 500 mg tablet 500 mg PO TID 1 month #90 tabs 05/21/25 Rx estradiol 0.05 mg/24 hr semiweekly 1 patch transdermal Q3D 05/21/25 05/19/25 History transdermal patch Allergy/AdvReac Type Severity Reaction Status Date / Time adhesive (adhesives) Allergy Intermediate RASH Verified 05/21/25 10:37 gluten Allergy Other Verified 05/21/25 10:37 iodine Allergy Other Verified 05/21/25 10:37 milk (dairy) Allergy Other Verified 05/21/25 10:37 monosodium glutamate (msg) Allergy Other Verified 05/21/25 10:37 shellfish derived Allergy Food Verified 05/21/25 10:37 Allergy meperidine (From Demerol) AdvReac Intermediate Vomiting Verified 05/21/25 10:37 Surgical History H/O wrist surgery Hx of hysterectomy Hx of laparoscopy Hx of hernia repair Hx of section Social History Smoking Status: Never smoker ROS ROS ED Review of Systems ROS Unobtainable: other Constitutional Constitutional ED: Reports lethargy; Denies chills, fever(s), sweats or weight loss Eyes Eyes: Denies blurry vision, change in vision or diplopia ENT ENT ED: Denies rhinorrhea or sore throat Cardiovascular Cardiovascular: Denies chest pain, orthopnea or racing heartbeat Respiratory/Chest Respiratory/Chest: Reports dyspnea and dyspnea on exertion; Denies cough, orthopnea or sputum Gastrointestinal Gastrointestinal: Reports abdominal pain and nausea; Denies diarrhea or vomiting Genitourinary Genitourinary ED: Denies dysuria, hematuria or urinary frequency Musculoskeletal Musculoskeletal: Denies arthralgias, back pain, myalgias or neck pain Integumentary Denies abscess, Abrasions or rash Neurologic Neurologic: Reports weakness; Denies headache(s) Psychiatric Psychiatric: Denies anxiety, depression or suicidal thoughts Endocrine Endocrinology: Denies polydipsia, polyphagia or polyuria Hematologic/Lymphatic Hematologic/Lymphatic: Denies easy bleeding, easy bruising or lymphadenopathy Allergic/Immunologic Allergic/Immunologic ED: Denies mouth swelling, tongue swelling or urticaria EXAM Physical Exam Const Vital Signs: 05/21/25 10:37 05/21/25 10:48 05/21/25 11:52 Temperature 97.1 F L Temperature Source Temporal Pulse Rate 79 Pulse Rate [Lying] 75 Pulse Rate [Sitting (for 1 minute prior to obtaining)] 70 Pulse Rate [Standing (for 1 minute prior to obtaining)] 83 Respiratory Rate 14 Respiratory Effort Short of Breath Respiratory Pattern Normal Blood Pressure 161/86 H Blood Pressure [Lying] 152/84 H Blood Pressure [Sitting (for 1 minute prior to obtaining)] 151/84 H Blood Pressure [Standing (for 1 minute (more content not included)... Normal [facility] Eosinophil percentageOrdered By: Nicola Campbell on 05-21-2025 Eosinophils/100 WBC (Bld) 0.5 % 0-5 [facility] Erythrocyte Sed Rateon 05-21 SED RATE 4 mm/hr Normal 0-30 [facility] Comment on above: Performed By: #### L 500.4050, L101.9900, L501.2450, L300.8000, L100.0100, L300.3900, L3100.7870 #### [facility] [address] [place], [address] Erythrocyte distribution wid th ratioOrdered By: Remus Ungur on 05-21-2025 Erythrocyte distribution width (RBC) [Ratio] 11.9 % 11.6-14.6 [facility] Erythrocyte distribution wid th standard deviationOrdered By: Remus Ungur on 05-21-2025 Erythrocyte distribution width (RBC) [Ratio] 40.3 fl 35.1-43.9 [facility] Erythrocyte sedimentation ra teOrdered By: Remus Ungur on 05-21-2025 ESR (Bld) [Velocity] 4 mm/h 0-30 [facility] Glomerular filtration rate ( GFR) estimation/1.73 sq m using serum, plasma, or whole bOrdered By: Nicola Campbell on 05-21-2025 GFR/1.73 sq M.predicted among non-blacks MDRD (S/P/Bld) [Vol rate/Area] 83 mL/min/{1.73_m2} >60 [facility] Comment on above: mL/min/1.73m2 CKD-EP I Creatinine Equation (2020) Hematocrit Auto (Bld) [Volum e fraction]Ordered By: Nicola Campbell on 05-21-2025 Hematocrit (Bld) [Volume fraction] 47.3 % High 37-47 [facility] Hemoglobin measurementOrdere d By: Nicola Campbell on 05-21-2025 Hemoglobin (Bld) [Mass/Vol] 15.9 g/dL High 12.0-15.0 [facility] Immature granulocytes/100 WB C Auto (Bld)Ordered By: Nicola Campbell on 05-21-2025 Immature granulocytes/100 WBC (Bld) 0.800 % 0.0-0.9 [facility] Comment on above: IG% - Immature Granu locytes (promyelocytes, myelocytes and metamyelocytes) > 1% indicates that a LEFT SHIFT is Present. International normalized rat io (INR) calculationOrdered By: Nicola Campbell on 05-21-2025 INR Coag (Bld) [Relative time] 0.9 {INR} [facility] Ketones Test strip Ql (U)Ord ered By: Nicola Campbell on 05-21-2025 Ketones Ql (U) Negative Negative [facility] L501.4021on 05-21-2025 Trop T High Sen < 6 Normal <=14 [facility] Comment on above: Performed By: #### L 501.4021 #### [facility] [place] [address], [address] Laboratory - Chemistry and C hemistry - challengeOrdered By: Nicola Campbell on 05-21-2025 AST [Catalytic activity/Vol] 36 U/L High <32 [facility] Comment on above: Hemolysis present, R esults could be affected. Lipaseon 05-21-2025 Lipase [Catalytic activity/Vol] 82 U/L High 13-75 [facility] Comment on above: Result Comment: Barb shepard note: LIPASE revised reference range effective 23. New Lipase methodology. Expected to produce lower values than the previous assay method. NEW Reference Range: 13 - 75 U/L Performed By: #### L 100.0100, L300.4310, L300.3900 #### [facility] [address] [place], [address] Lipase measurementOrdered By : Nicola Campbell on 05-21-2025 Lipase [Catalytic activity/Vol] 82 U/L High 13-75 [facility] Comment on above: Please note:LIPASE r evised reference range effective 23. New Lipase methodology. Expected to produce lower values than the previous assay method. NEW Reference Range: 13 - 75 U/L MCV (mean corpuscular volume ) determinationOrdered By: Nicola Campbell on 05-21-2025 MCV (RBC) [Entitic vol] 92.0 fL 81-99 [facility] Mean corpuscular hemoglobin (MCH) determinationOrdered By: Nicola Campbell on 05-21-2025 MCH (RBC) [Entitic mass] 30.9 pg 27.0-32.0 [facility] Mean corpuscular hemoglobin concentration (MCHC) determinationOrdered By: Nicola Campbell on 05-21-2025 MCHC (RBC) [Mass/Vol] 33.6 g/dL 32-36 [facility] Mean platelet volume determi nationOrdered By: Nicola Campbell on 05-21-2025 Platelet mean volume (Bld) [Entitic vol] 9.6 fL 6.2-12.0 [facility] Microscopic analysis of urin e for red blood cells (RBC)Ordered By: Nicola Campbell on 05-21-2025 Microscopic analysis of urine for red blood cells (RBC) 0 SEEN /hpf 0-5 [facility] Monocyte percentageOrdered B y: Nicola Campbell on 05-21-2025 Monocytes/100 WBC (Bld) 6.1 % 0-10 [facility] Mucus LM Ql (Urine sed)Order ed By: Nicola Campbell on 05-21-2025 Mucus Ql (Urine sed) 0 SEEN /hpf [facility] Neutrophil percentageOrdered By: Nicola Campbell on 05-21-2025 Neutrophils/100 WBC (Bld) 74.8 % High 47-70 [facility] Nitrite Test strip Ql (U)Ord ered By: Nicola Campbell on 05-21-2025 Nitrite Ql (U) Negative Negative [facility] Nucleated red blood cell per centageOrdered By: Nicola Campbell on 05-21-2025 Nucleated RBC/100 WBC (Bld) [Ratio] 0 % 0-5 [facility] Platelet countOrdered By: Yudi Campbell on 05-21-2025 Platelets (Bld) [#/Vol] 277 10*3/uL 150-450 [facility] Potassium measurement (mass/ volume)Ordered By: Nicola Campbell on 05-21-2025 Potassium (Unsp spec) [Mass/Vol] 3.7 mmol/L 3.3-5.1 [facility] Comment on above: Hemolysis present, R esults could be affected. Protein Test strip Ql (U)Ord ered By: Nicola Campbell on 05-21-2025 Protein Ql (U) 15 mg/dl High Negative [facility] Prothrombin Time w/INRon INR Coag (PPP) [Relative time] 0.9 {INR} Normal [facility] Comment on above: Performed By: #### L 100.0100, L300.4310, L300.3900 #### [facility] [address] [place], [address] PT Coag (PPP) [Time] 12.7 s Normal 11.7-14.9 [facility] Comment on above: Performed By: #### L 100.0100, L300.4310, L300.3900 #### [facility] [address] [place], [address] Prothrombin timeOrdered By: Nicola Campbell on 05-21-2025 PT Coag (PPP) [Time] 12.7 s 11.7-14.9 [facility] RBC Auto (Bld) [#/Vol]Ordere d By: Nicola Campbell on 05-21-2025 RBC (Bld) [#/Vol] 5.14 10*6/uL 4.2-5.4 [facility] Serum creatinine measurement (mass/volume)Ordered By: Nicola Campbell on 05-21-2025 Creatinine [Mass/Vol] 0.83 mg/dL 0.70-1.20 [facility] Serum globulin measurementOr dered By: Nicola Campbell on 05-21-2025 Globulin (S) [Mass/Vol] 2.6 g/dL 2.2-4.2 [facility] Serum glucose measurement (m ass/volume)Ordered By: Nicola Campbell on 05-21-2025 Glucose [Mass/Vol] 133 mg/dL High 70-99 [facility] Serum or plasma alanine pritchard otransferase (ALT) measurementOrdered By: Nicola Campbell on 05-21-2025 ALT [Catalytic activity/Vol] 54 U/L High <35 [facility] Serum or plasma albumin alex urement (mass/volume)Ordered By: Nicola Campbell on 05-21-2025 Albumin [Mass/Vol] 4.6 g/dL 3.5-5.0 [facility] Serum or plasma albumin/glob ulin mass ratioOrdered By: Nicola Campbell on 05-21-2025 Albumin/Globulin [Mass ratio] 1.7 {ratio} 0.9-2.4 [facility] Serum or plasma alkaline batsheva sphatase measurementOrdered By: Nicola Campbell on 05-21-2025 ALP [Catalytic activity/Vol] 110 U/L High 35-104 [facility] Serum or plasma calcium alex urement (mass/volume)Ordered By: Nicola Campbell on 05-21-2025 Calcium [Mass/Vol] 9.6 mg/dL 7.6-11.0 [facility] Serum or plasma urea nitroge n measurement (mass/volume)Ordered By: Nicola Campbell on 05-21-2025 Urea nitrogen [Mass/Vol] 20 mg/dL High 4-19 [facility] Sodium levelOrdered By: Abelino Campbell on 05-21-2025 Sodium [Moles/Vol] 141 mmol/L 133-145 [facility] Squamous epithelial cells de tection in urine sediment by light microscopyOrdered By: Nicola Campbell on 05-21-2025 Epithelial cells.squamous LM Ql (Urine sed) 0-5 SEEN /hpf - [facility] Total proteinOrdered By: Alyssa Campbell on 05-21-2025 Protein [Mass/Vol] 7.2 g/dL 5.9-8.4 [facility] Troponin T HS 2 HRon 025 Trop T High Sen Normal <=14 [facility] Comment on above: Result Comment: Lul elled via OM: Ordered Performed By: #### L 501.4021 #### [facility] [address] [place], [place], [id number] ([address] Troponin T HS 4 HRon 025 Trop T High Sen Normal <=14 [facility] Comment on above: Result Comment: Lul sierra via OM: MD Ordered Performed By: #### L 100.0100, L300.4310, L300.3900 #### [facility] [address] [place], [address] ([address] Troponin T.cardiac [Mass/vol ume] in Serum or Plasma by High sensitivity methodOrdered By: Nicola Mccrackenkj on 05-21-2025 Troponin T.cardiac High sensitivity method [Mass/Vol] < 6 ng/L <14 [facility] Urinalysis, Completeon 05-21 EPI,SQUAMOUS 0-5 SEEN Normal - [facility] Comment on above: Order Comment: CLEAN CATCH Performed By: #### L 501.4021 #### [facility] [address] [place], [place], [id number] (114 BACTERIA 0 SEEN Normal None Seen [facility] Comment on above: Order Comment: CLEAN CATCH Performed By: #### L 501.4021 #### [facility] [address] [place], [place], [id number] (136 Mucus Ql (Urine sed) 0 SEEN Normal [facility] Comment on above: Order Comment: CLEAN CATCH Performed By: #### L 501.4021 #### [facility] [address] [place], [place], [address] RBC 0 SEEN Normal 0-5 [facility] Comment on above: Order Comment: CLEAN CATCH Performed By: #### L 501.4021 #### [facility] [address] [place], [address] WBC 0 SEEN Normal 0-5 [facility] Comment on above: Order Comment: CLEAN CATCH Performed By: #### L 501.4021 #### [facility] [address] [place], [place], [id number] Urine clarityOrdered By: Alyssa Campbell on 05-21-2025 Clarity (U) Sl. Cloudy Clear [facility] Urine color determinationOrd ered By: Nicola Campbell on 05-21-2025 Color (U) Yellow Yellow [facility] Urine glucose detectionOrder ed By: Nicola Campbell on 05-21-2025 Glucose Ql (U) Normal mg/dl Normal [facility] Urine leukocyte esterase det ection by dipstickOrdered By: Nicola Campbell on 05-21-2025 Leukocyte esterase Test strip Ql (U) Negative Negative [facility] Urine pHOrdered By: Nicola Un gur on 05-21-2025 pH (U) 7.0 [pH] 5.0 - 8.0 [facility] Urine sediment bacteria coun t by microscopy (number/high power field)Ordered By: Nicola Campbell on 05-21-2025 Bacteria LM.HPF (Urine sed) [#/Area] 0 /[HPF] None Seen [facility] Urine specific gravity measu rementOrdered By: Nicola Campbell on 05-21-2025 Specific gravity (U) [Rel density] 1.010 1.002-1.030 [facility] Urine urobilinogen measureme ntOrdered By: Nicola Campbell on 05-21-2025 Urobilinogen Ql (U) Normal mg/dl Normal [facility] White blood cell (WBC) count Ordered By: Nicola Campbell on 05-21-2025 WBC (Bld) [#/Vol] 17.0 10*3/uL High 4.4-11.0 [facility] White blood cell countOrdere d By: Nicola Campbell on 05-21-2025 White blood cell count 0 SEEN /hpf 0-5 [facility] L3410.9994on 05-13-2025 [facility] Misc. 2 COMMENT Normal . [facility] Comment on above: Order Comment: [id number] 1Subclass 4 (IgG4) SERUM RF Result Comment: Test Ordered: [id number] IgG, Subclass 4 IgG, Subclass 4 15 mg/dL CB Reference Range: 2-96 Performed at: [facility] [address] [id number] Asset Recovery Specialist: Jet Valladares PhD, Phone: [phone] Performed By: #### L 100.0100, L300.4310, L300.3900 #### [facility] [address] [place], [place], [address] L501.5101on 05-12-2025 GGTP 78 IU/L Abnormal 0-60 [facility] Comment on above: Result Comment: Perf ormed at: [address] [id number] Asset Recovery Specialist: Jet Valladares PhD, Phone: [phone] Performed By: #### L 501.4021 #### [facility] [address] [place], [place], [address] Absolute lymphocyte countOrd ered By: Ankur Dunlap on 05-10-2025 Lymphocytes Auto (Unsp spec) [#/Vol] 2.77 10*3/uL 0.83-4.51 [facility] Absolute neutrophil countOrd ered By: Ankur Dunlap on 05-10-2025 Neutrophils (Bld) [#/Vol] 5.2 10*3/uL 2.0-7.7 [facility] Anion gap in Serum or Plasma Ordered By: Ankur Dunlap on 05-10-2025 Anion gap [Moles/Vol] 13 mmol/L 5-15 [facility] Automated lymphocyte count a s percentage of total leukocytesOrdered By: Ankur Dunlap on 05-10-2025 Lymphocytes/100 WBC Auto (Unsp spec) 31.0 % 19-41 [facility] BUN/creatinine ratioOrdered By: Ankurben Dunlap on 05-10-2025 Urea nitrogen/Creatinine [Mass ratio] 28.2 mg/mg High 10-20 [facility] Basophil percentageOrdered B y: Ankur Dunlap on 05-10-2025 Basophils/100 WBC (Bld) 0.3 % 0-1 [facility] Bilirubin, totalOrdered By: Ankur Dunlap on 05-10-2025 Bilirubin [Mass/Vol] 0.53 mg/dL 0.00-1.30 [facility] CBC W/Diff, Automatedon 04-23 Absolute Lymph 2.77 X10 3/uL Normal 0.83-4.51 [facility] Comment on above: Performed By: #### L 501.4021 #### [facility] [address] [place], [address] Absolute Neut 5.2 X10 3/uL Normal 2.0-7.7 [facility] Comment on above: Performed By: #### L 501.4021 #### [facility] [address] [place], [address] Basophils/100 WBC (Bld) 0.3 % Normal 0-1 [facility] Comment on above: Performed By: #### L 501.4021 #### [facility] [address] [place], [address] Eosinophils/100 WBC (Bld) 1.9 % Normal 0-5 [facility] Comment on above: Performed By: #### L 501.4021 #### [facility] [address] [place], [address] Erythrocyte distribution width (RBC) [Ratio] 12.0 % Normal 11.6-14.6 [facility] Comment on above: Performed By: #### L 501.4021 #### [facility] [address] [place], [address] Hematocrit (Bld) [Volume fraction] 48.1 % High 37-47 [facility] Comment on above: Performed By: #### L 501.4021 #### [facility] [address] [place], [address] Hemoglobin (Bld) [Mass/Vol] 16.2 g/dL High 12.0-15.0 [facility] Comment on above: Performed By: #### L 501.4021 #### [facility] [address] [place], [address] IG% 0.200 Normal 0.0-0.9 [facility] Comment on above: Result Comment: IG% - Immature Granulocytes (promyelocytes, myelocytes and metamyelocytes) > 1% indicates that a LEFT SHIFT is Present. Performed By: #### L 501.4021 #### [facility] [address] [place], [address] Lymphocytes/100 WBC (Bld) 31.0 % Normal 19-41 [facility] Comment on above: Performed By: #### L 501.4021 #### [facility] [address] [place], [address] MCH (RBC) [Entitic mass] 31.0 pg Normal 27.0-32.0 [facility] Comment on above: Performed By: #### L 501.4021 #### [facility] [address] [place], [address] MCHC (RBC) [Mass/Vol] 33.7 g/dL Normal 32-36 [facility] Comment on above: Performed By: #### L 501.4021 #### [facility] [address] [place], [address] MCV (RBC) [Entitic vol] 92.1 fL Normal 81-99 [facility] Comment on above: Performed By: #### L 501.4021 #### [facility] [address] [place], [address] Monocytes/100 WBC (Bld) 8.4 % Normal 0-10 [facility] Comment on above: Performed By: #### L 501.4021 #### [facility] [address] [place], [address] Neutrophils/100 WBC (Bld) 58.2 % Normal 47-70 [facility] Comment on above: Performed By: #### L 501.4021 #### [facility] [address] [place], [address] Nucleated RBC (Bld) [#/Vol] 0 10*3/uL Normal 0-5 [facility] Comment on above: Performed By: #### L 501.4021 #### [facility] [address] [place], [address] Platelet mean volume (Bld) [Entitic vol] 10.2 fL Normal 6.2-12.0 [facility] Comment on above: Performed By: #### L 501.4021 #### [facility] [address] [place], [address] Platelets (Bld) [#/Vol] 183 10*3/uL Normal 150-450 [facility] Comment on above: Performed By: #### L 501.4021 #### [facility] [address] [place], [address] RBC (Bld) [#/Vol] 5.22 10*6/uL Normal 4.2-5.4 [facility] Comment on above: Performed By: #### L 501.4021 #### [facility] [address] [place], [address] RDW SD 40.8 fl Normal 35.1-43.9 [facility] Comment on above: Performed By: #### L 501.4021 #### [facility] [address] [place], [address] WBC (Bld) [#/Vol] 8.9 10*3/uL Normal 4.4-11.0 [facility] Comment on above: Performed By: #### L 501.4021 #### [facility] [address] [place] [place], [address] Carbon dioxide, total [Moles /volume] in Central venous bloodOrdered By: Ankur Dunlap on 05-10-2025 CO2 [Moles/Vol] 23.3 mmol/L 21.0-32.0 [facility] Chloride assayOrdered By: Ruchi Dunlap on 05-10-2025 Chloride [Moles/Vol] 104 mmol/L 98-108 [facility] Comprehensive Metabolic Prof ilon 05-10-2025 Albumin/Globulin [Mass ratio] 1.4 {ratio} Normal 0.9-2.4 [facility] Comment on above: Performed By: #### L 501.4021 #### [facility] [address] [place], [address] ALK PHOS 168 U/L High 35-104 [facility] Comment on above: Performed By: #### L 501.4021 #### [facility] [address] [place], [address] ALT [Catalytic activity/Vol] 383 U/L High <=34 [facility] Comment on above: Performed By: #### L 501.4021 #### [facility] [address] [place], [address] AST [Catalytic activity/Vol] 278 U/L High <=31 [facility] Comment on above: Performed By: #### L 501.4021 #### [facility] [address] [place], [address] Bilirubin [Mass/Vol] 0.53 mg/dL Normal 0.00-1.30 [facility] Comment on above: Performed By: #### L 501.4021 #### [facility] [address] [place], [address] Calcium [Mass/Vol] 9.7 mg/dL Normal 7.6-11.0 [facility] Comment on above: Performed By: #### L 501.4021 #### [facility] [address] [place], [address] Chloride [Moles/Vol] 104 mmol/L Normal 98-108 [facility] Comment on above: Performed By: #### L 501.4021 #### [facility] [address] [place], [address] CO2 [Moles/Vol] 23.3 mmol/L Normal 21.0-32.0 [facility] Comment on above: Performed By: #### L 501.4021 #### [facility] [address] [place], [address] GAP 13 Normal 5-15 [facility] Comment on above: Performed By: #### L 501.4021 #### [facility] [address] [place], [address] Globulin (S) [Mass/Vol] 3.4 g/dL Normal 2.2-4.2 [facility] Comment on above: Performed By: #### L 501.4021 #### [facility] [address] [place], [address] Potassium [Moles/Vol] 4.2 mmol/L Normal 3.3-5.1 [facility] Comment on above: Result Comment: Hemo lysis present, Results??could be affected. ?? Performed By: #### L 501.4021 #### [facility] [address] [place], [address] Sodium [Moles/Vol] 140 mmol/L Normal 133-145 [facility] Comment on above: Performed By: #### L 501.4021 #### [facility] [address] [place], [address] Albumin [Mass/Vol] 4.8 g/dL Normal 3.5-5.0 [facility] Comment on above: Performed By: #### L 501.4021 #### [facility] [address] [place], [address] BUN/CRE 28.2 RATIO High 10-20 [facility] Comment on above: Performed By: #### L 501.4021 #### [facility] [address] [place], [address] Creatinine [Mass/Vol] 0.65 mg/dL Low 0.70-1.20 [facility] Comment on above: Performed By: #### L 501.4021 #### [facility] [address] [place], [address] GFR/1.73 sq M.predicted among non-blacks MDRD (S/P/Bld) [Vol rate/Area] 103 mL/min/{1.73_m2} Normal >60 [facility] Comment on above: Result Comment: mL/m in/1.73m2 CKD-EPI Creatinine Equation (2020) Performed By: #### L 501.4021 #### [facility] [address] [place], [address] Glucose [Mass/Vol] 82 mg/dL Normal 70-99 [facility] Comment on above: Performed By: #### L 501.4021 #### [facility] [address] [place], [address] T PROT 8.2 g/dL Normal 5.9-8.4 [facility] Comment on above: Performed By: #### L 501.4021 #### [facility] [address] [place], [address] Urea nitrogen [Mass/Vol] 18 mg/dL Normal 4-19 [facility] Comment on above: Performed By: #### L 501.4021 #### [facility] [address] [place], [place], [address] Eosinophil percentageOrdered By: Ankur Dunlap on 05-10-2025 Eosinophils/100 WBC (Bld) 1.9 % 0-5 [facility] Erythrocyte distribution wid th ratioOrdered By: Ankurgunner Dunlap on 05-10-2025 Erythrocyte distribution width (RBC) [Ratio] 12.0 % 11.6-14.6 [facility] Erythrocyte distribution wid th standard deviationOrdered By: Ankur Dunlap on 05-10-2025 Erythrocyte distribution width (RBC) [Ratio] 40.8 fl 35.1-43.9 [facility] Gamma glutamyl transferase ( GGT) measurementOrdered By: Ankur Dunlap on 05-10-2025 Amylase [Catalytic activity/Vol] 78 U/L High 0-60 [facility] Comment on above: Performed at: [facility] [employer] [address] [id number] Director: Jet Valladares PhD, Phone: [phone] Gastroenterology Visit Repor ton 05-10-2025 Gastroenterology Visit Report [facility] [address] [place] [address] OFFICE VISIT Date of Service: 05/10/25 MR#: [id number] Acct: [id number] Name: HONG SNOW Rep #: [id number] : 1970 Provider: CHEL stuart Age/Sex: 55/F Location: [facility] Status: Signed with Addenda ADDENDUM by Dr. [...] 05/10/25 1653 Date Ankur Dunlap MD cc: CHEL Foy; [...] she had. Everything has been going okay. PFSH Medical History Wears contact lenses Wears [...] family members (more content not included)... Normal [facility] Glomerular filtration rate ( GFR) estimation/1.73 sq m using serum, plasma, or whole bOrdered By: Ankur Dunlap on 05-10-2025 GFR/1.73 sq M.predicted among non-blacks MDRD (S/P/Bld) [Vol rate/Area] 103 mL/min/{1.73_m2} >60 [facility] Comment on above: mL/min/1.73m2 CKD-EP I Creatinine Equation (2020) Hematocrit Auto (Bld) [Volum e fraction]Ordered By: Ankur Dunlap on 05-10-2025 Hematocrit (Bld) [Volume fraction] 48.1 % High 37-47 [facility] Hemoglobin A1con 05-10-2025 HbA1c (Bld) [Mass fraction] 5.3 % Normal <=5.6 [facility] Comment on above: Result Comment: Norm al < 5.7 % Prediabetic 5.7 - 6.4 % Diabetic >or= 6.5 % Please note range changes. Performed By: #### L 100.0100, L300.4310, L300.3900 #### [facility] [address] [facility] [place], [place], [id number] Hemoglobin A1c percentageOrd ered By: Cyndi Foy on 05-10-2025 HbA1c (Bld) [Mass fraction] 5.3 % <5.7 [facility] Comment on above: Normal < 5.7 % Predi abetic 5.7 - 6.4 % Diabetic >or= 6.5 % Please note range changes. Hemoglobin measurementOrdere d By: Ankur Dunlap on 05-10-2025 Hemoglobin (Bld) [Mass/Vol] 16.2 g/dL High 12.0-15.0 [facility] Immature granulocytes/100 WB C Auto (Bld)Ordered By: Ankur Dunlap on 05-10-2025 Immature granulocytes/100 WBC (Bld) 0.200 % 0.0-0.9 [facility] Comment on above: IG% - Immature Granu locytes (promyelocytes, myelocytes and metamyelocytes) > 1% indicates that a LEFT SHIFT is Present. International normalized rat io (INR) calculationOrdered By: Ankur Dunlap on 05-10-2025 INR Coag (Bld) [Relative time] 0.9 {INR} [facility] LDHon 05-10-2025 LDH 290 U/L High 84-246 [facility] Comment on above: Order Comment: 1 Result Comment: Hemo lysis present, Results??could be affected. ?? Performed By: #### L 100.0100, L300.4310, L300.3900 #### [facility] [address] [place], [address] Laboratory - Chemistry and C hemistry - challengeOrdered By: Ankur Dunlap on 05-10-2025 AST [Catalytic activity/Vol] 278 U/L High <32 [facility] Lactate dehydrogenase (LDH) measurementOrdered By: Cyndi Foy on 05-10-2025 LDH [Catalytic activity/Vol] 290 U/L High 84-246 [facility] Comment on above: Hemolysis present, R esults could be affected. MCV (mean corpuscular volume ) determinationOrdered By: Ankur Dunlap on 05-10-2025 MCV (RBC) [Entitic vol] 92.1 fL 81-99 [facility] Mean corpuscular hemoglobin (MCH) determinationOrdered By: Ankur Dunlap on 05-10-2025 MCH (RBC) [Entitic mass] 31.0 pg 27.0-32.0 [facility] Mean corpuscular hemoglobin concentration (MCHC) determinationOrdered By: Ankur Dunlap on 05-10-2025 MCHC (RBC) [Mass/Vol] 33.7 g/dL 32-36 [facility] Mean platelet volume determi nationOrdered By: Ankur Dunlap on 05-10-2025 Platelet mean volume (Bld) [Entitic vol] 10.2 fL 6.2-12.0 [facility] Monocyte percentageOrdered B y: Ankur Dunlap on 05-10-2025 Monocytes/100 WBC (Bld) 8.4 % 0-10 [facility] Neutrophil percentageOrdered By: Ankur Dunlap on 05-10-2025 Neutrophils/100 WBC (Bld) 58.2 % 47-70 [facility] Nucleated red blood cell per centageOrdered By: Ankur Dunlap on 05-10-2025 Nucleated RBC/100 WBC (Bld) [Ratio] 0 % 0-5 [facility] Platelet countOrdered By: Ruchi Dunlap on 05-10-2025 Platelets (Bld) [#/Vol] 183 10*3/uL 150-450 [facility] Potassium measurement (mass/ volume)Ordered By: Ankur Dunlap on 05-10-2025 Potassium (Unsp spec) [Mass/Vol] 4.2 mmol/L 3.3-5.1 [facility] Comment on above: Hemolysis present, R esults could be affected. Prothrombin Time w/INRon INR Coag (PPP) [Relative time] 0.9 {INR} Normal [facility] Comment on above: Performed By: #### L 501.4021 #### [facility] [address] [place], [place], [address] (061) PT Coag (PPP) [Time] 12.4 s Normal 11.7-14.9 [facility] Comment on above: Performed By: #### L 501.4021 #### [facility] [address] [place], [address] Prothrombin timeOrdered By: Ankur Dunlap on 05-10-2025 PT Coag (PPP) [Time] 12.4 s 11.7-14.9 [facility] RBC Auto (Bld) [#/Vol]Ordere d By: Ankur Dunlap on 05-10-2025 RBC (Bld) [#/Vol] 5.22 10*6/uL 4.2-5.4 [facility] Serum creatinine measurement (mass/volume)Ordered By: Ankur Dunlap on 05-10-2025 Creatinine [Mass/Vol] 0.65 mg/dL Low 0.70-1.20 [facility] Serum globulin measurementOr dered By: Ankur Dunlap on 05-10-2025 Globulin (S) [Mass/Vol] 3.4 g/dL 2.2-4.2 [facility] Serum glucose measurement (m ass/volume)Ordered By: Ankur Dunlap on 05-10-2025 Glucose [Mass/Vol] 82 mg/dL 70-99 [facility] Serum or plasma alanine pritchard otransferase (ALT) measurementOrdered By: Ankur Dunlap on 05-10-2025 ALT [Catalytic activity/Vol] 383 U/L High <35 [facility] Serum or plasma albumin alex urement (mass/volume)Ordered By: Ankur Dunlap on 05-10-2025 Albumin [Mass/Vol] 4.8 g/dL 3.5-5.0 [facility] Serum or plasma albumin/glob ulin mass ratioOrdered By: Ankur Dunlap on 05-10-2025 Albumin/Globulin [Mass ratio] 1.4 {ratio} 0.9-2.4 [facility] Serum or plasma alkaline batsheva sphatase measurementOrdered By: Ankur Dunlap on 05-10-2025 ALP [Catalytic activity/Vol] 168 U/L High 35-104 [facility] Serum or plasma calcium alex urement (mass/volume)Ordered By: Ankur Dunlap on 05-10-2025 Calcium [Mass/Vol] 9.7 mg/dL 7.6-11.0 [facility] Serum or plasma urea nitroge n measurement (mass/volume)Ordered By: Ankur Dunlap on 05-10-2025 Urea nitrogen [Mass/Vol] 18 mg/dL 4-19 [facility] Sodium levelOrdered By: Betty Dunlap on 05-10-2025 Sodium [Moles/Vol] 140 mmol/L 133-145 [facility] Total proteinOrdered By: Francisco Dunlap on 05-10-2025 Protein [Mass/Vol] 8.2 g/dL 5.9-8.4 [facility] White blood cell (WBC) count Ordered By: Ankur Dunlap on 05-10-2025 WBC (Bld) [#/Vol] 8.9 10*3/uL 4.4-11.0 [facility] Absolute lymphocyte countOrd ered By: Alo Sandra on 04-29-2025 Lymphocytes Auto (Unsp spec) [#/Vol] 2.43 10*3/uL 0.83-4.51 [facility] Absolute neutrophil countOrd ered By: Alo Sandra on 04-29-2025 Neutrophils (Bld) [#/Vol] 3.6 10*3/uL 2.0-7.7 [facility] Activated partial thrombopla stin time (aPTT) in platelet poor plasma by coagulation aOrdered By: Alo Sandra on 04-29-2025 aPTT Coag (PPP) [Time] 27.9 s 24.1-36.2 [facility] Automated lymphocyte count a s percentage of total leukocytesOrdered By: Alo Sandra on 04-29-2025 Lymphocytes/100 WBC Auto (Unsp spec) 34.4 % 19-41 [facility] Basophil percentageOrdered B y: Alo Easleyshaheen on 04-29-2025 Basophils/100 WBC (Bld) 0.6 % 0-1 [facility] Biopsy/Inj or Needle Placeme nton 04-29-2025 Biopsy/Inj or Needle Placement [facility] Services [address] [place] [address] [id number] Biopsy/Inj or Needle Placement MR#: [id number] Acct: [id number] Name: HONG SNOW Rep #: [id number] : 1970 F 55 From: Alo delgado MD PCP: Rissa Tran PA-C Status: REG CLI Study: Biopsy/Inj or Needle Placement Date of Exam: 0 04/29/25 Exam# [id number] Ordering Dr: Ankur Dunlap MD EXAM: CT-guided [...] of the liver as described. Reading Location: [place] [address] CC: CHANDLER Tran; Dr. Ankur Dunlap MD Room Service Food Server: Signed Normal [facility] CBC W/Diff, Automatedon 07-0 Absolute Lymph 2.43 X10 3/uL Normal 0.83-4.51 [facility] Comment on above: Performed By: #### L 100.0100, L300.4310, L300.3900 #### [facility] [address] [place], [address] Absolute Neut 3.6 X10 3/uL Normal 2.0-7.7 [facility] Comment on above: Performed By: #### L 100.0100, L300.4310, L300.3900 #### [facility] [address] [place], [address] Basophils/100 WBC (Bld) 0.6 % Normal 0-1 [facility] Comment on above: Performed By: #### L 100.0100, L300.4310, L300.3900 #### [facility] [address] [place], [address] Eosinophils/100 WBC (Bld) 3.0 % Normal 0-5 [facility] Comment on above: Performed By: #### L 100.0100, L300.4310, L300.3900 #### [facility] [address] [place], [address] Erythrocyte distribution width (RBC) [Ratio] 11.9 % Normal 11.6-14.6 [facility] Comment on above: Performed By: #### L 100.0100, L300.4310, L300.3900 #### [facility] [address] [place], [address] Hematocrit (Bld) [Volume fraction] 45.1 % Normal 37-47 [facility] Comment on above: Performed By: #### L 100.0100, L300.4310, L300.3900 #### [facility] [address] [place], [address] Hemoglobin (Bld) [Mass/Vol] 15.3 g/dL High 12.0-15.0 [facility] Comment on above: Performed By: #### L 100.0100, L300.4310, L300.3900 #### [facility] [address] [place], [address] IG% 0.300 Normal 0.0-0.9 [facility] Comment on above: Result Comment: IG% - Immature Granulocytes (promyelocytes, myelocytes and metamyelocytes) > 1% indicates that a LEFT SHIFT is Present. Performed By: #### L 100.0100, L300.4310, L300.3900 #### [facility] [address] [place], [address] Lymphocytes/100 WBC (Bld) 34.4 % Normal 19-41 [facility] Comment on above: Performed By: #### L 100.0100, L300.4310, L300.3900 #### [facility] [address] [place], [address] MCH (RBC) [Entitic mass] 31.4 pg Normal 27.0-32.0 [facility] Comment on above: Performed By: #### L 100.0100, L300.4310, L300.3900 #### [facility] [address] [place], [address] MCHC (RBC) [Mass/Vol] 33.9 g/dL Normal 32-36 [facility] Comment on above: Performed By: #### L 100.0100, L300.4310, L300.3900 #### [facility] [address] [place], [address] MCV (RBC) [Entitic vol] 92.6 fL Normal 81-99 [facility] Comment on above: Performed By: #### L 100.0100, L300.4310, L300.3900 #### [facility] [address] [place], [address] Monocytes/100 WBC (Bld) 10.9 % High 0-10 [facility] Comment on above: Performed By: #### L 100.0100, L300.4310, L300.3900 #### [facility] [address] [place], [address] Neutrophils/100 WBC (Bld) 50.8 % Normal 47-70 [facility] Comment on above: Performed By: #### L 100.0100, L300.4310, L300.3900 #### [facility] [address] [place], [address] Nucleated RBC (Bld) [#/Vol] 0 10*3/uL Normal 0-5 [facility] Comment on above: Performed By: #### L 100.0100, L300.4310, L300.3900 #### [facility] [address] [place], [address] Platelet mean volume (Bld) [Entitic vol] 9.9 fL Normal 6.2-12.0 [facility] Comment on above: Performed By: #### L 100.0100, L300.4310, L300.3900 #### [facility] [address] [place] [place], [address] Platelets (Bld) [#/Vol] 192 10*3/uL Normal 150-450 [facility] Comment on above: Performed By: #### L 100.0100, L300.4310, L300.3900 #### [facility] [address] [place], [address] RBC (Bld) [#/Vol] 4.87 10*6/uL Normal 4.2-5.4 [facility] Comment on above: Performed By: #### L 100.0100, L300.4310, L300.3900 #### [facility] [address] [place], [address] RDW SD 40.5 fl Normal 35.1-43.9 [facility] Comment on above: Performed By: #### L 100.0100, L300.4310, L300.3900 #### [facility] [address] [place], [address] WBC (Bld) [#/Vol] 7.1 10*3/uL Normal 4.4-11.0 [facility] Comment on above: Performed By: #### L 100.0100, L300.4310, L300.3900 #### [facility] [address] [place], [address] Eosinophil percentageOrdered By: Alo Sandra on 04-29-2025 Eosinophils/100 WBC (Bld) 3.0 % 0-5 [facility] Erythrocyte distribution wid th ratioOrdered By: Alo Sandra on 04-29-2025 Erythrocyte distribution width (RBC) [Ratio] 11.9 % 11.6-14.6 [facility] Erythrocyte distribution wid th standard deviationOrdered By: Alo Sandra on 04-29-2025 Erythrocyte distribution width (RBC) [Ratio] 40.5 fl 35.1-43.9 [facility] Hematocrit Auto (Bld) [Volum e fraction]Ordered By: Alo Sandra on 04-29-2025 Hematocrit (Bld) [Volume fraction] 45.1 % 37-47 [facility] Hemoglobin measurementOrdere d By: Alo Sandra on 04-29-2025 Hemoglobin (Bld) [Mass/Vol] 15.3 g/dL High 12.0-15.0 [facility] Immature granulocytes/100 WB C Auto (Bld)Ordered By: Alo Sandra on 04-29-2025 Immature granulocytes/100 WBC (Bld) 0.300 % 0.0-0.9 [facility] Comment on above: IG% - Immature Granu locytes (promyelocytes, myelocytes and metamyelocytes) > 1% indicates that a LEFT SHIFT is Present. International normalized rat io (INR) calculationOrdered By: Alo Sandra on 04-29-2025 INR Coag (Bld) [Relative time] 1.0 {INR} [facility] L305.1805on 04-29-2025 Path [facility] SEE PATHOLOGY REPORT Normal [facility] Comment on above: Order Comment: RESUL TS FAXED TO Dr. Dunlap 05/01/25 2792 [address]. Result Comment: Spec imen sent to [facility] Pathology Department. Report available in EMR. Performed By: #### L 100.0100, L300.4310, L300.3900 #### [facility] [address] [place], [address] MCV (mean corpuscular volume ) determinationOrdered By: Alo Sandra on 04-29-2025 MCV (RBC) [Entitic vol] 92.6 fL 81-99 [facility] Mean corpuscular hemoglobin (MCH) determinationOrdered By: Alo Sandra on 04-29-2025 MCH (RBC) [Entitic mass] 31.4 pg 27.0-32.0 [facility] Mean corpuscular hemoglobin concentration (MCHC) determinationOrdered By: Alo Sandra on 04-29-2025 MCHC (RBC) [Mass/Vol] 33.9 g/dL 32-36 [facility] Mean platelet volume determi nationOrdered By: Alo Sandra on 04-29-2025 Platelet mean volume (Bld) [Entitic vol] 9.9 fL 6.2-12.0 [facility] Monocyte percentageOrdered B y: Alo Sandra on 04-29-2025 Monocytes/100 WBC (Bld) 10.9 % High 0-10 [facility] Neutrophil percentageOrdered By: Alo Sandra on 04-29-2025 Neutrophils/100 WBC (Bld) 50.8 % 47-70 [facility] Nucleated red blood cell per centageOrdered By: Alo Sandra on 04-29-2025 Nucleated RBC/100 WBC (Bld) [Ratio] 0 % 0-5 [facility] Partial Thromboplast Timeon 04-29-2025 aPTT Coag (Bld) [Time] 27.9 s Normal 24.1-36.2 [facility] Comment on above: Performed By: #### L 100.0100, L300.4310, L300.3900 #### [facility] [address] [place], [address] Platelet countOrdered By: Matias Sandra on 04-29-2025 Platelets (Bld) [#/Vol] 192 10*3/uL 150-450 [facility] Prothrombin Time w/INRon INR Coag (PPP) [Relative time] 1.0 {INR} Normal [facility] Comment on above: Performed By: #### L 100.0100, L300.4310, L300.3900 #### [facility] [address] [place], [address] PT Coag (PPP) [Time] 12.9 s Normal 11.7-14.9 [facility] Comment on above: Performed By: #### L 100.0100, L300.4310, L300.3900 #### [facility] [address] [place], [address] Prothrombin timeOrdered By: Alo Sandra on 04-29-2025 PT Coag (PPP) [Time] 12.9 s 11.7-14.9 [facility] RBC Auto (Bld) [#/Vol]Ordere d By: Alo Easleyshaheen on 04-29-2025 RBC (Bld) [#/Vol] 4.87 10*6/uL 4.2-5.4 [facility] White blood cell (WBC) count Ordered By: Alo Boaz on 04-29-2025 WBC (Bld) [#/Vol] 7.1 10*3/uL 4.4-11.0 [facility] Gastroenterology Visit Repor ton 04-01-2025 Gastroenterology Visit Report [facility] [address] [place] [address] OFFICE VISIT Date of Service: 04/01/25 MR#: [id number] Acct: [id number] Name: HONG SNOW Rep #: [id number] : 1970 Provider: Dr. Ankur ga MD Age/Sex: 55/F [place] [facility] [place]: Signed Intake Vital Signs 12/20/24 11:14 [...] proctitis. Normal ileum. No pathologic changes. OV 08.24.22 She stopped taking pre/probiotic gummy, started daily [...] has abdominal discomfort/pain). Started a tea from [employer] with four ingredients and feels this has [...] BM daily (more content not included)... Normal [facility] Anti-Smooth Muscle ABSon ANTISMOOTH MUSC 3 Units Normal 0-19 [facility] Comment on above: Order Comment: Test( s) 682729-Ltlcth, Serum or Plasmawas developed and its performance characteristicsdetermined by [employer]. It has not been cleared or approvedby the Food and Drug Administration. Result Comment: Nega tive 0 - 19 Weak positive 20 - 30 Moderate to strong positive >30 Actin Antibodies are found in 52-85% of patients with autoimmune hepatitis or chronic active hepatitis and in 22% of patients with primary biliary cirrhosis. Performed By: #### L 100.0100, L300.4310, L300.3900 #### [facility] [address] [place], [address] Ceruloplasminon 02-20-2025 CERULOPLASMIN 30.5 mg/dL Normal 19.0-39.0 [facility] Comment on above: Order Comment: Test( s) 262291-Czhbhq, Serum or Plasmawas developed and its performance characteristicsdetermined by [employer]. It has not been cleared or approvedby the Food and Drug Administration. Performed By: #### L 501.4021 #### [facility] [address] [place], [place], [address] Copper, Serum or Plasmaon COPPER, SERUM 135 ug/dL Normal 80-158 [facility] Comment on above: Order Comment: Test( s) 829508-Vbfdys, Serum or Plasmawas developed and its performance characteristicsdetermined by [facility]. It has not been cleared or approvedby the Food and Drug Administration. Result Comment: Dete ction Limit = 5 Performed at: [address] [id number] Asset Recovery Specialist: Jet Valladares PhD, Phone: [phone] Performed at: [address] [id number] Asset Recovery Specialist: Thu Bradley MD, Phone: [phone] Performed By: #### L 100.0100, L300.4310, L300.3900 #### [facility] [address] [place], [place], [address] Hepatitis Panel Acuteon - COMMENT Comment Normal . [facility] Comment on above: Order Comment: Test( s) 784012-Moknaj, Serum or Plasmawas developed and its performance characteristicsdetermined by [facility]. It has not been cleared or approvedby the Food and Drug Administration. Result Comment: Not infected with HCV unless early or acute infection is suspected (which may be delayed in an immunocompromised individual), or other evidence exists to indicate HCV infection. Performed By: #### L 100.0100, L300.4310, L300.3900 #### [facility] [address] [place], [address] HEP B CORE,IgM Negative Normal Negative [facility] Comment on above: Order Comment: Test( s) 572248-Jnxpzv, Serum or Plasmawas developed and its performance characteristicsdetermined by [employer]. It has not been cleared or approvedby the Food and Drug Administration. Performed By: #### L 100.0100, L300.4310, L300.3900 #### [facility] [address] [place], [place], [address] HEP B SURF AG Negative Normal Negative [facility] Comment on above: Order Comment: Test( s) 099872-Maupbd, Serum or Plasmawas developed and its performance characteristicsdetermined by [employer]. It has not been cleared or approvedby the Food and Drug Administration. Performed By: #### L 100.0100, L300.4310, L300.3900 #### [facility] [address] [place], [address] HEP C VIRUS AB Non-Reactive Normal Non Reactive [facility] Comment on above: Order Comment: Test( s) 465329-Eelfdb, Serum or Plasmawas developed and its performance characteristicsdetermined by [employer]. It has not been cleared or approvedby the Food and Drug Administration. Performed By: #### L 100.0100, L300.4310, L300.3900 #### [facility] [address] [place], [address] HEPATITIS A-IgM Negative Normal Negative [facility] Comment on above: Order Comment: Test( s) 912448-Fcmxuz, Serum or Plasmawas developed and its performance characteristicsdetermined by [employer]. It has not been cleared or approvedby the Food and Drug Administration. Result Comment: A ne gative anti-HAV IgM result suggests no recent or current HAV infection. Performed By: #### L 100.0100, L300.4310, L300.3900 #### [facility] [address] [place], [address] L501.5101on 04-30-2025 GGTP 34 IU/L Normal 0-60 [facility] Comment on above: Order Comment: Test( s) 724943-Ycrlop, Serum or Plasmawas developed and its performance characteristicsdetermined by [employer]. It has not been cleared or approvedby the Food and Drug Administration. Performed By: #### L 100.0100, L300.4310, L300.3900 #### [facility] [address] [place], [address] CODY w/ Reflex Mult Confirmon 02-18-2025 CODY,DIRECT Positive Abnormal Negative [facility] Comment on above: Performed By: #### L 100.0100, L300.4310, L300.3900 #### [facility] [address] [place], [address] ANTI-CENT B AB <0.2 Normal 0.0-0.9 [facility] Comment on above: Performed By: #### L 100.0100, L300.4310, L300.3900 #### [facility] [address] [place], [address] ANTI-DNA (DS)AB 11 IU/mL Abnormal 0-9 [facility] Comment on above: Result Comment: Nega tive <5 Equivocal 5 - 9 Positive >9 Performed By: #### L 100.0100, L300.4310, L300.3900 #### [facility] [address] [place], [address] ANTI-PADMA-1 <0.2 Normal 0.0-0.9 [facility] Comment on above: Performed By: #### L 100.0100, L300.4310, L300.3900 #### [facility] [address] [place], [address] ANTI-SS-A < 0.2 Normal 0.0-0.9 [facility] Comment on above: Performed By: #### L 100.0100, L300.4310, L300.3900 #### [facility] [address] [place], [address] ANTI-SS-B < 0.2 Normal 0.0-0.9 [facility] Comment on above: Performed By: #### L 100.0100, L300.4310, L300.3900 #### [facility] [address] [place], [address] ANTICHROMATIN <0.2 Normal 0.0-0.9 [facility] Comment on above: Performed By: #### L 100.0100, L300.4310, L300.3900 #### [facility] [address] [place], [address] MERCHANDISING LEAD Ab 0.4 AI Normal 0.0-0.9 [facility] Comment on above: Performed By: #### L 100.0100, L300.4310, L300.3900 #### [facility] [address] [place], [address] GUTIERREZ Ab <0.2 Normal 0.0-0.9 [facility] Comment on above: Performed By: #### L 100.0100, L300.4310, L300.3900 #### [facility] [address] [place], [address] Anti-Mitochondrial ABon 01-23 ANTIMITOCHON AB <20.0 Normal 0.0-20.0 [facility] Comment on above: Result Comment: Nega tive 0.0 - 20.0 Equivocal 20.1 - 24.9 Positive >24.9 Mitochondrial (M2) Antibodies are found in 90-96% of patients with primary biliary cirrhosis. Performed By: #### L 100.0100, L300.4310, L300.3900 #### [facility] [address] [place], [address] L3410.9992on 02-18-2025 [facility] Misc. COMMENT Normal . [facility] Comment on above: Order Comment: [id number] 9ELF TEST TIGER RF Result Comment: Test Ordered: [id number] Enhanced Liver Fibrosis (ELF) ELF(TM) Score 10.46 [H ] Reference Range: <9.80 ELF(TM) Score Interpretation: Risk cut-offs to assess the likelihood of progression to cirrhosis and liver-related clinical events within 3.9 years following baseline ELF score (IQR: 14.0-22.4 months)*: Lower risk < 9.80 Mid risk 9.80 - 11.29 Higher risk >11.29 Note: The ELF(TM) Score is a unitless numerical value. *Dani SA, Joe VW, Saniya T, et al. Selonsertib for patients with bridging fibrosis or compensated cirrhosis due to CERDA: Results from randomized phase III STELLAR trials. J Hepatol. 2020 Apr;73(1):26-39. Performed at: [facility] [address] [id number] Asset Recovery Specialist: Thu Bradley MD, Phone: [phone] Performed at: [facility] [address] [id number] Asset Recovery Specialist: Jet Valladares PhD, Phone: [phone] Performed By: #### L 100.0100, L300.9080, L300.8298 #### [facility] [address] [place], [address] Absolute lymphocyte countOrd ered By: Ankur Dunlap on 02-14-2025 Lymphocytes Auto (Unsp spec) [#/Vol] 1.81 10*3/uL 0.83-4.51 [facility] Absolute neutrophil countOrd ered By: Ankur Dunlap on 02-14-2025 Neutrophils (Bld) [#/Vol] 4.3 10*3/uL 2.0-7.7 [facility] Anion gap in Serum or Plasma Ordered By: Ankur Dunlap on 02-14-2025 Anion gap [Moles/Vol] 13 mmol/L 5-15 [facility] Automated lymphocyte count a s percentage of total leukocytesOrdered By: Ankur Dunlap on 02-14-2025 Lymphocytes/100 WBC Auto (Unsp spec) 26.3 % 19-41 [facility] BUN/creatinine ratioOrdered By: Ankur Dunlap on 02-14-2025 Urea nitrogen/Creatinine [Mass ratio] 17.5 mg/mg 10-20 [facility] Basophil percentageOrdered B y: Ankur Dunlap on 02-14-2025 Basophils/100 WBC (Bld) 0.3 % 0-1 [facility] Bilirubin Test strip Ql (U)O rdered By: Ankur Dunlap on 02-14-2025 Bilirubin Ql (U) Negative Negative [facility] Bilirubin directOrdered By: Ankur Dunlap on 02-14-2025 Bilirubin.direct [Mass/Vol] 0.17 mg/dL 0.00-0.30 [facility] Bilirubin, Directon 02-15-20 25 Bilirubin.direct [Mass/Vol] 0.17 mg/dL Normal 0.00-0.30 [facility] Comment on above: Order Comment: DR. Kezia MILLER ORDERED A LIVER PANEL WELL Performed By: #### L 100.0100, L300.4310, L300.3900 #### [facility] [address] [place], [address] Bilirubin, totalOrdered By: Ankur Dunlap on 02-14-2025 Bilirubin [Mass/Vol] 0.44 mg/dL 0.00-1.30 [facility] CBC W/Diff, Automatedon 01-23 Absolute Lymph 1.81 X10 3/uL Normal 0.83-4.51 [facility] Comment on above: Performed By: #### L 100.0100, L300.4310, L300.3900 #### [facility] [address] [place], [address] Absolute Neut 4.3 X10 3/uL Normal 2.0-7.7 [facility] Comment on above: Performed By: #### L 100.0100, L300.4310, [id number] #### [facility] [address] [place], [address] Basophils/100 WBC (Bld) 0.3 % Normal 0-1 [facility] Comment on above: Performed By: #### L 100.0100, L300.4310, [id number] #### [facility] [address] [place], [address] Eosinophils/100 WBC (Bld) 1.7 % Normal 0-5 [facility] Comment on above: Performed By: #### L 100.0100, L300.4310, [id number] #### [facility] [address] [place], [address] Erythrocyte distribution width (RBC) [Ratio] 12.0 % Normal 11.6-14.6 [facility] Comment on above: Performed By: #### L 100.0100, L300.4310, L300.3900 #### [facility] [address] [place], [address] Hematocrit (Bld) [Volume fraction] 41.5 % Normal 37-47 [facility] Comment on above: Performed By: #### L 100.0100, L300.4310, L300.3900 #### [facility] [address] [place], [address] Hemoglobin (Bld) [Mass/Vol] 14.3 g/dL Normal 12.0-15.0 [facility] Comment on above: Performed By: #### L 100.0100, L300.4310, L300.3900 #### [facility] [address] [place], [address] IG% 0.100 Normal 0.0-0.9 [facility] Comment on above: Result Comment: IG% - Immature Granulocytes (promyelocytes, myelocytes and metamyelocytes) > 1% indicates that a LEFT SHIFT is Present. Performed By: #### L 100.0100, L300.4310, L300.3900 #### [facility] [address] [place], [address] Lymphocytes/100 WBC (Bld) 26.3 % Normal 19-41 [facility] Comment on above: Performed By: #### L 100.0100, L300.4310, [id number] #### [facility] [address] [place], [address] MCH (RBC) [Entitic mass] 31.6 pg Normal 27.0-32.0 [facility] Comment on above: Performed By: #### L 100.0100, L300.4310, L300.3900 #### [facility] [address] [place], [address] MCHC (RBC) [Mass/Vol] 34.5 g/dL Normal 32-36 [facility] Comment on above: Performed By: #### L 100.0100, L300.4310, L300.3900 #### [facility] [address] [place], [address] MCV (RBC) [Entitic vol] 91.6 fL Normal 81-99 [facility] Comment on above: Performed By: #### L 100.0100, L300.4310, [id number] #### [facility] [address] [place], [address] Monocytes/100 WBC (Bld) 8.4 % Normal 0-10 [facility] Comment on above: Performed By: #### L 100.0100, L300.4310, [id number] #### [facility] [address] [place], [address] Neutrophils/100 WBC (Bld) 63.2 % Normal 47-70 [facility] Comment on above: Performed By: #### L 100.0100, L300.4310, L300.3900 #### [facility] [address] [place], [address] Nucleated RBC (Bld) [#/Vol] 0 10*3/uL Normal 0-5 [facility] Comment on above: Performed By: #### L 100.0100, L300.4310, L300.3900 #### [facility] [address] [place], [address] Platelet mean volume (Bld) [Entitic vol] 9.9 fL Normal 6.2-12.0 [facility] Comment on above: Performed By: #### L 100.0100, L300.4310, L300.3900 #### [facility] [address] [place], [address] Platelets (Bld) [#/Vol] 213 10*3/uL Normal 150-450 [facility] Comment on above: Performed By: #### L 100.0100, L300.4310, L300.3900 #### [facility] [address] [place], [address] RBC (Bld) [#/Vol] 4.53 10*6/uL Normal 4.2-5.4 [facility] Comment on above: Performed By: #### L 100.0100, L300.4310, L300.3900 #### [facility] [address] [place], [address] RDW SD 40.3 fl Normal 35.1-43.9 [facility] Comment on above: Performed By: #### L 100.0100, L300.4310, L300.3900 #### [facility] [address] [place], [address] WBC (Bld) [#/Vol] 6.9 10*3/uL Normal 4.4-11.0 [facility] Comment on above: Performed By: #### L 100.0100, L300.4310, L300.3900 #### [facility] [address] [place], [address] CRPon 02-14-2025 C-REACTIVE PROT 8.11 mg/L High 0.0-3.0 [facility] Comment on above: Order Comment: DR. Kzeia MILLER ORDERED A LIVER PANEL WELL Performed By: #### L 100.0100, L300.4310, L300.3900 #### [facility] [address] [place], [address] Carbon dioxide, total [Moles /volume] in Central venous bloodOrdered By: Ankur Dunlap on 02-14-2025 CO2 [Moles/Vol] 21.5 mmol/L 21.0-32.0 [facility] Chloride assayOrdered By: Ruchi Dunlap on 02-14-2025 Chloride [Moles/Vol] 106 mmol/L 98-108 [facility] Comprehensive Metabolic Prof ilon 02-14-2025 Albumin [Mass/Vol] 4.1 g/dL Normal 3.5-5.0 [facility] Comment on above: Order Comment: DR. Kezia MILLER ORDERED A LIVER PANEL WELL Performed By: #### L 100.0100, L300.4310, L300.3900 #### [facility] [address] [place], [address] Albumin/Globulin [Mass ratio] 1.6 {ratio} Normal 0.9-2.4 [facility] Comment on above: Order Comment: DR. Kezia MILLER ORDERED A LIVER PANEL WELL Performed By: #### L 100.0100, L300.4310, L300.3900 #### [facility] [address] [place], [address] ALK PHOS 104 U/L Normal 35-104 [facility] Comment on above: Order Comment: DR. Kezia MILLER ORDERED A LIVER PANEL WELL Performed By: #### L 100.0100, L300.4310, L300.3900 #### [facility] [address] [place], [address] ALT [Catalytic activity/Vol] 185 U/L High <=34 [facility] Comment on above: Order Comment: DR. Kezia MILLER ORDERED A LIVER PANEL WELL Performed By: #### L 100.0100, L300.4310, L300.3900 #### [facility] [address] [place], [address] AST [Catalytic activity/Vol] 172 U/L High <=31 [facility] Comment on above: Order Comment: DR. Kezia MILLER ORDERED A LIVER PANEL WELL Performed By: #### L 100.0100, L300.4310, L300.3900 #### [facility] [address] [place], [address] Bilirubin [Mass/Vol] 0.44 mg/dL Normal 0.00-1.30 [facility] Comment on above: Order Comment: DR. Kezia MILLER ORDERED A LIVER PANEL WELL Performed By: #### L 100.0100, L300.4310, L300.3900 #### [facility] [address] [place], [address] BUN/CRE 17.5 RATIO Normal 10-20 [facility] Comment on above: Order Comment: DR. Kezia MILLER ORDERED A LIVER PANEL WELL Performed By: #### L 100.0100, L300.4310, L300.3900 #### [facility] [address] [place], [address] Calcium [Mass/Vol] 8.5 mg/dL Normal 7.6-11.0 [facility] Comment on above: Order Comment: DR. Kezia MILLER ORDERED A LIVER PANEL WELL Performed By: #### L 100.0100, L300.4310, L300.3900 #### [facility] [address] [place], [address] Chloride [Moles/Vol] 106 mmol/L Normal 98-108 [facility] Comment on above: Order Comment: DR. Kezia MILLER ORDERED A LIVER PANEL WELL Performed By: #### L 100.0100, L300.4310, L300.3900 #### [facility] [address] [place], [address] CO2 [Moles/Vol] 21.5 mmol/L Normal 21.0-32.0 [facility] Comment on above: Order Comment: DR. Kezia MILLER ORDERED A LIVER PANEL WELL Performed By: #### L 100.0100, L300.4310, L300.3900 #### [facility] [address] [place], [address] Creatinine [Mass/Vol] 0.93 mg/dL Normal 0.70-1.20 [facility] Comment on above: Order Comment: DR. Kezia MILLER ORDERED A LIVER PANEL WELL Performed By: #### L 100.0100, L300.4310, L300.3900 #### [facility] [address] [place], [address] GAP 13 Normal 5-15 [facility] Comment on above: Order Comment: DR. Kezia MILLER ORDERED A LIVER PANEL WELL Performed By: #### L 100.0100, L300.4310, L300.3900 #### [facility] [address] [place], [address] GFR/1.73 sq M.predicted among non-blacks MDRD (S/P/Bld) [Vol rate/Area] 72 mL/min/{1.73_m2} Normal >60 [facility] Comment on above: Order Comment: DR. Kezia MILLER ORDERED A LIVER PANEL WELL Result Comment: mL/m in/1.73m2 CKD-EPI Creatinine Equation (2020) Performed By: #### L 100.0100, L300.4310, L300.3900 #### [facility] [address] [place], [address] Globulin (S) [Mass/Vol] 2.6 g/dL Normal 2.2-4.2 [facility] Comment on above: Order Comment: DR. Kezia MILLER ORDERED A LIVER PANEL WELL Performed By: #### L 100.0100, L300.4310, L300.3900 #### [facility] [address] [place], [address] Glucose [Mass/Vol] 104 mg/dL High 70-99 [facility] Comment on above: Order Comment: DR. Kezia MILLER ORDERED A LIVER PANEL WELL Performed By: #### L 100.0100, L300.4310, L300.3900 #### [facility] [address] [place], [address] Potassium [Moles/Vol] 3.8 mmol/L Normal 3.3-5.1 [facility] Comment on above: Order Comment: DR. Kezia MILLER ORDERED A LIVER PANEL WELL Result Comment: Hemo lysis present, Results??could be affected. ?? Performed By: #### L 100.0100, L300.4310, L300.3900 #### [facility] [address] [place], [address] Sodium [Moles/Vol] 141 mmol/L Normal 133-145 [facility] Comment on above: Order Comment: DR. Kezia MILLER ORDERED A LIVER PANEL WELL Performed By: #### L 100.0100, L300.4310, L300.3900 #### [facility] [address] [place], [address] T PROT 6.7 g/dL Normal 5.9-8.4 [facility] Comment on above: Order Comment: DR. Kezia MILLER ORDERED A LIVER PANEL WELL Performed By: #### L 100.0100, L300.4310, L300.3900 #### [facility] [address] [place], [address] Urea nitrogen [Mass/Vol] 16 mg/dL Normal 4-19 [facility] Comment on above: Order Comment: DR. Kezia MILLER ORDERED A LIVER PANEL WELL Performed By: #### L 100.0100, L300.4310, L300.3900 #### [facility] [address] [place], [address] Eosinophil percentageOrdered By: Ankur Dunlap on 02-14-2025 Eosinophils/100 WBC (Bld) 1.7 % 0-5 [facility] Erythrocyte distribution wid th ratioOrdered By: Ankur Dunlap on 02-14-2025 Erythrocyte distribution width (RBC) [Ratio] 12.0 % 11.6-14.6 [facility] Erythrocyte distribution wid th standard deviationOrdered By: Ankur Dunlap on 02-14-2025 Erythrocyte distribution width (RBC) [Ratio] 40.3 fl 35.1-43.9 [facility] Ferritinon 02-14-2025 Ferritin [Mass/Vol] 96 ng/mL Normal 22-378 [facility] Comment on above: Order Comment: DR. Kezia MILLER ORDERED A LIVER PANEL WELL Performed By: #### L 100.0100, L300.4310, L300.3900 #### [facility] [address] [place], [address] Gamma glutamyl transferase ( GGT) measurementOrdered By: Ankur Dunlap on 02-14-2025 Amylase [Catalytic activity/Vol] 34 U/L 0-60 [facility] Glomerular filtration rate ( GFR) estimation/1.73 sq m using serum, plasma, or whole bOrdered By: Ankur Dunlap on 02-14-2025 GFR/1.73 sq M.predicted among non-blacks MDRD (S/P/Bld) [Vol rate/Area] 72 mL/min/{1.73_m2} >60 [facility] Comment on above: mL/min/1.73m2 CKD-EP I Creatinine Equation (2020) Hematocrit Auto (Bld) [Volum e fraction]Ordered By: Ankur Dunlap on 02-14-2025 Hematocrit (Bld) [Volume fraction] 41.5 % 37-47 [facility] Hemoglobin measurementOrdere d By: Ankur Dunlap on 02-14-2025 Hemoglobin (Bld) [Mass/Vol] 14.3 g/dL 12.0-15.0 [facility] Hepatitis B Surface Antibody on 02-14-2025 HEP B Surf Ab REAC Normal [facility] Comment on above: Order Comment: DR. Kezia MILLER ORDERED A LIVER PANEL WELL Result Comment: <8.5 mIU/mL: Non-Reactive 8.5<= x <11.5 mIU/mL: Indeterminate >=11.5 mIU/mL: Reactive Non Reactive: Inconsistent with immunity less than <10 mIU/mL Reactive: Consistent with immunity greater than or equal to 10 mIU/mL Performed By: #### L 100.0100, L300.4310, L300.3900 #### [facility] [address] [place], [place], [id number] Immature granulocytes/100 WB C Auto (Bld)Ordered By: Ankur Dunlap on 02-14-2025 Immature granulocytes/100 WBC (Bld) 0.100 % 0.0-0.9 [facility] Comment on above: IG% - Immature Granu locytes (promyelocytes, myelocytes and metamyelocytes) > 1% indicates that a LEFT SHIFT is Present. International normalized rat io (INR) calculationOrdered By: Ankur Dunlap on 02-14-2025 INR Coag (Bld) [Relative time] 0.9 {INR} [facility] Iron measurement (mass/mass) Ordered By: Ankur Dunlap on 02-14-2025 Iron (Unsp spec) [Mass/Mass] 110 ug/dL 50-170 [facility] Iron+Iron Binding Capacityon 02-14-2025 Iron [Mass/Vol] 110 ug/dL Normal 50-170 [facility] Comment on above: Order Comment: DR. Kezia MILLER ORDERED A LIVER PANEL WELL Performed By: #### L 100.0100, L300.4310, L300.3900 #### [facility] [address] [place], [address] UIBC 172 ug/dL Low 228-428 [facility] Comment on above: Order Comment: DR. Kezia MILLER ORDERED A LIVER PANEL WELL Performed By: #### L 100.0100, L300.4310, L300.3900 #### [facility] [address] [place], [address] Ketones Test strip Ql (U)Ord ered By: Ankur Dunlap on 02-14-2025 Ketones Ql (U) Negative Negative [facility] LDHon 02-14-2025 LDH 269 U/L High 84-246 [facility] Comment on above: Order Comment: DR. Kezia MILLER ORDERED A LIVER PANEL WELL1 Result Comment: Hemo lysis present, Results??could be affected. ?? Performed By: #### L 100.0100, L300.4310, L300.3900 #### [facility] [address] [place], [address] Laboratory - Chemistry and C hemistry - challengeOrdered By: Ankur Dunlap on 02-14-2025 AST [Catalytic activity/Vol] 172 U/L High <32 [facility] Lactate dehydrogenase (LDH) measurementOrdered By: Ankur Dunlap on 02-14-2025 LDH [Catalytic activity/Vol] 269 U/L High 84-246 [facility] Comment on above: Hemolysis present, R esults could be affected. MCV (mean corpuscular volume ) determinationOrdered By: Ankur Dunlap on 02-14-2025 MCV (RBC) [Entitic vol] 91.6 fL 81-99 [facility] Mean corpuscular hemoglobin (MCH) determinationOrdered By: Ankur Dunlap on 02-14-2025 MCH (RBC) [Entitic mass] 31.6 pg 27.0-32.0 [facility] Mean corpuscular hemoglobin concentration (MCHC) determinationOrdered By: Ankur Dunlap on 02-14-2025 MCHC (RBC) [Mass/Vol] 34.5 g/dL 32-36 [facility] Mean platelet volume determi nationOrdered By: Ankur Dunlap on 02-14-2025 Platelet mean volume (Bld) [Entitic vol] 9.9 fL 6.2-12.0 [facility] Microscopic analysis of urin e for red blood cells (RBC)Ordered By: Ankur Dunlap on 02-14-2025 Microscopic analysis of urine for red blood cells (RBC) 0 SEEN /hpf 0-5 [facility] Monocyte percentageOrdered B y: Ankur Dunlap on 02-14-2025 Monocytes/100 WBC (Bld) 8.4 % 0-10 [facility] Mucus LM Ql (Urine sed)Order ed By: Ankur Dunlap on 02-14-2025 Mucus Ql (Urine sed) 0 SEEN /hpf [facility] Neutrophil percentageOrdered By: Ankur Dunlap on 02-14-2025 Neutrophils/100 WBC (Bld) 63.2 % 47-70 [facility] Nitrite Test strip Ql (U)Ord ered By: Ankur Dunlap on 02-14-2025 Nitrite Ql (U) Negative Negative [facility] No Panel InformationOrdered By: Ankur Dunlap on 02-14-2025 Hepatitis C Antibody Comment Comment . [facility] Comment on above: Not infected with HC V unless early or acute infection issuspected (which may be delayed in an immunocompromisedindividual), or other evidence exists to indicate HCVinfection. Unsaturated Iron Binding Capacity 172 ug/dL Low 228-428 [facility] Nucleated red blood cell per centageOrdered By: Ankur Dunlap on 02-14-2025 Nucleated RBC/100 WBC (Bld) [Ratio] 0 % 0-5 [facility] Platelet countOrdered By: Ruchi Dunlap on 02-14-2025 Platelets (Bld) [#/Vol] 213 10*3/uL 150-450 [facility] Potassium measurement (mass/ volume)Ordered By: Ankur Dunlap on 02-14-2025 Potassium (Unsp spec) [Mass/Vol] 3.8 mmol/L 3.3-5.1 [facility] Comment on above: Hemolysis present, R esults could be affected. Protein Test strip Ql (U)Ord ered By: Ankur Dunlap on 02-14-2025 Protein Ql (U) 30 mg/dl High Negative [facility] Prothrombin Time w/INRon INR Coag (PPP) [Relative time] 0.9 {INR} Normal [facility] Comment on above: Performed By: #### L 100.0100, L300.4310, L300.3900 #### [facility] [address] [place], [address] PT Coag (PPP) [Time] 12.7 s Normal 11.7-14.9 [facility] Comment on above: Performed By: #### L 100.0100, L300.4310, L300.3900 #### [facility] [address] [place], [address] Prothrombin timeOrdered By: Ankur Dunlap on 02-14-2025 PT Coag (PPP) [Time] 12.7 s 11.7-14.9 [facility] RBC Auto (Bld) [#/Vol]Ordere d By: Ankur Dunlap on 02-14-2025 RBC (Bld) [#/Vol] 4.53 10*6/uL 4.2-5.4 [facility] Serum DNA double strand anti body assay (units/volume)Ordered By: Ankur Dunlap on 02-14-2025 DNA double strand Ab Qn (S) 11 [IU]/mL High 0-9 [facility] Comment on above: Negative <5 Equivoca l 5 - 9 Positive >9 Serum Scl-70 antibody assay (units/volume)Ordered By: Ankur Dunlap on 02-14-2025 SCL-70 extractable nuclear Ab Qn (S) <0.2 AI 0.0-0.9 [facility] Comment on above: Previous reported re sult: TNP AIEdited by: LI on 02/18/25:1408 AMENDED REPORT 02/18/25 1408 ANTISCLER previously reported as: Test not performed Serum creatinine measurement (mass/volume)Ordered By: Ankur Dunlap on 02-14-2025 Creatinine [Mass/Vol] 0.93 mg/dL 0.70-1.20 [facility] Serum globulin measurementOr dered By: Ankur Dunlap on 02-14-2025 Globulin (S) [Mass/Vol] 2.6 g/dL 2.2-4.2 [facility] Serum glucose measurement (m ass/volume)Ordered By: Ankur Dunlap on 02-14-2025 Glucose [Mass/Vol] 104 mg/dL High 70-99 [facility] Serum hepatitis B virus surf jessica antibody detectionOrdered By: Ankur Dunlap on 02-14-2025 HBV surface Ab Ql (S) REAC [facility] Comment on above: <8.5 mIU/mL: Non-[place] ctive8.5<= x <11.5 mIU/mL: Indeterminate>=11.5 mIU/mL: Reactive Non Reactive: Inconsistent with immunity less than <10 mIU/mL Reactive: Consistent with immunity greater than or equal to 10 mIU/mL Serum mitochondria antibody detectionOrdered By: Ankur Dunlap on 02-14-2025 Mitochondria Ab Ql (S) <20.0 Units 0.0-20.0 [facility] Comment on above: Negative 0.0 - 20.0 Equivocal 20.1 - 24.9 Positive >24.9Mitochondrial (M2) Antibodies are found in 90-96% ofpatients with primary biliary cirrhosis. Serum or plasma C reactive p rotein measurement (mass/volume)Ordered By: Ankur Dunlap on 02-14-2025 CRP [Mass/Vol] 8.11 mg/L High 0.0-3.0 [facility] Serum or plasma actin IgG an tibody assay (units/volume)Ordered By: Ankur Dunlap on 02-14-2025 Actin IgG Qn 3 Units 0-19 [facility] Comment on above: Negative 0 - 19 Weak positive 20 - 30 Moderate to strong positive >30 Actin Antibodies are found in 52-85% of patients with autoimmune hepatitis or chronic active hepatitis and in 22% of patients with primary biliary cirrhosis. Serum or plasma alanine pritchard otransferase (ALT) measurementOrdered By: Ankur Dunlap on 02-14-2025 ALT [Catalytic activity/Vol] 185 U/L High <35 [facility] Serum or plasma albumin alex urement (mass/volume)Ordered By: Ankur Dunlap on 02-14-2025 Albumin [Mass/Vol] 4.1 g/dL 3.5-5.0 [facility] Serum or plasma albumin/glob ulin mass ratioOrdered By: Ankur Dunlap on 02-14-2025 Albumin/Globulin [Mass ratio] 1.6 {ratio} 0.9-2.4 [facility] Serum or plasma alkaline batsheva sphatase measurementOrdered By: Ankur Dunlap on 02-14-2025 ALP [Catalytic activity/Vol] 104 U/L 35-104 [facility] Serum or plasma calcium alex urement (mass/volume)Ordered By: Ankur Dunlap on 02-14-2025 Calcium [Mass/Vol] 8.5 mg/dL 7.6-11.0 [facility] Serum or plasma ferritin corrine surement (mass/volume)Ordered By: Ankur Dunlap on 02-14-2025 Ferritin [Mass/Vol] 96 ng/mL 22-378 [facility] Serum or plasma hepatitis B virus surface antigen detection by immunoassayOrdered By: Ankur Dunlap on 02-14-2025 HBV surface Ag IA Ql Negative Negative [facility] Serum or plasma iron saturat ion measurement (mass fraction)Ordered By: Ankur Dunlap on 02-14-2025 Iron saturation [Mass fraction] 39.0 % 13-59 [facility] Serum or plasma urea nitroge n measurement (mass/volume)Ordered By: Ankur Dunlap on 02-14-2025 Urea nitrogen [Mass/Vol] 16 mg/dL 4-19 [facility] Sodium levelOrdered By: Betty Dunlap on 02-14-2025 Sodium [Moles/Vol] 141 mmol/L 133-145 [facility] Squamous epithelial cells de tection in urine sediment by light microscopyOrdered By: Ankur Dunlap on 02-14-2025 Epithelial cells.squamous LM Ql (Urine sed) 0-5 SEEN /hpf 5-10 [facility] T4 Free Directon 02-14-2025 T4 FREE DIRECT 0.80 ng/dL Normal 0.76-1.46 [facility] Comment on above: Order Comment: DR. Kezia MILLER ORDERED A LIVER PANEL WELL Performed By: #### L 100.0100, L300.4310, L300.3900 #### [facility] [address] [place], [place], [id number] T4 freeOrdered By: Ankur mesa on 02-14-2025 Free T4 [Mass/Vol] 0.80 ng/dL 0.76-1.46 [facility] TSH DL <= 0.005 mIU/L QnOrde red By: Ankur Dunlap on 02-14-2025 TSH Qn 2.120 uIU/mL 0.300-4.200 [facility] Thyroid Stim Hormone (TSH)on 02-14-2025 TSH 2.120 uIU/mL Normal 0.300-4.200 [facility] Comment on above: Order Comment: DR. Kezia MILLER ORDERED A LIVER PANEL WELL Performed By: #### L 100.0100, L300.4310, L300.3900 #### [facility] [address] [place], [address] Total proteinOrdered By: Francisco Dunlap on 02-14-2025 Protein [Mass/Vol] 6.7 g/dL 5.9-8.4 [facility] Urinalysis, Completeon 02-14 EPI,SQUAMOUS 0-5 SEEN Normal 5-10 [facility] Comment on above: Order Comment: COLLE CTOR TO SPECIFY Performed By: #### L 100.0100, L300.4310, L300.3900 #### [facility] [address] [place], [address] WBC 0-5 SEEN Normal 0-5 [facility] Comment on above: Order Comment: COLLE CTOR TO SPECIFY Performed By: #### L 100.0100, L300.4310, L300.3900 #### [facility] [address] [place], [address] BACTERIA 0 SEEN Normal None Seen [facility] Comment on above: Order Comment: COLLE CTOR TO SPECIFY Performed By: #### L 100.0100, L300.4310, L300.3900 #### [facility] [address] [place], [address] Mucus Ql (Urine sed) 0 SEEN Normal [facility] Comment on above: Order Comment: COLLE CTOR TO SPECIFY Performed By: #### L 100.0100, L300.4310, L300.3900 #### [facility] [address] [place], [address] RBC 0 SEEN Normal 0-5 [facility] Comment on above: Order Comment: COLLE CTOR TO SPECIFY Performed By: #### L 100.0100, L300.4310, L300.3900 #### [facility] [address] [place], [address] Urine clarityOrdered By: Francisco Dunlap on 02-14-2025 Clarity (U) Clear Clear [facility] Urine color determinationOrd ered By: Ankur Dunlap on 02-14-2025 Color (U) Yellow Yellow [facility] Urine glucose detectionOrder ed By: Ankur Dunlap on 02-14-2025 Glucose Ql (U) Normal mg/dl Normal [facility] Urine leukocyte esterase det ection by dipstickOrdered By: Ankur Dunlap on 02-14-2025 Leukocyte esterase Test strip Ql (U) 25 /ul High Negative [facility] Urine pHOrdered By: Ankur Dunlap on 02-14-2025 pH (U) 7.0 [pH] 5.0 - 8.0 [facility] Urine sediment bacteria coun t by microscopy (number/high power field)Ordered By: Ankur Dunlap on 02-14-2025 Bacteria LM.HPF (Urine sed) [#/Area] 0 /[HPF] None Seen [facility] Urine specific gravity measu rementOrdered By: Ankur Dunlap on 02-14-2025 Specific gravity (U) [Rel density] 1.015 1.002-1.030 [facility] Urine urobilinogen measureme ntOrdered By: Ankur Dunlap on 02-14-2025 Urobilinogen Ql (U) Normal mg/dl Normal [facility] White blood cell (WBC) count Ordered By: Ankur Dunlap on 02-14-2025 WBC (Bld) [#/Vol] 6.9 10*3/uL 4.4-11.0 [facility] White blood cell countOrdere d By: Ankur Dunlap on 04-24-2025 White blood cell count 0-5 SEEN /hpf 0-5 [facility] MITOCHONDRIAL ANTIBODY PANEL [CCL]on 01-25-2025 MITOCHONDRIAL ANTIBODY PANEL [CCL] Normal [facility] Comment on above: Result Comment: _MIT OCHONDRIAL AB PANEL [CCL]_ SEE SCANNED REPORT Performed By: #### 2 46657 #### [facility],[address] [place], [place] [id number] SMOOTH MUSCLE AB SCREEN [CCL ]on 01-25-2025 SMOOTH MUSCLE AB SCREEN [CCL] Normal [facility] Comment on above: Result Comment: _SMO OTH MUSCLE AB SCREEN [CCL]_ SEE SCANNED REPORT Performed By: #### 2 82397 #### [facility],[address] [place] [address] HEPATIC FUNCTION PANELon Albumin [Mass/Vol] 3.9 g/dL Normal 3.4 - 5.0 [facility] Comment on above: Performed By: #### 2 01775 #### [facility],[address] [place], [place] [phone] ALK PHOS 128 U/L High 46 - 116 [facility] Comment on above: Performed By: #### 2 48682 #### [facility],[address] [place], [place] [phone] ALT [Catalytic activity/Vol] 267 U/L High 16 - 63 [facility] Comment on above: Performed By: #### 2 82067 #### [facility],[address] [place], [place] [phone] AST [Catalytic activity/Vol] 188 U/L High 13 - 39 [facility] Comment on above: Performed By: #### 2 33272 #### [facility],[address] [place], [place] [address] Bilirubin [Mass/Vol] 0.5 mg/dL Normal 0.2 - 1.0 [facility] Comment on above: Performed By: #### 2 54733 #### [facility],[address] [place] [address] Bilirubin.direct [Mass/Vol] 0.1 mg/dL Normal 0.0 - 0.2 [facility] Comment on above: Performed By: #### 2 67639 #### [facility],[address] [place] [address] 12318 Hepatic function 2000 panel Normal [facility] Comment on above: Result Comment: HEPA TIC FUNCTION PROFILE Performed By: #### 2 64024 #### [facility],[address] [place] [address] 87396 Protein [Mass/Vol] 7.6 g/dL Normal 6.4 - 8.2 [facility] Comment on above: Performed By: #### 2 29926 #### [facility],[address] [place] [address] Mitochondria Ab IF Ql (S)on 01-21-2025 Mitochondria M2 Ab IA Qn (S) 1.8 Units Normal <=20.0 [facility] Comment on above: Order Comment: Speci men Type: BLOOD SPECIMEN Ordering Facility: [facility] Address: [address] [place] [address] Performed By: #### 1 1572-5, ANAIFS, 93874-7, 4498-2, 58894-9, 4485-9, MICRO #### [facility] CLIA [id number] [address] [place] [address] [facility] Mitochondria M2 Ab Ql (S) Negative Normal Negative [facility] Comment on above: Order Comment: Speci men Type: BLOOD SPECIMEN Ordering Facility: [facility] Address: [address] [place] [address] Result Comment: Anti -mitochondrial antibody test is used as an aid in diagnosis of primary biliary cholangitis. Clinical correlation is required. Performed By: #### 1 1572-5, ANAIFS, 76783-6, 4498-2, 96274-3, 4485-9, MICRO #### [facility] CLIA [id number] [address] [place], [place] [address] [facility] Smooth muscle Ab Ql (S)on ACTIN SMOOTH MUSCLE IGG QUALITATIVE Negative Normal Negative [facility] Comment on above: Order Comment: Speci ray Type: BLOOD SPECIMEN Ordering Facility: [facility] Address: [place] [address] Performed By: #### 1 4252-1 #### [facility] CLIA [id number] [address] [place] [address] [place] ACTIN SMOOTH MUSCLE IGG QUANTITATIVE 3 Units Normal <20 [facility] Comment on above: Order Comment: Speci men Type: BLOOD SPECIMEN Ordering Facility: [facility] Address: [address] [place] [address] Performed By: #### 1 4252-1 #### [facility] CLIA [id number] [address] [place] [address] [place] ABD Limited w/ Elastographyo n 12-31-2024 ABD Limited w/ Elastography [facility] [address] [place] [address] [id number] ABD Limited w/ Elastography MR#: [id number] Acct: [id number] Name: HONG SNOW Rep #: [id number] : 1970 F 54 From: [place] MD PCP: Rissa Tran PA-C Status: REG CLI Study: ABD Limited w/ Elastography Date of Exam: 12/22 Exam# [id number] Ordering Dr: Ankur Dunlap MD PROCEDURE: ABD LIMITED W/ ELASTOGRAPHY (USABDLELPARO), 12/31/2024 REASON FOR EXAM: Elevated liver enzymes. COMPARISON: None TECHNIQUE: Grayscale and color Doppler imaging of the right upper quadrant was performed. B-152 S-shear wave elastography was performed for non-invasive [...] (15kPa): Significant fibrosis / cirrhosis Reading Location: [id number] CC: CHANDLER Tran; Dr. Ankur Dunlap MD Room Service Food Server: Signed Normal [facility] TRANSGLUTAMINASE IgG [CCL]on 12-27-2024 TRANSGLUTAMINASE IgG [CCL] Normal [facility] Comment on above: Result Comment: _TRA NSGLUTAMINASE IgG [CCL]_ SEE SCANNED REPORT Performed By: #### 2 99734 #### [facility],[address] [place] [address]3959 CCP AB, IgG AND IgA [CCL]on 12-25-2024 CCP AB, IgG AND IgA [CCL] Normal [facility] Comment on above: Result Comment: _CCP AB, IgG AND IgA [CCL]_ SEE SEPARATE REPORT Performed By: #### 2 96604 ####[facility],[address] [place] [address] 82909 CODY BY IFA SCREEN [CCL]on Nuclear Ab IF (S) [Titer] Negative Normal Negative [facility] Comment on above: Result Comment: Anti -nuclear antibody test is used as an aid in diagnosis of systemic autoimmune diseases. Where positive and clinically warranted, follow-up using disease-specific testing is recommended. Low positive titers are not uncommon with advanced age, certain chronic infections, and malignancies among others. Test methodology: Indirect fluorescence immunoassay (IFA) using HEp-2 cells. [facility] [address] [place] [address] Dominik Moralez III, M.D. [id number] Performed By: #### 2 92240 #### [facility],[address] [place] [address] 42036 DNA ANTIBODY [CCL]on 025 DNA ANTIBODY [CCL] Normal [facility] Comment on above: Result Comment: _DNA ANTIBODY [CCL]_ SEE SCANNED REPORT Performed By: #### 2 43856 ####[facility],[address] [place] [address] ISSAC ANTIBODY PANEL [CCL]on 0 12-24-2024 ISSAC ANTIBODY PANEL [CCL] Normal [facility] Comment on above: Result Comment: _ENA ANTIBODY PANEL(CCL)_ SEE SCANNED REPORT Performed By: #### 2 47076 #### [facility],[address] [place] [address]017 TRANSGLUTAMINASE IGA ABS [CC L]on 12-24-2024 TRANSGLUTAMINASE IGA ABS [CCL] Normal [facility] Comment on above: Result Comment: _TRA NSGLUTAMINASE IGA ABS [CCL]_ SEE SCANNED REPORT Performed By: #### 2 59821 #### [facility],[address] [place] [address] 65948 COMPLEMENT C3 [CCL]on 2024 C3 Complement 135 mg/dL Normal 86-166 [facility] Comment on above: Result Comment: [facility] [address] [place] [address] Dominik Moralez III, M.D. [id number] Performed By: #### 2 94492 #### [facility],[address] [place] [address] 35553 COMPLEMENT C4 [CCL]on 2024 C4 Complement 17 mg/dL Normal 13-46 [facility] Comment on above: Result Comment: [facility] [employer] [address] [place] [address] Dominik Moralez III, M.D. [id number] Performed By: #### 2 46063 ####[facility],[address] [place] [address] 31415 RHEUMATOID FACTOR [CCL]on Rheumatoid Factor <10 Normal <16 [facility] Comment on above: Result Comment: [facility] [employer] [address] [place] [address] Dominik Moralez III, M.D. [id number] Performed By: #### 2 38585 ####[facility],[address] [place] [address] 35748 THYROID PEROXIDASE AB [CCL]o n 12-22-2024 TPO Antibody <3.0 Normal <5.6 [facility] Comment on above: Result Comment: Thyr oid Peroxidase Antibody test is used as an aid in diagnosis of autoimmune thyroid disease. Clinical [place] [address] Dominik Moralez III, M.D. [id number] Performed By: #### 2 90803 ####[facility],[address] [place], [place] [address] CODY BY IFA SCREENon 12-21-19 25 Nuclear Ab Ql (S) Negative Normal Negative [facility] Comment on above: Order Comment: Speci men Type: BLOOD SPECIMEN Ordering Facility: [facility] Address: [address] [place] [address] Result Comment: Anti -nuclear antibody test is used as an aid in diagnosis of systemic autoimmune diseases. Where positive and clinically warranted, follow-up using disease-specific testing is recommended. Low positive titers are not uncommon with advanced age, certain chronic infections, and malignancies among others. Test methodology: Indirect fluorescence immunoassay (IFA) using HEp-2 cells. Performed By: #### 1 1572-5, ANAIFS, 07320-1, 4498-2, 12169-3, 4485-9, MICRO #### [facility] CLIA [id number] [address] [place] [address] [place] BUN/CREAT eGFR (NON-)on 12-21-2024 AGE 54 years Normal [facility] Comment on above: Performed By: #### 2 82083 ####[facility],[address] [place] [address] 65767 BUN/CREAT eGFR (NON-) Normal [facility] Comment on above: Result Comment: BUN/ CREATININE eGFR NON-) Performed By: #### 2 37824 ####[facility],[address] [place] [address] 89405 Creatinine [Mass/Vol] 0.71 mg/dL Normal 0.55 - 1.02 [facility] Comment on above: Performed By: #### 2 48810 ####[facility],[address] [place] [address] 14179 GFR/1.73 sq M.predicted among non-blacks MDRD (S/P/Bld) [Vol rate/Area] mL/min/{1.73_m2} Normal 60 - 999 [facility] Comment on above: Result Comment: ACCO [...] 18 AND OLDER. Performed By: #### 2 56865 ####[facility],[address] [place] [address] 15809 Urea nitrogen [Mass/Vol] 19 mg/dL High 7 - 18 [facility] Comment on above: Performed By: #### 2 09252 ####[facility],[address] [place] [address] 55750 C-REACTIVE PROTEINon 025 CRP 0.92 mg/dl High 0.00 - 0.90 [facility] Comment on above: Performed By: #### 2 77814 ####[facility],[address] [place] [address] 85490 C3 SerPl-mCncon 12-21-2024 Complement C3 [Mass/Vol] 135 mg/dL Normal 86-166 [facility] Comment on above: Order Comment: Speci men Type: BLOOD SPECIMEN Ordering Facility: [facility] Address: [address] [place], [place] [address] Performed By: #### 1 1572-5, MIA, 18022-4, 4498-2, 15876-3, 4485-9, MICRO #### [facility] CLIA [id number] [address] [place] [address] [place] C4 SerPl-mCncon 12-21-2024 Complement C4 [Mass/Vol] 17 mg/dL Normal 13-46 [facility] Comment on above: Order Comment: Speci men Type: BLOOD SPECIMEN Ordering Facility: [facility] Address: [address] [place] [address] Performed By: #### 1 1572-5, ANAIFS, 80036-7, 4498-2, 40378-8, 4485-9, MICRO #### [facility] CLIA [id number] [address] [place] [address] OF [facility] CBC + DIFFon 12-21-2024 Baso # 0.02 x10EE3/UL Normal 0.00 - 0.10 [facility] Comment on above: Performed By: #### 2 07651 #### [facility],[address] [place] [address] 24567 Basophils/100 WBC (Bld) 0.3 % Normal 0.0 - 2.0 [facility] Comment on above: Performed By: #### 2 93708 #### [facility],[address] [place] [address] 77248 CBC + DIFF Normal [facility] Comment on above: Result Comment: CBC- COMPLETE BLOOD COUNT Performed By: #### 2 07374 #### [facility],[address] [place] [address] 67140 EO # 0.11 x10EE3/UL Normal 0.00 - 0.50 [facility] Comment on above: Performed By: #### 2 31458 #### [facility],[address] [place] [address] 67976 Eosinophils/100 WBC (Bld) 1.3 % Normal 0.0 - 7.0 [facility] Comment on above: Performed By: #### 2 41402 #### [facility],[address] [place] [address] 58080 Erythrocyte distribution width (RBC) [Ratio] 13.0 % Normal 12.0 - 15.6 [facility] Comment on above: Performed By: #### 2 59789 #### [facility],[address] [place] [address] Hematocrit (Bld) [Volume fraction] 43.2 % Normal 34.0 - 46.0 [facility] Comment on above: Performed By: #### 2 65598 #### [facility],[address] [place] [address] Hemoglobin (Bld) [Mass/Vol] 15.1 g/dL Normal 12.0 - 16.0 [facility] Comment on above: Performed By: #### 2 61322 #### [facility],[address] [place] [address] Lymph # 2.20 x10EE3/UL Normal 0.80 - 2.80 [facility] Comment on above: Performed By: #### 2 02342 #### [facility],[address] [place] [address] Lymphocytes/100 WBC (Bld) 24.6 % Normal 20.0 - 45.0 [facility] Comment on above: Performed By: #### 2 56238 #### [facility],[address] [place] [address] MANUAL DIFF N/A Normal [facility] Comment on above: Performed By: #### 2 61286 #### [facility],[address] [place] [address] MCH (RBC) [Entitic mass] 32 pg Normal 27 - 33 [facility] Comment on above: Performed By: #### 2 40485 #### [facility],[address] [place] [address] MCHC 35 X10 3 Normal 32 - 36 [facility] Comment on above: Performed By: #### 2 76344 #### [facility],[address] [place], [place] [address] MCV (RBC) [Entitic vol] 92 fL Normal 80 - 99 [facility] Comment on above: Performed By: #### 2 51063 #### [facility],[address] [place] [address] 42598 Duc[place]ne # 0.58 x10EE3/UL Normal 0.20 - 1.00 [facility] Comment on above: Performed By: #### 2 66559 #### [facility],[address] [place] [address] 66330 MONOS % 6.5 % Normal 0.0 - 10.0 [facility] Comment on above: Performed By: #### 2 49588 #### [facility],[address] [place] [address] 05951 Morphology Socrates (Bld) [Interp] N/A Normal [facility] Comment on above: Performed By: #### 2 85773 #### [facility],[address] [place] [address] Neut # 6.02 x10EE3/UL Normal 1.50 - 7.10 [facility] Comment on above: Performed By: #### 2 41403 #### [facility],[address] [place], [place] [address] Neutrophils/100 WBC (Bld) 67.3 % Normal 46.0 - 76.0 [facility] Comment on above: Performed By: #### 2 96043 #### [facility],[address] [place] [address] 59718 PLATELET 184 x10EE3/UL Normal 150 - 450 [facility] Comment on above: Performed By: #### 2 81800 #### [facility],[address] [place] [address] 95135 Platelet mean volume (Bld) [Entitic vol] 8.5 fL Normal 6.6 - 10.5 [facility] Comment on above: Result Comment: AUTO MATED DIFFERENTIAL Performed By: #### 2 92099 #### [facility],[address] [place] [address] 05320 RBC 4.70 x 10EE6/UL Normal 4.10 - 5.30 [facility] Comment on above: Performed By: #### 2 71463 #### [facility],[address] [place] [address] 85424 WBC 8.9 x 10EE3/UL Normal 4.5 - 10.8 [facility] Comment on above: Performed By: #### 2 29130 #### [facility],[address] [place] [address] 00020 CPKon 12-21-2024 CPK 50 U/L Normal 26 - 192 [facility] Comment on above: Performed By: #### 2 60119 ####[facility],[address] [place] [address] 23273 Centromere Ab IF Ql (S)on Centromere Ab Qn (S) <0.2 Normal <1.0 [facility] Comment on above: Order Comment: Speci men Type: BLOOD SPECIMEN Ordering Facility: [facility] Address: [address] [place] [address] Result Comment: Anti -centromere antibody is used as in aid in diagnosis of systemic sclerosis. Clinical correlation is required. Test Methodology: Multiplex flow immunoassay. Performed By: #### M ISC1 #### [facility] CLIA [id number] [address] [place] [address] [place] NON-INTERFACED REF LABS CLIA SEE SCANNED RESULTS #### RNAIII #### [facility] CLIA [id number] [address] [place] [address] CENTROMERE AB QUAL Negative Normal Negative [facility] Comment on above: Order Comment: Speci men Type: BLOOD SPECIMEN Ordering Facility: [facility] Address: [address] [place] [address] Performed By: #### M ISC1 #### [facility] CLIA [id number] [address] [place] [address] OF [place] NON-INTERFACED REF LABS CLIA SEE SCANNED RESULTS #### RNAIII #### [facility] CLIA [id number] [address] [place] [address] Chromatin Ab Qnon 12-21-2024 CHROMATIN AB QUAL Negative Normal Negative [facility] Comment on above: Order Comment: Speci men Type: BLOOD SPECIMEN Ordering Facility: [facility] Address: [address] [place] [address] Performed By: #### M ISC1 #### [facility] CLIA [id number] NON-INTERFACED REF LABS CLIA SEE SCANNED RESULTS #### RNAIII #### [facility] CLIA [id number] [address] [place] [address] Chromatin Ab SerPl-aCncon Chromatin Ab Qn <0.2 Normal <1.0 [facility] Comment on above: Order Comment: Speci men Type: BLOOD SPECIMEN Ordering Facility: [facility] Address: [address] [place] [address] Result Comment: Test Methodology: Multiplex flow immunoassay. Performed By: #### M ISC1 #### [facility] CLIA [id number] [address] [place] [address] NON-INTERFACED REF LABS CLIA SEE SCANNED RESULTS #### RNAIII #### [facility] CLIA [id number] [address] [place] [address] DNA ANTIBODY DS BLDon 2024 DNA ANTIBODY 6 IU/mL Normal <=200 [facility] Comment on above: Order Comment: Speci men Type: BLOOD SPECIMEN Ordering Facility: [facility] Address: [address] [place] [address] Result Comment: Nega tive: <200 IU/mL Equivocal: 201-300 IU/mL Moderate Positive: 301-800 IU/mL Strong Positive: >801 IU/mL Performed By: #### M ISC1 #### [facility] CLIA [id number] [address] NON-INTERFACED REF LABS CLIA SEE SCANNED RESULTS #### RNAIII #### [facility] CLIA [id number] [address] [place] [address] DNA ANTIBODY QUALITATIVE INTERPRETATION Negative Normal Negative [facility] Comment on above: Order Comment: Speci men Type: BLOOD SPECIMEN Ordering Facility: [facility] Address: [address] [place] [address] Performed By: #### M ISC1 #### [facility] CLIA [id number] [address] [place] [address] [place] NON-INTERFACED REF LABS CLIA SEE SCANNED RESULTS #### RNAIII #### [facility] CLIA [id number] [address] [place] [address] DORSAL SPINE 2 VIEWSon 12-21 DORSAL SPINE 2 VIEWS [place] [address] Patient: HONG SNOW Phone#: : 1970 Age: 54 Gender: F Pt. Type: Out Account: [id number] Location: [facility] Ordering: [employer] Exam Date: 12/21/2024/13:17 Family Phys: Charge Code: [id number] Physician: Bailey Order #: [id number] Dose#: PROCEDURE: X-RAY DORSAL SPINE 2 VIEWS [...] Blandon MD on 12/21/2024 at 13:50 Normal [facility] ISSAC Jo1 Ab Ser-aCncon 2024 Padma-1 extractable nuclear Ab Qn (S) <0.2 Normal <1.0 [facility] Comment on above: Order Comment: Speci men Type: BLOOD SPECIMEN Ordering Facility: [facility] Address: [address] [place] [address] Performed By: #### M ISC1 #### [facility] CLIA [id number] [address] [place], [place] [address] [facility] NON-INTERFACED REF LABS CLIA SEE SCANNED RESULTS #### RNAIII #### [facility] CLIA [id number] [address] [place] [address] ISSAC MERCHANDISING LEAD Ab Ser-aCncon 2024 Ribonucleoprotein extractable nuclear Ab Qn (S) <0.2 Normal <1.0 [facility] Comment on above: Order Comment: Speci men Type: BLOOD SPECIMEN Ordering Facility: [facility] Address: [address] [place] [address] Performed By: #### M ISC1 #### [facility] CLIA [id number] [address] [place], [place] [address] [place] STATES OF [facility] NON-INTERFACED REF LABS CLIA SEE SCANNED RESULTS #### RNAIII #### [facility] CLIA [id number] [address] [place] [address] Ribonucleoprotein extractable nuclear Ab Qn (S) 0.3 AI Normal <1.0 [facility] Comment on above: Order Comment: Speci men Type: BLOOD SPECIMEN Ordering Facility: [facility] Address: [address] [place] [address] Performed By: #### 1 1572-5, ANAIFS, 13113-4, 4498-2, 27972-7, 4485-9, MICRO #### [facility] CLIA [id number] [address] [place] [address] [place] ISSAC SM IgG Ser-aCncon 2024 Gutierrez extractable nuclear IgG Qn (S) <0.2 Normal <1.0 [facility] Comment on above: Order Comment: Speci men Type: BLOOD SPECIMEN Ordering Facility: [facility] Address: [address] [place] [address] Performed By: #### M ISC1 #### [facility] CLIA [id number] [address] [place] [address] STATES OF [facility] NON-INTERFACED REF LABS CLIA SEE SCANNED RESULTS #### RNAIII #### [facility] CLIA [id number] [address] [place] [address] ISSAC SS-A Ab Ser-aCncon 12-21 S[facility]rens syndrome-A extractable nuclear Ab Qn (S) <0.2 Normal <1.0 [facility] Comment on above: Order Comment: Speci men Type: BLOOD SPECIMEN Ordering Facility: [facility] Address: [address] [place] [address] Result Comment: Test Methodology: Multiplex flow immunoassay. Performed By: #### 1 1572-5, ANAIFS, 86878-6, 4498-2, 60978-8, 4485-9, MICRO #### [facility] CLIA [id number] [address] [place] [address] ISSAC SS-B Ab Ser-aCncon 12-21 Sjogrens syndrome-B extractable nuclear Ab Qn (S) <0.2 Normal <1.0 [facility] Comment on above: Order Comment: Speci men Type: BLOOD SPECIMEN Ordering Facility: [facility] Address: [address] [place] [address] Result Comment: Anti -SSB (anti-La) antibody is used as an aid in diagnosis of a variety of systemic autoimmune diseases, especially for Sjogren's syndrome and systemic lupus erythematosus. Clinical correlation is required. Test Methodology: Multiplex flow immunoassay. Performed By: #### M ISC1 #### [facility] CLIA [id number] [address] [place] [address] OF [place] NON-INTERFACED REF LABS CLIA SEE SCANNED RESULTS #### RNAIII #### [facility] CLIA [id number] [address] [place] [address] HAND LT MIN 3 VIEWSon 2024 HAND LT MIN [address] [address] Patient: HONG SNOW Phone#: : 1970 Age: 54 Gender: F Pt. Type: Out Account: [id number] Location: 052 Ordering: ZIYADFazal LIONEL Exam Date: 12/21/2024/13:13 Family Phys: Charge Code: [id number] Physician: Bailey Order #: [id number] Dose#: PROCEDURE: X-RAY HAND LT COMPLETE 3 VIEWS COMPARISON: None. INDICATIONS: Inflammatory changes. FINDINGS: BONES: Normal. No significant arthropathy or acute abnormality. SOFT TISSUES: Negative. No visible soft tissue swelling. EFFUSION: None visible. OTHER: Negative. CONCLUSION: No acute disease. Dictated by: Aime Blandon MD on 12/21/2024 at 13:46 Approved by: Aime Blandon MD on 12/21/2024 at 13:47 Normal [facility] HAND RT MIN 3 VIEWSon 2024 HAND RT MIN 3 VIEWS [place] [address] Patient: HONG SNOW Phone#: : 1970 Age: 54 Gender: F Pt. Type: Out Account: [id number] Location: 052 Ordering: [facility]OWERS Exam Date: 12/21/2024/13:02 Family Phys: Charge Code: 852167 Physician: Bailey Order #: [id number] Dose#: PROCEDURE: X-RAY HAND RT COMPLETE MIN 3 VIEWS COMPARISON: None. INDICATIONS: Inflammatory changes. FINDINGS: BONES: Normal. No significant arthropathy or acute abnormality. SOFT TISSUES: Negative. No visible soft tissue swelling. EFFUSION: None visible. OTHER: Negative. CONCLUSION: No acute disease. Dictated by: Aime Blandon MD on 12/21/2024 at 13:43 Approved by: Aime Blandon MD on 12/21/2024 at 13:45 Normal [facility] Padma-1 extractable nuclear Ab Qn (S)on 12-21-2024 PADMA 1 ANTIBODY QUAL Negative Normal Negative [facility] Comment on above: Order Comment: Chaparro bell Type: BLOOD SPECIMEN Ordering Facility: [facility] Address: [address] [place] [address] Result Comment: Anti -PADMA-1 antibody is used as an aid in diagnosis of polymyositis and dermatomyositis especially with pulmonary involvement. A negative result cannot rule out polymyositis or dermatomyositis. Clinical correlation is required. Test Methodology: Multiplex flow immunoassay. Performed By: #### M ISC1 #### [facility] CLIA [id number] [address] [place], [place] [address] [place] OF [facility] NON-INTERFACED REF LABS CLIA SEE SCANNED RESULTS #### RNAIII #### [facility] CLIA [id number] [address] [place] [address] [facility] SEND OUT TST 1on 2024 [facility] SCAN TEST RESULTS 1 View results in Scanned Documents link when available Normal [facility] Comment on above: Order Comment: Chaparro bell Type: BLOOD SPECIMEN Ordering Facility: [facility] Address: [address] [place] [address] Performed By: #### M ISC1 #### [facility] CLIA [id number] [address] [place], [place] [address] [facility] NON-INTERFACED REF LABS CLIA SEE SCANNED RESULTS #### RNAIII #### [facility] CLIA [id number] [address] [place] [address] REFERRAL LAB 1 (DROP-DOWN) [facility] (and subsidiaries including [employer] [facility], [employer], and [facility] Normal [facility] Comment on above: Order Comment: Chaparro bell Type: BLOOD SPECIMEN Ordering Facility: [facility] Address: [address] [place] [address] Performed By: #### M ISC1 #### [facility] CLIA [id number] [address] NON-INTERFACED REF LABS CLIA SEE SCANNED RESULTS #### RNAIII #### [facility] CLIA [id number] [address] [place] [address] TEST 1 Anti-CCP (Cyclic Citrullinated Peptide) Antibodies, IgG and IgA, SARITHA Normal [facility] Comment on above: Order Comment: Speci men Type: BLOOD SPECIMEN Ordering Facility: [facility] Address: [address] [place] [address] Performed By: #### M ISC1 #### [facility] CLIA [id number] [address] NON-INTERFACED REF LABS CLIA SEE SCANNED RESULTS #### RNAIII #### [facility] CLIA [id number] [address] [place] [address] RNA POLYMERASE III ABon 02- RNA POLYMERASE III AB 3 Units Normal 0-19 [facility] Comment on above: Order Comment: Speci men Type: BLOOD SPECIMEN Ordering Facility: [facility] Address: [address] [place] [address] Result Comment: INTE RPRETIVE INFORMATION: RNA Polymerase [...] antibodies associated with SSc, including centromere, Scl-70, U3-MERCHANDISING LEAD, PM/Scl, or Th/To. Performed By: [employer] [address] [place] [address] Tap Out Operator: Kevin Kauffman MD, PhD CLIA Number: [id number] Performed By: #### M ISC1 #### [facility] CLIA [id number] [address] [address] [place] NON-INTERFACED REF LABS CLIA SEE SCANNED RESULTS #### RNAIII #### [facility] CLIA [id number] [address] [place] [address] Rheumatoid fact SerPl-aCncon 12-21-2024 Rheumatoid factor Qn [IU]/mL Normal <16 [facility] Comment on above: Order Comment: Chaparro bell Type: BLOOD SPECIMEN Ordering Facility: [facility] Address: [address] [place] [address] Performed By: #### 1 1572-5, ANAIFS, 79417-4, 4498-2, 58323-6, 4485-9, MICRO #### [facility] CLIA [id number] [address] [place] [address] [place] Ribonucleoprotein extractabl e nuclear Ab Qn (S)on 12-21-2024 ANTI-MERCHANDISING LEAD QUAL Negative Normal Negative [facility] Comment on above: Order Comment: Chaparro bell Type: BLOOD SPECIMEN Ordering Facility: [facility] Address: [address] [place] [address] Performed By: #### 1 1572-5, ANAIFS, 78650-8, 4498-2, 29186-4, 4485-9, MICRO #### [facility] CLIA [id number] [facility] [address] [address] [place] RIBOSOMAL MERCHANDISING LEAD QUAL Negative Normal Negative [facility] Comment on above: Order Comment: Chaparro bell Type: BLOOD SPECIMEN Ordering Facility: [facility] Address: [address] [place] [address] Result Comment: Anti -Ribosomal RNA (Ribosomal P) antibody is used as an aid in diagnosis of systemic autoimmune diseases especially systemic lupus erythematosus and mixed connective tissue disease. Cross-reactivity with Anti-gutierrez antibody is not uncommon. Clinical correlation is required. Test Methodology: Multiplex flow immunoassay. Performed By: #### M ISC1 #### [facility] CLIA [id number] [address] [place] [address] [place] NON-INTERFACED REF LABS CLIA SEE SCANNED RESULTS #### RNAIII #### [facility] CLIA [id number] [address] [place] [address] SACRO ILIAC JTSon 12-21-2024 SACRO ILIAC JTS [place] [address] Patient: HONG SNOW Phone#: : 1970 Age: 54 Gender: F Pt. Type: Out Account: [id number] Location: [facility] Ordering: SUN FLOWERS Exam Date: 12/21/2024/13:24 Family Phys: Charge Code: [id number] Physician: Bailey Order #: [id number] Dose#: PROCEDURE: X-RAY SI JOINTS COMPARISON: None. [...] Blandon MD on 12/21/2024 at 13:53 Normal [facility] SCL-70 extractable nuclear I gG IA Qn (S)on 12-21-2024 SCLERODERMA AB QUAL Negative Normal Negative [facility] Comment on above: Order Comment: Speci men Type: BLOOD SPECIMEN Ordering Facility: [facility] Address: [address] [place] [address] Performed By: #### M ISC1 #### [facility] CLIA [id number] [address] [place] [address] OF [place] NON-INTERFACED REF LABS CLIA SEE SCANNED RESULTS #### RNAIII #### [facility] CLIA [id number] [address] [place] [address] SCLERODERMA IGG AB <0.2 Normal <1.0 [facility] Comment on above: Order Comment: Speci men Type: BLOOD SPECIMEN Ordering Facility: [facility] Address: [address] [place] [address] Result Comment: Scl- 70/Scleroderma antibody test is used as an aid in diagnosis of systemic sclerosis especially the diffuse cutaneous form. A negative result cannot rule out systemic sclerosis. The final interpretation should consider clinical picture and other test results such as anti-centromere antibody. Test Methodology: Multiplex flow immunoassay. Performed By: #### M ISC1 #### [facility] CLIA [id number] [address] [place] [address] STATES OF [place] NON-INTERFACED REF LABS CLIA SEE SCANNED RESULTS #### RNAIII #### [facility] CLIA [id number] [address] [place] [address] SEDRATEon 12-21-2024 SEDRATE 4 mm/hr Normal 0 - 30 [facility] Comment on above: Performed By: #### 2 42000 #### [facility],[address] [place] [address] SGOT (AST)on 12-21-2024 AST [Catalytic activity/Vol] 256 U/L High 13 - 39 [facility] Comment on above: Performed By: #### 2 32453 #### [facility],[address] [place] [address] SGPT (ALT)on 12-21-2024 ALT [Catalytic activity/Vol] 334 U/L High 16 - 63 [facility] Comment on above: Performed By: #### 2 83216 #### [facility],[address] [place] [address] Sjogrens syndrome-A extracta ble nuclear Ab Qn (S)on 12-21-2024 SSA ANTIBODY QUAL Negative Normal Negative [facility] Comment on above: Order Comment: Specstefanie ray Type: BLOOD SPECIMEN Ordering Facility: [facility] Address: [address] [place] [address] Performed By: #### 1 1572-5, ANAIFS, 31564-7, 4498-2, 68641-9, 4485-9, MICRO #### [facility] CLIA [id number] [address] [place] [address] [place] Sjogrens syndrome-B extracta ble nuclear Ab Qn (S)on 12-21-2024 SSB ANTIBODY QUAL Negative Normal Negative [facility] Comment on above: Order Comment: Chaparro ray Type: BLOOD SPECIMEN Ordering Facility: [facility] Address: [address] [place] [address] Performed By: #### M ISC1 #### [facility] CLIA [id number] [address] [place] [address] NON-INTERFACED REF LABS CLIA SEE SCANNED RESULTS #### RNAIII #### [facility] CLIA [id number] [address] [place] [address] Gutierrez extractable nuclear Ig G Qn (S)on 12-21-2024 SM ANTIBODY QUAL Negative Normal Negative [facility] Comment on above: Order Comment: Chaparro ray Type: BLOOD SPECIMEN Ordering Facility: [facility] Address: [address] [place] [address] Result Comment: Anti -Sm (Gutierrez) antibody is used as an aid in diagnosis of systemic lupus erythematosus and its presence is associated with renal disease. A negative result cannot rule out systemic lupus erythematosus. Clinical correlation is required. Test Methodology: Multiplex flow immunoassay. Performed By: #### M ISC1 #### [facility] CLIA [id number] [address] [place] [id number] [place] NON-INTERFACED REF LABS CLIA SEE SCANNED RESULTS #### RNAIII #### [facility] CLIA [id number] [address] [place] [address] THYROID PEROXIDASE ANTIBODYo n 12-21-2024 TPO Ab Qn [IU]/mL Normal <5.6 [facility] Comment on above: Order Comment: Speci men Type: BLOOD SPECIMEN Ordering Facility: [facility] Address: [address] [place] [address] Result Comment: Thyr oid Peroxidase Antibody test is used as an aid in diagnosis of autoimmune thyroid disease. Clinical correlation is required. Performed By: #### 1 1572-5, ANAIFS, 09385-5, 4498-2, 26157-1, 4485-9, MICRO #### [facility] CLIA [id number] [address] [place] [address] OF [facility] URINALYSIS WITH MICROSCOPYon 12-21-2024 Amorphous NONE Normal [facility] Comment on above: Performed By: #### 2 04543 ####[facility],[address] [place] [address] Bacteria NONE Normal [facility] Comment on above: Performed By: #### 2 46959 ####[facility],[address] [place], [place] [address] Bilirubin Ql (U) Negative Normal NORMAL: NEGATIVE [facility] Comment on above: Performed By: #### 2 26548 ####[facility],[address] [place] [address] Casts NONE Normal [facility] Comment on above: Performed By: #### 2 08503 ####[facility],[address] [place] [address] Clarity (U) clear Normal NORMAL: CLEAR [facility] Comment on above: Performed By: #### 2 32537 ####[facility],[address] [place] [address] Color (U) yellow Normal NORMAL: YELLOW [facility] Comment on above: Performed By: #### 2 53947 ####[facility],[address] [place] [address] Crystals LM Nom (Urine sed) NONE Normal [facility] Comment on above: Performed By: #### 2 25808 ####[facility],[address] [place] [address] Epi Cells NONE Normal [facility] Comment on above: Performed By: #### 2 38252 ####[facility],[address] [place] [address] Glucose Ql (U) NORM Normal NORMAL: NORMAL [facility] Comment on above: Performed By: #### 2 63195 ####[facility],[address] [place] [address] Hemoglobin Ql (U) Negative Normal NORMAL: NEGATIVE [facility] Comment on above: Performed By: #### 2 95320 ####[facility],[address] [place] [address] Ketone Negative Normal NORMAL: NEGATIVE [facility] Comment on above: Performed By: #### 2 57970 ####[facility],[address] [place] [address] Leukocytes Negative Normal NORMAL: NEGATIVE [facility] Comment on above: Result Comment: URIN E MICROSCOPIC Performed By: #### 2 67724 ####[facility],[address] [place] [address] Mucous NONE Normal [facility] Comment on above: Performed By: #### 2 60561 ####[facility],[address] [place] [address] Nitrite Ql (U) Negative Normal NORMAL: NEGATIVE [facility] Comment on above: Performed By: #### 2 26483 ####[facility],[address] [place] [address] pH (U) 7 [pH] Normal NORMAL: 5.0-8.0 [facility] Comment on above: Performed By: #### 2 96018 ####[facility],[address] [place] [address] Protein Ql (U) 15 Abnormal NORMAL: NEGATIVE [facility] Comment on above: Performed By: #### 2 26610 ####[facility],[address] [place] [address] Rbc NONE Normal 0-3 / hpf [facility] Comment on above: Performed By: #### 2 12781 ####[facility],[address] [place] [address] Sp [place] 1.015 Normal NORMAL: 1.010-1.030 [facility] Comment on above: Performed By: #### 2 33711 ####[facility],[address] [place] [address] Specimen Type Clean catch Normal [facility] Comment on above: Performed By: #### 2 00738 ####[facility],[address] [place], [place] [address] URINALYSIS WITH MICROSCOPY Normal [facility] Comment on above: Result Comment: URIN ALYSIS Performed By: #### 2 18580 ####[facility],[address] [place], [place] [address] Urobilinog NORM Normal NORMAL: NORMAL [facility] Comment on above: Performed By: #### 2 83872 ####[facility],[address] [place] [address] Wbc NONE Normal 0-5 / hpf [facility] Comment on above: Performed By: #### 2 04563 ####[facility],[address] [place] [address] Yeast NONE Normal [facility] Comment on above: Performed By: #### 2 30281 ####[facility],[address] [place] [address] VITAMIN D, 25 HYDROXYon 02- VitD 94.30 ng/mL Normal 30.00 - 100 [facility] Comment on above: Result Comment: 25-O [...] D2 Not Established Performed By: #### 2 40824 #### [facility],[address] [place], [place] [address] WRIST COMPLETE LTon 12-21-19 WRIST COMPLETE LT [place] [address] Patient: HONG SNOW Phone#: : 1970 Age: 54 Gender: F Pt. Type: Out Account: [id number] Location: [facility] Ordering: [facility]OWERS Exam Date: 12/21/2024/13:16 Family Phys: Charge Code: 107822 Physician: Bailey Order #: [id number] Dose#: PROCEDURE: X-RAY WRIST LT COMPLETE MIN [...] Blandon MD on 12/21/2024 at 13:48 Normal [facility] WRIST COMPLETE RTon 12-21-19 WRIST COMPLETE RT [address] [address] Patient: HONG SNOW Phone#: : 1970 Age: 54 Gender: F Pt. Type: Out Account: [id number] Location: [facility] Ordering: [place]ERS Exam Date: 12/21/2024/13:12 Family Phys: Charge Code: [id number] Physician: Bailey Order #: [id number] Dose#: PROCEDURE: X-RAY WRIST RT COMPLETE MIN 3 VIEWS COMPARISON: None. INDICATIONS: Inflammatory changes. FINDINGS: BONES: Normal. No significant arthropathy or acute abnormality. SOFT TISSUES: Negative. No visible soft tissue swelling. EFFUSION: None visible. OTHER: Negative. CONCLUSION: No acute disease. Dictated by: Aime Blandon MD on 12/21/2024 at 13:46 Approved by: Aime Blandon MD on 12/21/2024 at 13:46 Normal [facility] tTG IgA Qn (S)on 12-21-2024 TRANSGLUTAMINASE IGA ABS INTERPRETATION Negative Normal Negative [facility] Comment on above: Order Comment: Chaparro bell Type: BLOOD SPECIMEN Ordering Facility: [facility] Address: [address] [place] [address] Result Comment: The following results were obtained with [employer] R h-tTG IgA SARITHA.???R h-tTG IgA values obtained with different manufacturers' assay methods may not be used interchangeably. The magnitude of the reported IgA levels cannot be correlated to an endpoint???concentration. This is used as an aid in diagnosis of celiac disease. Clinical correlation is required. Performed By: #### 1 1572-5, ANAIFS, 35513-6, 4498-2, 01284-3, 4485-9, MICRO #### [facility] CLIA [id number] [address] [place] [address] [place] tTG IgA Ser-aCncon 5 tTG IgA Qn (S) <2 Normal <4 [facility] Comment on above: Order Comment: Chaparro bell Type: BLOOD SPECIMEN Ordering Facility: [facility] Address: [address] [place] [address] Performed By: #### 1 1572-5, ANAIFS, 77433-3, 4498-2, 75733-3, 4485-9, MICRO #### [facility] CLIA [id number] [address] [place] [address] [place] tTG IgG Qn (S)on 12-21-2024 TRANSGLUTAMINASE IGG ABS INTERPRETATION Negative Normal Negative [facility] Comment on above: Order Comment: Chaparro bell Type: BLOOD SPECIMEN Ordering Facility: [facility] Address: [address] [place] [address] Result Comment: The following results were obtained with [employer] iiyumae R h-tTG IgG SARITHA.???R h-tTG IgG values obtained with different manufacturers' assay methods may not be used interchangeably. The magnitude of the reported IgG levels cannot be correlated to an endpoint???concentration. This test is used as an aid in diagnosis of celiac disease in IgA-deficient individuals only. Clinical correlation is required. Performed By: #### 1 1572-5, ANAIFS, 44716-2, 4498-2, 92258-4, 4485-9, MICRO #### [facility] CLIA [id number] [facility] [place] [id number] [place] tTG IgG Ser-aCncon tTG IgG Qn (S) <2 Normal <6 [facility] Comment on above: Order Comment: Chaparro bell Type: BLOOD SPECIMEN Ordering Facility: [facility] Address: [address] [place] [address] Performed By: #### 1 1572-5, ANAIFS, 26591-8, 4498-2, 14152-8, 4485-9, MICRO #### [facility] CLIA [id number] [address] [place], [place] [address] [place] Gastroenterology Visit Repor ton 12-20-2024 Gastroenterology Visit Report [facility] [address] [place] [address] OFFICE VISIT Date of Service: 12/20/24 MR#: [id number] Acct: [id number] Name: HONG SNOW Rep #: [id number] : 1970 Provider: Dr. Ankur ga MD Age/Sex: 54/F Location: [facility] Status: Signed Intake Vital Signs 11/23/23 14:04 [...] HPI HPI Chief Complaint: diarrhea Details: HONG FROSTTEA, is a 54 F who presents to the office today for HONG BOWMANJOSH, is a 54 F who presents to [...] has abdominal discomfort/pain). Started a tea from [employer] with four ingredients and feels this has been very helpful with anxiety/depression and getting out of bed. Diarrhea, biochemical workup. Biochemical Anti-dbl strand DNA H30, CRP, H4.86 OV 1.31.24 abdominal cramping and diarrhea. Dairy and gluten cut out without success. Dicyclomine effective and taken as needed. Reports loose stools 2-3 times daily, occasionally will appear to have small amount of blood. OV 6..24 Pt reports that she was prescribed cannabis [...] eliminate. Continues with Dicyclomine as needed. OV 10 Pt reports that she is able to stay at home now due to her getting a better job opportunity. Her stress levels have reduced greatly, she experiences a c (more content not included)... Normal [facility] US RUQ (GB/PANCREAS)on 12-11 US RUQ (GB/PANCREAS) [place] [address] Patient: HONG SNOW Phone#: : 1970 Age: 54 Gender: F Pt. Type: Out Account: [id number] Location: [facility] Ordering: [facility] Exam Date: 12/11/2024/7:29 Family Phys: Charge Code: [id number] Physician: Bailey Order #: [id number] Dose#: PROCEDURE: RUQ (GB) ULTRASOUND COMPARISON: None. [...] BLANDON MD ON 12/11/2024 AT 10:15 Normal [facility] GAMMA GTon 12-10-2024 GAMMA GT Normal [facility] Comment on above: Result Comment: SEE SCANNED REPORT Performed By: #### 2 50087 #### [facility],[address] [place] [address] LIPID PROFILEon 12-10-2024 Lipid 1996 panel Normal [facility] Comment on above: Result Comment: LIPI D PROFILE SEE SCANNED REPORT Performed By: #### 2 87504 ####[facility],[address] [place] [address] CMP with eGFRon 12-07-2024 AGE 54 years Normal [facility] Comment on above: Performed By: #### 2 12314 #### [facility],[address] [place] [address]49 Albumin [Mass/Vol] 3.4 g/dL Normal 3.4 - 5.0 [facility] Comment on above: Performed By: #### 2 41568 #### [facility],[address] [place] [address] 80123 Albumin/Globulin [Mass ratio] 1.0 {ratio} Normal 0.9 - 1.6 [facility] Comment on above: Performed By: #### 2 99627 #### [facility],[address] [place] [address] 44415 ALK PHOS 131 U/L High 46 - 116 [facility] Comment on above: Performed By: #### 2 63859 #### [facility],[address] [place] [address] 23835 ALT [Catalytic activity/Vol] 157 U/L High 16 - 63 [facility] Comment on above: Performed By: #### 2 74490 #### [facility],[address] [place] [address] 22958 Anion gap [Moles/Vol] 12 mmol/L Normal 10 - 20 [facility] Comment on above: Performed By: #### 2 73766 #### [facility],[address] [place] [address] 09496 AST [Catalytic activity/Vol] 66 U/L High 13 - 39 [facility] Comment on above: Performed By: #### 2 48269 #### [facility],[address] [place] [address] 44356 B/C RATIO 30 ratio Normal 0 - 30 [facility] Comment on above: Performed By: #### 2 66174 #### [facility],[address] [place] [address] 22550 Bilirubin [Mass/Vol] 0.5 mg/dL Normal 0.2 - 1.0 [facility] Comment on above: Performed By: #### 2 07226 #### [facility],[address] [place] [address] 32805 Calcium [Mass/Vol] 8.2 mg/dL Low 8.5 - 10.1 [facility] Comment on above: Performed By: #### 2 89440 #### [facility],[address] [place] [address] 78061 Chloride [Moles/Vol] 103 mmol/L Normal 98 - 107 [facility] Comment on above: Performed By: #### 2 59476 #### [facility],[address] [place], [place] [address] CMP with eGFR Normal [facility] Comment on above: Result Comment: COMP REHENSIVE METABOLIC PANEL Performed By: #### 2 17199 #### [facility],[address] [place] [address] 43048 CO2 [Moles/Vol] 29.5 mmol/L Normal 21.0 - 32.0 [facility] Comment on above: Performed By: #### 2 89270 #### [facility],[address] [place] [address] 34937 Creatinine [Mass/Vol] 0.67 mg/dL Normal 0.55 - 1.02 [facility] Comment on above: Performed By: #### 2 83370 #### [facility],[address] [place] [address] 22075 GFR/1.73 sq M.predicted among non-blacks MDRD (S/P/Bld) [Vol rate/Area] mL/min/{1.73_m2} Normal 60 - 999 [facility] Comment on above: Performed By: #### 2 49417 #### [facility],[address] [place] [address] 83747 Result Comment: ACCO RDING TO THE NATIONAL KIDNEY DISEASE EDUCATION PROGRAM(NKDE), A NORMAL eGFR IS A VALUE GREATER THAN OR EQUAL TO 60 ML/MIN/1.73 SQ METERS. CHRONIC KIDNEY DISEASE: <60mL/MIN/1.73 SQ METERS KIDNEY FAILURE: <15mL/MIN/1.73 SQ METERS THIS TEST SHOULD ONLY BE USED FOR PATIENTS 18 YEARS OF AGE AND OLDER. Globulin (S) [Mass/Vol] 3.5 g/dL Normal 1.5 - 3.8 [facility] Comment on above: Performed By: #### 2 15631 #### [facility],[address] [place] [address] 87420 Glucose [Mass/Vol] 76 mg/dL Normal 74 - 106 [facility] Comment on above: Performed By: #### 2 19929 #### [address] [address] Potassium [Moles/Vol] 3.4 mmol/L Low 3.5 - 5.1 [facility] Comment on above: Performed By: #### 2 19908 #### [address] [address] Protein [Mass/Vol] 6.9 g/dL Normal 6.4 - 8.2 [facility] Comment on above: Performed By: #### 2 93844 #### [address] [address] Sodium [Moles/Vol] 141 mmol/L Normal 136 - 145 [facility] Comment on above: Performed By: #### 2 55250 #### [address] [address] Urea nitrogen [Mass/Vol] 20 mg/dL High 7 - 18 [facility] Comment on above: Performed By: #### 2 45657 #### [address] [address] GGT SerPl-cCncon 12-07-2024 Gamma glutamyl transferase [Catalytic activity/Vol] 87 U/L High 6-46 [facility] Comment on above: Order Comment: Speci ray Type: BLOOD SPECIMEN Ordering Facility: [facility] Address: [address] [place] [address] Performed By: #### M ISC1 #### [facility] CLIA [id number] [address] [place] [id number] [facility] NON-INTERFACED REF LABS CLIA SEE SCANNED RESULTS #### RNAIII #### [facility] CLIA [id number] [address] [place] [address] Lipid 1996 panelon 5 Cholesterol [Mass/Vol] 201 mg/dL High <200 [facility] Comment on above: Order Comment: Chaparro bell Type: BLOOD SPECIMEN Ordering Facility: [facility] Address: [address] [place] [address] Result Comment: <200 mg/dL, Desirable 200-239 mg/dL, Borderline high >239 mg/dL, High Performed By: #### M ISC1 #### [facility] CLIA [id number] [address] [place] [address] NON-INTERFACED REF LABS CLIA SEE SCANNED RESULTS #### RNAIII #### [facility] CLIA [id number] [address] [place] [address] Cholesterol in HDL [Mass/Vol] 62 mg/dL Normal >39 [facility] Comment on above: Order Comment: Chaparro bell Type: BLOOD SPECIMEN Ordering Facility: [facility] Address: [address] [place] [address] Result Comment: 40-5 9 mg/dL, Acceptable >59 mg/dL, High: Negative risk factor for coronary heart disease <40 mg/dL, Low: Positive risk factor for coronary heart disease Performed By: #### M ISC1 #### [facility] CLIA [id number] [address] [address] [facility] NON-INTERFACED REF LABS CLIA SEE SCANNED RESULTS #### RNAIII #### [facility] CLIA [id number] [address] [place] [address] Cholesterol in LDL [Mass/Vol] 113 mg/dL High <100 [facility] Comment on above: Order Comment: Rosannastefanie bell Type: BLOOD SPECIMEN Ordering Facility: [facility] Address: [facility] [place] [address] Result Comment: <100 mg/dL, Optimal 100-129 mg/dL, Near optimal/above optimal 130-159 mg/dL, Borderline high 160-189 mg/dL, High >189 mg/dL, Very high Secondary prevention optimal LDL Cholesterol levels are recommended to be < 70 mg/dL Performed By: #### M ISC1 #### [facility] CLIA [id number] [facility] [facility] NON-INTERFACED REF LABS CLIA SEE SCANNED RESULTS #### RNAIII #### [facility] CLIA [id number] [address] [place] [address] Cholesterol in LDL/Cholesterol in HDL [Mass ratio] 1.82 {ratio} Normal <2.54 [facility] Comment on above: Order Comment: Chaparro ray Type: BLOOD SPECIMEN Ordering Facility: [facility] Address: [address] [place] [address] Result Comment: Mary ding: 1. National Cholesterol Education Program ATP III Guideline At-A-Glance Quick Desk Reference: National Heart, Lung, and Blood [place]. National Institutes of Health. 2001: NIH Publication No. 01-3305. 2. An International Atherosclerosis Society position paper: global recommendations for the management of dyslipidemia: executive summary, Atherosclerosis. 2014: 232(2):410-413. Performed By: #### M ISC1 #### [facility] CLIA [id number] [facility]0 [place] [id number] [place] NON-INTERFACED REF LABS CLIA SEE SCANNED RESULTS #### RNAIII #### [facility] CLIA [id number] [address] [place] [address] Cholesterol in VLDL [Mass/Vol] 26 mg/dL Normal <30 [facility] Comment on above: Order Comment: Chaparro bell Type: BLOOD SPECIMEN Ordering Facility: [facility] Address: [address] [place] [address] Performed By: #### M ISC1 #### [facility] CLIA [id number] [address] [place] [address] NON-INTERFACED REF LABS CLIA SEE SCANNED RESULTS #### RNAIII #### [facility] CLIA [id number] [address] [place] [address] Cholesterol non HDL [Mass/Vol] 139 mg/dL High <130 [facility] Comment on above: Order Comment: Chaparro bell Type: BLOOD SPECIMEN Ordering Facility: [facility] Address: [address] [place] [address] Result Comment: <130 mg/dL, Optimal 130-159 mg/dL, Near optimal/above optimal 160-189 mg/dL, Borderline high 190-219 mg/dL, High >219 mg/dL, Very high Secondary prevention optimal non HDL Cholesterol levels are recommended to be <100 mg/dL Performed By: #### M ISC1 #### [facility] CLIA [id number] [address] [place] [address] NON-INTERFACED REF LABS CLIA SEE SCANNED RESULTS #### RNAIII #### [facility] CLIA [id number] [address] [place] [address] Cholesterol.total/Chol esterol in HDL [Mass ratio] 3.24 {ratio} Normal <5.10 [facility] Comment on above: Order Comment: Chaparro bell Type: BLOOD SPECIMEN Ordering Facility: [facility] Address: [address] [place] [address] Performed By: #### M ISC1 #### [facility] CLIA [id number] [address] [place], [place] [id number] [facility] NON-INTERFACED REF LABS CLIA SEE SCANNED RESULTS #### RNAIII #### [facility] CLIA [id number] [address] [place] [address] FASTING TIME 12 hrs Normal [facility] Comment on above: Order Comment: Chaparro bell Type: BLOOD SPECIMEN Ordering Facility: [facility] Address: [address] [place] [address] Performed By: #### M ISC1 #### [facility] CLIA [id number] [address] [place] [address] NON-INTERFACED REF LABS CLIA SEE SCANNED RESULTS #### RNAIII #### [facility] CLIA [id number] [address] [place] [address] Triglyceride [Mass/Vol] 129 mg/dL Normal <150 [facility] Comment on above: Order Comment: Speci men Type: BLOOD SPECIMEN Ordering Facility: [facility] Address: [address] [place] [address] Result Comment: <150 mg/dL, Normal 150-199 mg/dL, Borderline high 200-499 mg/dL, High >499 mg/dL, Very high Performed By: #### M ISC1 #### [facility] CLIA [id number] [address] [place] [address] NON-INTERFACED REF LABS CLIA SEE SCANNED RESULTS #### RNAIII #### [facility] CLIA [id number] [address] [place] [address] CBC + DIFFon 12-02-2024 Baso # 0.01 x10EE3/UL Normal 0.00 - 0.10 [facility] Comment on above: Performed By: #### 2 46749 ####[facility],[address] [place] [address] 33365 Basophils/100 WBC (Bld) 0.2 % Normal 0.0 - 2.0 [facility] Comment on above: Performed By: #### 2 24928 ####[facility],[address] [place] [address] 15923 CBC + DIFF Normal [facility] Comment on above: Result Comment: CBC- COMPLETE BLOOD COUNT Performed By: #### 2 88977 ####[facility],[address] [place] [address] 46211 EO # 0.10 x10EE3/UL Normal 0.00 - 0.50 [facility] Comment on above: Performed By: #### 2 52918 ####[place] [address] Eosinophils/100 WBC (Bld) 2.0 % Normal 0.0 - 7.0 [facility] Comment on above: Performed By: #### 2 88783 ####[facility],[address] [place] [address] Erythrocyte distribution width (RBC) [Ratio] 13.1 % Normal 12.0 - 15.6 [facility] Comment on above: Performed By: #### 2 94781 ####[place] [address] Hematocrit (Bld) [Volume fraction] 43.8 % Normal 34.0 - 46.0 [facility] Comment on above: Performed By: #### 2 60726 ####[place] [address] Hemoglobin (Bld) [Mass/Vol] 14.7 g/dL Normal 12.0 - 16.0 [facility] Comment on above: Performed By: #### 2 89007 ####[place] [address] Lymph # 1.07 x10EE3/UL Normal 0.80 - 2.80 [facility] Comment on above: Performed By: #### 2 15613 ####[place] [address] Lymphocytes/100 WBC (Bld) 22.0 % Normal 20.0 - 45.0 [facility] Comment on above: Performed By: #### 2 44290 ####[place] [address] MANUAL DIFF N/A Normal [facility] Comment on above: Performed By: #### 2 41063 ####[place] [address] MCH (RBC) [Entitic mass] 31 pg Normal 27 - 33 [facility] Comment on above: Performed By: #### 2 64187 ####[facility],[address] [place] [address] MCHC 34 X10 3 Normal 32 - 36 [facility] Comment on above: Performed By: #### 2 44490 ####[facility],[address] [place] [address] MCV (RBC) [Entitic vol] 92 fL Normal 80 - 99 [facility] Comment on above: Performed By: #### 2 41440 ####[facility],[address] [place] [address] [place] # 0.63 x10EE3/UL Normal 0.20 - 1.00 [facility] Comment on above: Performed By: #### 2 28971 ####[facility],[address] [place] [address] MONOS % 13.0 % High 0.0 - 10.0 [facility] Comment on above: Performed By: #### 2 32072 ####[facility],[address] [place], [place] [address] Morphology Socrates (Bld) [Interp] N/A Normal [facility] Comment on above: Performed By: #### 2 00032 ####[facility],[address] [place] [address] Neut # 3.05 x10EE3/UL Normal 1.50 - 7.10 [facility] Comment on above: Performed By: #### 2 35255 ####[place] [address] Neutrophils/100 WBC (Bld) 62.8 % Normal 46.0 - 76.0 [facility] Comment on above: Performed By: #### 2 28695 ####[place] [id number] PLATELET 177 x10EE3/UL Normal 150 - 450 [facility] Comment on above: Performed By: #### 2 80282 ####[facility],[address] [place] [address] 05154 Platelet mean volume (Bld) [Entitic vol] 7.8 fL Normal 6.6 - 10.5 [facility] Comment on above: Result Comment: AUTO MATED DIFFERENTIAL Performed By: #### 2 97386 ####[facility],[address] [place] [address] 03090 RBC 4.78 x 10EE6/UL Normal 4.10 - 5.30 [facility] Comment on above: Performed By: #### 2 97374 ####[facility],[address] [place] [address] 38356 WBC 4.9 x 10EE3/UL Normal 4.5 - 10.8 [facility] Comment on above: Performed By: #### 2 21289 ####[facility],[address] [place], [place] [address] CHEST 2 VIEWSon 12-02-2024 CHEST 2 VIEWS [place] [address] Patient: HONG SNOW Phone#: : 1970 Age: 54 Gender: F Pt. Type: ER Account: [id number] Location: [facility] Ordering: DARIO DAWSON Exam Date: 12/02/2024/13:07 Family Phys: RISSA HOUSTON Charge Code: 035327 Physician: Bailey Order #: [id number] Dose#: PROCEDURE: X-RAY CHEST 2 VIEWS COMPARISON: [facility], , CHEST 1 VIEW, 09/16/2022, 23:15. INDICATIONS: Cough. [...] Blandon MD on 12/02/2024 at 20:04 Normal [facility] CMP with eGFRon 12-02-2024 AGE 54 years Normal [facility] Comment on above: Performed By: #### 2 22049 #### [facility],[address] [place] [address] 15950 Albumin [Mass/Vol] 3.3 g/dL Low 3.4 - 5.0 [facility] Comment on above: Performed By: #### 2 98710 #### [facility],[address] [place] [address] 31702 Albumin/Globulin [Mass ratio] 1.0 {ratio} Normal 0.9 - 1.6 [facility] Comment on above: Performed By: #### 2 50963 #### [facility],[address] [place] [address] 81245 ALK PHOS 159 U/L High 46 - 116 [facility] Comment on above: Performed By: #### 2 38299 #### [facility],[address] [place] [address] 18923 ALT [Catalytic activity/Vol] 436 U/L High 16 - 63 [facility] Comment on above: Performed By: #### 2 85340 #### [facility],[address] [place] [address] 52826 Anion gap [Moles/Vol] 14 mmol/L Normal 10 - 20 [facility] Comment on above: Performed By: #### 2 41717 #### [facility],[address] [place] [address] 65913 AST [Catalytic activity/Vol] 363 U/L High 13 - 39 [facility] Comment on above: Performed By: #### 2 22058 #### [facility],[address] [place] [address] B/C RATIO 18 ratio Normal 0 - 30 [facility] Comment on above: Performed By: #### 2 32603 #### [facility],[address] [place], [place] [address] Bilirubin [Mass/Vol] 0.3 mg/dL Normal 0.2 - 1.0 [facility] Comment on above: Performed By: #### 2 36181 #### [facility],[address] [place] [address] Calcium [Mass/Vol] 8.3 mg/dL Low 8.5 - 10.1 [facility] Comment on above: Performed By: #### 2 02412 #### [facility],[address] [place] [address] Chloride [Moles/Vol] 107 mmol/L Normal 98 - 107 [facility] Comment on above: Performed By: #### 2 18517 #### [facility],[address] [place] [address] CMP with eGFR Normal [facility] Comment on above: Result Comment: COMP REHENSIVE METABOLIC PANEL Performed By: #### 2 97253 #### [facility],[address] [place], [place] [address] CO2 [Moles/Vol] 25.8 mmol/L Normal 21.0 - 32.0 [facility] Comment on above: Performed By: #### 2 82673 #### [facility],[address] [place], [place] [address] Creatinine [Mass/Vol] 0.78 mg/dL Normal 0.55 - 1.02 [facility] Comment on above: Performed By: #### 2 37691 #### [facility],[address] [place] [address] 37037 GFR/1.73 sq M.predicted among non-blacks MDRD (S/P/Bld) [Vol rate/Area] mL/min/{1.73_m2} Normal 60 - 999 [facility] Comment on above: Performed By: #### 2 40596 #### [facility],[address] [place] [address] 23894 Result Comment: ACCO RDING TO THE NATIONAL KIDNEY DISEASE EDUCATION PROGRAM(NKDE), A NORMAL eGFR IS A VALUE GREATER THAN OR EQUAL TO 60 ML/MIN/1.73 SQ METERS. CHRONIC KIDNEY DISEASE: <60mL/MIN/1.73 SQ METERS KIDNEY FAILURE: <15mL/MIN/1.73 SQ METERS THIS TEST SHOULD ONLY BE USED FOR PATIENTS 18 YEARS OF AGE AND OLDER. Globulin (S) [Mass/Vol] 3.2 g/dL Normal 1.5 - 3.8 [facility] Comment on above: Performed By: #### 2 84701 #### [facility],[address] [place] [address] 62860 Glucose [Mass/Vol] 157 mg/dL High 74 - 106 [facility] Comment on above: Performed By: #### 2 80862 #### [facility],[address] [place] [address] 45165 Potassium [Moles/Vol] 3.7 mmol/L Normal 3.5 - 5.1 [facility] Comment on above: Performed By: #### 2 07051 #### [facility],[address] [place] [address] 83786 Protein [Mass/Vol] 6.5 g/dL Normal 6.4 - 8.2 [facility] Comment on above: Performed By: #### 2 76448 #### [facility],[address] [place] [address] 59395 Sodium [Moles/Vol] 143 mmol/L Normal 136 - 145 [facility] Comment on above: Performed By: #### 2 46529 #### [facility],[address] [place] [address] 68202 Urea nitrogen [Mass/Vol] 14 mg/dL Normal 7 - 18 [facility] Comment on above: Performed By: #### 2 89044 #### [facility],[address] [place] [address] 91677 CORONAVIRUS (SARS) ANTIGEN T ESTon 12-02-2024 EXTERNAL QC DONE? YES Normal [facility] Comment on above: Performed By: #### 2 09462 ####[facility],[address] [place] [address] 20119 INTERNAL CONTROL PASS Normal [facility] Comment on above: Performed By: #### 2 47983 ####[facility],[address] [place] [address],[facility] [address] SARS ANTIGEN Negative Normal NORMAL: NEGATIVE [facility] Comment on above: Performed By: #### 2 63024 ####[facility],[address] [place] [address] 48492 SEND TO ? YES Normal [facility] Comment on above: Result Comment: SARS -CoV-2 THIS TEST IS BEING USED UNDER THE FDA EUA PROCEDURE. THIS ASSAY HAS BEEN VALIDATED AT [facility] FOR USE WITH NASAL AND NASOPHARYNGEAL SWAB [...] PUBLIC HEALTH AUTHORITIES. Performed By: #### 2 51821 ####[facility],[address] [place], [place] [address] D-DIMER, QUANTITATIVEon 02-0 D-DIMER QUANT <200 Normal 0 - 230 [facility] Comment on above: Performed By: #### 2 09943 ####[facility],[address] [place] [address] 24750 D-DIMER, QUANTITATIVE Normal [facility] Comment on above: Result Comment: MARISOL T D-DIMER Performed By: #### 2 53042 ####[facility],[address] [place] [address] 87519 ED MED ADMINISTRATION DETAIL on 12-02-2024 ED MED ADMINISTRATION DETAIL Labor Expediter Medication Administration Record [address] [place] [address] [id number] 12/02/2024 Patient: HONG SNOW Sex: Female : [...] 13:32 12/02/2024 Giovanni Dupree R.N. Scanned 13:32 02 Medication Discontinued: bag #1. Total amount infused: 950 mL. IV patency established. IV site checked: no pain, redness, or swelling. IV flushed thoroughly post-medication administration. - 13:37 Gretta Dupree R.N. Dexamethasone 11:39 02 Dexamethasone (Decadron) IVP 10 mg given via [...] 11:48 Shaina Bain Scanned 1 of 2 Labor Expediter 2 of 2 Normal [facility] ED NURSES CLINICAL NOTEon ED NURSES CLINICAL NOTE Nurse Narrative Nurse Clinical [address] [address] [id number] 12/02/2024 Patient: HONG SNOW Sex: Female : 1970 Age: 54y Primary Insurance: [employer] OUTPATIENT Policy Number: [id number] Group Number: [id number] Subscriber: Other Disposition: Discharge to Home Disposition [...] ENRIQUE Guzman R.N. 10:41 12/02/24. Preferred Pharmacy: [facility] -- 10:53 12/02/24 JOSE ENRIQUE Guzman [...] ED physician. -- 10:53 12/02/24 JOSE ENRIQUE Madeline Golden 11:37 12/02/24. IV NS 0.9 % 1000 [...] 5 rights. (more content not included)... Normal [facility] ED ORDER SHEET (CPOE ONLY)on 12-02-2024 ED ORDER SHEET (CPOE ONLY) Order Sheet Order Sheet [address] [address] [id number] 12/02/2024 Patient: HONG SNOW Sex: Female : 1970 Age: 54y MEASUREMENTS: Wt: 66.7 kg, Ht/[place]: 64.0 in, BMI: 25.23 ALLERGIES: Demerol, shellfish derived MEDICATION/IV/DRIP/FLUID ORDERS Order Description Priority Entered Acknowledged Completed IV NS 0.9 %1000 mL at 500 11:20 12/02/2024 11:39 mL/hr (NOW x1) Dario Dawson, 12/02/2024 D.ORenita Dupree R.N. Dexamethasone (Decadron) 11:20 12/02/2024 11:40 IVP10 mg (NOW x1) Dario Dawson, 12/02/2024 Tutu Dupree R.N. Reason for ordering with alerts: Benefits outweigh risks --11:20 12/02/2024 Dario Dawson D.O. Albuterol-Ipratropium (DuoNeb) 11:20 12/02/2024 11:48 3mg/0.5mg Neb Tx3 mL (NOW Dario Bagleyisinger, 12/02/2024 x1) Tutu Shaina Legg LAB ORDERS Order Description Priority Entered Acknowledged Collected Completed 1 of 3 Order Sheet CBC w Diff Stat Stat 11:20 12/02/2024 11:37 12/02/2024 13:00 12/02/2024 Gretta Ledezma Shauna Ewing, D.O. R.NRenita R.N. CMP Stat Stat 11:20 12/02/2024 11:37 12/02/2024 13:00 12/02/2024 Gretta Ledezma Shauna Ewing, D.O. R.NRenita RRenitaN. D-Dimer Stat Stat 11:20 12/02/2024 11:37 12/02/2024 13:00 12/02/2024 Gretta Ledezma Shauna Ewing, D.O. R.NRenita RRenitaNRenita EKG - ED Stat Stat 11:20 12/02/2024 11:37 12/02/2024 13:00 12/02/2024 Gretta Ledezma Shauna Ewing, D.O. R.N. R.NRenita Rapid COVID (SARS) Stat 11:20 12/02/2024 11:37 12/02/2024 13:00 12/02/2024 ANTIGEN TEST Stat Gretta Ledezma Shauna Ewing, D.O. R.NRenita R.NRenita Flu Swab (Influenzae Stat 11:20 12/02/2024 11:37 12/02/2024 13:00 12/02/2024 AAg) Stat Gretta Ledezma Shauna Ewing, D.O. R.NRenita R.NRenita DIAGNOSTIC STUDY ORDERS Order Description Priority Entered Acknowledged Completed Chest 2V Stat Stat 12:55 12/02/2024 13:00 Dario Dawson 12/02/2024 Tutu Dupree R.N. Reason for Study: Cough 2 of 3 Order Sheet STAFF ORDERS Order Description Priority Entered Acknowledged Collected Completed IV Saline Lock 11:20 12/02/2024 11:37 12/02/2024 13:00 12/02/2024 Gretta Ledezma Shauna Ewing, D.O. R.N. R.N. [Electronically signed by Dario Dawson D.O. (12/02/2024 14:19 EST)] 3 of 3 Normal [facility] ED PHYSICIAN CLINICAL REPORT on 12-02-2024 ED PHYSICIAN CLINICAL REPORT Narrative Physician Clinical Narrative [address] [place] [address] [id number] 12/02/2024 Patient: HONG SNOW Sex: Female : 1970 Age: 54y Primary Insurance: [employer] OUTPATIENT Policy Number: [id number] Group Number: [id number] Subscriber: Other Disposition: Discharge to Home Disposition [...] Motrin she has also been taking some cbvq-mwl-nedjuoh remedies shows her headache 05/02 which also [...] 1.50 - 7.10 Final EST 12/02/2024 12:09 [place]ne # 0.63 x10/UL 0.20 - 1.00 Final [...] COMPREHENSIVE 12/02/2024 (more content not included)... Normal [facility] ED SUPER BILLon 12-02-2024 [facility] [address] [address] [id number] 12/02/2024 Patient: HONG SNOW Sex: Female : 1970 Age: 54y Item Facility Professional Category Description Code Code Quantity Fee Total Drugs Normal Saline 631279 1 $0.00 $0.00 1000cc (489456) Nurse/E/M EMERGENCY 247789 1 $0.00 $0.00 DEPARTMENT VISIT HIGH/URGENT SEVERITY (30363-37) Nurse/IV/IM/Infusions Hydration 304706 2 $0.00 $0.00 additional hour (23840) Nurse/IV/IM/Infusions IVP initial 965115 1 $0.00 $0.00 (69889) Nurse/Procedures Respiratory 769346 1 $0.00 $0.00 therapy - inhalation (94203) Grand Total $0.00 1 of 2 [facility] Providers Dario Dawson D.O. Chief Complaint DYSPNEA. Principal Diagnosis Headache. Viral syndrome elevated liver enzymes AST, ALT and ALK PHOS. ICD-10 Codes B34.9: Viral infection, unspecified R51.9: Headache, unspecified 2 of 2 [facility] ED VISIT SUMMARYon ED VISIT SUMMARY Visit Overview Visit Overview [address] [address] [id number] 12/02/2024 Patient: HONG SNOW Sex: Female : 1970 Age: 54y 12/02/2024 05:30 PM EST ED Arrival:10:35 12/02/2024 EST Status:not Recent Travel:no Language:eng Adv Directive:No Isolation Status: Ethnicity:N Fall Risk:no risk Infectious Disease Exposure:no Measurements:5'4 / 162.6 Self-Harm Status:risk Sepsis Screen:negative cm 147.0 lb / 66.7 kg Chief Complaint:DIFFICULTY BREATHING, SHORTNESS OF BREATH, (Joana [place] ), (Pt has a history of long [...] .The patient has had a hysterectomy long isiah See nurses notes PAST SURGICAL HISTORY Appendectomy [...] SITE INFORMATION INTAKE OUTPUT REASSESMENT (most recent) 4 Visit Overview 12:35 12/02/24. ( Pt [...] VITAL SIGNS First Vitals Last Vitals Temp 10:12/02/24 Temp 13:12/02/24 BP 10:12/02/24 154/83 BP 13:12/02/24 HR 10:12/02/24 98 HR 13:12/02/24 86 RR 10:12/02/24 RR 13:12/02/24 O2 Sat 10:12/02/24 O2 Sat 13:12/02/24 96% Pain 10:42 12/02/24 Pain 13:32 12/02/24 [...] PNEUMONIA VIRAL SYNDROME 4 of 4 Normal [facility] ED VITALS FLOW SHEETon 12-02 ED VITALS FLOW SHEET Vitals Vital Sign Flow Sheet [facility] [address] [place] [address] [id number] 12/02/2024 Patient: HONG SNOW Sex: Female : [...] 154/83 112 98 3 of 3 Normal [facility] INFLUENZA VIRUS RAPID A/Bon 12-02-2024 INFLUENZA [...] TO THREE DAYS. RESULT CRITICAL? NO Normal [facility] Comment on above: Performed By: #### 2 [id number] ####[facility],[address] [facility] [address] CRPon 08-06-2024 C-REACTIVE PROT 8.54 mg/L High 0.0-3.0 [facility] Comment on above: Result Comment: C-Re active Protein (CRP) provides useful information for the diagnosis, therapy and monitoring of inflammatory processes and associated diseases. For the evaluation of Relative Risk for Cardiovascular Disease, a High Sensitivity CRP (HSCRP) should be ordered. Performed By: #### L 3300.1750, L3100.5170, L101.9900, L501.6710 #### [facility] [address] [place], [place], [id number] Erythrocyte Sed Rateon 08-06 SED RATE 4 mm/hr Normal 0-30 [facility] Comment on above: Performed By: #### L 3300.1750, L3100.5170, L101.9900, L501.6710 #### [facility] [address] [place], [place], [address] Estradiolon 08-06-2024 ESTRADIOL 55.1 pg/mL Normal [facility] Comment on above: Result Comment: [...] DETERMINE ESTRADIOL CONCENTRATION. Performed By: #### L 3300.1750, L3100.5170, L101.9900, L501.6710 #### [facility] [address] [place], [address] Gastroenterology Visit Repor ton 08-06-2024 Gastroenterology Visit Report [facility]astroenterology [address] [place] [address] OFFICE VISIT Date of Service: 08/06/24 MR#: [id number] Acct: [id number] Name: HONG SNOW Rep #: [id number] : 1970 Provider: CHEL patel Age/Sex: 54/F Location: [facility] Status: Signed Intake Vital Signs 11/23/23 14:04 [...] and water which pt reports is effective. PFSH Medical History (Updated 11/23/23 @ 14:34 by [...] hernia repair Hx of section Social History (Reviewed 03/30/23 @ 14:36 by Katey Reynolds EMBEDDED SOFTWARE DEVELOPER, EMBEDDED SOFTWARE DEVELOPER-C) Smoking Status: Never smoker HPI HPI Chief Complaint: diarrhea Details: HONG SNOW, is a 54 F who presents to the office today for FU. FH father???s side of the family has a lot of similar GI symptoms; no known diagnosis. Prior workup: Stool testing enteric pathogens, ova/parasite WNL. *BGI established 8.. with referral from PCP for evaluation of [...] proctitis. Normal ileum. No pathologic changes. OV 08.24.22 She stopped taking pre/probiotic gummy, started daily [...] has abdominal discomfort/pain). Started a tea from [employer] with four ingredients and feels this has [...] Dicyclomine a (more content not included)... Normal [facility] Luteinizing Hormoneon 2023 LH 21.4 mIU/mL Normal [facility] Comment on above: Result Comment: NORMAL REFERENCE RANGES FEMALE FOLLICULAR 1.9 - 26.2 mIU/mL MID-CYCLE PEAK 22.8 - 76.1 mIU/mL LUTEAL 0.6 - 16.6 mIU/mL POST-MENOPAUSAL ON MHT 1.1 - 52.4 mIU/mL NOT ON MHT 8.6 - 61.8 mIU/mL MALE 1.2 - 10.6 mIU/mL Performed By: #### L 3300.1750, L3100.5170, L101.9900, L501.6710 #### [facility] [address] [place], [place], [id number] FOOT COMPLETE LTon 4 FOOT COMPLETE [address] [address] Patient: HONG SNOW Phone#: : 1970 Age: 54 Gender: F Pt. Type: ER Account: [id number] Location: 052 Ordering: SEAMUS VÁSQUEZ Exam Date: 06/27/2024/8:51 Family Phys: RISSA HOUSTON Charge Code: 798645 Physician: Bailey Order #: [id number] Dose#: PROCEDURE: X-RAY FOOT LT COMPLETE MIN [...] Duenas MD on 06/27/2024 at 9:04 Normal [facility] BREAST LT UNILATERAL COMP LETEon 03-14-2024 US BREAST LT UNILATERAL COMPLETE [place] [address] Patient: HONG SNOW Phone#: : 1970 Age: 54 Gender: F Pt. Type: Out Account: [id number] Location: 010 Ordering: RISSA TRAN Exam Date: 03/14/2024/10:08 Family Phys: Charge Code: 058344 Physician: Bailey Order #: [id number] Dose#: PROCEDURE: ULTRASOUND BREAST LT COMPARISON: [facility], BREAST LT COMPLETE, 09/07/2023, 13:30. [...] Blandon MD on 03/14/2024 at 15:42 Normal [facility] Basophil percentageOrdered B y: Jared Self on 12-15-2022 Basophil percentage < 0.2 AI 0.0-0.9 [facility] Erythrocyte sedimentation ra teOrdered By: Jared Self on 12-15-2022 ESR (Bld) [Velocity] 5 mm/h 0-30 [facility] No Panel InformationOrdered By: Jared Self on 12-15-2022 Centromere B Antibody <0.2 AI 0.0-0.9 [facility] MERCHANDISING LEAD Antibody 0.3 AI 0.0-0.9 [facility] Serum DNA double strand anti body assay (units/volume)Ordered By: Jared Self on 12-15-2022 DNA double strand Ab Qn (S) 30 [IU]/mL 0-9 [facility] Comment on above: Negative <5 Equivoca l 5 - 9 Positive >9 Serum Padma-1 antibody assay (u nits/volume)Ordered By: Jared Self on 12-15-2022 Padma-1 extractable nuclear Ab Qn (S) <0.2 AI 0.0-0.9 [facility] Serum Scl-70 extractable nuc lear antibody assay (units/volume)Ordered By: Jared Self on 12-15-2022 SCL-70 extractable nuclear Ab Qn (S) <0.2 AI 0.0-0.9 [facility] Serum Gutierrez extractable nucl ear antibody detectionOrdered By: Jared Self on 12-15-2022 Gutierrez extractable nuclear Ab Ql (S) <0.2 AI 0.0-0.9 [facility] Serum or plasma C reactive p rotein measurement (mass/volume)Ordered By: Jared Self on 12-15-2022 CRP [Mass/Vol] 4.86 mg/L 0.0-3.0 [facility] Comment on above: C-Reactive Protein ( CRP) provides useful information for thediagnosis, therapy and monitoring of inflammatory processesand associated diseases. For the evaluation of Relative Riskfor Cardiovascular Disease, a High Sensitivity CRP (HSCRP)should be ordered. Absolute lymphocyte counton 06-09-2022 Lymphocytes Auto (Unsp spec) [#/Vol] 2.75 10*3/uL 0.83-4.51 [facility] Work Phone: Basophil percentageon 2021 Basophil percentage < 0.2 AI 0.0-0.9 [facility] Work Phone: Basophils/100 WBC (Bld) 0.2 % 0-1 [facility] Work Phone: Bilirubin [Mass/Vol] 0.30 mg/dL 0.20-1.00 [facility] Work Phone: Comment on above: For patients on eltr ombopag therapy, use of Dimension [place] TBIL is not recommended. Chloride [Moles/Vol] 107 mmol/L 98-107 [facility] Work Phone: Eosinophils/100 WBC (Bld) 1.8 % 0-5 [facility] Work Phone: Glucose [Mass/Vol] 82 mg/dL 74-106 [facility] Work Phone: Neutrophils (Bld) [#/Vol] 5.1 10*3/uL 2.0-7.7 [facility] Work Phone: Neutrophils/100 WBC (Bld) 58.2 % 47-70 [facility] Work Phone: Potassium [Moles/Vol] 3.8 mmol/L 3.5-5.1 [facility] Work Phone: Protein [Mass/Vol] 7.6 g/dL 6.4-8.2 [facility] Work Phone: Sodium [Moles/Vol] 140 mmol/L 136-145 [facility] Work Phone: [phone] WBC (Bld) [#/Vol] 8.8 10*3/uL 4.4-11.0 [facility] Work Phone: Blood erythrocytes count (nu mber/volume)on 06-09-2022 RBC (Bld) [#/Vol] 4.75 10*6/uL 4.2-5.4 [facility] Work Phone: [phone] Blood hemoglobin measurement (mass/volume)on 06-09-2022 Hemoglobin (Bld) [Mass/Vol] 14.6 g/dL 12.0-15.0 [facility] Work Phone: Blood lymphocytes/100 leukoc yteson 06-09-2022 Lymphocytes/100 WBC (Bld) 31.2 % 19-41 [facility] Work Phone: Blood monocytes/100 leukocyt eson 06-09-2022 Monocytes/100 WBC (Bld) 8.5 % 0-10 [facility] Work Phone: Blood platelet mean volumeon 06-09-2022 Platelet mean volume (Bld) [Entitic vol] 10.2 fL 6.2-12.0 [facility] Work Phone: [phone] Determination of erythrocyte mean corpuscular volume (MCV)on 06-09-2022 MCV (RBC) [Entitic vol] 91.4 fL 81-99 [facility] Work Phone: [phone] Erythrocyte sedimentation ra daniel 06-09-2022 ESR (Bld) [Velocity] 10 mm/h 0-30 [facility] Work Phone: [phone] Hematocrit Auto (Bld) [Volum e fraction]on 06-09-2022 Hematocrit (Bld) [Volume fraction] 43.4 % 37-47 [facility] Work Phone: [phone] Laboratory - Chemistry and C hemistry - challengeon 06-09-2022 ALP [Catalytic activity/Vol] 75 U/L 45-117 [facility] Work Phone: [phone] ALT [Catalytic activity/Vol] 22 U/L 13-56 [facility] Work Phone: CO2 [Moles/Vol] 27.0 mmol/L 21.0-32.0 [facility] Work Phone: [phone] Globulin (S) [Mass/Vol] 3.8 g/dL 2.2-4.2 [facility] Work Phone: [phone] Urea nitrogen/Creatinine [Mass ratio] 22.9 mg/mg 10-20 [facility] Work Phone: [phone] Laboratory - Hematology and Cell countson 06-09-2022 Erythrocyte distribution width (RBC) [Entitic vol] 36.6 fL 35.1-43.9 [facility] Work Phone: [phone] Erythrocyte distribution width (RBC) [Ratio] 10.9 % 11.6-14.6 [facility] Work Phone: Immature granulocytes/100 WBC (Bld) 0.100 % 0.0-0.9 [facility] Work Phone: Comment on above: IG% - Immature Granu locytes (promyelocytes, myelocytes and metamyelocytes) > 1% indicates that a LEFT SHIFT is Present. MCH (RBC) [Entitic mass] 30.7 pg 27.0-32.0 [facility] Work Phone: Nucleated RBC/100 WBC (Bld) [Ratio] 0 % 0-5 [facility] Work Phone: MCHC Auto (RBC) [Mass/Vol]on 06-09-2022 MCHC (RBC) [Mass/Vol] 33.6 g/dL 32-36 [facility] Work Phone: No Panel Informationon 06-09 Centromere B Antibody <0.2 AI 0.0-0.9 [facility] Work Phone: Endomysial IgA Antibody Negative Negative [facility] Work Phone: Estimated GFR (MDRD) Amer 105 mL/min >60 [facility] Work Phone: Comment on above: GFR Calc Estimated GFR (MDRD) Non-Af Amer 86 mL/min >60 [facility] Work Phone: Comment on above: Non- GFR Calc MERCHANDISING LEAD Antibody 0.3 AI 0.0-0.9 [facility] Work Phone: Platelets bldon 06-09-2022 Platelets (Bld) [#/Vol] 283 10*3/uL 150-450 [facility] Work Phone: Serum DNA double strand anti body assay (units/volume)on 06-09-2022 DNA double strand Ab Qn (S) 25 [IU]/mL 0-9 [facility] Work Phone: Comment on above: Negative <5 Equivoca l 5 - 9 Positive >9 Serum IgA measurement (units /volume)on 06-09-2022 IgA Qn (S) 218 mg/dL 87-352 [facility] Work Phone: Comment on above: Performed at: [place] [id number] Director: Jet Valladares PhD, Phone: [phone] Serum Padma-1 antibody assay (u nits/volume)on 06-09-2022 Padma-1 extractable nuclear Ab Qn (S) <0.2 AI 0.0-0.9 [facility] Work Phone: Serum Scl-70 extractable nuc lear antibody assay (units/volume)on 06-09-2022 SCL-70 extractable nuclear Ab Qn (S) <0.2 AI 0.0-0.9 [facility] Work Phone: Serum Gutierrez extractable nucl ear antibody detectionon 06-09-2022 Gutierrez extractable nuclear Ab Ql (S) <0.2 AI 0.0-0.9 [facility] Work Phone: Serum or plasma C reactive p rotein measurement (mass/volume)on 06-09-2022 CRP [Mass/Vol] 11.10 mg/L 0.0-3.0 [facility] Work Phone: Comment on above: C-Reactive Protein ( CRP) provides useful information for thediagnosis, therapy and monitoring of inflammatory processesand associated diseases. For the evaluation of Relative Riskfor Cardiovascular Disease, a High Sensitivity CRP (HSCRP)should be ordered. Serum or plasma albumin alex urement (mass/volume)on 06-09-2022 Albumin [Mass/Vol] 3.8 g/dL 3.2-5.0 [facility] Work Phone: Serum or plasma albumin/glob ulin mass ratioon 06-09-2022 Albumin/Globulin [Mass ratio] 1.0 {ratio} 0.9-2.4 [facility] Work Phone: Serum or plasma calcium alex urement (mass/volume)on 06-09-2022 Calcium [Mass/Vol] 9.0 mg/dL 8.5-10.1 [facility] Work Phone: Serum or plasma creatinine m easurement (mass/volume)on 06-09-2022 Creatinine [Mass/Vol] 0.74 mg/dL 0.55-1.02 [facility] Work Phone: Comment on above: The validity of the calculated GFR & GFRAA in patients over 70 years has not been determined. Clinical correlation is essential. Serum or plasma urea nitroge n measurement (mass/volume)on 06-09-2022 Urea nitrogen [Mass/Vol] 17 mg/dL 7-18 [facility] Work Phone: Serum tissue transglutaminas e IgA antibody assay (units/volume)on 06-09-2022 tTG IgA Qn (S) <2 U/mL 0-3 [facility] Work Phone: Comment on above: Negative 0 - 3 Weak Positive 4 - 10 Positive >10 Tissue Transglutaminase (tTG) has been identified as the endomysial antigen. Studies have demonstr- ated that endomysial IgA antibodies have over 99% specificity for gluten sensitive enteropathy. Thin prep Papanicolaou smear with manual screeningon 06-09-2022 Thin prep Papanicolaou smear with manual screening 24 U/L 15-37 [facility] Work Phone: Thin prep Papanicolaou smear with manual screening 6 5-15 [facility] Work Phone: Thin prep Papanicolaou smear with manual screening 185 U/L 84-246 [facility] Work Phone: Coronavirus 2019on 0 COVID 19 Result EMBEDD[employer] SOFTWARE DEVELOPER Normal Negative for COVID19 (SARS CoV2) by PCR. [facility] Comment on above: Result Comment: Nega tive for This test was developed and its performance characteristics determined by [facility]'s [facility] [place]. This test has been authorized by FDA [...] developed and its performance characteristics determined by [facility] [place]. This test has been authorized by FDA [...] developed and its performance characteristics determined by [facility] [place]. This test has been authorized by FDA under an Emergency Use Authorization (EUA). This test has been validated in accordance with the FDA's Guidance Document Policy for Diagnostics Testing in Laboratories Certified to Perform High Complexity Testing under CLIA prior to Emergency use Authorization for Coronavirus Disease 2019 during the Public Health Emergency issued on December 22, 2019. COVID 19 Source EMBEDDED SOFTWARE DEVELOPER EMBEDDED SOFTWARE DEVELOPER Normal [facility] HEPATIC PANELon 07-09-2019 A:G RATIO 1.66 Normal 1.1-2.5 [facility] Comment on above: Performed By: #### L 100.0030 #### [facility] [address] [place] [address]8577 Albumin [Mass/Vol] 4.5 g/dL Normal 3.5-5.2 [facility] Comment on above: Performed By: #### L 100.0030 #### [facility] - [facility] [address] [place] [address] ALK. PHOS 62 U/L Normal 35-105 [facility] Comment on above: Performed By: #### L 100.0030 #### [facility] [address] [place] [address] ALT [Catalytic activity/Vol] 13 U/L Normal 5-33 [facility] Comment on above: Performed By: #### L 100.0030 #### [facility] - [facility] [address] [place] [address] AST [Catalytic activity/Vol] 22 U/L Normal 5-32 [facility] Comment on above: Performed By: #### L 100.0030 #### ML [facility] [address] [place] [address] Bilirubin Ql (U) 0.4 mg/dL Normal 0.2-1.2 [facility] Comment on above: Performed By: #### L 100.0030 #### [facility] - [facility] [address] [place] [address] DIRECT BILIRUBI <0.2 Normal 0.0-0.3 [facility] Comment on above: Performed By: #### L 100.0030 #### [facility] - [facility] [address] [place] [address] Globulin (S) [Mass/Vol] 2.7 g/dL Normal 1.5-4.5 [facility] Comment on above: Performed By: #### L 100.0030 #### [facility] - [facility] [address] [place] [address] Protein [Mass/Vol] 7.2 g/dL Normal 6.4-8.3 [facility] Comment on above: Performed By: #### L 100.0030 #### ML [facility] [address] [place] [address] SURGICALon 10-12-2017 SURGICAL CHEST, BIOPSY OF - [...] slightly irregular pigmentation near irregular borders. (3,ns). CELENA/priti MICROSCOPI C DESCRIPTION: A-B. Slides reviewed. CELENA/priti FINAL DIAGNOSIS: A. LEFT MID CHEST - [...] *Electronically Signed* PARVEEN ZAMORA D.O 10/14/17 1544 [facility] Comment on above: Performed By: #### P -S ####[facility] - [facility] [id number] [place] [address] Vital Signs Date Time Vital Sign Value Performing Clinician Antonio haynes 05-21-2025 13:39-0400 Body temperature 98.1 [degF] [employer] Work Phone: [facility] 05-21-2025 13:39-0400 Diastolic blood pressure 97 mm[Hg] [employer] Work Phone: [facility] 05-21-2025 13:39-0400 Heart rate 66 /min [employer] Work Phone: [facility] 05-21-2025 13:39-0400 Respiratory rate 14 /min [employer] Work Phone: [facility] 05-21-2025 13:39-0400 SaO2% (BldA) [Mass fraction] 97 % [employer] Work Phone: [facility] 05-21-2025 13:39-0400 Systolic blood pressure 149 mm[Hg] [employer] Work Phone: [facility] 05-21-2025 10:39-0400 Body mass index (BMI) [Ratio] 28.8 kg/m2 [employer] Work Phone: [facility] 05-21-2025 10:39-0400 Body weight 76.3 kg [employer] Work Phone: [facility] 05-21-2025 10:37-0400 Body height 162.56 cm [employer] PA-C Work Phone: [facility] 05-10-2025 11:14-0400 Body height 162.56 cm [employer] PA-C Work Phone: [facility] 05-10-2025 11:14-0400 Body mass index (BMI) [Ratio] 26.9 kg/m2 [employer] PA-C Work Phone: [facility] 05-10-2025 11:14-0400 Body weight 71.27 kg [employer] PA-C Work Phone: [facility] 05-10-2025 11:14-0400 Diastolic blood pressure 80 mm[Hg] [employer] PA-C Work Phone: [facility] 05-10-2025 11:14-0400 Heart rate 80 /min [employer] PA-C Work Phone: [facility] 05-10-2025 11:14-0400 Respiratory rate 14 /min [employer] PA-C Work Phone: [facility] 05-10-2025 11:14-0400 SaO2% (BldA) [Mass fraction] 97 % [employer] PA-C Work Phone: [facility] 05-10-2025 11:14-0400 Systolic blood pressure 146 mm[Hg] [employer] PA-C Work Phone: [facility] 04-29-2025 11:52-0400 Diastolic blood pressure 90 mm[Hg] [employer] PA-C Work Phone: [facility] 04-29-2025 11:52-0400 Heart rate 65 /min [employer] PA-C Work Phone: [facility] 04-29-2025 11:52-0400 Respiratory rate 14 /min [employer] PA-C Work Phone: [facility] 04-29-2025 11:52-0400 SaO2% (BldA) [Mass fraction] 99 % [employer] PA-C Work Phone: [facility] 04-29-2025 11:52-0400 Systolic blood pressure 154 mm[Hg] [employer] PA-C Work Phone: [facility] 04-29-2025 10:45-0400 Inhaled oxygen flow rate 2 L/min [employer] PA-C Work Phone: [facility] 04-29-2025 09:34-0400 Body height 162.56 cm [employer] PA-C Work Phone: [facility] 04-29-2025 09:34-0400 Body mass index (BMI) [Ratio] 25.4 kg/m2 [employer] PA-C Work Phone: [facility] 04-29-2025 09:34-0400 Body temperature 98.5 [degF] [employer] PA-C Work Phone: [facility] 04-29-2025 09:34-0400 Body weight 67.13 kg [employer] PA-C Work Phone: [facility] 04-01-2025 11:07-0400 Body height 162.56 cm [employer] PA-C Work Phone: [facility] 04-01-2025 11:07-0400 Body mass index (BMI) [Ratio] 25.7 kg/m2 [employer] PA-C Work Phone: [facility] 04-01-2025 11:07-0400 Body weight 68.03 kg [employer] PA-C Work Phone: [facility] 04-01-2025 11:07-0400 Diastolic blood pressure 91 mm[Hg] [employer] PA-C Work Phone: [facility] 04-01-2025 11:07-0400 Heart rate 97 /min [employer] PA-C Work Phone: [facility] 04-01-2025 11:07-0400 SaO2% (BldA) [Mass fraction] 97 % [employer] PA-C Work Phone: [facility] 04-01-2025 11:07-0400 Systolic blood pressure 163 mm[Hg] [employer] PA-C Work Phone: [facility] 12-20-2024 11:14-0500 Body height 162.56 cm [employer] PA-C Work Phone: [facility] 12-20-2024 11:14-0500 Body mass index (BMI) [Ratio] 24.3 kg/m2 [employer] PA-C Work Phone: [facility] 12-20-2024 11:14-0500 Body weight 64.41 kg [employer] PA-C Work Phone: [facility] 12-20-2024 11:14-0500 Diastolic blood pressure 96 mm[Hg] [employer] PA-C Work Phone: [facility] 12-20-2024 11:14-0500 Heart rate 90 /min [employer] PA-C Work Phone: [facility] 12-20-2024 11:14-0500 SaO2% (BldA) [Mass fraction] 97 % [employer] PA-C Work Phone: [facility] 12-20-2024 11:14-0500 Systolic blood pressure 152 mm[Hg] [employer] PA-C Work Phone: [facility] Encounters Encounter Date Encounter Type Care Provider Facility Start: 05-21-2025 End: 05-21-2025 Emergency department patient visit [employer] PA-C Work Phone: -Emergency Department Work Phone: Start: 05-10-2025 End: 05-10-2025 ambulatory [facility] PA-C Work Phone: -Laboratory Start: 05-10-2025 End: 05-10-2025 Patient encounter procedure Cyndi MILLIGAN -Laboratory Work Phone: Start: 05-10-2025 End: 05-10-2025 Patient encounter procedure Cyndi MILLIGAN -[facility] Work Phone: Start: 05-10-2025 End: 05-10-2025 ambulatory [facility] PA-C Work Phone: -[facility] Start: 05-10-2025 End: 05-10-2025 ambulatory [facility] Facility:[facility] Start: 05-02-2025 Encounter for other preprocedural examination Ankur Dunlap [facility] Start: 04-29-2025 End: 04-29-2025 ambulatory [facility] PA-C Work Phone: -[facility] Start: 04-29-2025 End: 04-29-[address] Ankur Dunlap MD -[facility] Work Phone: Start: 04-29-2025 End: 04-29-2025 ambulatory Ankur Dunlap Facility:[facility] Start: 04-01-2025 End: 04-01-[address] Ankur Dunlap MD -[facility] Work Phone: Start: 04-01-2025 End: 04-01-2025 ambulatory [facility] PA-C Work Phone: [facility] Work Phone: Start: 02-14-2025 End: 02-14-2025 Patient encounter procedure SUN FLOWERS MD -Laboratory Work Phone: Start: 02-14-2025 End: 02-14-2025 ambulatory [facility] Facility:[facility] Start: 01-21-2025 End: 01-21-2025 ambulatory Genia GARSIA [facility] Start: 12-31-2024 End: 12-31-2024 ambulatory [facility] PA-C Work Phone: [facility] Work Phone: Start: 12-31-2024 End: 12-31-[address] Ankur Dunlap MD -[facility] Work Phone: Start: 12-31-2024 End: 12-31-2024 ambulatory Ankur Dunlap Facility:[facility] Start: 12-21-2024 End: 12-21-2024 ambulatory Genia GARSIA LIONEL [facility] Start: 12-20-2024 End: 12-20-[address] Ankur Dunlap MD -[facility] Work Phone: Start: 12-20-2024 End: 12-20-2024 ambulatory Ankur Dunlap Facility:[facility] Start: 12-11-2024 End: 12-11-2024 ambulatory [facility] Start: 12-07-2024 End: 12-07-2024 ambulatory [facility] Start: 12-02-2024 End: 12-02-2024 Emergency department patient visit DARIO DAWSON [facility] Start: 08-06-2024 End: 08-06-2024 ambulatory [facility] Facility:[facility] Start: 08-06-2024 End: 08-06-2024 ambulatory Jared Self Facility:[facility] Start: 06-27-2024 End: 06-27-2024 Emergency department patient visit SEAMUS VÁSQUEZ [facility] Start: 03-14-2024 End: 03-14-2024 ambulatory [facility] Start: 12-15-2022 End: 12-15-2022 ambulatory PA-C [facility] PA Work Phone: [facility] Work Phone: Start: 12-15-2022 End: 12-15-2022 Patient encounter procedure PA-Orestes Rissa Tran PA Work Phone: [facility] Start: 08-24-2022 End: 08-24-2022 Patient encounter procedure PA-Orestes Rissa Tran PA Work Phone: [facility] Start: 06-13-2022 End: 06-13-[address] Jared Self Work Phone: [facility] Work Phone: Start: 06-13-2022 End: 06-13-[address] Jared Self Work Phone: [facility]-Laboratory, Specimen Start: 06-09-2022 End: 06-09-[address] Jared Self Work Phone: [facility] Start: 06-09-2022 End: 06-09-[address] Jared Self Work Phone: [facility] Start: 10-12-2017 Ambulatory PROVIDER UNKNOWN Facili ty:OUTREACH Procedures Date Procedure Procedure Detail Performing Clinician Start: 05-21-2025 Urnls dip stick/tabl et reagent [facility] [employer] Work Phone: Start: 05-21-2025 Plain chest X-ray Fritz thorpe [facility] [employer] Work Phone: Start: 05-21-2025 D-dimer assay, quantitative Rissa Hills [employer] Work Phone: Comment on above: NORMAL D-Dimer level (<0.50) indicates no DVT or PE. Start: 05-21-2025 Estimated creatinine clearance Rissa [facility] Work Phone: Start: 05-10-2025 Procedure Rissa [place] [facility] [employer] Work Phone: Comment on above: Test Ordered: [id number] IgG, Subclass 4IgG, Subclass 4 15 mg/dL Reference Range: 2-96Performed at: [address] [id number] Director: Jet Valladares PhD, Phone: [phone] Start: 04-29-2025 Biopsy/Inj or Needle Placement [facility] PA-C Work Phone: Start: 02-14-2025 Urnls dip stick/tabl et reagent auto microscopy [facility] PA-C Work Phone: Start: 02-14-2025 CODY measurement [facility] PA-C Work Phone: Start: 02-14-2025 Antibody to centrome re measurement [facility] PA-C Work Phone: Start: 02-14-2025 Antibody to extracta ble nuclear antigen measurement [facility] PA-C Work Phone: Start: 02-14-2025 Antibody to PADMA-1 measurement [facility] PA-C Work Phone: Start: 02-14-2025 Antibody to lupus La protein measurement [facility] PA-C Work Phone: Start: 02-14-2025 Antibody to SS-A measurement [facility] PA-C Work Phone: Start: 02-14-2025 Autoantibody measurement [facility] PA-C Work Phone: Start: 02-14-2025 Ceruloplasmin measurement [facility] PA-C Work Phone: Start: 02-14-2025 Copper measurement, serum [facility] Work Phone: Comment on above: Detection Limit = 5P erformed at: [facility] [address] [id number] [place], [place] [id number] Director: Jet Valladares PhD, Phone: [phone] at: [address] [id number] Director: Thu Bradley MD, Phone: [phone] Start: 02-14-2025 Hepatitis A virus an tibody, IgM type [employer] Work Phone: Comment on above: A negative anti-HAV IgM result suggests no recent orcurrent HAV infection. Start: 02-14-2025 Hepatitis B core ant ibody measurement, IgM type [employer] Work Phone: Start: 02-14-2025 Hepatitis C antibody measurement [employer] PA-C Work Phone: Start: 02-14-2025 Procedure Rissashanika rosss PA-C Work Phone: Comment on above: Test Ordered: [id number] Enhanced Liver Fibrosis (ELF)ELF(TM) Score 10.46 [H ] BN Reference Range: <9.80ELF(TM) Score Interpretation:Risk cut-offs to [...] STELLAR trials. J Hepatol. 2020 Apr;73(1):26-39.Performed at: [facility] [address] [id number] Director: Thu Bradley MD, Phone: [phone] at: [facility] [address] [id number] Director: Jet Valladares PhD, Phone: [phone] Start: 02-14-2025 MERCHANDISING LEAD antibody measurement [employer] Work Phone: Start: 02-14-2025 Total iron binding c apacity measurement [employer] Work Phone: Start: 12-31-2024 Ultrasound elastogra phy of liver Rissa Miami PA-C Work Phone: Clostridium difficil e detection Dr. Jared Self Work Phone: Lactoferrin measurement Dr. Jared Self Work Phone: Plan of Treatment Date Care Activity Detail Author Start: 05-21-2025 [facility] Start: 05-21-2025 Measurement of C-mamadou ctive protein using high sensitivity technique [facility] Start: 05-21-2025 [facility] Start: 04-29-2025 Biopsy liver needle percutaneous NEEDLE BIOPSY OF LIVER PERQ [facility] Start: 04-29-2025 Catheterization of vein [facility] Start: 04-29-2025 Oxygen therapy [facility] Start: 04-29-2025 Patient discharge [facility] Start: 04-29-2025 Vital signs measurements [facility] Start: 06-13-2022 5-Hydroxyindoleaceta te [Mass/volume] in 24 hour Urine [facility] Work Phone: Start: 06-13-2022 Elastase, pancreatic (el-1), fecal; quantitative [facility] Work Phone: Start: 06-13-2022 Protein measurement [facility] Work Phone: Start: 06-09-2022 Immunoglobulin measurement [facility] Work Phone: Start: 06-09-2022 Procedure [facility] Work Phone: Start: 06-09-2022 Serum immunofixation [facility] Work Phone: Start: 06-09-2022 [facility] Work Phone: 5-Hydroxyindoleaceta te [Mass/volume] in 24 hour Urine [facility] Work Phone: 5-Hydroxyindoleaceti c acid measurement [facility] Work Phone: Acute hepatitis 2000 panel - Serum [facility] Albumin [Moles/volum e] in Serum or Plasma [facility] Work Phone: Albumin/Globulin ratio [facility] Work Phone: Bilirubin.direct [Mass/volume] in Serum or Plasma [facility] C reactive protein [Mass/volume] in Serum or Plasma [facility] CBC W Auto Different ial panel - Blood [facility] CBC W Auto Different ial panel - Blood [facility] Ceruloplasmin [Mass/ volume] in Serum or Plasma [facility] metabo lic 1999 panel - Serum or Plasma [facility] metabo [facility] 1999 panel - Serum or Plasma [facility] Copper [Moles/volume ] in Serum or Plasma [facility] Cytoplasmic ANCA Screen [facility] Electrophoresis: [id number] [facility] Work Phone: Electrophoresis: des ma globulin [facility] Work Phone: Ferritin [Mass/volum e] in Serum or Plasma [facility] Gamma glutamyl trans ferase measurement [facility] Gamma glutamyl trans ferase measurement [facility] Globulin measurement [facility] Work Phone: Hemoglobin A1c/Hemoglobin.total in Blood [facility] Hemoglobin A1c/Hemoglobin.total in Blood [facility] IgA [Mass/volume] in Serum or Plasma [facility] Work Phone: IgE [Units/volume] i n Serum or Plasma [facility] Work Phone: IgG [Mass/volume] in Serum or Plasma [facility] Work Phone: IgM [Mass/volume] in Serum or Plasma [facility] Work Phone: Iron and Iron bindin g capacity panel - Serum or Plasma [facility] Lactate dehydrogenas e measurement [facility] Lactate dehydrogenas e measurement [facility] Lactate dehydrogenas e measurement [facility] Mitochondria Ab [Pre sence] in Serum [facility] Neutrophil cytoplasm ic Ab.classic [Units/volume] in Serum [facility] Work Phone: P-ANCA measurement [facility] Work Phone: Patient Education [facility] Work Phone: Procedure [facility] Work Phone: Procedure [facility] Procedure [facility] Protein electrophore sis panel - Serum or Plasma [facility] Work Phone: Protein measurement [facility] Work Phone: Prothrombin time [facility] Prothrombin time [facility] Serum protein electrophoresis [facility] Work Phone: Smooth muscle Ab [Pr esence] in Serum [facility] T4 free measurement [facility] Thyroid stimulating hormone measurement [facility] Urinalysis complete panel - Urine [facility] Payers Date Payer Category Payer Self-pay 2024 Unknown [id number] 2013 Unknown [id number] 1970 Unknown [id number] 2.16.8 [id number] 1970 Unknown [id number] 2.16.8 [id number] 1970 Unknown [id number] 2.16.8 40.1.734309.3.579.2.651 1970 Unknown [id number] 2.16.8 40.1.083996.3.579.2.651 1970 Unknown [id number] 2.16.8 40.1.057613.3.579.2.651 1970 Unknown [id number] 2.16.8 40.1.290804.3.579.2.651 1970 Unknown [id number] 2.16.8 40.1.017544.3.579.2.651 Unknown [id number] 2.16.8 40.1.638543.3.579.2.462 Unknown [id number] 2.16.8 40.1.452075.3.579.2.462 Unknown [id number] 2.16.8 40.1.936152.3.579.2.462 Unknown [id number] 2.16.8 40.1.795699.3.579.2.462 Unknown [id number] 2.16.8 40.1.663298.3.579.2.462 Unknown [id number] 2.16.8 40.1.887740.3.579.2.462 Unknown [id number] 2.16.8 40.1.627749.3.579.2.462 Unknown [id number] 2.16.8 40.1.338313.3.579.2.462 Unknown [id number] 2.16.8 40.1.884748.3.579.2.462 Unknown [id number] 2.16.8 40.1.081897.3.579.2.462 Social History Date Type Detail Facility Tobacco smoking stat [facility] Unknown if ever smoked [facility] Work Phone: Start: 1970 Sex Assigned At Female [facility] Start: 12-15-2022 Tobacco smoking stat [facility] Unknown if ever smoked [facility] Start: 11-23-2023 End: 05-21-2025 Tobacco smoking status NHIS Never smoked tobacco (finding) [facility] Start: 01-10-2025 Sex Female (finding) [facility] Mental Status Date Assessment Result Facility 05-21-2025 Cognitive function Level Of Cons ciousness Awake;Alert;Appropriate [facility] Work Phone: 04-29-2025 Cognitive function Awake;Alert;Appropriat e [facility] Work Phone: Clinical Notes 09-22-2022 to 05-21-2025 Note Date & Type Note Facility 05-21-2025 Radiology Diagnostic study note [facility] Imaging Services [address] [place], [place] [address] Chest 1 View (Portable) MR#: [id number] Acct: [id number] Name: GWENDOLYNHONG HANNON Rep #: [id number] : 1970 F 55 From: Aracelis Morrow MD PCP: Rissa Tran PA-C Status: REG E R Study:Chest 1 View (Portable) Date of Exam: 05/21/25 Exam# [id number] Ordering Dr: Yudi Campbell DO PROCEDURE: CHEST [...] Location: [facility]ZEB CC: CHANDLER Tran; Dr. Nicola Campbell DO ~ Room Service Food Server: Signed [facility] 04-29-2025 Radiology Diagnostic study note [facility] Imaging Services [address] [place] [address] Biopsy/Inj or Needle Placement MR#: [id number] Acct: [id number] Name: HONG SNOW Rep #: [id number] : 1970 F 55 From: Yoel Sandra MD PCP: Rissa Tran PA-C Status: REG C LI Study:Biopsy/Inj or Needle Placement Date of Exam: 04/29/25 Exam# [id number] Ordering Dr: Ruchi Dunlap MD EXAM: CT-guided [...] of the liver as described. Reading Location: [facility] CC: CHANDLER Tran; Dr. Ankur Dunlap MD ~ Room Service Food Server: Signed [facility] 04-01-2025 Evaluation note Diagnosis Onset Date Resolution Elevated liver enzymes acute April 01, 2025 1 1:04am [facility] Work Phone: 1(447) 578-241206-09-2025 Evaluation note* Diagnosis Onset Date Resolution Status Admit Date Elevated liver enzymes acute 2024 11:04am Cirrhosis acute May 10 11:09am Elevated liver enzymes acute 2024 11:09am [facility] Work Phone: 1(838) 121-575403-10-2025 Radiology Diagnostic study note [facility] Imaging Services [address] [place] [address] ABD Limited w/ Elastography MR#: [id number] Acct: [id number] Name: HONG SNOW Rep #: [id number] : 1970 F 54 From: Joy More MD PCP: Rissa Tran PA-C Status: REG C BATSHEVA Study:ABD Limited w/ Elastography Date of Exa m: 12/31/24 Exam# [id number] Ordering Dr: Ruchi Dunlap MD PROCEDURE: ABD LIMITED W/ ELASTOGRAPHY (USABDLELPARO), 12/31/2024 REASON FOR EXAM: Elevated liver enzymes. COMPARISON: None TECHNIQUE: Grayscale and color Doppler imaging of the right upper quadrant was performed. B-152 S-shear waveelastography was performed for non-invasive assessment [...] (15kPa): Significant fibrosis / cirrhosis Reading Location: [id number] CC: CHANDLER Tran; Dr. Ankur Dunlap MD ~ Room Service Food Server: Signed [facility]02-27-2025 Evaluation note* Diagnosis Onset Date Resolution Status Admit Date Elevated liver enzymes acute Fe bruary 2024 10:51am [facility] Work Phone: 1(764) 838-287702-27-2025 Evaluation note* Diagnosis Onset Date Resolution Status Admit Date Elevated liver enzymes acute Fe bruary 2024 10:51am Elevated liver enzymes acute Ju ne 2024 11:04am [facility] Work Phone: 1(998) 218-643002-09-2025 NoteDischarge Instructions Discharge Summary [address] [address] [id number] 12/02/2024 Patient: HONG SNOW Sex: Female : 1970 Age: 54y Thank you for visiting [facility]. You have been evaluated today by Dario Dawson D.O. for the following condition(s): Principal Diagnosis Headache. Viral syndrome elevated liver enzymes AST, ALT and ALK PHOS. INSTRUCTIONS Prescription Medications: Zithromax Z-Keith tablet (azithromycin) 250: Take 2 tablet by mouth once a day for 5 days, dispense 6tablet. Refills 0. Notes 2 tablets today and then 1 tab for next 4 days dispensed 6. Pharmacy: [facility] [phone] [place] [address]. prednisone 20 mg tablet: Take 1 tablet by mouth twice a day for 5 days, dispense 10 tablet. Refills0. Pharmacy: [facility] [phone] [place] [address]. Follow-up with: ANN Sharp, [facility], [facility] Care, Phone: [phone], [address] [facility] [address] [place] [address]. Follow up in two days. (Return if increasing cough any problems or concerns. Have her liver rechecked including her AST ALT and alk-phos. Return if any difficulties or concerns.). 1 of 7 Discharge Instructions You have been given the following additional information: Viral Syndrome (Adult) Pneumonia (Adult) Patient Signature Facility Wine [facility] Date/Time General Instructions with ExitWriter [address] [place] [address] [phone] 12/02/2024 Patient: HONG SNOW Sex: Female : 1970 Age: 54y Thank you for visiting [facility]. You have been evaluated today by Dario Dawson D.O. for the following condition(s): Principal Diagnosis Headache. Viral syndrome elevated liver enzymes AST, ALT and ALK PHOS. INSTRUCTIONS Prescription Medications: Zithromax Z-Keith tablet (azithromycin) 250: Take 2 tablet by mouth once a day for 5 days, dispense 6tablet. Refills 0. Notes 2 tablets today and then 1 tab for next 4 days dispensed 6. Pharmacy: [facility] [phone] [place] [address]. 2 of 7 Discharge Instructions prednisone 20 mg tablet: Take 1 tablet by mouth twice a day for 5 days, dispense 10 tablet. Refills0. Pharmacy: [facility] [phone] [place] [address]. Follow-up with: ANN Sharp, [facility], Phone: [phone], [address] [facility] [address] [facility], [place] [address]. Follow up in two days. (Return if [...] the smoke from others. You may use [id number] acetaminophen or ibuprofen for fever, muscle aching, [...] If you have bee (more content not included)...[facility]11-30-2022 Note. MICRO - Microbiology PROCEDURE: Blood [...] Locations *1: This test was performed at: [address], [address] [place] [address])09-22-2022 Note. MICRO - Microbiology PROCEDURE: Blood Culture [...] Locations *1: This test was performed at: [address], [address] [place] [address] (MD)Evaluation note* Diagnosis Onset Date Resolution Status Diarrhea acute [facility] Work Phone: Evaluation note* Diagnosis Onset Date Resolution Status Diarrhea resolved Diarrhea resolved [facility] Work Phone: Reason for referral (narrative)No [facility] for [facility] Work [facility]: Summary Purpose Family History No Family History Records FoundNo Family History Records FoundNo Family History Records FoundNo Family History Records FoundNo Family History Records FoundNo Family History Records FoundNo Family History Records Found Advance Directives No Advanced Directives Records Found Advance Directive Response Recorded Date/ Time Living Will No August 10 8:48am Power of Advertising Space Clerk No August 10, 2022 8:48am Advance Directive Response Recorded Date/ Time Do you have a Healthcare Power of Advertising Space Clerk? No May 21, 2025 10:47am Chief Complaint [...] [employer] hernandez 2024 12:27pm Reason for Visit Admit Date [...] section and content) DATE CREATED AUTHOR 04/17/2018 [facility] DATE CREATED AUTHOR AUTHOR'S ORGANIZ ATION 07/25/2019 [facility] DATE CREATED AUTHOR AUTHOR'S ORGANIZ ATION 05/15/2020 [facility] DATE CREATED AUTHOR AUTHOR'S ORGANIZ ATION 09/23/2022 [facility] ([place]) DATE CREATED AUTHOR AUTHOR'S ORGANIZ ATION 01/27/2025 [facility] DATE CREATED AUTHOR AUTHOR'S ORGANIZ ATION 01/28/2025 [facility] DATE CREATED AUTHOR AUTHOR'S ORGANIZ ATION 05/22/2025 [facility] Goals (unrecognized section and content) Goals may [...] Team Status: Active Member Role Status Dates Rissashanika Tran PA, PA-C Primary Care Provider Active Team Status: Inactive Member Role Status Dates Rissa Hills PA, PA-C Primary Care Provider, Referri ng [...] 01, 2025 End: April 01, 2025 Rissa Tran PA, PA-C Referring Provider Active Start: April [...] 01, 2025 End: April 01, 2025 Rissa Tran PA, PA-C Referring Provider Active Start: April [...] Status: Inactive Member Role/Relationship Status Dates Rissa Chelsea PA, PA-C Primary Care Provider Active Start: May 10, 2025 End: May 10, 2025 Rissa Miami PA, PA-C Referring Provider Active Start: May 10, 2025 End: May 10, 2025 JEFF AlamoC Attending Provider Active Start: May 10, 2025 End: May 10, 2025 Team Status: Inactive Member Role/Relationship Status Dates Rissa Hills PA, PA-C Primary Care Provider Active Start: May 10, 2025 End: May 10, 2025 Cyndi Foy NP-C Attending Provider Active Start: May 10, 2025 End: May 10, 2025 Cyndi Foy NP-Orestes Referring Provider Active Start: May 10, 2025 [...] BE BASED ON THE PRIMARY CLINICAL RECORDS. [facility] [employer] provides no warranty or guarantee of the accuracy or completeness of information in this document.
== END | disposition home or self-care (01) ==
LOC: LAB 11:01
PROVIDERS: PCP Family Medicine; Referring Provider Internal Medicine; Visit Provider Internal Medicine
DX: R74.8 Abnormal levels of other serum enzymes (principal); K58.0 Irritable bowel syndrome with diarrhea

== ENCOUNTER → 2025-06-12 | Outpatient (CLI) | payer BC, SELFPAY ==
[2025-06-12 16:19] LABS: Hematocrit 43.7 % (37-47); Hemoglobin 15.0 g/dL (12.0-15.0); Immature Granulocytes Count 0.220 X10^3/uL (0.0-0.0); Mean Corp Hgb Conc 34.3 g/dL (32-36); Mean Corpuscular Volume 93.4 fL (81-99); Mean Platelet Vol. 9.6 fl (6.2-12.0); NRBC Flagged by Analyzer 0 % (0-5); POSITIVE DIFFERENTIAL YES; Platelet Count 274 K/mm3 (150-450); RBC Distribution Width CV 12.7 % (11.6-14.6); RBC Distribution Width SD 43.3 fl (35.1-43.9); Red Blood Count 4.68 M/mm3 (4.2-5.4); White Blood Count 10.7 K/mm3 (4.4-11.0)
[2025-06-12 17:02] LABS: Prothrombin Time (Protime)PT. 12.1 SECONDS (11.7-14.9)
[2025-06-12 17:28] LABS: AST(SGOT) 32 U/L (<=31); Alanine Aminotransfer ALT/SGPT 37 U/L (<=34); Albumin, Serum 4.1 g/dL (3.5-5.0); Alkaline Phosphatase 91 U/L (35-104); Anion Gap 16 (5-15); BUN 22 mg/dL (4-19); BUN/Creat Ratio 25.9 RATIO (10-20); Bilirubin, Direct 0.14 mg/dL (0.00-0.30); Calcium,Total 8.7 mg/dL (7.6-11.0); Carbon Dioxide 21.0 mmol/L (21.0-32.0); Chloride 102 mmol/L (98-108); Globulin 2.4 g/dL (2.2-4.2); Glucose 245 mg/dL (70-99); Potassium 4.2 mmol/L (3.3-5.1)
== END | disposition home or self-care (01) ==
LOC: LAB 15:03
PROVIDERS: PCP Family Medicine; Referring Provider Internal Medicine; Visit Provider Internal Medicine
DX: R74.8 Abnormal levels of other serum enzymes (principal); K74.60 Unspecified cirrhosis of liver; K75.4 Autoimmune hepatitis; K58.0 Irritable bowel syndrome with diarrhea
CPT/HCPCS: 36415; 80053; 82248; 85025; 85610